=== PATIENT | female | born 1935 | race Caucasian/White ===

== ENCOUNTER 2019-06-16 20:30 | Inpatient (IN) | payer MEDICARE, MEDICAID ==
[~2019-06-16] VITALS: Ht 162.6 cm; Wt 65.3 kg
[2019-06-16 21:01] LABS: BASOPHILS # (AUTO) 0.1 K/uL (0.0-8.0); BASOPHILS % (AUTO) 0.8 % (0.0-2.0); EOSINOPHILS # (AUTO) 0.1 K/uL (0.0-0.7); EOSINOPHILS % (AUTO) 1.1 % (0.0-7.0); HEMATOCRIT 24.5 % (31.2-41.9); HEMOGLOBIN 7.7 g/dL (10.9-14.3); LYMPHOCYTES % (AUTO) 8.6 % (20.5-51.5); MEAN CORPUSCULAR HEMOGLOBIN 28.7 uug (24.7-32.8); MEAN CORPUSCULAR HGB CONC 32 g/dL (32.3-35.6); MEAN CORPUSCULAR VOLUME 90.7 fL (75.5-95.3); MONOCYTES # (AUTO) 0.7 K/uL (2.0-10.0); MONOCYTES % (AUTO) 5.6 % (0.0-11.0); NEUTROPHILS % (AUTO) 83.9 % (38.5-71.5); PLATELET COUNT (AUTO) 594 K/uL (179-408); WHITE BLOOD COUNT (AUTO) 11.9 K/uL (3.8-11.8)
[2019-06-16 21:08] LABS: CARBON DIOXIDE 29 mmol/L (21-32); CHLORIDE 98 mmol/L (98-107); CREATININE 2.4 mg/dL (0.6-1.3); GLUCOSE 94 mg/dL (74-106); POTASSIUM 4.9 mmol/L (3.5-5.1); UREA NITROGEN, BLOOD 32 mg/dL (7-18)
[2019-06-16 21:10] VITALS: BP 132/69
[2019-06-16] MEDS ORDERED: LEVO500T90 IV (21:16)
[2019-06-16] MEDS ORDERED: AMIO200T4 PO (21:16)
[2019-06-16] MEDS ORDERED: LEVE500T20 PO (21:16)
[2019-06-16] MEDS ORDERED: FURO-152 PO (21:16)
[2019-06-16] MEDS ORDERED: ESCI20TA37 PO (21:16)
[2019-06-16] MEDS ORDERED: ATOR80TA PO (21:16)
[2019-06-16] MEDS ORDERED: CYAN100T3 PO (21:16)
[2019-06-16] MEDS ORDERED: APIX2.5T PO (21:16)
[2019-06-16] MEDS ORDERED: GABA-532 PO (21:16)
[2019-06-16] MEDS ORDERED: CHOL200078 PO (21:16)
[2019-06-16] MEDS ORDERED: FAMO20TA8 PO (21:16)
[2019-06-16] MEDS ORDERED: NITR0.4T SL (21:16)
[2019-06-16] MEDS ORDERED: METO25TA6 PO (21:16)
[2019-06-16] MEDS ORDERED: ACID1TAB4 PO (21:16)
[2019-06-16] MEDS ORDERED: ACET-2154 PO (21:16)
[2019-06-16] MEDS ORDERED: ALBU1.25 NEB (21:16)
[2019-06-16] MEDS ORDERED: FOLI1TAB16 PO (21:16)
[2019-06-16] MEDS ORDERED: POTA10TA10 PO (21:16)
[2019-06-16] MEDS ORDERED: ASPI81TA31 PO (21:16)
[2019-06-16] MEDS ORDERED: NITROGLYCERIN 0.4 MG/TAB BOTTLE SL SCH (22:15)
[2019-06-16] MEDS ORDERED: TEMAZEPAM 15 MG CAPSULE PO PRN (22:15)
[2019-06-16] MEDS ORDERED: ONDANSETRON 4 MG/2 ML VIAL IV PRN (22:15)
[2019-06-16] MEDS ORDERED: ALBUTEROL SULFATE 2.5 MG/3 ML NEBU NEB PRN (22:15)
[2019-06-17] VITALS (31 sets, daily range): BP systolic 87–153; BP diastolic 30–89
[2019-06-17] MEDS: PIPERACILLIN/TAZO 2.25 G in IV DEXTROSE 5% 50 ML IV SCH ×2 (00:35→06:12)
[2019-06-17] MEDS ORDERED: HEPARIN SODIUM,PORCINE 10,000 UNITS/10 ML VIAL IVP ONE (02:00)
[2019-06-17] MEDS ORDERED: HEPARIN SODIUM,PORCINE 5,000 UNITS/ML VIAL ONE (02:23)
[2019-06-17 02:33] LABS: *BILIRUBIN,URIN NEGATIVE (NEGATIVE); *BLOOD, URINE NEGATIVE (NEGATIVE); *CLARITY,URINE CLEAR (CLEAR); *COLOR,URINE YELLOW (YELLOW); *KETONES,URINE NEGATIVE (NEGATIVE); *UROBILINOGEN,URINE 0.2 E.U./dl (NORMAL); LEUKOCYTE ESTERASE ,URINE NEGATIVE (NEGATIVE); NITRITE, URINE NEGATIVE (NEGATIVE); UGLUCOSE NEGATIVE (NEGATIVE)
[2019-06-17 02:39] LABS: BACTERIA,URINE NONE SEEN /HPF (NONE SEEN); MUCUS,URINE FEW /LPF (0-FEW); RBC,URINE 0-3 /HPF (0-3); SQUAMOUS EPITHELIAL CELL,UR MODERATE /HPF (NONE SEEN); WBC,URINE 0-3 /HPF (0-3)
[2019-06-17] MEDS ORDERED: HEPARIN SODIUM,PORCINE 5,000 UNITS/ML VIAL IV SCH (02:45)
[2019-06-17] MEDS: HEPARIN/D5W DRIP 500 ML IV PRN (02:45)
[2019-06-17 05:23] LABS: ALANINE AMINOTRANSFERASE 7 U/L (14-59); ALKALINE PHOSPHATASE 61 U/L (50-136); ASPARTATE AMINOTRANSFERASE 9 U/L (15-37); BILIRUBIN,TOTAL 0.3 mg/dL (0.2-1.0); CARBON DIOXIDE 29 mmol/L (21-32); CHLORIDE 98 mmol/L (98-107); CHOLESTEROL 124 mg/dL (<200); CREATININE 2.5 mg/dL (0.6-1.3); GLUCOSE 108 mg/dL (74-106); HDL CHOLESTEROL 29 mg/dL (40-60); MAGNESIUM 1.6 mg/dL (1.8-2.4); PHOSPHOROUS 4.4 mg/dL (2.5-4.9); POTASSIUM 4.5 mmol/L (3.5-5.1); TOTAL PROTEIN, SERUM 6.9 g/dL (6.4-8.2); TRIGLYCERIDES 49 MG/DL (30-150); UREA NITROGEN, BLOOD 31 mg/dL (7-18)
[2019-06-17 05:32] LABS: THYROID STIMULATING HORMONE 4.306 mIU/mL (0.358-3.740)
[2019-06-17 05:45] LABS: BASOPHILS # (AUTO) 0.1 K/uL (0.0-8.0); BASOPHILS % (AUTO) 0.7 % (0.0-2.0); EOSINOPHILS # (AUTO) 0.2 K/uL (0.0-0.7); EOSINOPHILS % (AUTO) 1.8 % (0.0-7.0); HEMATOCRIT 24.2 % (31.2-41.9); HEMOGLOBIN 7.8 g/dL (10.9-14.3); LYMPHOCYTES # (AUTO) 1.2 K/uL (20.0-40.0); LYMPHOCYTES % (AUTO) 9.5 % (20.5-51.5); MEAN CORPUSCULAR HEMOGLOBIN 29.9 uug (24.7-32.8); MEAN CORPUSCULAR HGB CONC 32 g/dL (32.3-35.6); MEAN CORPUSCULAR VOLUME 93.5 fL (75.5-95.3); MONOCYTES # (AUTO) 0.7 K/uL (2.0-10.0); MONOCYTES % (AUTO) 5.7 % (0.0-11.0); NEUTROPHILS # (AUTO) 10.2 K/uL (1.8-8.9); NEUTROPHILS % (AUTO) 82.3 % (38.5-71.5); PLATELET COUNT (AUTO) 569 K/uL (179-408); RED BLOOD CELL COUNT(AUTO) 2.59 MIL/uL (3.63-4.92); WHITE BLOOD COUNT (AUTO) 12.4 K/uL (3.8-11.8)
[2019-06-17 06:04] LABS: IRON, SERUM 21 ug/dL (50-175)
[2019-06-17] MEDS ORDERED: FUROSEMIDE 20 MG/2 ML VIAL IV PRN (08:00)
[2019-06-17] MEDS ORDERED: HEPARIN SODIUM,PORCINE 5,000 UNITS/ML VIAL IV PRN (08:30)
[2019-06-17] MEDS ORDERED: Medication Not On Formulary EA (Apixaban (Eliquis) 2.5 MG) PO SCH (09:00)
[2019-06-17] MEDS ORDERED: Medication Not On Formulary EA (Escitalopram Oxalate 1 TAB) PO SCH (09:00)
[2019-06-17] MEDS: MAGNESIUM SULFATE/D5W 100 ML IV SCH ×2 (09:02→10:42)
[2019-06-17] MEDS: FUROSEMIDE 20 MG/2 ML VIAL IV SCH (09:03)
[2019-06-17] MEDS: FAMOTIDINE 20 MG TABLET PO SCH (09:03)
[2019-06-17] MEDS: ASPIRIN 81 MG TAB.CHEW PO SCH (09:03)
[2019-06-17] MEDS: PROTEIN SUPPLEMENT (PROSTAT) 30 ML LIQUID PO SCH ×3 (09:03→17:14)
[2019-06-17] MEDS: METOPROLOL TARTRATE 25 MG TABLET PO SCH ×2 (09:04→17:00)
[2019-06-17] MEDS: ESCITALOPRAM OXALATE 10 MG TABLET PO SCH (09:04)
[2019-06-17] MEDS: ACIDOPHILUS/BULGARICUS CHEW TAB PO SCH ×2 (09:04→17:16)
[2019-06-17] MEDS: LEVETIRACETAM 500 MG TABLET PO SCH ×2 (09:04→17:16)
[2019-06-17] MEDS: AMIODARONE HCL 200 MG TABLET PO SCH (09:04)
[2019-06-17] MEDS ORDERED: TEMAZEPAM 7.5 MG CAPSULE PO PRN (10:00)
[2019-06-17] MEDS: GABAPENTIN 100 MG CAPSULE PO SCH ×3 (10:48→17:16)
[2019-06-17 10:55] LABS: *BILIRUBIN,URIN NEGATIVE (NEGATIVE); *CLARITY,URINE CLEAR (CLEAR); *COLOR,URINE YELLOW (YELLOW); *KETONES,URINE NEGATIVE (NEGATIVE); *UROBILINOGEN,URINE 0.2 E.U./dl (NORMAL); LEUKOCYTE ESTERASE ,URINE NEGATIVE (NEGATIVE); NITRITE, URINE NEGATIVE (NEGATIVE); UGLUCOSE NEGATIVE (NEGATIVE)
[2019-06-17 11:18] LABS: *BLOOD, URINE TRACE (NEGATIVE)
[2019-06-17 11:30] LABS: *CREATININE,URINE 27.6 mg/dL (30-125); *URINE TOTAL PROTEIN RANDOM 44.2 mg/dL (<150/24HR); RBC,URINE 0-3 /HPF (0-3)
[2019-06-17 11:31] LABS: SQUAMOUS EPITHELIAL CELL,UR FEW /HPF (NONE SEEN)
[2019-06-17] MEDS: MORPHINE SULFATE 2 MG/1 ML DISP.SYRIN IV PRN (12:36)
[2019-06-17] MEDS: PIPERACILLIN/TAZOBACTAM/D5W 3.375 G in PREMIXED 1 EACH IV SCH ×2 (12:41→23:38)
[2019-06-17 19:23] LABS: *OCCULT BLOOD STOOL NEGATIVE (NEGATIVE)
[2019-06-17] MEDS: ATORVASTATIN 20 MG TABLET PO SCH (20:36)
[2019-06-17] MEDS: DOCUSATE SODIUM 100 MG CAPSULE PO SCH (20:37)
[2019-06-17] MEDS ORDERED: DOCUSATE SODIUM 250 MG CAPSULE PO SCH (21:00)
[2019-06-18] VITALS (19 sets, daily range): BP systolic 102–157; BP diastolic 47–74
[2019-06-18] MEDS: HEPARIN/D5W DRIP 500 ML IV PRN (04:32)
[2019-06-18 06:37] LABS: BASOPHILS % (AUTO) 0.4 % (0.0-2.0); EOSINOPHILS # (AUTO) 0.3 K/uL (0.0-0.7); EOSINOPHILS % (AUTO) 2.4 % (0.0-7.0); HEMATOCRIT 27.4 % (31.2-41.9); HEMOGLOBIN 8.8 g/dL (10.9-14.3); LYMPHOCYTES # (AUTO) 1.5 K/uL (20.0-40.0); LYMPHOCYTES % (AUTO) 12.6 % (20.5-51.5); MEAN CORPUSCULAR HEMOGLOBIN 29.4 uug (24.7-32.8); MEAN CORPUSCULAR HGB CONC 32 g/dL (32.3-35.6); MEAN CORPUSCULAR VOLUME 91.1 fL (75.5-95.3); MONOCYTES # (AUTO) 0.6 K/uL (2.0-10.0); MONOCYTES % (AUTO) 5.2 % (0.0-11.0); NEUTROPHILS # (AUTO) 9.4 K/uL (1.8-8.9); NEUTROPHILS % (AUTO) 79.4 % (38.5-71.5); PLATELET COUNT (AUTO) 516 K/uL (179-408); RED BLOOD CELL COUNT(AUTO) 3.01 MIL/uL (3.63-4.92); WHITE BLOOD COUNT (AUTO) 11.8 K/uL (3.8-11.8)
[2019-06-18 07:03] LABS: ALANINE AMINOTRANSFERASE 6 U/L (14-59); ALKALINE PHOSPHATASE 70 U/L (50-136); ASPARTATE AMINOTRANSFERASE 13 U/L (15-37); BILIRUBIN,TOTAL 0.4 mg/dL (0.2-1.0); CARBON DIOXIDE 29 mmol/L (21-32); CHLORIDE 97 mmol/L (98-107); CREATINE KINASE, TOTAL 16 U/L (26-192); CREATININE 2.5 mg/dL (0.6-1.3); GLUCOSE 89 mg/dL (74-106); MAGNESIUM 2.1 mg/dL (1.8-2.4); PHOSPHOROUS 5.6 mg/dL (2.5-4.9); POTASSIUM 4.4 mmol/L (3.5-5.1); UREA NITROGEN, BLOOD 41 mg/dL (7-18)
[2019-06-18] MEDS ORDERED: Z GUARD REMEDY PASTE 57 GM TUBE TOP PRN (07:30)
[2019-06-18] MEDS: ASPIRIN 81 MG TAB.CHEW PO SCH (09:16)
[2019-06-18] MEDS: PROTEIN SUPPLEMENT (PROSTAT) 30 ML LIQUID PO SCH ×3 (09:16→18:02)
[2019-06-18] MEDS: LEVETIRACETAM 500 MG TABLET PO SCH ×2 (09:16→18:02)
[2019-06-18] MEDS: FAMOTIDINE 20 MG TABLET PO SCH (09:16)
[2019-06-18] MEDS: ACIDOPHILUS/BULGARICUS CHEW TAB PO SCH ×2 (09:18→18:03)
[2019-06-18] MEDS: GABAPENTIN 100 MG CAPSULE PO SCH ×3 (09:21→18:04)
[2019-06-18] MEDS: ESCITALOPRAM OXALATE 10 MG TABLET PO SCH (09:21)
[2019-06-18] MEDS: FUROSEMIDE 20 MG/2 ML VIAL IV SCH (09:22)
[2019-06-18] MEDS: AMIODARONE HCL 200 MG TABLET PO SCH (09:22)
[2019-06-18] MEDS: METOPROLOL TARTRATE 25 MG TABLET PO SCH ×2 (09:23→18:03)
[2019-06-18] MEDS: Z GUARD REMEDY PASTE 57 GM TUBE TOP SCH ×2 (09:25→22:12)
[2019-06-18] MEDS: PIPERACILLIN/TAZOBACTAM/D5W 3.375 G in PREMIXED 1 EACH IV SCH ×2 (13:33→23:50)
[2019-06-18] MEDS: ATORVASTATIN 20 MG TABLET PO SCH (22:11)
[2019-06-18] MEDS: DOCUSATE SODIUM 100 MG CAPSULE PO SCH (22:12)
[2019-06-19] VITALS (12 sets, daily range): BP systolic 109–126; BP diastolic 52–69
[2019-06-19] MEDS: HEPARIN/D5W DRIP 500 ML IV PRN (06:04)
[2019-06-19 06:51] LABS: BASOPHILS # (AUTO) 0.1 K/uL (0.0-8.0); EOSINOPHILS # (AUTO) 0.5 K/uL (0.0-0.7); EOSINOPHILS % (AUTO) 3.4 % (0.0-7.0); HEMOGLOBIN 8.8 g/dL (10.9-14.3); LYMPHOCYTES % (AUTO) 6.6 % (20.5-51.5); MEAN CORPUSCULAR HEMOGLOBIN 29.6 uug (24.7-32.8); MEAN CORPUSCULAR HGB CONC 32 g/dL (32.3-35.6); MEAN CORPUSCULAR VOLUME 91.5 fL (75.5-95.3); MONOCYTES # (AUTO) 0.8 K/uL (2.0-10.0); MONOCYTES % (AUTO) 5.4 % (0.0-11.0); NEUTROPHILS # (AUTO) 12.3 K/uL (1.8-8.9); NEUTROPHILS % (AUTO) 83.6 % (38.5-71.5); PLATELET COUNT (AUTO) 525 K/uL (179-408); RED BLOOD CELL COUNT(AUTO) 2.95 MIL/uL (3.63-4.92); WHITE BLOOD COUNT (AUTO) 14.7 K/uL (3.8-11.8)
[2019-06-19 07:08] LABS: ALANINE AMINOTRANSFERASE 9 U/L (14-59); ALKALINE PHOSPHATASE 78 U/L (50-136); ASPARTATE AMINOTRANSFERASE 18 U/L (15-37); BILIRUBIN,TOTAL 0.3 mg/dL (0.2-1.0); CARBON DIOXIDE 29 mmol/L (21-32); CHLORIDE 95 mmol/L (98-107); CREATININE 2.4 mg/dL (0.6-1.3); GLUCOSE 91 mg/dL (74-106); PHOSPHOROUS 5.6 mg/dL (2.5-4.9); POTASSIUM 4.5 mmol/L (3.5-5.1); UREA NITROGEN, BLOOD 51 mg/dL (7-18)
[2019-06-19] MEDS: Z GUARD REMEDY PASTE 57 GM TUBE TOP SCH ×2 (09:00→20:38)
[2019-06-19] MEDS: METOPROLOL TARTRATE 25 MG TABLET PO SCH ×2 (09:00→17:17)
[2019-06-19] MEDS: FUROSEMIDE 20 MG/2 ML VIAL IV SCH (09:50)
[2019-06-19] MEDS: FAMOTIDINE 20 MG TABLET PO SCH (09:50)
[2019-06-19] MEDS: PROTEIN SUPPLEMENT (PROSTAT) 30 ML LIQUID PO SCH ×3 (09:50→16:37)
[2019-06-19] MEDS: ESCITALOPRAM OXALATE 10 MG TABLET PO SCH (09:51)
[2019-06-19] MEDS: AMIODARONE HCL 200 MG TABLET PO SCH (09:51)
[2019-06-19] MEDS: ACIDOPHILUS/BULGARICUS CHEW TAB PO SCH ×2 (09:52→17:17)
[2019-06-19] MEDS: LEVETIRACETAM 500 MG TABLET PO SCH ×2 (09:52→17:19)
[2019-06-19] MEDS: GABAPENTIN 100 MG CAPSULE PO SCH ×3 (09:52→17:17)
[2019-06-19] MEDS: ASPIRIN 81 MG TAB.CHEW PO SCH (09:55)
[2019-06-19] MEDS: PIPERACILLIN/TAZOBACTAM/D5W 3.375 G in PREMIXED 1 EACH IV SCH (12:06)
[2019-06-19] MEDS: ATORVASTATIN 20 MG TABLET PO SCH (20:38)
[2019-06-19] MEDS: DOCUSATE SODIUM 100 MG CAPSULE PO SCH (20:38)
[2019-06-20] VITALS (9 sets, daily range): BP systolic 104–121; BP diastolic 48–56
[2019-06-20] MEDS: PIPERACILLIN/TAZOBACTAM/D5W 3.375 G in PREMIXED 1 EACH IV SCH ×3 (00:57→23:52)
[2019-06-20 05:42] LABS: BASOPHILS # (AUTO) 0.1 K/uL (0.0-8.0); BASOPHILS % (AUTO) 0.6 % (0.0-2.0); EOSINOPHILS # (AUTO) 0.3 K/uL (0.0-0.7); EOSINOPHILS % (AUTO) 2.5 % (0.0-7.0); HEMATOCRIT 27.9 % (31.2-41.9); LYMPHOCYTES % (AUTO) 7.2 % (20.5-51.5); MEAN CORPUSCULAR HEMOGLOBIN 29.4 uug (24.7-32.8); MEAN CORPUSCULAR HGB CONC 32 g/dL (32.3-35.6); MEAN CORPUSCULAR VOLUME 91.2 fL (75.5-95.3); MONOCYTES # (AUTO) 0.7 K/uL (2.0-10.0); NEUTROPHILS # (AUTO) 11.1 K/uL (1.8-8.9); NEUTROPHILS % (AUTO) 84.7 % (38.5-71.5); PLATELET COUNT (AUTO) 506 K/uL (179-408); RED BLOOD CELL COUNT(AUTO) 3.05 MIL/uL (3.63-4.92); WHITE BLOOD COUNT (AUTO) 13.1 K/uL (3.8-11.8)
[2019-06-20 05:53] LABS: CARBON DIOXIDE 32 mmol/L (21-32); CHLORIDE 96 mmol/L (98-107); CREATININE 2.7 mg/dL (0.6-1.3); GLUCOSE 89 mg/dL (74-106); MAGNESIUM 1.9 mg/dL (1.8-2.4); PHOSPHOROUS 5.9 mg/dL (2.5-4.9); POTASSIUM 4.5 mmol/L (3.5-5.1); UREA NITROGEN, BLOOD 48 mg/dL (7-18)
[2019-06-20] MEDS: HEPARIN/D5W DRIP 500 ML IV PRN (06:44)
[2019-06-20] MEDS: FUROSEMIDE 20 MG/2 ML VIAL IV SCH (09:25)
[2019-06-20] MEDS: METOPROLOL TARTRATE 25 MG TABLET PO SCH ×2 (09:26→17:19)
[2019-06-20] MEDS: ACIDOPHILUS/BULGARICUS CHEW TAB PO SCH ×2 (09:26→17:17)
[2019-06-20] MEDS: LEVETIRACETAM 500 MG TABLET PO SCH ×2 (09:27→17:17)
[2019-06-20] MEDS: AMIODARONE HCL 200 MG TABLET PO SCH (09:27)
[2019-06-20] MEDS: FAMOTIDINE 20 MG TABLET PO SCH (09:27)
[2019-06-20] MEDS: ESCITALOPRAM OXALATE 10 MG TABLET PO SCH (09:27)
[2019-06-20] MEDS: GABAPENTIN 100 MG CAPSULE PO SCH (09:28)
[2019-06-20] MEDS: ASPIRIN 81 MG TAB.CHEW PO SCH (09:28)
[2019-06-20] MEDS: PROTEIN SUPPLEMENT (PROSTAT) 30 ML LIQUID PO SCH ×3 (10:16→17:19)
[2019-06-20] MEDS: Z GUARD REMEDY PASTE 57 GM TUBE TOP SCH ×2 (13:15→20:15)
[2019-06-20] MEDS ORDERED: IV NORMAL SALINE 250 ML IV PRN (13:30)
[2019-06-20] MEDS: APIXABAN 5 MG TABLET PO SCH ×2 (15:12→20:14)
[2019-06-20 16:06] LABS: A/G RATIO 0.5 (0.7-1.7); ALBUMIN 2.1 g/dL (2.9-4.4); ALPHA-1-GLOBULIN 0.5 g/dL (0.0-0.4); ALPHA-2-GLOBULIN 0.7 g/dL (0.4-1.0); BETA GLOBULIN 0.9 g/dL (0.7-1.3); GAMMA GLOBULIN 2.2 g/dL (0.4-1.8); GLOBULIN, TOTAL 4.3 g/dL (2.2-3.9); M-SPIKE Not Observed g/dL (Not Observed)
[2019-06-20] MEDS: DOCUSATE SODIUM 100 MG CAPSULE PO SCH (20:14)
[2019-06-20] MEDS: ATORVASTATIN 20 MG TABLET PO SCH (20:14)
[2019-06-21 00:30] VITALS: BP 107/58
[2019-06-21 04:00] VITALS: BP 102/54
[2019-06-21] MEDS: ACETAMINOPHEN 325 MG TABLET PO PRN (05:13)
[2019-06-21 06:10] LABS: BASOPHILS # (AUTO) 0.1 K/uL (0.0-8.0); BASOPHILS % (AUTO) 0.7 % (0.0-2.0); EOSINOPHILS # (AUTO) 0.2 K/uL (0.0-0.7); EOSINOPHILS % (AUTO) 1.2 % (0.0-7.0); HEMATOCRIT 26.1 % (31.2-41.9); HEMOGLOBIN 8.4 g/dL (10.9-14.3); LYMPHOCYTES % (AUTO) 6.9 % (20.5-51.5); MEAN CORPUSCULAR HEMOGLOBIN 29.5 uug (24.7-32.8); MEAN CORPUSCULAR HGB CONC 32 g/dL (32.3-35.6); MONOCYTES # (AUTO) 0.6 K/uL (2.0-10.0); MONOCYTES % (AUTO) 4.3 % (0.0-11.0); NEUTROPHILS # (AUTO) 12.3 K/uL (1.8-8.9); NEUTROPHILS % (AUTO) 86.9 % (38.5-71.5); PLATELET COUNT (AUTO) 450 K/uL (179-408); RED BLOOD CELL COUNT(AUTO) 2.84 MIL/uL (3.63-4.92); WHITE BLOOD COUNT (AUTO) 14.1 K/uL (3.8-11.8)
[2019-06-21 06:56] LABS: ALANINE AMINOTRANSFERASE 6 U/L (14-59); ALKALINE PHOSPHATASE 71 U/L (50-136); ASPARTATE AMINOTRANSFERASE 9 U/L (15-37); BILIRUBIN,TOTAL 0.3 mg/dL (0.2-1.0); CARBON DIOXIDE 34 mmol/L (21-32); CHLORIDE 96 mmol/L (98-107); CREATININE 2.8 mg/dL (0.6-1.3); GLUCOSE 86 mg/dL (74-106); PHOSPHOROUS 5.3 mg/dL (2.5-4.9); POTASSIUM 4.5 mmol/L (3.5-5.1); TOTAL PROTEIN, SERUM 6.9 g/dL (6.4-8.2); UREA NITROGEN, BLOOD 50 mg/dL (7-18)
[2019-06-21] MEDS: ESCITALOPRAM OXALATE 10 MG TABLET PO SCH (08:33)
[2019-06-21] MEDS: ASPIRIN 81 MG TAB.CHEW PO SCH (08:33)
[2019-06-21] MEDS: GABAPENTIN 100 MG CAPSULE PO SCH (08:33)
[2019-06-21] MEDS: LEVETIRACETAM 500 MG TABLET PO SCH ×2 (08:33→16:59)
[2019-06-21] MEDS: FAMOTIDINE 20 MG TABLET PO SCH (08:33)
[2019-06-21] MEDS: ACIDOPHILUS/BULGARICUS CHEW TAB PO SCH ×2 (08:34→16:59)
[2019-06-21] MEDS: METOPROLOL TARTRATE 25 MG TABLET PO SCH ×2 (08:34→17:00)
[2019-06-21] MEDS: FUROSEMIDE 20 MG/2 ML VIAL IV SCH (08:34)
[2019-06-21] MEDS: AMIODARONE HCL 200 MG TABLET PO SCH (08:34)
[2019-06-21] MEDS: PROTEIN SUPPLEMENT (PROSTAT) 30 ML LIQUID PO SCH ×3 (08:35→17:00)
[2019-06-21] MEDS: APIXABAN 5 MG TABLET PO SCH (08:50)
[2019-06-21] MEDS: Z GUARD REMEDY PASTE 57 GM TUBE TOP SCH ×2 (08:52→20:52)
[2019-06-21 11:35] VITALS: BP 115/62
[2019-06-21] MEDS: MORPHINE SULFATE 2 MG/1 ML DISP.SYRIN IV PRN (11:51)
[2019-06-21] MEDS: PIPERACILLIN/TAZOBACTAM/D5W 3.375 G in PREMIXED 1 EACH IV SCH (11:57)
[2019-06-21 15:18] VITALS: BP 97/45
[2019-06-21 18:45] VITALS: BP 98/47
[2019-06-21 20:30] VITALS: BP 101/48
[2019-06-21] MEDS: DOCUSATE SODIUM 100 MG CAPSULE PO SCH (20:51)
[2019-06-21] MEDS: ATORVASTATIN 20 MG TABLET PO SCH (20:51)
[2019-06-22] VITALS: BP 105/62
[2019-06-22] MEDS: PIPERACILLIN/TAZOBACTAM/D5W 3.375 G in PREMIXED 1 EACH IV SCH (00:12)
[2019-06-22 04:00] VITALS: BP 100/72
[2019-06-22] MEDS: GABAPENTIN 100 MG CAPSULE PO SCH (08:44)
[2019-06-22] MEDS: LEVETIRACETAM 500 MG TABLET PO SCH ×2 (08:44→17:07)
[2019-06-22] MEDS: FAMOTIDINE 20 MG TABLET PO SCH (08:45)
[2019-06-22] MEDS: ESCITALOPRAM OXALATE 10 MG TABLET PO SCH (08:45)
[2019-06-22] MEDS: ACIDOPHILUS/BULGARICUS CHEW TAB PO SCH ×2 (08:45→17:07)
[2019-06-22 08:47] LABS: BASOPHILS # (AUTO) 0.1 K/uL (0.0-8.0); BASOPHILS % (AUTO) 0.8 % (0.0-2.0); EOSINOPHILS # (AUTO) 0.3 K/uL (0.0-0.7); EOSINOPHILS % (AUTO) 2.3 % (0.0-7.0); HEMATOCRIT 27.6 % (31.2-41.9); HEMOGLOBIN 8.8 g/dL (10.9-14.3); LYMPHOCYTES # (AUTO) 0.8 K/uL (20.0-40.0); LYMPHOCYTES % (AUTO) 5.6 % (20.5-51.5); MEAN CORPUSCULAR HEMOGLOBIN 29.8 uug (24.7-32.8); MEAN CORPUSCULAR HGB CONC 32 g/dL (32.3-35.6); MEAN CORPUSCULAR VOLUME 93.7 fL (75.5-95.3); MONOCYTES # (AUTO) 0.6 K/uL (2.0-10.0); MONOCYTES % (AUTO) 4.2 % (0.0-11.0); NEUTROPHILS # (AUTO) 12.2 K/uL (1.8-8.9); NEUTROPHILS % (AUTO) 87.1 % (38.5-71.5); PLATELET COUNT (AUTO) 449 K/uL (179-408); RED BLOOD CELL COUNT(AUTO) 2.95 MIL/uL (3.63-4.92)
[2019-06-22] MEDS: PROTEIN SUPPLEMENT (PROSTAT) 30 ML LIQUID PO SCH ×3 (08:48→17:08)
[2019-06-22] MEDS: ASPIRIN 81 MG TAB.CHEW PO SCH (08:48)
[2019-06-22] MEDS: Z GUARD REMEDY PASTE 57 GM TUBE TOP SCH ×2 (08:49→20:36)
[2019-06-22 08:52] LABS: CARBON DIOXIDE 32 mmol/L (21-32); CHLORIDE 96 mmol/L (98-107); CREATININE 2.8 mg/dL (0.6-1.3); GLUCOSE 76 mg/dL (74-106); PHOSPHOROUS 5.4 mg/dL (2.5-4.9); POTASSIUM 4.7 mmol/L (3.5-5.1); UREA NITROGEN, BLOOD 50 mg/dL (7-18)
[2019-06-22] MEDS ORDERED: FUROSEMIDE 20 MG TABLET PO SCH (09:00)
[2019-06-22] MEDS: METOPROLOL TARTRATE 25 MG TABLET PO SCH ×2 (09:50→17:00)
[2019-06-22] MEDS: AMIODARONE HCL 200 MG TABLET PO SCH (09:50)
[2019-06-22 11:17] VITALS: BP 117/52
[2019-06-22] MEDS: ACETAMINOPHEN 325 MG TABLET PO PRN (11:31)
[2019-06-22 15:53] VITALS: BP 119/47
[2019-06-22] MEDS ORDERED: FUROSEMIDE 40 MG/4 ML VIAL IV ONE (16:00)
[2019-06-22] MEDS: APIXABAN 5 MG TABLET PO SCH (17:11)
[2019-06-22 20:30] VITALS: BP 107/48
[2019-06-22] MEDS: DOCUSATE SODIUM 100 MG CAPSULE PO SCH (20:34)
[2019-06-22] MEDS: ATORVASTATIN 20 MG TABLET PO SCH (20:34)
[2019-06-23] MEDS: MORPHINE SULFATE 2 MG/1 ML DISP.SYRIN IV PRN ×2 (02:11→02:14)
[2019-06-23 05:36] VITALS: BP 107/50
[2019-06-23 06:31] LABS: BASOPHILS # (AUTO) 0.1 K/uL (0.0-8.0); BASOPHILS % (AUTO) 1.1 % (0.0-2.0); EOSINOPHILS # (AUTO) 0.1 K/uL (0.0-0.7); EOSINOPHILS % (AUTO) 1.2 % (0.0-7.0); HEMATOCRIT 25.8 % (31.2-41.9); HEMOGLOBIN 8.2 g/dL (10.9-14.3); LYMPHOCYTES % (AUTO) 8.3 % (20.5-51.5); MEAN CORPUSCULAR HEMOGLOBIN 28.9 uug (24.7-32.8); MEAN CORPUSCULAR HGB CONC 32 g/dL (32.3-35.6); MEAN CORPUSCULAR VOLUME 91.5 fL (75.5-95.3); MONOCYTES # (AUTO) 0.6 K/uL (2.0-10.0); MONOCYTES % (AUTO) 5.1 % (0.0-11.0); NEUTROPHILS # (AUTO) 10.4 K/uL (1.8-8.9); NEUTROPHILS % (AUTO) 84.3 % (38.5-71.5); PLATELET COUNT (AUTO) 424 K/uL (179-408); RED BLOOD CELL COUNT(AUTO) 2.82 MIL/uL (3.63-4.92); WHITE BLOOD COUNT (AUTO) 12.3 K/uL (3.8-11.8)
[2019-06-23 06:48] LABS: CARBON DIOXIDE 36 mmol/L (21-32); CHLORIDE 96 mmol/L (98-107); CREATININE 2.8 mg/dL (0.6-1.3); GLUCOSE 85 mg/dL (74-106); PHOSPHOROUS 5.4 mg/dL (2.5-4.9); POTASSIUM 4.4 mmol/L (3.5-5.1); UREA NITROGEN, BLOOD 57 mg/dL (7-18)
[2019-06-23] MEDS: METOPROLOL TARTRATE 25 MG TABLET PO SCH ×2 (09:00→17:00)
[2019-06-23] MEDS ORDERED: FUROSEMIDE 20 MG TABLET PO SCH (09:00)
[2019-06-23] MEDS: ACIDOPHILUS/BULGARICUS CHEW TAB PO SCH ×2 (09:39→18:22)
[2019-06-23] MEDS: LEVETIRACETAM 500 MG TABLET PO SCH ×2 (09:39→18:22)
[2019-06-23] MEDS: PROTEIN SUPPLEMENT (PROSTAT) 30 ML LIQUID PO SCH ×3 (09:39→17:00)
[2019-06-23] MEDS: GABAPENTIN 100 MG CAPSULE PO SCH (09:39)
[2019-06-23] MEDS: ESCITALOPRAM OXALATE 10 MG TABLET PO SCH (09:39)
[2019-06-23] MEDS: FAMOTIDINE 20 MG TABLET PO SCH (09:39)
[2019-06-23] MEDS: ASPIRIN 81 MG TAB.CHEW PO SCH (09:40)
[2019-06-23] MEDS: AMIODARONE HCL 200 MG TABLET PO SCH (09:48)
[2019-06-23] MEDS: APIXABAN 5 MG TABLET PO SCH ×2 (09:48→18:23)
[2019-06-23] MEDS: Z GUARD REMEDY PASTE 57 GM TUBE TOP SCH (09:49)
[2019-06-23 11:23] VITALS: BP 111/52
[2019-06-23 15:07] VITALS: BP 116/47
== END 2019-06-23 20:10 | DRG 871 ==
LOC: ER 20:30 → TELE3 21:40 → CCU 06-17 00:01 → TELE-TD 06-20 00:54 → TELE-TD3 06-20 01:03 → CCU 06-20 06:08 → TELE3 06-20 18:30 → MEDSURG3 06-22 15:03
PROVIDERS: ADMIT Internal Medicine; ATTEND Internal Medicine
PROC: 30233N1 Transfusion of Nonautologous Red Blood Cells into Peripheral Vein, Percutaneous Approach (ICD-10-PCS; principal; 2019-06-17)
DX: A41.9 Sepsis, unspecified organism (principal); J18.1 Lobar pneumonia, unspecified organism; I50.43 Acute on chronic combined systolic (congestive) and diastolic (congestive) heart failure; E43 Unspecified severe protein-calorie malnutrition; I21.A1 Myocardial infarction type 2; G92 Toxic encephalopathy; J96.01 Acute respiratory failure with hypoxia; N17.0 Acute kidney failure with tubular necrosis; I13.0 Hypertensive heart and chronic kidney disease with heart failure and stage 1 through stage 4 chronic kidney disease, or unspecified chronic kidney disease; N18.4 Chronic kidney disease, stage 4 (severe); E87.1 Hypo-osmolality and hyponatremia; N13.30 Unspecified hydronephrosis; D68.59 Other primary thrombophilia; Z87.01 Personal history of pneumonia (recurrent); Z86.718 Personal history of other venous thrombosis and embolism; Z79.01 Long term (current) use of anticoagulants; I48.0 Paroxysmal atrial fibrillation; I25.5 Ischemic cardiomyopathy; Z68.24 Body mass index [BMI] 24.0-24.9, adult; E78.5 Hyperlipidemia, unspecified; G40.909 Epilepsy, unspecified, not intractable, without status epilepticus; Z90.710 Acquired absence of both cervix and uterus; N81.4 Uterovaginal prolapse, unspecified; M81.0 Age-related osteoporosis without current pathological fracture; M47.9 Spondylosis, unspecified; I25.2 Old myocardial infarction; I44.1 Atrioventricular block, second degree; I25.10 Atherosclerotic heart disease of native coronary artery without angina pectoris; R26.81 Unsteadiness on feet; G62.9 Polyneuropathy, unspecified; F03.90 Unspecified dementia, unspecified severity, without behavioral disturbance, psychotic disturbance, mood disturbance, and anxiety; F32.9 Major depressive disorder, single episode, unspecified; F41.9 Anxiety disorder, unspecified; I34.0 Nonrheumatic mitral (valve) insufficiency; Z91.81 History of falling; M48.02 Spinal stenosis, cervical region; Z79.899 Other long term (current) drug therapy; Z74.09 Other reduced mobility; R91.8 Other nonspecific abnormal finding of lung field
CPT/HCPCS: 36415; 70030-TC; 70450; 71045; 71250; 76604; 76770; 83550; 83615; 83735; 83970; 84100; 84155; 84156; 84165; 84300; 84443; 85025; 85610; 85730; 86850; 86900; 86901; 86920; 87040; 87086; 87400; 93005; 93307; 93880; A4663; G0378; J1644; J1940; J2270; J2543; J3475; J7050; J7060; P9016-BL; P9021

== ENCOUNTER 2019-09-25 03:25 | Inpatient (IN) | payer MEDICARE, OTHER ==
[2019-09-25] VITALS (52 sets, daily range): BP systolic 80–170; BP diastolic 49–87
[~2019-09-25] VITALS: Ht 157.5 cm; Wt 45.8 kg
--- NOTE | 2019-09-25 03:40 | NUR ---
Dr. Patel at bedside for MSE.
[2019-09-25] MEDS ORDERED: LEVOFLOXACIN 750MG/D5W 150 ML IV ONE ×2 (03:45→04:02)
[2019-09-25] MEDS ORDERED: CEFTRIAXONE 1 G in IV DEXTROSE 5% 50 ML IV ONE (03:45)
[2019-09-25] MEDS ORDERED: IV NORMAL SALINE 1000 ML BAG IV ONE (03:45)
[2019-09-25] MEDS ORDERED: MORPHINE SULFATE 4 MG/1 ML DISP.SYRIN IV ONE ×2 (03:45→05:30)
[2019-09-25] MEDS ORDERED: MORPHINE SULFATE 4 MG/1 ML DISP.SYRIN ONE ×2 (04:01→05:30)
[2019-09-25] MEDS ORDERED: CEFTRIAXONE 1 G VIAL ONE (04:01)
--- NOTE | 2019-09-25 04:04 | NUR ---
RT at bedside [facility] at bedside
--- NOTE | 2019-09-25 04:06 | NUR ---
Xray at bedside.
[2019-09-25 04:08] LABS: ABG BASE EXCESS -2.2 mmol/L; ABG HCO3 21.3 mmol/L; ABG PCO2 31.7 mmHg (35.0-45.0); ABG PH 7.446 (7.350-7.450); ABG PO2 84.8 mmHg (75.0-100.0); ABG SITE RIGHT RADIAL; ABG TOTAL HEMOGLOBIN 8.8 G/dL (12.0-16.0); COHb 1.6 % (0.5-1.5); MetHb 0.2 % (0.0-1.5); O2Hb 94.6 % (94.0-97.0); VENT MODE Nasal Cannula
[2019-09-25 04:20] LABS: HEMATOCRIT 27.1 % (31.2-41.9); HEMOGLOBIN 8.8 g/dL (10.9-14.3); LYMPHOCYTES # (AUTO) 0.1 K/uL (20.0-40.0); LYMPHOCYTES % (AUTO) 1.3 % (20.5-51.5); MEAN CORPUSCULAR HEMOGLOBIN 29.7 uug (24.7-32.8); MEAN CORPUSCULAR HGB CONC 32 g/dL (32.3-35.6); MEAN CORPUSCULAR VOLUME 91.7 fL (75.5-95.3); MONOCYTES # (AUTO) 0.1 K/uL (2.0-10.0); MONOCYTES % (AUTO) 1.3 % (0.0-11.0); NEUTROPHILS # (AUTO) 11.2 K/uL (1.8-8.9); NEUTROPHILS % (AUTO) 97.4 % (38.5-71.5); PLATELET COUNT (AUTO) 400 K/uL (179-408); RED BLOOD CELL COUNT(AUTO) 2.96 MIL/uL (3.63-4.92); WHITE BLOOD COUNT (AUTO) 11.5 K/uL (3.8-11.8)
[2019-09-25 04:26] LABS: CARBON DIOXIDE 23 mmol/L (21-32); CHLORIDE 106 mmol/L (98-107); CREATININE 1.9 mg/dL (0.6-1.3); GLUCOSE 158 mg/dL (74-106); UREA NITROGEN, BLOOD 78 mg/dL (7-18)
[2019-09-25 04:29] LABS: POTASSIUM 2.6 mmol/L (3.5-5.1)
--- NOTE | 2019-09-25 04:30 | NUR ---
Inserted corbett catheter, pt tolerated procedure well, urine sample sent to lab.
[2019-09-25 04:38] LABS: ALANINE AMINOTRANSFERASE < 6 U/L (14-59); ALKALINE PHOSPHATASE 64 U/L (50-136); ASPARTATE AMINOTRANSFERASE 17 U/L (15-37); BILIRUBIN,DIRECT 0.5 mg/dL (0.0-0.2); BILIRUBIN,TOTAL 0.9 mg/dL (0.2-1.0)
--- NOTE | 2019-09-25 04:39 | NUR ---
Called [facility] to shania Trotter NP.
[2019-09-25 04:41] LABS: *BILIRUBIN,URIN NEGATIVE (NEGATIVE); *CLARITY,URINE CLOUDY (CLEAR); *COLOR,URINE YELLOW (YELLOW); *KETONES,URINE TRACE (NEGATIVE); *UROBILINOGEN,URINE 0.2 E.U./dl (NORMAL); LEUKOCYTE ESTERASE ,URINE TRACE (NEGATIVE); NITRITE, URINE NEGATIVE (NEGATIVE); PH,URINE 7.5 (5.0-8.0); UGLUCOSE NEGATIVE (NEGATIVE)
[2019-09-25] MEDS ORDERED: POTASSIUM CHLORIDE 50 ML ONE (04:43)
[2019-09-25] MEDS ORDERED: POTASSIUM CHLORIDE 50 ML IV ONE (04:45)
[2019-09-25 04:49] LABS: *BLOOD, URINE TRACE (NEGATIVE)
--- NOTE | 2019-09-25 04:50 | NUR ---
Dr. Patel on panel call with Kiran Trotter. Patient accepted for admission to CCU under [facility] status, diagnosis: pneumonia, hypokalemia.
--- NOTE | 2019-09-25 04:53 | NUR ---
Called [facility] for [facility] or [facility] beds, no beds available until dayshift.
[2019-09-25 04:56] LABS: RBC,URINE 0-3 /HPF (0-3); WBC,URINE 0-3 /HPF (0-3)
[2019-09-25 04:57] LABS: BACTERIA,URINE 3+ /HPF (NONE SEEN); SQUAMOUS EPITHELIAL CELL,UR FEW /HPF (NONE SEEN)
[2019-09-25] MEDS ORDERED: NITROGLYCERIN 0.4 MG/TAB BOTTLE SL PRN (05:00)
[2019-09-25] MEDS ORDERED: ONDANSETRON 4 MG/2 ML VIAL IV PRN (05:00)
[2019-09-25] MEDS ORDERED: ACETAMINOPHEN 650 MG SUPP.RECT RC PRN (05:00)
[2019-09-25] MEDS ORDERED: HYDROCODONE/APAP 5-325MG TABLET PO PRN (05:00)
[2019-09-25] MEDS ORDERED: MORPHINE SULFATE 2 MG/1 ML DISP.SYRIN IV PRN (05:00)
[2019-09-25] MEDS ORDERED: PIPERACILLIN SODIUM/TAZOBACTAM 3.375 G in IV DEXTROSE 5% 50 ML IV SCH (06:00)
--- NOTE | 2019-09-25 06:08 | NUR ---
Respiratory at bedside in preparation for intubation.
--- NOTE | 2019-09-25 06:10 | NUR ---
20mg etomidate given thru IV to left AC 20G
--- NOTE | 2019-09-25 06:11 | NUR ---
Succinylcholine 100mg given at 0611 to IV left AC 20G
--- NOTE | 2019-09-25 06:13 | NUR ---
Pt intubated by Dr. Patel size 7
[2019-09-25] MEDS ORDERED: ETOMIDATE 20 MG/10 ML VIAL IV ONE (06:15)
[2019-09-25] MEDS ORDERED: PROPOFOL 100 ML ONE (06:15)
[2019-09-25] MEDS ORDERED: SUCCINYLCHOLINE CHLORIDE 200 MG/10 ML VIAL IV ONE (06:15)
[2019-09-25] MEDS ORDERED: PROPOFOL 100 ML IV PRN (06:15)
[2019-09-25] MEDS ORDERED: PROPOFOL 200 MG/20 ML BOTTLE IV ONE (06:15)
--- NOTE | 2019-09-25 06:15 | NUR ---
Pt orally intubated successfully by Dr. Nam in Emergency department with 7.0 ETT. Pt placed on continuous mechanical ventilation and placed on ordered settings of A/C-16, VT-450, PEEP+5, FIO2-60% Good color changed on capnography. Equal and bilateral breath sounds. ETT sercured at 23cm lip line with AnchorFast device. Vent alarm parameters checked, on and audible. Sxn'd and sputum sent to lab. Vent plugged into red emergency outlet. Will continue to monitor.
--- NOTE | 2019-09-25 06:23 | NUR ---
Xray at bedside to confirm placement.
[2019-09-25 06:41] LABS: ABG BASE EXCESS -6.5 mmol/L; ABG HCO3 19.9 mmol/L; ABG PCO2 43.8 mmHg (35.0-45.0); ABG PH 7.276 (7.350-7.450); ABG PO2 160.9 mmHg (75.0-100.0); ABG SITE LEFT RADIAL; ABG TOTAL HEMOGLOBIN 8.7 G/dL (12.0-16.0); COHb 1.4 % (0.5-1.5); MetHb 0.1 % (0.0-1.5); O2Hb 97.6 % (94.0-97.0); VENT MODE VENT - A/C; VT, ABG 450 mL
--- NOTE | 2019-09-25 07:10 | NUR ---
Report given to Javier ALMEIDA dayshift.
--- NOTE | 2019-09-25 07:14 | NUR ---
RECIEVED PT IN BED, HR 127, SEEMS PT WAS RESISTING THE TUBES. INCREASED THE PROPOFOL RATE UNTIL PT CALM AND SUPPORTED BY BP. RATE AT 10MCG/MIN.
[2019-09-25] MEDS ORDERED: PIPERACILLIN/TAZOBACTAM/D5W 50 ML IV ONE (07:18)
--- NOTE | 2019-09-25 08:10 | NUR ---
TRANSFERED PT TO FLOOR ASSISSTED BY RT IN STABLE CONDITION.
--- NOTE | 2019-09-25 08:20 | NUR ---
RECEIVED PATIENT FROM ER. PATIENT TRANSFERRED TO CCU BED 1 WITH RT. PATIENT INTUBATED AND ON VENTILATOR VENT SETTINGS AC20, PEEP 5, FIO2 50% AND TIDAL VOLUME 450. NO ACUTE DISTRESS AT THIS TIME.
[2019-09-25] MEDS ORDERED: Medication Not On Formulary EA (Escitalopram Oxalate 1 TAB) PO SCH (09:00)
[2019-09-25] MEDS ORDERED: Medication Not On Formulary EA (Atorvastatin Calcium (Lipitor) 20 MG) PO SCH (09:00)
[2019-09-25] MEDS ORDERED: Medication Not On Formulary EA (Apixaban (Eliquis) 2.5 MG) PO SCH (09:00)
[2019-09-25] MEDS ORDERED: CYANOCOBALAMIN 100 MCG TABLET PO SCH (09:00)
[2019-09-25] MEDS ORDERED: BISACODYL 10 MG SUPP.RECT RC PRN (09:00)
[2019-09-25] MEDS ORDERED: ESCITALOPRAM OXALATE 10 MG TABLET PO SCH (09:00)
[2019-09-25] MEDS ORDERED: FLEET ENEMA 133 ML BOTTLE RC PRN (09:00)
[2019-09-25] MEDS ORDERED: METOPROLOL TARTRATE 25 MG TABLET PO SCH (09:00)
--- NOTE | 2019-09-25 09:28 | NUR ---
Clinical pharmacy note-Vancomycin dosing per pharmacy Subjective; To start Vancomycin dosing on this 84 year old female patient for sepsis(on Zosyn also) Objective: BUN 78 Scr 1.9 WBC 11.5 Temp 99.1 Ht 157.48cm Wt 43.998kg Assessment/Plan: Since renal function is unstable, will start Vancomycin dosing by fall-off random level. Vancomycin 750mg iv x1 will be given today at 1030 and random will be drawn tomorrow am (on order) for further dosing. Will follow daily.
--- NOTE | 2019-09-25 09:37 | NUR ---
A call to pulmonary services, for report of pt's arrival, message left and as informed will be coming soon.
[2019-09-25] MEDS: IV NS 1000 ML 1,000 ML IV PRN (10:05)
[2019-09-25] MEDS ORDERED: VANCOMYCIN IV 750 MG in IV DEXTROSE 5% 250 ML IV ONE (10:30)
[2019-09-25] MEDS: FUROSEMIDE 20 MG TABLET PO SCH (10:36)
[2019-09-25] MEDS: GABAPENTIN 100 MG CAPSULE PO SCH ×3 (10:36→22:01)
[2019-09-25] MEDS: FOLIC ACID 1 MG TABLET PO SCH (10:36)
[2019-09-25] MEDS: ASPIRIN 81 MG TAB.CHEW PO SCH (10:36)
[2019-09-25] MEDS: AMIODARONE HCL 200 MG TABLET PO SCH (10:37)
[2019-09-25] MEDS: FAMOTIDINE 20 MG TABLET PO SCH (10:38)
[2019-09-25] MEDS: LEVETIRACETAM 500 MG TABLET PO SCH ×2 (10:38→21:16)
[2019-09-25] MEDS: ACIDOPHILUS/BULGARICUS CHEW TAB PO SCH ×2 (10:38→17:22)
[2019-09-25] MEDS: DRONABINOL 2.5 MG CAPSULE PO SCH ×2 (10:38→17:22)
[2019-09-25] MEDS: CYANOCOBALAMIN 1,000 MCG TABLET PO SCH (10:39)
[2019-09-25] MEDS: CHOLECALCIFEROL 1,000 UNIT TABLET PO SCH (10:39)
[2019-09-25] MEDS: APIXABAN 5 MG TABLET PO SCH ×2 (10:40→17:23)
--- NOTE | 2019-09-25 11:00 | NUR ---
PULMONARY SERVICES DR. ARCHULETA IN THE UNIT, VIEW ORDER HISTORY FOR NEW ORDERS. DR ARCHULETA AT BEDSIDE ASSESSING PATIENT.
--- NOTE | 2019-09-25 11:20 | NUR ---
ID SERVICES IN THE UNIT NAN FULLER DESKIDDING MACHINE OPERATOR SEE ORDER HISTORY FOR NEW ORDERS. JONNY DESKIDDING MACHINE OPERATOR AT BEDSIDE ASSESSING PATIENT.
[2019-09-25] MEDS ORDERED: PHENYLEPHRINE IV 40 MG in IV DEXTROSE 5% 250 ML IV PRN (11:45)
[2019-09-25] MEDS ORDERED: NOREPINEPHRINE BITARTRATE 16 MG in IV DEXTROSE 5% 500 ML IV PRN (11:45)
[2019-09-25] MEDS: PHENYLEPHRINE IV 40 MG in IV DEXTROSE 5% 250 ML IV PRN ×2 (11:57→19:34)
[2019-09-25 12:47] LABS: BASOPHILS % (AUTO) 0.1 % (0.0-2.0); HEMATOCRIT 23.9 % (31.2-41.9); HEMOGLOBIN 7.6 g/dL (10.9-14.3); LYMPHOCYTES # (AUTO) 0.5 K/uL (20.0-40.0); LYMPHOCYTES % (AUTO) 3.5 % (20.5-51.5); MEAN CORPUSCULAR HEMOGLOBIN 29.8 uug (24.7-32.8); MEAN CORPUSCULAR HGB CONC 32 g/dL (32.3-35.6); MEAN CORPUSCULAR VOLUME 93.9 fL (75.5-95.3); MONOCYTES # (AUTO) 0.1 K/uL (2.0-10.0); MONOCYTES % (AUTO) 0.4 % (0.0-11.0); NEUTROPHILS # (AUTO) 13.2 K/uL (1.8-8.9); PLATELET COUNT (AUTO) 260 K/uL (179-408); RED BLOOD CELL COUNT(AUTO) 2.55 MIL/uL (3.63-4.92); WHITE BLOOD COUNT (AUTO) 13.7 K/uL (3.8-11.8)
[2019-09-25] MEDS ORDERED: PIPERACILLIN/TAZO 2.25 G in IV DEXTROSE 5% 50 ML IV ONE (13:00)
--- NOTE | 2019-09-25 13:00 | NUR ---
Attending physician Yovany Hernandez in the unit to see and examine patient, full report given.
[2019-09-25 13:03] LABS: ALANINE AMINOTRANSFERASE < 6 U/L (14-59); ALKALINE PHOSPHATASE 51 U/L (50-136); ASPARTATE AMINOTRANSFERASE 14 U/L (15-37); BILIRUBIN,TOTAL 0.5 mg/dL (0.2-1.0); CARBON DIOXIDE 22 mmol/L (21-32); CHLORIDE 107 mmol/L (98-107); CHOLESTEROL 82 mg/dL (<200); CREATININE 1.9 mg/dL (0.6-1.3); GLUCOSE 145 mg/dL (74-106); HDL CHOLESTEROL 10 mg/dL (40-60); MAGNESIUM 1.6 mg/dL (1.8-2.4); PHOSPHOROUS 1.4 mg/dL (2.5-4.9); TOTAL PROTEIN, SERUM 6.5 g/dL (6.4-8.2); TRIGLYCERIDES 138 MG/DL (30-150); UREA NITROGEN, BLOOD 70 mg/dL (7-18)
[2019-09-25 13:05] LABS: POTASSIUM 2.6 mmol/L (3.5-5.1)
[2019-09-25 13:23] LABS: THYROID STIMULATING HORMONE 1.376 mIU/mL (0.358-3.740)
[2019-09-25] MEDS ORDERED: ETOMIDATE 20 MG/10 ML VIAL MC ONE (13:36)
[2019-09-25] MEDS ORDERED: SUCCINYLCHOLINE CHLORIDE 200 MG/10 ML VIAL MC ONE (13:36)
[2019-09-25] MEDS: PROPOFOL 100 ML IV PRN (13:39)
[2019-09-25] MEDS: POTASSIUM PHOSPHATE MM 7.5 MMOL in IV DEXTROSE 5% 100 ML IV SCH ×2 (14:44→17:58)
[2019-09-25 17:21] LABS: CARBON DIOXIDE 22 mmol/L (21-32); CHLORIDE 106 mmol/L (98-107); CREATININE 1.7 mg/dL (0.6-1.3); GLUCOSE 160 mg/dL (74-106); UREA NITROGEN, BLOOD 67 mg/dL (7-18)
[2019-09-25 17:22] LABS: POTASSIUM 2.8 mmol/L (3.5-5.1)
--- NOTE | 2019-09-25 17:25 | NUR ---
LAB REPORTED CRITICAL POTASSIUM 2.8. REPLACEMENT ORDERS ALREADY INITIATED.
--- NOTE | 2019-09-25 19:20 | NUR ---
Received pt in bed in semifowlers position positioned on the left side. Patient is intubated with a size 7 ET tube marked at 22. vent settings AC 20, FIO2 50%, tidal vol. 450, PEEP 5. Sedated with Propofol @25 patient calm. Alternating sinus rhythm/sinus rebecca. On NeoSynepherine @50mcg. JUAN PICC line 3 lumen, Right AC 20g peripheral IV. Heels offloaded, no sequential compression devices present on legs. Hx of DVT on eliquis for DVT prophylaxis.
[2019-09-25] MEDS ORDERED: MAGNESIUM HYDROXIDE 30 ML LIQUID UDC PO PRN (21:00)
[2019-09-25] MEDS: PIPERACILLIN SODIUM/TAZOBACTAM 3.375 G in IV DEXTROSE 5% 50 ML IV SCH (21:16)
[2019-09-25] MEDS: ATORVASTATIN 20 MG TABLET PO SCH (21:16)
[2019-09-25] MEDS: SENNOSIDES 1 TABLET PO SCH (21:16)
[2019-09-25] MEDS: Z GUARD REMEDY PASTE 57 GM TUBE TOP PRN (21:58)
[2019-09-26] VITALS (96 sets, daily range): BP systolic 84–134; BP diastolic 46–66
--- NOTE | 2019-09-26 00:04 | NUR ---
PT ON CONT VILLEGAS VENT WITH 7.0 ET/TUBE IN PLACE, 23CM LIP LINE, CURRENT VENT SETTINGS, A/C 20, VT 450ML, 50%, PEEP5, PT IS SEDATED, CONTROLLED BY VENT MOST OF THE TIME, SUCTIONED VERY LIGHT PALE YELL TINGE SECRETIONS, NO VENT CHANGES MADE AT THIS TIME, B/S EQUAL BI/LAT, NO VENT CHANGES MADE, PT STABLE AT THIS TIME. Jun KOEHLERP Addendum: 09/26/19 at 0007 by GAURI ARMENTA RT Amended: Links added.
[2019-09-26] MEDS: PROPOFOL 100 ML IV PRN ×2 (00:08→18:17)
[2019-09-26 05:08] LABS: HEMOGLOBIN 7.9 g/dL (10.9-14.3); LYMPHOCYTES # (AUTO) 0.9 K/uL (20.0-40.0); LYMPHOCYTES % (AUTO) 5.5 % (20.5-51.5); MEAN CORPUSCULAR HEMOGLOBIN 29.6 uug (24.7-32.8); MEAN CORPUSCULAR HGB CONC 32 g/dL (32.3-35.6); MEAN CORPUSCULAR VOLUME 93.2 fL (75.5-95.3); MONOCYTES # (AUTO) 0.1 K/uL (2.0-10.0); MONOCYTES % (AUTO) 0.9 % (0.0-11.0); NEUTROPHILS # (AUTO) 15.2 K/uL (1.8-8.9); NEUTROPHILS % (AUTO) 93.6 % (38.5-71.5); PLATELET COUNT (AUTO) 188 K/uL (179-408); RED BLOOD CELL COUNT(AUTO) 2.68 MIL/uL (3.63-4.92); WHITE BLOOD COUNT (AUTO) 16.2 K/uL (3.8-11.8)
[2019-09-26 05:21] LABS: ALKALINE PHOSPHATASE 45 U/L (50-136); ASPARTATE AMINOTRANSFERASE 15 U/L (15-37); BILIRUBIN,TOTAL 0.5 mg/dL (0.2-1.0); CARBON DIOXIDE 22 mmol/L (21-32); CHLORIDE 108 mmol/L (98-107); CREATINE KINASE, TOTAL 24 U/L (26-192); CREATININE 1.7 mg/dL (0.6-1.3); GLUCOSE 94 mg/dL (74-106); MAGNESIUM 1.5 mg/dL (1.8-2.4); PHOSPHOROUS 2.8 mg/dL (2.5-4.9); TOTAL PROTEIN, SERUM 6.1 g/dL (6.4-8.2)
[2019-09-26 05:44] LABS: ALANINE AMINOTRANSFERASE < 6 U/L (14-59); UREA NITROGEN, BLOOD 62 mg/dL (7-18)
[2019-09-26 05:46] LABS: POTASSIUM 2.5 mmol/L (3.5-5.1)
--- NOTE | 2019-09-26 05:55 | NUR ---
demetry rate reviewer called re:k+-2.5, albumin-1.0 , will call back.
[2019-09-26] MEDS: IV NS 1000 ML 1,000 ML IV PRN (06:23)
[2019-09-26] MEDS: GABAPENTIN 100 MG CAPSULE PO SCH ×3 (06:24→21:27)
--- NOTE | 2019-09-26 07:15 | NUR ---
Pt received on continuous mechanical ventilation, orally intubated with 7.0 ETT secured at 23cm. Pt is on VILLEGAS vent with settings A/C-20, VT-450, PEEP+5, FIO2-50% Pt tolerating vent settings well. Sxn'd for small amounts of thin secretions. ETT secured with AnchorFast device, ETT moved periodically per hospital policy. HME changed. Oral care done. PPE used. Will continue to monitor.
[2019-09-26 07:30] LABS: ABG HCO3 20.6 mmol/L; ABG PH 7.441 (7.350-7.450); ABG PO2 107.9 mmHg (75.0-100.0); ABG SITE LEFT RADIAL; ABG TOTAL HEMOGLOBIN 7.8 G/dL (12.0-16.0); COHb 1.3 % (0.5-1.5); O2Hb 96.8 % (94.0-97.0); VENT MODE VENT - A/C; VT, ABG 450 mL
[2019-09-26] MEDS: POTASSIUM CHLORIDE 50 ML IV SCH ×6 (07:31→12:24)
[2019-09-26] MEDS ORDERED: VANCOMYCIN IV 500 MG in IV DEXTROSE 5% 100 ML IV ONE (08:00)
--- NOTE | 2019-09-26 08:10 | NUR ---
Pt.was seen b y with new orders.
[2019-09-26] MEDS: PIPERACILLIN SODIUM/TAZOBACTAM 3.375 G in IV DEXTROSE 5% 50 ML IV SCH ×2 (08:40→21:25)
[2019-09-26] MEDS: MAGNESIUM SULFATE/D5W 100 ML IV SCH ×2 (08:41→09:48)
[2019-09-26] MEDS: FOLIC ACID 1 MG TABLET PO SCH (08:51)
[2019-09-26] MEDS: DRONABINOL 2.5 MG CAPSULE PO SCH ×2 (08:51→17:25)
[2019-09-26] MEDS: ACIDOPHILUS/BULGARICUS CHEW TAB PO SCH ×2 (08:51→17:25)
[2019-09-26] MEDS: ASPIRIN 81 MG TAB.CHEW PO SCH (08:51)
[2019-09-26] MEDS: LEVETIRACETAM 500 MG TABLET PO SCH ×2 (08:51→21:27)
[2019-09-26] MEDS: FUROSEMIDE 20 MG TABLET PO SCH (08:52)
[2019-09-26] MEDS: AMIODARONE HCL 200 MG TABLET PO SCH (08:52)
[2019-09-26] MEDS: FAMOTIDINE 20 MG TABLET PO SCH (08:53)
[2019-09-26] MEDS: CHOLECALCIFEROL 1,000 UNIT TABLET PO SCH (08:53)
[2019-09-26] MEDS: CYANOCOBALAMIN 1,000 MCG TABLET PO SCH (08:53)
[2019-09-26] MEDS: APIXABAN 5 MG TABLET PO SCH ×2 (08:54→17:31)
--- NOTE | 2019-09-26 08:55 | NUR ---
Respiratory rate decreased to A/C-15 per MD order. FIO2 decreased to 40%, RN Kavon aware.
--- NOTE | 2019-09-26 09:14 | NUR ---
Clinical pharmacy note-Vancomycin dosing per pharmacy Subjective; To continue Vancomycin dosing on this 84 year old female patient for sepsis Objective: BUN 62 Scr 1.7 WBC 16.2 Temp 98.3 Vanco random level on 09/25 at 0600: 10 Ht 157.48cm Wt 43.998kg Assessment/Plan: Since renal function is unstable, will start Vancomycin dosing by fall-off random level. Since vanco random level this am is 10 mcg/ml, will give Vancomycin 5000mg iv x1 will be given today at 0800 and random will be drawn tomorrow am (on order) for further dosing. Will follow daily.
--- NOTE | 2019-09-26 10:00 | NUR ---
Pt.was seen by SEDA ARROYO .
[2019-09-26] MEDS: ALBUMIN HUMAN 25% 25 GM in PREMIXED 1 EACH IV SCH ×2 (11:59→17:33)
[2019-09-26] MEDS: PHENYLEPHRINE IV 40 MG in IV DEXTROSE 5% 250 ML IV PRN (12:24)
[2019-09-26] MEDS ORDERED: GLUCERNA 1.2 1000ML LIQUID GT PRN (12:45)
--- NOTE | 2019-09-26 17:30 | NUR ---
PT.WAS SEEN BY .
--- NOTE | 2019-09-26 19:03 | NUR ---
Received pt orally intubated with 7.0 ETT~23cm at lip line, on Leroy vent with the following settings of AC-15, Vt-450, PEEP+5, FIO2-40%. No s/s respiratory distress noted. Airway care done, pt responded to physical stimuli. ETT moved to the right side. Resus. bag at bedside. Vent and alarms checked and reset.
--- NOTE | 2019-09-26 19:20 | NUR ---
Received pt in bed in semifowlers position positioned on the left side. Patient is intubated with a size 7 ET tube marked at 22. vent settings AC 15, FIO2 40%, tidal vol. 450, PEEP 5. Sedated with Propofol @10 patient calm. Alternating sinus rhythm/sinus rebecca. On NeoSynepherine @50mcg. JUAN PICC line 3 lumen, Right AC 20g peripheral IV, left AC 20g peripheral IV. Heels offloaded, sequential compression devices present on legs. Hx of DVT on eliquis for DVT prophylaxis. NGT feeding Glucerna 1.2 running @40ml/hr.
--- NOTE | 2019-09-26 20:00 | NUR ---
Residual check for NGT feeding. 150ml aspirated. Feeding held pending reassessment of residual in 2 hours.
[2019-09-26] MEDS ORDERED: NOREPINEPHRINE BITARTRATE 4 MG/4 ML VIAL IV ONE (21:14)
[2019-09-26] MEDS: ATORVASTATIN 20 MG TABLET PO SCH (21:27)
[2019-09-26] MEDS: SENNOSIDES 1 TABLET PO SCH (21:27)
[2019-09-26] MEDS: NOREPINEPHRINE BITARTRATE 8 MG in IV DEXTROSE 5% 500 ML IV PRN (21:30)
--- NOTE | 2019-09-26 22:00 | NUR ---
RECHECKED NGT RESIDUAL OBTAINED 25CC/HR, RESUMED TUBE FDG @ 30CC/HR. KEPT HOB ELEVATED @ 30 DEGREES CONT.
[2019-09-27] VITALS (94 sets, daily range): BP systolic 77–138; BP diastolic 33–84
[2019-09-27 04:53] LABS: BASOPHILS % (AUTO) 0.1 % (0.0-2.0); MONOCYTES # (AUTO) 0.1 K/uL (2.0-10.0); MONOCYTES % (AUTO) 0.9 % (0.0-11.0)
[2019-09-27 04:54] LABS: EOSINOPHILS % (AUTO) 0.1 % (0.0-7.0); LYMPHOCYTES # (AUTO) 0.9 K/uL (20.0-40.0); LYMPHOCYTES % (AUTO) 5.8 % (20.5-51.5); MEAN CORPUSCULAR HEMOGLOBIN 29.5 uug (24.7-32.8); MEAN CORPUSCULAR HGB CONC 32 g/dL (32.3-35.6); MEAN CORPUSCULAR VOLUME 93.4 fL (75.5-95.3); NEUTROPHILS # (AUTO) 14.8 K/uL (1.8-8.9); NEUTROPHILS % (AUTO) 93.1 % (38.5-71.5); PLATELET COUNT (AUTO) 123 K/uL (179-408); WHITE BLOOD COUNT (AUTO) 15.9 K/uL (3.8-11.8)
[2019-09-27 05:13] LABS: CARBON DIOXIDE 20 mmol/L (21-32); CHLORIDE 105 mmol/L (98-107); CREATININE 1.8 mg/dL (0.6-1.3); GLUCOSE 130 mg/dL (74-106); MAGNESIUM 2.3 mg/dL (1.8-2.4); PHOSPHOROUS 2.7 mg/dL (2.5-4.9); POTASSIUM 3.4 mmol/L (3.5-5.1); UREA NITROGEN, BLOOD 59 mg/dL (7-18); VANCOMYCIN,RANDOM 14.6 ug/mL (18.0-26.0)
[2019-09-27 05:19] LABS: RED BLOOD CELL COUNT(AUTO) 2.09 MIL/uL (3.63-4.92)
[2019-09-27 05:21] LABS: HEMATOCRIT 19.5 % (31.2-41.9); HEMOGLOBIN 6.2 g/dL (10.9-14.3)
--- NOTE | 2019-09-27 05:45 | NUR ---
Received critical lab notification for Hemoglobin/hematocrit at 6.2/19.5. Called and spoke with Alicia Trotter with order to transfuse 1 unit of RBCs.
[2019-09-27 06:09] LABS: LYMPHOCYTES % (MANUAL) 6 % (20-40); MONOCYTES % (MANUAL) 1 % (2-10); NEUTROPHILS % (MANUAL) 93 % (42-75)
[2019-09-27] MEDS: GABAPENTIN 100 MG CAPSULE PO SCH ×3 (06:21→22:11)
[2019-09-27] MEDS: ALBUMIN HUMAN 25% 25 GM in PREMIXED 1 EACH IV SCH ×3 (06:21)
[2019-09-27 07:41] LABS: ABG BASE EXCESS -8.2 mmol/L; ABG HCO3 17.1 mmol/L; ABG PCO2 33.6 mmHg (35.0-45.0); ABG PH 7.324 (7.350-7.450); ABG PO2 160.6 mmHg (75.0-100.0); ABG SITE LEFT RADIAL; ABG TOTAL HEMOGLOBIN 7.5 G/dL (12.0-16.0); COHb 1.5 % (0.5-1.5); MetHb 0.1 % (0.0-1.5); O2Hb 97.7 % (94.0-97.0); VENT MODE VENT - A/C 15; VT, ABG 450 mL
[2019-09-27] MEDS: PROPOFOL 100 ML IV PRN (08:29)
[2019-09-27] MEDS: ASPIRIN 81 MG TAB.CHEW PO SCH (08:34)
[2019-09-27] MEDS: PIPERACILLIN SODIUM/TAZOBACTAM 3.375 G in IV DEXTROSE 5% 50 ML IV SCH ×2 (08:34→21:00)
[2019-09-27] MEDS: AMIODARONE HCL 200 MG TABLET PO SCH (08:35)
[2019-09-27] MEDS: CYANOCOBALAMIN 1,000 MCG TABLET PO SCH (08:36)
[2019-09-27] MEDS: FAMOTIDINE 20 MG TABLET PO SCH (08:36)
[2019-09-27] MEDS: DRONABINOL 2.5 MG CAPSULE PO SCH ×2 (08:36→17:09)
[2019-09-27] MEDS: FOLIC ACID 1 MG TABLET PO SCH (08:36)
[2019-09-27] MEDS: FUROSEMIDE 20 MG TABLET PO SCH (08:36)
[2019-09-27] MEDS: CHOLECALCIFEROL 1,000 UNIT TABLET PO SCH (08:37)
[2019-09-27] MEDS: LEVETIRACETAM 500 MG TABLET PO SCH ×2 (08:37→20:37)
[2019-09-27] MEDS: ACIDOPHILUS/BULGARICUS CHEW TAB PO SCH ×2 (08:38→17:09)
[2019-09-27] MEDS: APIXABAN 5 MG TABLET PO SCH (08:39)
[2019-09-27] MEDS: NOREPINEPHRINE BITARTRATE 8 MG in IV DEXTROSE 5% 500 ML IV PRN (08:41)
[2019-09-27] MEDS ORDERED: VANCOMYCIN IV 500 MG in IV DEXTROSE 5% 100 ML IV ONE (09:00)
[2019-09-27 10:06] LABS: A/G RATIO 0.4 (0.7-1.7); ALBUMIN 1.4 g/dL (2.9-4.4); ALPHA-1-GLOBULIN 0.4 g/dL (0.0-0.4); BETA GLOBULIN 0.6 g/dL (0.7-1.3); GAMMA GLOBULIN 1.8 g/dL (0.4-1.8); GLOBULIN, TOTAL 3.8 g/dL (2.2-3.9); M-SPIKE Not Observed g/dL (Not Observed)
--- NOTE | 2019-09-27 10:15 | NUR ---
PULMONARY SERVICES DR. ARCHULETA IN THE UNIT. FULL REPORT GIVEN, SEE ORDER HISTORY FOR NEW ORDERS. DR. ARCHULETA AT BEDSIDE ASSESSING PATIENT.
--- NOTE | 2019-09-27 10:16 | NUR ---
Clinical pharmacy note-Vancomycin dosing per pharmacy Subjective; To continue Vancomycin dosing on this 84 year old female patient for sepsis Objective: BUN 59 Scr 1.8 WBC 15.9 Temp 94 Vanco random level on 09/26 at 0600: 10 Vanco random level on 09/27 at 0600: 14.6 Ht 157.48cm Wt 43.998kg Assessment/Plan: Since renal function is unstable, will start Vancomycin dosing by fall-off random level. Since vanco random level this am is 14.6 mcg/ml, will give Vancomycin 5000mg iv x1 will be given today at 0800 and random will be drawn tomorrow am (on order) for further dosing. Will follow daily.
[2019-09-27] MEDS ORDERED: POTASSIUM CHLORIDE 50 ML IV SCH (12:15)
[2019-09-27 13:12] LABS: IRON, SERUM 30 ug/dL (50-175)
[2019-09-27] MEDS: IV NS 1000 ML 1,000 ML IV PRN (14:20)
[2019-09-27 15:25] LABS: *OCCULT BLOOD STOOL NEGATIVE (NEGATIVE)
[2019-09-27] MEDS: GLUCERNA 1.2 1000ML LIQUID GT PRN (16:17)
--- NOTE | 2019-09-27 16:23 | NUR ---
Labs noted; Phos and Mg wnl. K 3.4L, BUN 59H, Cr 1.8H, Ca 8.2L, GLU 130. TF turned off due to 60ml residuals. Per RN, awaiting Rx for Reglan. Active bowel sounds and good palor observed. Addendum: 09/27/19 at 1627 by JUAN SINGH, GE RD Amended: Links added.
--- NOTE | 2019-09-27 16:57 | NUR ---
CARDIOLOGY SERVICES IN THE UNIT DR BUENROSTRO, FULL REPORT GIVEN SEE ORDERHISTORY FOR NEW ORDERS. DR BUENROSTRO AT THE [facility] DISCUSSING PLAN OF CARE WITH PATIENT AND DAUGHTER.
--- NOTE | 2019-09-27 17:16 | NUR ---
A call to attending physician, Dr. Quezada to notify the need of versed or fentanyl for sedation since an order to dcd propofol received from extension service agent Dr. Strong. due to QT prolongation. Also orders to completely stop reglan received. Awaiting call back.
--- NOTE | 2019-09-27 18:00 | NUR ---
At this time patient started on versed drip. at the time of scanning medication eMAR requested to document medication in units. pharmacist Adolfo called and notified.
[2019-09-27] MEDS: MIDAZOLAM HCL 100 MG in IV DEXTROSE 5% 80 ML IV PRN (18:32)
--- NOTE | 2019-09-27 19:55 | NUR ---
PT RECEIVED ON CONTINUOUS VENT. TOLERATING CURRENT SETTINGS AT THIS TIME. ET TUBE 7.0 SECURED AT 23CM LIP LINE VIA ANCHOR FAST. MOVED ET FROM LEFT TO RIGHT TO MID LIP. SUCTION SMALL AMOUNT THIN WHITE SECRETIONS. NO DISTRESS NOTED AT THIS TIME. WILL CONTINUE TO MONITOR.
--- NOTE | 2019-09-27 20:00 | NUR ---
RECEIVED PT. ORALLY INTUBATED TO VENT W/ SETTINGS OF AC-15,T-450, FIO2-30%, PEEP-+5 W/ O2 SAT OF 100%. ON VERSED DRIP @ 1MG/HR VIA PICC LINE ON JUAN. ON LEVOPHED DRIP @ 2MCQ/MIN. IVF NS @ 50CC/HR. TEMP-97.9 ORALLY. NGT ON R NARES, CHECKED PLACEMENT, CHECKED RESIDUAL 120CC NOTED CONT. TO HOLD TUBE FDG. REPOSITIONED W/ HOD ELEVATED.
[2019-09-27] MEDS: ATORVASTATIN 20 MG TABLET PO SCH (20:36)
[2019-09-27] MEDS: SENNOSIDES 1 TABLET PO SCH (20:37)
[2019-09-27] MEDS ORDERED: METOCLOPRAMIDE HCL 10 MG/2 ML VIAL IV SCH ×2 (22:00)
--- NOTE | 2019-09-27 22:00 | NUR ---
PT HAD CONT. LOOSE STOOL BROWNISH IN COLOR., FLEXISEAL INSERTED. STOOL SPECIMEN SENT TO LAB FOR C-DIFF.
[2019-09-28] VITALS (33 sets, daily range): BP systolic 89–118; BP diastolic 43–61
--- NOTE | 2019-09-28 | NUR ---
NGT RESIDUAL RECHECKED 80CC NOTED W/O TUBE FDG.
--- NOTE | 2019-09-28 04:00 | NUR ---
NGT RESIDUAL REMAINS LARGE AMT., UNABLE TO RESTART TUBE FDG.
[2019-09-28 05:06] LABS: EOSINOPHILS % (AUTO) 0.2 % (0.0-7.0); HEMATOCRIT 23.3 % (31.2-41.9); HEMOGLOBIN 7.5 g/dL (10.9-14.3); LYMPHOCYTES # (AUTO) 0.8 K/uL (20.0-40.0); LYMPHOCYTES % (AUTO) 5.7 % (20.5-51.5); MEAN CORPUSCULAR HEMOGLOBIN 29.7 uug (24.7-32.8); MEAN CORPUSCULAR HGB CONC 32 g/dL (32.3-35.6); MEAN CORPUSCULAR VOLUME 92.2 fL (75.5-95.3); MONOCYTES # (AUTO) 0.2 K/uL (2.0-10.0); MONOCYTES % (AUTO) 1.1 % (0.0-11.0); PLATELET COUNT (AUTO) 102 K/uL (179-408); RED BLOOD CELL COUNT(AUTO) 2.53 MIL/uL (3.63-4.92); WHITE BLOOD COUNT (AUTO) 13.9 K/uL (3.8-11.8)
[2019-09-28 05:17] LABS: CARBON DIOXIDE 20 mmol/L (21-32); CHLORIDE 105 mmol/L (98-107); CREATININE 1.9 mg/dL (0.6-1.3); GLUCOSE 70 mg/dL (74-106); MAGNESIUM 2.1 mg/dL (1.8-2.4); PHOSPHOROUS 3.2 mg/dL (2.5-4.9); POTASSIUM 3.5 mmol/L (3.5-5.1); UREA NITROGEN, BLOOD 56 mg/dL (7-18); VANCOMYCIN,RANDOM 20.7 ug/mL (18.0-26.0)
[2019-09-28] MEDS: GABAPENTIN 100 MG CAPSULE PO SCH ×3 (05:20→21:11)
--- NOTE | 2019-09-28 06:00 | NUR ---
REPOSITIONED ON HER L SIDE AFTER CXR DONE.
[2019-09-28] MEDS: ASPIRIN 81 MG TAB.CHEW PO SCH (08:41)
[2019-09-28] MEDS: DRONABINOL 2.5 MG CAPSULE PO SCH ×2 (08:41→17:32)
[2019-09-28] MEDS: PIPERACILLIN SODIUM/TAZOBACTAM 3.375 G in IV DEXTROSE 5% 50 ML IV SCH (08:41)
[2019-09-28] MEDS: VANCOMYCIN FOR PO/GT/NG USE PO SCH ×3 (08:41→20:16)
[2019-09-28] MEDS: FAMOTIDINE 20 MG TABLET PO SCH (08:41)
[2019-09-28] MEDS: ACIDOPHILUS/BULGARICUS CHEW TAB PO SCH ×2 (08:41→17:32)
[2019-09-28] MEDS: FOLIC ACID 1 MG TABLET PO SCH (08:41)
[2019-09-28] MEDS: CYANOCOBALAMIN 1,000 MCG TABLET PO SCH (08:41)
[2019-09-28] MEDS: LEVETIRACETAM 500 MG TABLET PO SCH ×2 (08:41→20:19)
[2019-09-28] MEDS: CHOLECALCIFEROL 1,000 UNIT TABLET PO SCH (08:42)
[2019-09-28 08:45] LABS: ABG BASE EXCESS -8.5 mmol/L; ABG HCO3 16.5 mmol/L; ABG PH 7.331 (7.350-7.450); ABG PO2 81.1 mmHg (75.0-100.0); ABG SITE LEFT RADIAL; ABG TOTAL HEMOGLOBIN 8.3 G/dL (12.0-16.0); COHb 1.6 % (0.5-1.5); MetHb 0.2 % (0.0-1.5); O2Hb 94.1 % (94.0-97.0); VENT MODE VENT - A/C; VT, ABG 450 mL
--- NOTE | 2019-09-28 08:51 | NUR ---
Clinical pharmacy note-Vancomycin dosing per pharmacy Subjective; To continue Vancomycin dosing on this 84 year old female patient for sepsis Objective: BUN 36 Scr 1.9 WBC 13.9 Temp 98.2 Vanco random level on 09/26 at 0600: 10 Vanco random level on 09/27 at 0600: 14.6 Vanco random level on 09/28 at 0600: 20.7 Ht 157.48cm Wt 43.998kg Assessment/Plan: Since renal function is unstable, will continue Vancomycin dosing by fall-off random level. Since vanco random level this am is 20.7 mcg/ml, no dose shall be given today. will give Vancomycin 5000mg iv x1 tomorrow at 0600. Pharmacy shall review srcr on 09/30 am & decide when to order next random for further dosing. Will follow daily.
[2019-09-28] MEDS ORDERED: POTASSIUM CHLORIDE 20 MEQ POWDER PACKET PO ONE (09:30)
[2019-09-28 09:43] LABS: *BILIRUBIN,URIN NEGATIVE (NEGATIVE); *COLOR,URINE YELLOW (YELLOW); *KETONES,URINE NEGATIVE (NEGATIVE); *UROBILINOGEN,URINE 0.2 E.U./dl (NORMAL); LEUKOCYTE ESTERASE ,URINE TRACE (NEGATIVE); NITRITE, URINE NEGATIVE (NEGATIVE); UGLUCOSE NEGATIVE (NEGATIVE)
[2019-09-28 09:55] LABS: *BLOOD, URINE TRACE (NEGATIVE); *CLARITY,URINE SLIGHTLY CLOUDY (CLEAR)
--- NOTE | 2019-09-28 10:00 | NUR ---
CARDIOLOGY SERVICES DR BUENROSTRO IN THE UNIT. FULL REPORT GIVEN TO DR BUENROSTRO, SEE ORDER HISTORY FOR NEW ORDERS. DR BUENROSTRO AT BEDSIDE ASSESSING PATIENT.
[2019-09-28 10:07] LABS: BACTERIA,URINE FEW /HPF (NONE SEEN); RBC,URINE 0-3 /HPF (0-3); SQUAMOUS EPITHELIAL CELL,UR FEW /HPF (NONE SEEN); URINE AMORPHOUS URATE FEW /HPF
[2019-09-28] MEDS: IV D5/ 0.9% NACL 1,000 ML IV PRN (10:20)
--- NOTE | 2019-09-28 10:30 | NUR ---
HOSPITALIST DR. LEA IN THE UNIT, FULL REPORT GIVEN TO DR LEA, SEE ORDER HISTORY FOR NEW ORDERS. DR LEA AT BEDSIDE ASSESSING PATIENT.
--- NOTE | 2019-09-28 10:32 | NUR ---
WOUND CARE CONSULT WOUND CARE RECEIVED CONSULT FOR SACRAL PRESSURE SORE. WOUND CARE WILL DEFER CONSULT AND TREATMENT PLANS TO PLASTIC SURGICAL TEAM WHO ARE CURRENTLY FOLLOWING THIS PATIENT. PATIENT WITH ZOILA AT 10, ALL PRESSURE ULCER PREVENTION MEASURES ARE NOTED TO BE IN PLACE AT THIS TIME. WILL SEE PRN.
--- NOTE | 2019-09-28 11:14 | NUR ---
PULMONOLOGY SERVICES DR. ARCHULETA IN THE UNIT. FULL REPORT GIVEN TO DR. ARCHULETA, SEE ORDER HISTORY FOR NEW ORDERS. DR. ARCHULETA AT BEDSIDE ASSESSING PATIENT.
[2019-09-28] MEDS: MIDAZOLAM HCL 100 MG in IV DEXTROSE 5% 80 ML IV PRN (17:59)
--- NOTE | 2019-09-28 19:50 | NUR ---
rounds made patient in bed ,orally intubated ac mode on the vent settings ,tolerating vent setting rr 18 saturation 100% suction via ett and via mouth thin to thick secretions moderate in amt .on versed 2 mg/hr for sedation via the right upper arm picc line when off sedation open eyes but doesn't follow commands .f/c to bsd with yellowish urine .c diff isolation observed.continue to monitor v/s and levels of sedation .
[2019-09-28] MEDS: CEFTRIAXONE 1 G in IV DEXTROSE 5% 50 ML IV SCH (20:16)
[2019-09-28] MEDS: ATORVASTATIN 20 MG TABLET PO SCH (20:18)
[2019-09-28] MEDS: SENNOSIDES 1 TABLET PO SCH (20:18)
[2019-09-29] VITALS (23 sets, daily range): BP systolic 103–136; BP diastolic 59–80
[2019-09-29 02:06] LABS: *BILIRUBIN,URIN NEGATIVE (NEGATIVE); *BLOOD, URINE NEGATIVE (NEGATIVE); *CLARITY,URINE CLEAR (CLEAR); *COLOR,URINE YELLOW (YELLOW); *KETONES,URINE NEGATIVE (NEGATIVE); *UROBILINOGEN,URINE 0.2 E.U./dl (NORMAL); LEUKOCYTE ESTERASE ,URINE NEGATIVE (NEGATIVE); NITRITE, URINE NEGATIVE (NEGATIVE); UGLUCOSE NEGATIVE (NEGATIVE)
[2019-09-29 02:14] LABS: *CREATININE,URINE < 13.0 mg/dL (30-125); *URINE TOTAL PROTEIN RANDOM 38.2 mg/dL (<150/24HR)
[2019-09-29] MEDS: VANCOMYCIN FOR PO/GT/NG USE PO SCH ×4 (02:29→19:40)
--- NOTE | 2019-09-29 03:22 | NUR ---
PATIENT on cont hutchinson vent with 7.0 et/tube in place and 23cm lip line with anchor fast in place and secured, with no vent changes made, all vent alarms good, no vent changes made, pt does assist at times, suctioned whitish tinged secretions, and oral care done, ambu bag at bedside, weaning on cpap trial on day shift. Jun ARMENTA RCP Addendum: 09/29/19 at 0325 by GAURI ARMENTA RT Amended: Links added.
--- NOTE | 2019-09-29 04:00 | NUR ---
am care done bath patient ,changed soiled linens and gown . turned and reposition .f/c done ,suction via ett and via mouth .
[2019-09-29] MEDS: IV D5/ 0.9% NACL 1,000 ML IV PRN (04:37)
[2019-09-29 05:09] LABS: CARBON DIOXIDE 19 mmol/L (21-32); CHLORIDE 108 mmol/L (98-107); GLUCOSE 82 mg/dL (74-106); PHOSPHOROUS 3.7 mg/dL (2.5-4.9); UREA NITROGEN, BLOOD 51 mg/dL (7-18)
[2019-09-29 05:19] LABS: EOSINOPHILS % (AUTO) 0.3 % (0.0-7.0); HEMATOCRIT 25.8 % (31.2-41.9); HEMOGLOBIN 8.4 g/dL (10.9-14.3); LYMPHOCYTES # (AUTO) 0.9 K/uL (20.0-40.0); LYMPHOCYTES % (AUTO) 7.9 % (20.5-51.5); MEAN CORPUSCULAR HGB CONC 33 g/dL (32.3-35.6); MEAN CORPUSCULAR VOLUME 91.8 fL (75.5-95.3); MONOCYTES # (AUTO) 0.2 K/uL (2.0-10.0); MONOCYTES % (AUTO) 1.3 % (0.0-11.0); NEUTROPHILS # (AUTO) 10.7 K/uL (1.8-8.9); NEUTROPHILS % (AUTO) 90.5 % (38.5-71.5); PLATELET COUNT (AUTO) 114 K/uL (179-408); RED BLOOD CELL COUNT(AUTO) 2.81 MIL/uL (3.63-4.92); WHITE BLOOD COUNT (AUTO) 11.8 K/uL (3.8-11.8)
[2019-09-29] MEDS: GABAPENTIN 100 MG CAPSULE PO SCH ×3 (05:25→21:55)
[2019-09-29] MEDS ORDERED: VANCOMYCIN IV 500 MG in IV DEXTROSE 5% 100 ML IV ONE (06:00)
--- NOTE | 2019-09-29 08:00 | NUR ---
IV Versed turned off per CPAP trial weaning protocol.
[2019-09-29] MEDS: DRONABINOL 2.5 MG CAPSULE PO SCH ×2 (08:13→16:30)
[2019-09-29] MEDS: ACIDOPHILUS/BULGARICUS CHEW TAB PO SCH ×2 (08:13→16:30)
[2019-09-29] MEDS: FAMOTIDINE 20 MG TABLET PO SCH (08:13)
[2019-09-29] MEDS: LEVETIRACETAM 500 MG TABLET PO SCH ×2 (08:13→21:55)
[2019-09-29] MEDS: ASPIRIN 81 MG TAB.CHEW PO SCH (08:13)
[2019-09-29] MEDS: FOLIC ACID 1 MG TABLET PO SCH (08:13)
--- NOTE | 2019-09-29 08:15 | NUR ---
Pt placed on CPAP PS 10, 30% FiO2 by respiratory therapist as ordered by pulmonary MD. JOSE robertsl.
--- NOTE | 2019-09-29 08:17 | NUR ---
PER MD ORDER PT PLACED ON CPAP PSV 10. RN RYANNE AWARE. SEDATION TURNED OFF. VITALS WITHIN NORMAL LIMITS AND PT TOLERATING WEANING FINE. WILL CONTINUE TO MONITOR
[2019-09-29] MEDS: CYANOCOBALAMIN 1,000 MCG TABLET PO SCH (08:49)
[2019-09-29] MEDS: CHOLECALCIFEROL 1,000 UNIT TABLET PO SCH (08:49)
[2019-09-29 10:02] LABS: ABG BASE EXCESS -7.7 mmol/L; ABG HCO3 16.6 mmol/L; ABG PCO2 29.3 mmHg (35.0-45.0); ABG PO2 88.6 mmHg (75.0-100.0); ABG SITE LEFT BRACHIAL; ABG TOTAL HEMOGLOBIN 9.1 G/dL (12.0-16.0); COHb 1.3 % (0.5-1.5); CPAP,BG 10 cmH20; O2Hb 95.5 % (94.0-97.0); VENT MODE CPAP
--- NOTE | 2019-09-29 10:47 | NUR ---
Dr. Gabriel here to see pt. Full report given. No new orders received.
--- NOTE | 2019-09-29 14:24 | NUR ---
Dr. Yin here to see pt. Full report given. New orders received.
--- NOTE | 2019-09-29 20:00 | NUR ---
RECEIVED PT IS NONRESPONSIVE TO NOXIOUS STIMULI. ORALLY INTUBATED TO VENT ON CPAP, PSV-10, FIO2-30% W/ O2 SAT OF 100%.. NGT ON R NARE, CHECKED PLACEMENT & CHECKED RESIDUAL 5CC NOTED.IVF D5NS @ 50CC/HR PICC LINE ON JUAN. REPOSITIONED W/ HOB ELEVATED.
[2019-09-29] MEDS: ATORVASTATIN 20 MG TABLET PO SCH (21:55)
[2019-09-29] MEDS: CEFTRIAXONE 1 G in IV DEXTROSE 5% 50 ML IV SCH (21:55)
[2019-09-29] MEDS: SENNOSIDES 1 TABLET PO SCH (21:57)
--- NOTE | 2019-09-29 22:00 | NUR ---
hs care done. remains nonresponsive. repositioned w/ hob elevated.
[2019-09-30] VITALS (23 sets, daily range): BP systolic 99–143; BP diastolic 54–76
[2019-09-30] MEDS: IV D5/ 0.9% NACL 1,000 ML IV PRN ×2 (00:15→20:19)
--- NOTE | 2019-09-30 00:32 | NUR ---
PT ON CONT VILLEGAS VENT WITH 7.0 ET/TUBE IN PLACE WITH ANCHOR FAST IN PLACE, PT ON CPAP, PSV 10, DOING WELL SPONT VT [phone] APPROX, RR 18-23 DOING WELL, ALL VENT ALARMS OK, MAY WEAN OFF VENT ON DAY SHIFT.Jun ARMENTA RCP Addendum: 09/30/19 at 0034 by GAURI ARMENTA RT Amended: Links added.
[2019-09-30] MEDS: VANCOMYCIN FOR PO/GT/NG USE PO SCH ×4 (01:19→20:19)
--- NOTE | 2019-09-30 04:00 | NUR ---
bedbath given. oral care done.
[2019-09-30 04:54] LABS: BASOPHILS % (AUTO) 0.1 % (0.0-2.0); EOSINOPHILS % (AUTO) 0.3 % (0.0-7.0); HEMATOCRIT 25.6 % (31.2-41.9); HEMOGLOBIN 8.2 g/dL (10.9-14.3); LYMPHOCYTES # (AUTO) 0.9 K/uL (20.0-40.0); LYMPHOCYTES % (AUTO) 8.4 % (20.5-51.5); MEAN CORPUSCULAR HEMOGLOBIN 29.5 uug (24.7-32.8); MEAN CORPUSCULAR HGB CONC 32 g/dL (32.3-35.6); MEAN CORPUSCULAR VOLUME 92.1 fL (75.5-95.3); MONOCYTES # (AUTO) 0.2 K/uL (2.0-10.0); MONOCYTES % (AUTO) 1.7 % (0.0-11.0); NEUTROPHILS # (AUTO) 10.1 K/uL (1.8-8.9); NEUTROPHILS % (AUTO) 89.5 % (38.5-71.5); PLATELET COUNT (AUTO) 116 K/uL (179-408); RED BLOOD CELL COUNT(AUTO) 2.78 MIL/uL (3.63-4.92); WHITE BLOOD COUNT (AUTO) 11.3 K/uL (3.8-11.8)
--- NOTE | 2019-09-30 05:00 | NUR ---
checked residual, none noted. restarted tube fdg of glucerna 1.2 @ 30cc/hr @ 0541.
--- NOTE | 2019-09-30 05:00 | NUR ---
cxr done. repositioned on her side after cxr.
[2019-09-30 05:14] LABS: CARBON DIOXIDE 19 mmol/L (21-32); CHLORIDE 109 mmol/L (98-107); CREATININE 2.1 mg/dL (0.6-1.3); GLUCOSE 95 mg/dL (74-106); PHOSPHOROUS 4.9 mg/dL (2.5-4.9); POTASSIUM 3.9 mmol/L (3.5-5.1); UREA NITROGEN, BLOOD 48 mg/dL (7-18)
[2019-09-30] MEDS: GLUCERNA 1.2 1000ML LIQUID GT PRN (05:41)
[2019-09-30] MEDS: GABAPENTIN 100 MG CAPSULE PO SCH ×3 (05:41→22:35)
[2019-09-30] MEDS: ASPIRIN 81 MG TAB.CHEW PO SCH (07:42)
[2019-09-30] MEDS: ACIDOPHILUS/BULGARICUS CHEW TAB PO SCH ×2 (07:42→16:23)
[2019-09-30] MEDS: DRONABINOL 2.5 MG CAPSULE PO SCH ×2 (07:42→16:23)
[2019-09-30] MEDS: FOLIC ACID 1 MG TABLET PO SCH (07:42)
[2019-09-30] MEDS: FAMOTIDINE 20 MG TABLET PO SCH (07:42)
[2019-09-30] MEDS: LEVETIRACETAM 500 MG TABLET PO SCH ×2 (07:42→20:19)
[2019-09-30] MEDS: CHOLECALCIFEROL 1,000 UNIT TABLET PO SCH (07:43)
[2019-09-30] MEDS: CYANOCOBALAMIN 1,000 MCG TABLET PO SCH (07:43)
--- NOTE | 2019-09-30 08:08 | NUR ---
Dr. Yin here to see pt. Full report given. New orders received.
[2019-09-30 09:21] LABS: ABG BASE EXCESS -7.9 mmol/L; ABG HCO3 17.2 mmol/L; ABG PCO2 33.4 mmHg (35.0-45.0); ABG PH 7.329 (7.350-7.450); ABG PO2 96.5 mmHg (75.0-100.0); ABG SITE LEFT RADIAL; ABG TOTAL HEMOGLOBIN 8.8 G/dL (12.0-16.0); COHb 1.5 % (0.5-1.5); CPAP,BG 10 cmH20; O2Hb 95.8 % (94.0-97.0); VENT MODE VENT - CPAP
--- NOTE | 2019-09-30 11:42 | NUR ---
Dr. Quezada here to see pt. Full report given. No new orders received.
--- NOTE | 2019-09-30 19:45 | NUR ---
rounds made patient in bed orally intubated and on cpap with ps of 10 fio2 30% ,tolerating vent setting saturation 99 % rr 17, patient doesn't follow commands no eyes opening only grimaces to painful stimuli ,no spontaneous movement . suction via ett and via mouth ,off Levophed drip and off versed drip . f/c to bsd with yellowish urine. continue to monitor v/s and levels of comfort .
[2019-09-30] MEDS: ATORVASTATIN 20 MG TABLET PO SCH (20:19)
[2019-09-30] MEDS: CEFTRIAXONE 1 G in IV DEXTROSE 5% 50 ML IV SCH (20:19)
[2019-09-30] MEDS: SENNOSIDES 1 TABLET PO SCH (20:20)
[2019-10-01] VITALS (24 sets, daily range): BP systolic 126–147; BP diastolic 64–86
--- NOTE | 2019-10-01 | NUR ---
tolerating vent setting no respiratory distress noted .continue to monitor v/s . suction via ett and mouth .
[2019-10-01] MEDS: VANCOMYCIN FOR PO/GT/NG USE PO SCH ×4 (02:29→20:27)
--- NOTE | 2019-10-01 04:30 | NUR ---
am care done ,changed soiled linens and gown .f/c done oral care done . turned and reposition . hob up .
[2019-10-01 05:04] LABS: BASOPHILS % (AUTO) 0.2 % (0.0-2.0); EOSINOPHILS # (AUTO) 0.1 K/uL (0.0-0.7); EOSINOPHILS % (AUTO) 0.6 % (0.0-7.0); HEMATOCRIT 25.7 % (31.2-41.9); HEMOGLOBIN 8.5 g/dL (10.9-14.3); LYMPHOCYTES # (AUTO) 0.7 K/uL (20.0-40.0); LYMPHOCYTES % (AUTO) 8.1 % (20.5-51.5); MEAN CORPUSCULAR HEMOGLOBIN 30.2 uug (24.7-32.8); MEAN CORPUSCULAR HGB CONC 33 g/dL (32.3-35.6); MEAN CORPUSCULAR VOLUME 91.4 fL (75.5-95.3); MONOCYTES # (AUTO) 0.2 K/uL (2.0-10.0); MONOCYTES % (AUTO) 2.5 % (0.0-11.0); NEUTROPHILS # (AUTO) 7.9 K/uL (1.8-8.9); NEUTROPHILS % (AUTO) 88.6 % (38.5-71.5); PLATELET COUNT (AUTO) 114 K/uL (179-408); RED BLOOD CELL COUNT(AUTO) 2.81 MIL/uL (3.63-4.92); WHITE BLOOD COUNT (AUTO) 8.9 K/uL (3.8-11.8)
[2019-10-01 05:08] LABS: CARBON DIOXIDE 19 mmol/L (21-32); CHLORIDE 110 mmol/L (98-107); CREATININE 1.9 mg/dL (0.6-1.3); GLUCOSE 95 mg/dL (74-106); MAGNESIUM 1.9 mg/dL (1.8-2.4); PHOSPHOROUS 4.4 mg/dL (2.5-4.9); POTASSIUM 3.6 mmol/L (3.5-5.1); UREA NITROGEN, BLOOD 47 mg/dL (7-18)
[2019-10-01] MEDS: GABAPENTIN 100 MG CAPSULE PO SCH ×3 (06:39→20:51)
[2019-10-01 07:59] LABS: ABG PCO2 29.4 mmHg (35.0-45.0); ABG PH 7.379 (7.350-7.450); ABG PO2 95.9 mmHg (75.0-100.0); ABG SITE LEFT RADIAL; ABG TOTAL HEMOGLOBIN 11.4 G/dL (12.0-16.0); COHb 1.4 % (0.5-1.5); CPAP,BG 10 cmH20; VENT MODE VENT - CPAP
[2019-10-01] MEDS: ASPIRIN 81 MG TAB.CHEW PO SCH (08:43)
[2019-10-01] MEDS: FOLIC ACID 1 MG TABLET PO SCH (08:43)
[2019-10-01] MEDS: FAMOTIDINE 20 MG TABLET PO SCH (08:43)
[2019-10-01] MEDS: ACIDOPHILUS/BULGARICUS CHEW TAB PO SCH ×2 (08:43→16:58)
[2019-10-01] MEDS: DRONABINOL 2.5 MG CAPSULE PO SCH (08:44)
[2019-10-01] MEDS: LEVETIRACETAM 500 MG TABLET PO SCH ×2 (08:44→20:51)
[2019-10-01] MEDS: CYANOCOBALAMIN 1,000 MCG TABLET PO SCH (08:44)
[2019-10-01] MEDS: CHOLECALCIFEROL 1,000 UNIT TABLET PO SCH (08:44)
[2019-10-01] MEDS: FUROSEMIDE 20 MG/2 ML VIAL IV SCH ×2 (11:55→20:36)
--- NOTE | 2019-10-01 12:05 | NUR ---
Pt.was seen by .
--- NOTE | 2019-10-01 12:29 | NUR ---
Pt.was seen by .
--- NOTE | 2019-10-01 18:30 | NUR ---
No changes in pt.condition, no s/s of distress or pain noted.
[2019-10-01] MEDS: CEFTRIAXONE 1 G in IV DEXTROSE 5% 50 ML IV SCH (20:27)
[2019-10-01] MEDS: SENNOSIDES 1 TABLET PO SCH (20:38)
[2019-10-01] MEDS: ATORVASTATIN 20 MG TABLET PO SCH (20:38)
--- NOTE | 2019-10-01 21:57 | NUR ---
Resident endorsed on AC mechanical ventilation with no signs of respiratory distress noted. Moderated amounts of blood seeping out of lips. Oral care rendered with caution to prevent further trauma. Nursing aware. Ettube secure with anchorfast, lip locations changed throughout shift. Alarms are on and audible. Will continue to monitor.
[2019-10-02] VITALS (23 sets, daily range): BP systolic 119–150; BP diastolic 53–82
[2019-10-02] MEDS: GLUCERNA 1.2 1000ML LIQUID GT PRN
[2019-10-02] MEDS: VANCOMYCIN FOR PO/GT/NG USE PO SCH ×4 (02:24→21:42)
[2019-10-02] MEDS: IV NORMAL SALINE 250 ML IV PRN (04:27)
[2019-10-02 05:03] LABS: BASOPHILS % (AUTO) 0.2 % (0.0-2.0); EOSINOPHILS % (AUTO) 0.3 % (0.0-7.0); LYMPHOCYTES # (AUTO) 0.7 K/uL (20.0-40.0); LYMPHOCYTES % (AUTO) 7.8 % (20.5-51.5); MEAN CORPUSCULAR HEMOGLOBIN 30.1 uug (24.7-32.8); MEAN CORPUSCULAR HGB CONC 33 g/dL (32.3-35.6); MEAN CORPUSCULAR VOLUME 90.3 fL (75.5-95.3); MONOCYTES # (AUTO) 0.3 K/uL (2.0-10.0); MONOCYTES % (AUTO) 3.9 % (0.0-11.0); NEUTROPHILS # (AUTO) 7.9 K/uL (1.8-8.9); NEUTROPHILS % (AUTO) 87.8 % (38.5-71.5); PLATELET COUNT (AUTO) 140 K/uL (179-408); RED BLOOD CELL COUNT(AUTO) 2.66 MIL/uL (3.63-4.92)
[2019-10-02] MEDS: GABAPENTIN 100 MG CAPSULE PO SCH (05:21)
[2019-10-02 05:30] LABS: CARBON DIOXIDE 21 mmol/L (21-32); CHLORIDE 108 mmol/L (98-107); CREATININE 2.1 mg/dL (0.6-1.3); GLUCOSE 108 mg/dL (74-106); MAGNESIUM 1.9 mg/dL (1.8-2.4); PHOSPHOROUS 4.3 mg/dL (2.5-4.9); POTASSIUM 3.4 mmol/L (3.5-5.1); UREA NITROGEN, BLOOD 49 mg/dL (7-18)
--- NOTE | 2019-10-02 08:00 | NUR ---
Report received from JUAN PABLO Mcclendon.Pt remains unresponsive to any stimuli.No s/s of pain ,discomfort noted.No Sob noted Oral care provided.Pt mouth and lips noted with dry blood.SR on monitor.Ngt intact. Tube feeding tolerated well.Rectal tube with liquid stool intact.Will continue to monitor.
--- NOTE | 2019-10-02 09:20 | NUR ---
Seen,examined by NUNU Fung.Report given.
[2019-10-02] MEDS: ACIDOPHILUS/BULGARICUS CHEW TAB PO SCH ×2 (09:26→17:00)
[2019-10-02] MEDS: ASPIRIN 81 MG TAB.CHEW PO SCH (09:27)
[2019-10-02] MEDS: FOLIC ACID 1 MG TABLET PO SCH (09:27)
[2019-10-02] MEDS: FAMOTIDINE 20 MG TABLET PO SCH (09:27)
[2019-10-02] MEDS: CYANOCOBALAMIN 1,000 MCG TABLET PO SCH (09:27)
[2019-10-02] MEDS: LEVETIRACETAM 500 MG TABLET PO SCH (09:27)
[2019-10-02] MEDS: CHOLECALCIFEROL 1,000 UNIT TABLET PO SCH (09:27)
[2019-10-02] MEDS ORDERED: POTASSIUM CHLORIDE 20 MEQ TAB.PRT.SR PO ONE (10:00)
[2019-10-02] MEDS ORDERED: POTASSIUM CHLORIDE 20 MEQ POWDER PACKET NG ONE (13:30)
[2019-10-02] MEDS ORDERED: FUROSEMIDE 20 MG/2 ML VIAL IV ONE (14:15)
--- NOTE | 2019-10-02 14:20 | NUR ---
Seen,examined by .
--- NOTE | 2019-10-02 19:10 | NUR ---
received patient , obtunded , vent settings ac 12 , 450 p 5 fio2 % 30 %, ngt with feeding of glucerna at 50ml , no residual , flexi seal intact and irrigated with 50ml , iv intact picc line right uooer arm , mouth has plenty of visible old blood in and out of the mouth , cleanse with moist dressing
[2019-10-02] MEDS: SENNOSIDES 1 TABLET PO SCH (21:00)
[2019-10-02] MEDS: CEFTRIAXONE 1 G in IV DEXTROSE 5% 50 ML IV SCH (21:40)
[2019-10-02] MEDS: ATORVASTATIN 20 MG TABLET PO SCH (21:41)
[2019-10-03] VITALS (25 sets, daily range): BP systolic 127–154; BP diastolic 66–82
--- NOTE | 2019-10-03 00:49 | NUR ---
* Maintains blood gasses WNL * Evidences usual mental status * Exhibits usual skin color Addendum: 10/03/19 at 0052 by MILLIE LOPEZ RN Amended: Links added.
--- NOTE | 2019-10-03 00:49 | NUR ---
* Maintains vital signs WNL * Maintains urine output > 30 ml/hr * Evidences normal skin turgor * Maintains optimal lab values * Maintains urine specific gravity WNL Addendum: 10/03/19 at 0052 by MILLIE LOPEZ RN Amended: Links added.
--- NOTE | 2019-10-03 00:49 | NUR ---
aintains body temperature below 39 C degrees * Maintains respiratory rate and heart rate WNL * Maintains optimal lab values Addendum: 10/03/19 at 0052 by MILLIE LOPEZ RN Amended: Links added.
--- NOTE | 2019-10-03 00:50 | NUR ---
* Maintains vital signs WNL * Evidences no purulent drainage from wounds, incisions, and tubes * Maintains optimal lab values Addendum: 10/03/19 at 0052 by MILLIE LOPEZ RN Amended: Links added.
--- NOTE | 2019-10-03 00:50 | NUR ---
* Exhibits granulation/healing at site * Exhibits decreased drainage at site * Exhibits no s/s of infection * Exhibits a decrease in lesion size * Maintains nutritional status Addendum: 10/03/19 at 0052 by MILLIE LOPEZ RN Amended: Links added.
--- NOTE | 2019-10-03 00:51 | NUR ---
* Describes reportable s/s * Understands treatment plan* Identifies current stressors * Develops effective coping behaviors * Uses support services as appropriate Addendum: 10/03/19 at 0052 by MILLIE LOPEZ RN Amended: Links added.
--- NOTE | 2019-10-03 00:52 | NUR ---
* Exhibits no s/s of infection * Exhibits a decrease in lesion size * Maintains nutritional status * Maintains hydration status * Maintains optimal lab values Addendum: 10/03/19 at 0052 by MILLIE LOPEZ RN Amended: Links added.
[2019-10-03] MEDS: VANCOMYCIN FOR PO/GT/NG USE PO SCH ×4 (02:39→21:12)
[2019-10-03 05:31] LABS: CARBON DIOXIDE 24 mmol/L (21-32); CHLORIDE 110 mmol/L (98-107); GLUCOSE 113 mg/dL (74-106); MAGNESIUM 1.8 mg/dL (1.8-2.4); PHOSPHOROUS 4.3 mg/dL (2.5-4.9); POTASSIUM 4.2 mmol/L (3.5-5.1); UREA NITROGEN, BLOOD 52 mg/dL (7-18)
[2019-10-03 05:33] LABS: BASOPHILS % (AUTO) 0.1 % (0.0-2.0); EOSINOPHILS % (AUTO) 0.2 % (0.0-7.0); HEMATOCRIT 23.9 % (31.2-41.9); HEMOGLOBIN 7.9 g/dL (10.9-14.3); LYMPHOCYTES # (AUTO) 0.7 K/uL (20.0-40.0); LYMPHOCYTES % (AUTO) 5.5 % (20.5-51.5); MEAN CORPUSCULAR HGB CONC 33 g/dL (32.3-35.6); MEAN CORPUSCULAR VOLUME 90.8 fL (75.5-95.3); MONOCYTES # (AUTO) 0.4 K/uL (2.0-10.0); MONOCYTES % (AUTO) 3.4 % (0.0-11.0); NEUTROPHILS # (AUTO) 11.6 K/uL (1.8-8.9); NEUTROPHILS % (AUTO) 90.8 % (38.5-71.5); PLATELET COUNT (AUTO) 188 K/uL (179-408); RED BLOOD CELL COUNT(AUTO) 2.63 MIL/uL (3.63-4.92); WHITE BLOOD COUNT (AUTO) 12.8 K/uL (3.8-11.8)
--- NOTE | 2019-10-03 08:00 | NUR ---
PT IS PLACED ON CPAP, PSV-8. TOLERATED WELL. PT STILL NOT AWAKE. DR ARCHULETA ORDERED CT SCAN OF THE HEAD. MOUTH IS BLEEDING WITH LESIONS ON THE LIPS NOTED. DR BUENROSTRO IS AWARE.
--- NOTE | 2019-10-03 08:00 | NUR ---
TEMP 100.8F RECTALLY. MEDICATED WITH TYLENOL 650MG VIA NGT.
[2019-10-03] MEDS ORDERED: LEVETIRACETAM 500 MG TABLET PO SCH (09:00)
[2019-10-03 09:24] LABS: ABG BASE EXCESS -2.2 mmol/L; ABG HCO3 21.5 mmol/L; ABG PH 7.445 (7.350-7.450); ABG PO2 80.2 mmHg (75.0-100.0); ABG SITE RIGHT RADIAL; ABG TOTAL HEMOGLOBIN 7.6 G/dL (12.0-16.0); COHb 1.8 % (0.5-1.5); CPAP,BG 5 cmH20; MetHb 0.1 % (0.0-1.5); O2Hb 94.1 % (94.0-97.0); VENT MODE VENT - CPAP 5 PS12; VT, ABG 404 mL
[2019-10-03] MEDS: ACIDOPHILUS/BULGARICUS CHEW TAB PO SCH ×2 (09:35→17:29)
[2019-10-03] MEDS: ASPIRIN 81 MG TAB.CHEW PO SCH (09:35)
[2019-10-03] MEDS: FOLIC ACID 1 MG TABLET PO SCH (09:35)
[2019-10-03] MEDS: GABAPENTIN 100 MG CAPSULE PO SCH (09:35)
[2019-10-03] MEDS: FAMOTIDINE 20 MG TABLET PO SCH (09:36)
[2019-10-03] MEDS: CYANOCOBALAMIN 1,000 MCG TABLET PO SCH (09:37)
[2019-10-03] MEDS: CHOLECALCIFEROL 1,000 UNIT TABLET PO SCH (09:37)
[2019-10-03] MEDS: LEVETIRACETAM 500 MG TABLET PO SCH ×2 (09:39→21:12)
--- NOTE | 2019-10-03 10:30 | NUR ---
SEEN AND EXAMINED BY DR ARCHULETA WITH NEW ORDERS.
[2019-10-03] MEDS: ACETAMINOPHEN 650 MG/20.3 ML LIQUID UDC NG PRN (11:01)
--- NOTE | 2019-10-03 13:40 | NUR ---
TO CT SCAN VIA BED ORDERED. TOLERATED WELL.
[2019-10-03] MEDS: IV NORMAL SALINE 250 ML IV PRN (15:45)
--- NOTE | 2019-10-03 16:00 | NUR ---
PT IS BACK TO AC SETTING.
--- NOTE | 2019-10-03 16:23 | NUR ---
Pt remains orally intubated on vent support, weaning since this am on CPAP/PS, tolerating fairly well, no distress at this time noted. sxn'd orally and ETT blood tinged secretions noted. pt trans to CT and back to without incident. vent alarms audible, reset. bvm at bedside.
[2019-10-03] MEDS: VALACYCLOVIR HCL 500 MG TABLET NG SCH (17:29)
--- NOTE | 2019-10-03 19:15 | NUR ---
PATIENT IS NON REPSONSIVE , VENT SETTINGS ` AC 12 TV 450 P5 FIO2 30 % , NGT GLECERNA 50 ML DOUGLAS PICC LINE RIGHT UPPER ARM , FLEXI SEAL INTACT , NO FEVER
--- NOTE | 2019-10-03 19:15 | NUR ---
MOUTH IS VERY DRY LIPS ARE BLACK COLOR WITH OLD BLOOD AND FRESH NEW BLOOD SCANT DRAINAGE ,IN THE MOUTH
[2019-10-03] MEDS: SENNOSIDES 1 TABLET PO SCH (21:00)
[2019-10-03] MEDS: CEFTRIAXONE 1 G in IV DEXTROSE 5% 50 ML IV SCH (21:02)
[2019-10-03] MEDS: ATORVASTATIN 20 MG TABLET PO SCH (21:12)
--- NOTE | 2019-10-03 22:07 | NUR ---
* Maintains vital signs WNL * Maintains urine output > 30 ml/hr * Evidences normal skin turgor * Maintains optimal lab values * Maintains urine specific gravity WN Addendum: 10/03/19 at 2209 by MILLIE LOPEZ RN Amended: Links added.
--- NOTE | 2019-10-03 22:08 | NUR ---
* Exhibits granulation/healing at site * Exhibits decreased drainage at site * Exhibits no s/s of infection * Exhibits a decrease in lesion size * Maintains nutritional status Addendum: 10/03/19 at 2209 by MILLIE LOPEZ RN Amended: Links added.
--- NOTE | 2019-10-03 22:08 | NUR ---
* Maintains blood gasses WNL * Evidences usual mental status * Exhibits usual skin color Addendum: 10/03/19 at 2209 by MILLIE LOPEZ RN Amended: Links added.
--- NOTE | 2019-10-03 22:08 | NUR ---
* Maintains vital signs WNL * Evidences no purulent drainage from wounds, incisions, and tubes * Maintains optimal lab values PATIENT IS ON ANTIBIOTIC Addendum: 10/03/19 at 2209 by MILLIE LOPEZ RN Amended: Links added.
--- NOTE | 2019-10-03 22:09 | NUR ---
* Discusses measures to prevent aspiration * Maintains normal breath sounds * Maintains normal WBC * Maintains vital signs WNL Addendum: 10/03/19 at 2209 by MILLIE LOPEZ RN Amended: Links added.
--- NOTE | 2019-10-03 22:09 | NUR ---
* Understands anatomy and physiology * Describes reportable s/s * Understands treatment plan* Identifies current stressors * Develops effective coping behaviors Addendum: 10/03/19 at 2209 by MILLIE LOPEZ RN Amended: Links added.
--- NOTE | 2019-10-03 22:10 | NUR ---
* Understands anatomy and physiology * Describes reportable s/s * Understands treatment plan* Identifies current stressors * Develops effective coping behaviors Addendum: 10/03/19 at 2210 by MILLIE LOPEZ RN Amended: Links added.
[2019-10-04] VITALS (26 sets, daily range): BP systolic 131–179; BP diastolic 67–100
[2019-10-04] MEDS: ACETAMINOPHEN 650 MG/20.3 ML LIQUID UDC NG PRN ×2 (00:40→09:56)
[2019-10-04] MEDS: VANCOMYCIN FOR PO/GT/NG USE PO SCH ×4 (01:56→21:23)
--- NOTE | 2019-10-04 03:12 | NUR ---
Exhibits granulation/healing at site * Exhibits decreased drainage at site * Exhibits no s/s of infection * Exhibits a decrease in lesion size * Maintains nutritional status Addendum: 10/04/19 at 0312 by MILLIE LOPEZ RN Amended: Links added.
[2019-10-04 05:02] LABS: BASOPHILS % (AUTO) 0.2 % (0.0-2.0); LYMPHOCYTES # (AUTO) 0.9 K/uL (20.0-40.0); NEUTROPHILS # (AUTO) 13.1 K/uL (1.8-8.9)
[2019-10-04 05:04] LABS: EOSINOPHILS # (AUTO) 0.1 K/uL (0.0-0.7); EOSINOPHILS % (AUTO) 0.4 % (0.0-7.0); MEAN CORPUSCULAR HEMOGLOBIN 29.8 uug (24.7-32.8); MEAN CORPUSCULAR HGB CONC 33 g/dL (32.3-35.6); MEAN CORPUSCULAR VOLUME 89.9 fL (75.5-95.3); MONOCYTES # (AUTO) 0.5 K/uL (2.0-10.0); MONOCYTES % (AUTO) 3.5 % (0.0-11.0); NEUTROPHILS % (AUTO) 89.9 % (38.5-71.5); PLATELET COUNT (AUTO) 211 K/uL (179-408); WHITE BLOOD COUNT (AUTO) 14.6 K/uL (3.8-11.8)
[2019-10-04 05:11] LABS: HEMATOCRIT 20.9 % (31.2-41.9); HEMOGLOBIN 6.9 g/dL (10.9-14.3); RED BLOOD CELL COUNT(AUTO) 2.32 MIL/uL (3.63-4.92)
[2019-10-04 05:22] LABS: CARBON DIOXIDE 24 mmol/L (21-32); CHLORIDE 110 mmol/L (98-107); CREATININE 1.9 mg/dL (0.6-1.3); GLUCOSE 116 mg/dL (74-106); MAGNESIUM 1.9 mg/dL (1.8-2.4); PHOSPHOROUS 4.8 mg/dL (2.5-4.9); POTASSIUM 4.3 mmol/L (3.5-5.1); UREA NITROGEN, BLOOD 55 mg/dL (7-18)
--- NOTE | 2019-10-04 05:45 | NUR ---
was called to notify of hgb 6.9 waiting for call back
--- NOTE | 2019-10-04 06:00 | NUR ---
patient is still unresponsive , picc line , flexi seal and corbett intact , mouth and lips bleeding with thick secretions of red blood from mouth , suctioned , and cleansed gently
[2019-10-04 06:03] LABS: LYMPHOCYTES % (MANUAL) 11 % (20-40); MONOCYTES % (MANUAL) 5 % (2-10); NEUTROPHILS % (MANUAL) 84 % (42-75)
--- NOTE | 2019-10-04 06:30 | NUR ---
dr arciniega called back and received order to transfuse 1 unit of prbc
[2019-10-04] MEDS: ACIDOPHILUS/BULGARICUS CHEW TAB PO SCH ×2 (08:31→17:49)
[2019-10-04] MEDS: ASPIRIN 81 MG TAB.CHEW PO SCH (08:31)
[2019-10-04] MEDS: FOLIC ACID 1 MG TABLET PO SCH (08:31)
[2019-10-04] MEDS: LEVETIRACETAM 500 MG TABLET PO SCH ×2 (08:31→21:23)
[2019-10-04] MEDS: FAMOTIDINE 20 MG TABLET PO SCH (08:31)
[2019-10-04] MEDS: GABAPENTIN 100 MG CAPSULE PO SCH (08:32)
[2019-10-04] MEDS: VALACYCLOVIR HCL 500 MG TABLET NG SCH (08:32)
[2019-10-04] MEDS: CHOLECALCIFEROL 1,000 UNIT TABLET PO SCH (08:32)
[2019-10-04] MEDS: CYANOCOBALAMIN 1,000 MCG TABLET PO SCH (08:33)
--- NOTE | 2019-10-04 08:45 | NUR ---
PER MD ORDER PT PLACED ON CPAP MODE. PRESSURE SUPPORT OF 12, PEEP +5, 30% FIO2 RN AWARE. SEDATION OFF. PATIENT VANIA WEANING WELL. WILL CONTINUE TO MONITOR.
[2019-10-04 09:50] LABS: BILIRUBIN,DIRECT 0.1 mg/dL (0.0-0.2); BILIRUBIN,TOTAL 0.2 mg/dL (0.2-1.0); TOTAL PROTEIN, SERUM 6.7 g/dL (6.4-8.2)
[2019-10-04 09:55] LABS: ABG PCO2 33.9 mmHg (35.0-45.0); ABG SITE LEFT BRACHIAL; ABG TOTAL HEMOGLOBIN 7.9 G/dL (12.0-16.0); COHb 1.5 % (0.5-1.5); CPAP,BG 12 cmH20; MetHb 0.4 % (0.0-1.5); O2Hb 94.5 % (94.0-97.0); VENT MODE CPAP
--- NOTE | 2019-10-04 10:00 | NUR ---
SEEN AND EXAMINED BY DR ARCHULETA WITH NEW ORDERS.
[2019-10-04] MEDS: MORPHINE SULFATE 2 MG/1 ML DISP.SYRIN IV PRN (10:35)
--- NOTE | 2019-10-04 11:40 | NUR ---
1 UNIT OF PRBC STARTED INFUSING ORDERED. H&H IS 6.9/20.8 PT IS BLEEDING AROUND HER MOUTH AND ORAL CARE DONE. MD IS AWARE.
--- NOTE | 2019-10-04 12:25 | NUR ---
NOTIFIED DR ARCHULETA THAT MRI CANNOT DO THE PROCEEDURE WITH INTUBATED PT. NO FURTHER ORDERS MADE.
--- NOTE | 2019-10-04 14:00 | NUR ---
SEEN AND EXAMINED BY DR BUENROSTRO WITH NEW ORDERS,
--- NOTE | 2019-10-04 14:30 | NUR ---
BLOOD TRANSFUSION IS FINISHED. NO TRANSFUSION REACTION NOTED.
[2019-10-04] MEDS: FUROSEMIDE 20 MG/2 ML VIAL IV SCH (15:01)
--- NOTE | 2019-10-04 18:00 | NUR ---
EEG DONE AT THE BEDSIDE ORDERED.
[2019-10-04] MEDS: IV NORMAL SALINE 250 ML IV PRN (18:02)
--- NOTE | 2019-10-04 19:00 | NUR ---
Received pt orally intubated with 7.0 ETT~22cm at lip line, on Leroy vent with the following settings of AC-12, Vt-450, PEEP+5, FIO2-30%. No s/s of respiratory distress noted. Airway care done, pt responded to physical stimuli. RN aware of pt's bloody mouth. Resus. bag at bedside. Vent and alarms checked and reset.
--- NOTE | 2019-10-04 19:15 | NUR ---
patient is non responsive , picc line , flexi seal , corbett intact , vent settings a 12 , tv 450 , p5 , fio2 30 % , mouth and lips with old blood , cleansed with moist dressing . gt feeding , glu la nena 50 ml .
[2019-10-04] MEDS: CEFTRIAXONE 1 G in IV DEXTROSE 5% 50 ML IV SCH (21:19)
[2019-10-04] MEDS: SENNOSIDES 1 TABLET PO SCH (21:23)
[2019-10-04] MEDS: ATORVASTATIN 20 MG TABLET PO SCH (21:23)
--- NOTE | 2019-10-04 21:30 | NUR ---
dr toledo came to see patient , given an update on patiet's condition and procedure done
[2019-10-05] VITALS (24 sets, daily range): BP systolic 131–171; BP diastolic 67–103
[2019-10-05] MEDS: FUROSEMIDE 20 MG/2 ML VIAL IV SCH (00:05)
[2019-10-05] MEDS: ACETAMINOPHEN 650 MG/20.3 ML LIQUID UDC NG PRN ×2 (00:28→13:22)
--- NOTE | 2019-10-05 00:43 | NUR ---
* Maintains vital signs WNL * Maintains urine output > 30 ml/hr * Evidences normal skin turgor * Maintains optimal lab values * Maintains urine specific gravity WNL * Evidences no significant weight fluctuations Addendum: 10/05/19 at 0045 by MILLIE LOPEZ RN Amended: Links added.
--- NOTE | 2019-10-05 00:43 | NUR ---
* Maintains body temperature below 39 C degrees * Maintains respiratory rate and heart rate WNL * Maintains optimal lab values Addendum: 10/05/19 at 0045 by MILLIE LOPEZ RN Amended: Links added.
--- NOTE | 2019-10-05 00:44 | NUR ---
* Discusses measures to prevent aspiration * Maintains normal breath sounds * Maintains normal WBC * Maintains vital signs WNL Addendum: 10/05/19 at 0045 by MILLIE LOPEZ RN Amended: Links added.
--- NOTE | 2019-10-05 00:44 | NUR ---
* Exhibits granulation/healing at site * Exhibits decreased drainage at site * Exhibits no s/s of infection * Exhibits a decrease in lesion size * Maintains nutritional status * Maintains hydration status * Maintains optimal lab values Addendum: 10/05/19 at 0045 by MILLIE LOPEZ RN Amended: Links added.
--- NOTE | 2019-10-05 00:44 | NUR ---
* Exhibits granulation/healing at site * Exhibits decreased drainage at site * Exhibits no s/s of infection * Exhibits a decrease in lesion size * Maintains nutritional status Addendum: 10/05/19 at 0045 by MILLIE LOPEZ RN Amended: Links added.
--- NOTE | 2019-10-05 00:45 | NUR ---
* Understands anatomy and physiology * Describes reportable s/s * Understands treatment plan* Identifies current stressors * Develops effective coping behaviors * Uses support services as appropriate * Understands medication regime Addendum: 10/05/19 at 0045 by MILLIE LOPEZ RN Amended: Links added.
[2019-10-05] MEDS: VANCOMYCIN FOR PO/GT/NG USE PO SCH ×4 (01:57→19:47)
[2019-10-05 05:24] LABS: CARBON DIOXIDE 26 mmol/L (21-32); CHLORIDE 107 mmol/L (98-107); CREATININE 1.8 mg/dL (0.6-1.3); GLUCOSE 109 mg/dL (74-106); POTASSIUM 4.3 mmol/L (3.5-5.1); UREA NITROGEN, BLOOD 57 mg/dL (7-18)
[2019-10-05 05:25] LABS: PHOSPHOROUS 5.3 mg/dL (2.5-4.9)
[2019-10-05 05:53] LABS: BASOPHILS % (AUTO) 0.2 % (0.0-2.0); EOSINOPHILS % (AUTO) 0.2 % (0.0-7.0); HEMATOCRIT 25.6 % (31.2-41.9); HEMOGLOBIN 8.5 g/dL (10.9-14.3); LYMPHOCYTES # (AUTO) 1.1 K/uL (20.0-40.0); LYMPHOCYTES % (AUTO) 6.9 % (20.5-51.5); MEAN CORPUSCULAR HEMOGLOBIN 30.2 uug (24.7-32.8); MEAN CORPUSCULAR HGB CONC 33 g/dL (32.3-35.6); MEAN CORPUSCULAR VOLUME 90.7 fL (75.5-95.3); MONOCYTES # (AUTO) 0.6 K/uL (2.0-10.0); MONOCYTES % (AUTO) 3.6 % (0.0-11.0); NEUTROPHILS # (AUTO) 14.6 K/uL (1.8-8.9); NEUTROPHILS % (AUTO) 89.1 % (38.5-71.5); PLATELET COUNT (AUTO) 243 K/uL (179-408); RED BLOOD CELL COUNT(AUTO) 2.83 MIL/uL (3.63-4.92); WHITE BLOOD COUNT (AUTO) 16.4 K/uL (3.8-11.8)
--- NOTE | 2019-10-05 05:58 | NUR ---
no seizure , no fever noted , mouth and lips . still noted with old blood , dark in color , dr toledo was here 21: 30 pm , aware of image
[2019-10-05] MEDS: MORPHINE SULFATE 2 MG/1 ML DISP.SYRIN IV PRN ×2 (07:19→21:26)
--- NOTE | 2019-10-05 07:30 | NUR ---
RECEIVED PT 0700. PT OBTUNDED & SLIGHTLY OPENS EYES TO DEEP PAIN. SEVERE WEAKNESS IN ALL EXTREMITIES. SINUS RHYTHM. HR 98 BPM @ THIS TIME. PITTING EDEMA IN ALL EXTREMITIES. PICC @ JUAN WITH 0.9% NS INFUSED AT 10ML/HR. PT ORALLY INTUBATED WITH 7.0 ET 22 CM. AC-12 Vt-450 PEEP OF 5 FiO2 OF 30%. NO DISTRESS NOTED. RR IS 24 BREATH/MIN. RHONCHI NOTED. FLEXI SEAL WITH LIQUID STOOL PRESENT. PT RECEIVING GLUCERNA @ 50ML/HR. DOUGLAS CATH CARED FOR, URINE CLEAR AND YELLOW. DTI POSTERIOR SACRUM, NO TUNNELING, UNABLE TO ASSESS SIZE. SKIN TEAR L ARM WITH SCANT EXUDATE. BOTH WOUNDS COVERED WITH MEPELEX AND WILL CONTINUE TO HEAL. AFEBRILE. T-98.6F SBP UP TO 170 AND PT APPEARS TO BE GENERALLY IN DISCOMFORT. MEDICATED WITH MORPHINE 2MG SLOW IVP ORDERED.
--- NOTE | 2019-10-05 08:00 | NUR ---
SEEN & EXAMINED BY DR. ARCHULETA WITH NEW ORDERS.
--- NOTE | 2019-10-05 08:30 | NUR ---
PT RESPONDED WELL TO MORPHINE 2MG. SHOWS TO HAVE LESS DISCOMFORT. SBP 150 @ THIS TIME.
[2019-10-05 08:41] LABS: ABG BASE EXCESS 1.1 mmol/L; ABG HCO3 25.1 mmol/L; ABG PCO2 37.3 mmHg (35.0-45.0); ABG PH 7.446 (7.350-7.450); ABG SITE LEFT BRACHIAL; ABG TOTAL HEMOGLOBIN 9.4 G/dL (12.0-16.0); COHb 0.9 % (0.5-1.5); MetHb 0.1 % (0.0-1.5); O2Hb 97.5 % (94.0-97.0); VENT MODE VENT - A/C; VT, ABG 450 mL
[2019-10-05] MEDS: PROTEIN SUPPLEMENT (PROSTAT) 30 ML LIQUID NG SCH (08:51)
[2019-10-05] MEDS: PANTOPRAZOLE ORAL SUSPENSION 40 MG SUSPDR.PKT NG SCH (08:53)
[2019-10-05] MEDS: FOLIC ACID 1 MG TABLET PO SCH (08:53)
[2019-10-05] MEDS: VALACYCLOVIR HCL 500 MG TABLET NG SCH (08:53)
[2019-10-05] MEDS: ACIDOPHILUS/BULGARICUS CHEW TAB PO SCH ×2 (08:53→17:48)
[2019-10-05] MEDS: GABAPENTIN 100 MG CAPSULE PO SCH ×2 (08:54→21:03)
[2019-10-05] MEDS: CHOLECALCIFEROL 1,000 UNIT TABLET PO SCH (08:54)
[2019-10-05] MEDS: CYANOCOBALAMIN 1,000 MCG TABLET PO SCH (08:54)
[2019-10-05] MEDS: LEVETIRACETAM 500 MG TABLET PO SCH ×2 (08:54→21:03)
--- NOTE | 2019-10-05 09:30 | NUR ---
SEEN & EXAMINED BY ABILIO BONDS N.P. WITH NEW ORDERS.
[2019-10-05] MEDS: IV NORMAL SALINE 250 ML IV PRN (10:22)
--- NOTE | 2019-10-05 11:45 | NUR ---
SEEN & EXAMINED BY DR. BUENROSTRO.
--- NOTE | 2019-10-05 12:30 | NUR ---
SEEN & EXAMINED BY NIECY MORELAND WITH NO NEW ORDERS.
[2019-10-05] MEDS: METRONIDAZOLE 500 MG/NS 100ML 500 MG in PREMIXED 1 EACH IV SCH ×2 (13:19→21:53)
--- NOTE | 2019-10-05 13:30 | NUR ---
PT FEBRILE WITH FEVER OF 101.1 F RECTALLY. TYLENOL 650 MG PO GIVEN VIA NG TUBE ORDERED FOR FEVER.
--- NOTE | 2019-10-05 16:00 | NUR ---
SINUS TACHYCARDIA WITH HR >100 AND 101 BPM @ THIS TIME. TEMP CHECKED RECTALLY. 101.3 F AT THIS TIME. ICE BATH GIVEN TO COOL DOWN BODY TEMP.
--- NOTE | 2019-10-05 18:00 | NUR ---
NORMAL SINUS RHYTHM, 91 BPM @ THIS TIME. PT IS NOW AFEBRILE WITH TEMP 97.8 F RECTALLY.
--- NOTE | 2019-10-05 18:00 | NUR ---
FEEDING RESIDUAL FOUND TO BE 175 ML, NG FEEDING HELD @ THIS TIME.
--- NOTE | 2019-10-05 20:00 | NUR ---
RECEIVED PT RESPONDING TO DEEP PAINFUL STIMULI. ORALLY INTUBATED TO VENT W/ SETTINGS OF AC-12, TV-450, FIO2-30%, PEEP-+5 W/ O2 SAT OF 99%. NGT ON R NARE, CHECKED PLACEMENT & CHECKED RESIDUAL 120CC NOTED, CONT. TO HOLD TUBE FDG. NS @ 10CC/HR VIA PICC ON JUAN. REPOSITIONED ON HER SIDE W/ HOB ELEVATED.
[2019-10-05] MEDS: CEFTRIAXONE 1 G in IV DEXTROSE 5% 50 ML IV SCH (20:47)
[2019-10-05] MEDS: SENNOSIDES 1 TABLET PO SCH (21:03)
[2019-10-05] MEDS: ATORVASTATIN 20 MG TABLET PO SCH (21:04)
--- NOTE | 2019-10-05 22:00 | NUR ---
recheched ngt residual obtained 40cc. resumed tube fdg @ 50cc/hr. kept hob elevated.
--- NOTE | 2019-10-05 23:13 | NUR ---
Patient was received orally intubated with 7.0 ETT~22cm at lip line. She is on Leroy vent with the following settings of AC-12, Vt-450, PEEP+5, FIO2-30%. No signs of respiratory distress noted a this time. Suctioned small amounts of thin blood. RN aware of pt's bloody mouth. Oral care rendered with caution. Resus. bag at bedside. Alarms assessed and are on/audible. Will continue to monitor.
[2019-10-06] VITALS (25 sets, daily range): BP systolic 116–153; BP diastolic 67–94
--- NOTE | 2019-10-06 | NUR ---
residual rechecked 40cc noted cont. tube fdg.
[2019-10-06] MEDS: VANCOMYCIN FOR PO/GT/NG USE PO SCH ×4 (02:06→19:28)
--- NOTE | 2019-10-06 04:00 | NUR ---
ngt residual 150cc. hold tube fdg.
[2019-10-06 05:19] LABS: BASOPHILS % (AUTO) 0.2 % (0.0-2.0); EOSINOPHILS % (AUTO) 0.2 % (0.0-7.0); HEMATOCRIT 25.8 % (31.2-41.9); HEMOGLOBIN 8.5 g/dL (10.9-14.3); LYMPHOCYTES % (AUTO) 6.7 % (20.5-51.5); MEAN CORPUSCULAR HEMOGLOBIN 30.1 uug (24.7-32.8); MEAN CORPUSCULAR HGB CONC 33 g/dL (32.3-35.6); MEAN CORPUSCULAR VOLUME 91.5 fL (75.5-95.3); MONOCYTES # (AUTO) 0.5 K/uL (2.0-10.0); MONOCYTES % (AUTO) 3.5 % (0.0-11.0); NEUTROPHILS % (AUTO) 89.4 % (38.5-71.5); PLATELET COUNT (AUTO) 277 K/uL (179-408); RED BLOOD CELL COUNT(AUTO) 2.82 MIL/uL (3.63-4.92); WHITE BLOOD COUNT (AUTO) 14.6 K/uL (3.8-11.8)
[2019-10-06] MEDS: METRONIDAZOLE 500 MG/NS 100ML 500 MG in PREMIXED 1 EACH IV SCH ×3 (05:33→21:40)
[2019-10-06 05:39] LABS: CARBON DIOXIDE 28 mmol/L (21-32); CHLORIDE 108 mmol/L (98-107); CREATININE 1.6 mg/dL (0.6-1.3); GLUCOSE 104 mg/dL (74-106); MAGNESIUM 2.1 mg/dL (1.8-2.4); PHOSPHOROUS 5.2 mg/dL (2.5-4.9); POTASSIUM 4.3 mmol/L (3.5-5.1); UREA NITROGEN, BLOOD 60 mg/dL (7-18)
--- NOTE | 2019-10-06 06:00 | NUR ---
am care done. ngt residual 150cc, hold fdg. repositioned pt.w/ hob elevated. Addendum: 10/06/19 at 0633 by RADHA OLIVER RN ngt residual 100cc.
--- NOTE | 2019-10-06 08:00 | NUR ---
DOCTOR RICHARD IN THE UNIT ROUNDING ON PATIENT.
[2019-10-06] MEDS: CHOLECALCIFEROL 1,000 UNIT TABLET PO SCH (08:54)
[2019-10-06] MEDS: PANTOPRAZOLE ORAL SUSPENSION 40 MG SUSPDR.PKT NG SCH (08:54)
[2019-10-06] MEDS: ACIDOPHILUS/BULGARICUS CHEW TAB PO SCH ×2 (08:54→17:54)
[2019-10-06] MEDS: LEVETIRACETAM 500 MG TABLET PO SCH ×2 (08:54→20:36)
[2019-10-06] MEDS: VALACYCLOVIR HCL 500 MG TABLET NG SCH (08:54)
[2019-10-06] MEDS: GABAPENTIN 100 MG CAPSULE PO SCH (08:54)
[2019-10-06] MEDS: CYANOCOBALAMIN 1,000 MCG TABLET PO SCH (08:55)
[2019-10-06] MEDS: FOLIC ACID 1 MG TABLET PO SCH (08:55)
[2019-10-06] MEDS: PROTEIN SUPPLEMENT (PROSTAT) 30 ML LIQUID NG SCH (08:56)
--- NOTE | 2019-10-06 09:50 | NUR ---
doctor sullivan in the unit to see patient.
--- NOTE | 2019-10-06 10:42 | NUR ---
PATIENT IS SCHEDULED FOR TRACH TOMORROW AT 11. CONSENT PRINTED OUT AND READY FOR DOCTOR DEBBIE AND DOCTOR JENARO.
[2019-10-06 12:57] LABS: *BILIRUBIN,URIN NEGATIVE (NEGATIVE); *CLARITY,URINE SLIGHTLY CLOUDY (CLEAR); *COLOR,URINE YELLOW (YELLOW); *KETONES,URINE NEGATIVE (NEGATIVE); *UROBILINOGEN,URINE 0.2 E.U./dl (NORMAL); LEUKOCYTE ESTERASE ,URINE NEGATIVE (NEGATIVE); NITRITE, URINE NEGATIVE (NEGATIVE); UGLUCOSE NEGATIVE (NEGATIVE)
[2019-10-06 13:01] LABS: ABG HCO3 24.8 mmol/L; ABG PCO2 36.9 mmHg (35.0-45.0); ABG PH 7.445 (7.350-7.450); ABG PO2 105.8 mmHg (75.0-100.0); ABG SITE LEFT RADIAL; VENT MODE VENT - A/C; VT, ABG 450 mL
[2019-10-06 13:01] LABS: *BLOOD, URINE TRACE (NEGATIVE)
[2019-10-06 13:02] LABS: BACTERIA,URINE FEW /HPF (NONE SEEN); RBC,URINE 0-3 /HPF (0-3); SQUAMOUS EPITHELIAL CELL,UR FEW /HPF (NONE SEEN); WBC,URINE 0-3 /HPF (0-3); YEAST,URINE BUDDING YEAST /HPF (NONE SEEN)
[2019-10-06] MEDS: ACETAMINOPHEN 650 MG/20.3 ML LIQUID UDC NG PRN (18:37)
[2019-10-06] MEDS: NEOMY/BACITRAC/POLYMI OINT 28.35 GM TUBE TOP SCH (18:37)
--- NOTE | 2019-10-06 20:00 | NUR ---
RECEIVED PT.RESPONDING TO PAINFUL STIMULI. ORALLY INTUBATED TO VENT W/ SETTINGS OF AC-12, TV-450, FIO2-30%, PEEP-+5 W/ O2 SAT OF 100%. NGT ON R NARE, CHECKED PLACEMENT, CHECKED RESIDUAL 20CC NOTED.PICC LINE ON JUAN INTACT & PATENT. NS @ TKO RATE FOR IVPB. FLEXISEAL TO GRAVITY DRAINAGE BAG W/ LIQUIDISH GRAYISH STOOL.REPOSITIONED ON HER SIDE W/ HOB ELEVATED.
[2019-10-06] MEDS: CEFTRIAXONE 1 G in IV DEXTROSE 5% 50 ML IV SCH (20:32)
[2019-10-06] MEDS: IV D5 1/2 NS 1000 ML 1,000 ML IV PRN (20:32)
--- NOTE | 2019-10-06 20:32 | NUR ---
NAYELI D51/2 NS @ 60CC/HR ORDERED.
[2019-10-06] MEDS: SENNOSIDES 1 TABLET PO SCH (20:36)
[2019-10-06] MEDS: ATORVASTATIN 20 MG TABLET PO SCH (20:36)
[2019-10-06] MEDS: Z GUARD REMEDY PASTE 57 GM TUBE TOP PRN (23:31)
[2019-10-07] VITALS (24 sets, daily range): BP systolic 132–156; BP diastolic 74–93
--- NOTE | 2019-10-07 | NUR ---
OFF TUBE FDG. NPO FOR TRACHEOSTOMY PLACEMENT.
[2019-10-07] MEDS: VANCOMYCIN FOR PO/GT/NG USE PO SCH ×4 (02:27→20:36)
[2019-10-07] MEDS: MORPHINE SULFATE 2 MG/1 ML DISP.SYRIN IV PRN (03:04)
--- NOTE | 2019-10-07 04:00 | NUR ---
AM CARE DONE. ORAL CARE DONE GENTLY.
[2019-10-07 05:08] LABS: BASOPHILS # (AUTO) 0.1 K/uL (0.0-8.0); BASOPHILS % (AUTO) 0.5 % (0.0-2.0); EOSINOPHILS % (AUTO) 0.3 % (0.0-7.0); HEMOGLOBIN 7.9 g/dL (10.9-14.3); LYMPHOCYTES % (AUTO) 6.9 % (20.5-51.5); MEAN CORPUSCULAR HEMOGLOBIN 30.3 uug (24.7-32.8); MEAN CORPUSCULAR HGB CONC 33 g/dL (32.3-35.6); MEAN CORPUSCULAR VOLUME 91.7 fL (75.5-95.3); MONOCYTES # (AUTO) 0.5 K/uL (2.0-10.0); MONOCYTES % (AUTO) 3.6 % (0.0-11.0); NEUTROPHILS # (AUTO) 12.9 K/uL (1.8-8.9); NEUTROPHILS % (AUTO) 88.7 % (38.5-71.5); PLATELET COUNT (AUTO) 290 K/uL (179-408); RED BLOOD CELL COUNT(AUTO) 2.62 MIL/uL (3.63-4.92); WHITE BLOOD COUNT (AUTO) 14.5 K/uL (3.8-11.8)
[2019-10-07 05:23] LABS: CARBON DIOXIDE 27 mmol/L (21-32); CHLORIDE 111 mmol/L (98-107); CREATININE 1.7 mg/dL (0.6-1.3); GLUCOSE 112 mg/dL (74-106); MAGNESIUM 2.2 mg/dL (1.8-2.4); PHOSPHOROUS 5.5 mg/dL (2.5-4.9); POTASSIUM 4.4 mmol/L (3.5-5.1); UREA NITROGEN, BLOOD 64 mg/dL (7-18)
[2019-10-07] MEDS: METRONIDAZOLE 500 MG/NS 100ML 500 MG in PREMIXED 1 EACH IV SCH ×3 (05:52→21:47)
[2019-10-07] MEDS: IV NORMAL SALINE 250 ML IV PRN (05:54)
--- NOTE | 2019-10-07 06:00 | NUR ---
REMAINS NPO FOR TRACHEOSTOMY THIS AM. REPOSITIONED ON HER BACK FOR CXR.
[2019-10-07] MEDS: PROTEIN SUPPLEMENT (PROSTAT) 30 ML LIQUID NG SCH (08:44)
[2019-10-07] MEDS: FOLIC ACID 1 MG TABLET PO SCH (08:47)
[2019-10-07] MEDS: PANTOPRAZOLE ORAL SUSPENSION 40 MG SUSPDR.PKT NG SCH (08:47)
[2019-10-07] MEDS: ACIDOPHILUS/BULGARICUS CHEW TAB PO SCH ×2 (08:47→17:27)
[2019-10-07] MEDS: LEVETIRACETAM 500 MG TABLET PO SCH ×2 (08:47→20:36)
[2019-10-07] MEDS: NEOMY/BACITRAC/POLYMI OINT 28.35 GM TUBE TOP SCH (08:48)
[2019-10-07] MEDS: CHOLECALCIFEROL 1,000 UNIT TABLET PO SCH (08:48)
[2019-10-07] MEDS: VALACYCLOVIR HCL 500 MG TABLET NG SCH (08:48)
[2019-10-07] MEDS: CYANOCOBALAMIN 1,000 MCG TABLET PO SCH (08:49)
--- NOTE | 2019-10-07 09:20 | NUR ---
Pt.was seen by .
[2019-10-07 10:02] LABS: ABG BASE EXCESS -0.1 mmol/L; ABG HCO3 24.1 mmol/L; ABG PCO2 37.6 mmHg (35.0-45.0); ABG PH 7.425 (7.350-7.450); ABG PO2 108.4 mmHg (75.0-100.0); ABG SITE LEFT RADIAL; COHb 0.9 % (0.5-1.5); MetHb 0.2 % (0.0-1.5); O2Hb 97.1 % (94.0-97.0); VENT MODE VENT - A/C; VT, ABG 450 mL
--- NOTE | 2019-10-07 10:05 | NUR ---
Pt.was seen by with new orders.
[2019-10-07] MEDS: IV D5 1/2 NS 1000 ML 1,000 ML IV PRN (13:30)
--- NOTE | 2019-10-07 17:52 | NUR ---
Patient NPO currently, awaiting trach placement. Receiving Prostat with meds. Unclear overall plan for this patient as there are no family memebers. Recommend resume TF as soon as able following trach placement. Will continue to monitor per anahi and jean-claude. Addendum: 10/07/19 at [address] Amended: Links added.
[2019-10-07] MEDS: GLUCERNA 1.2 1000ML LIQUID GT PRN (18:58)
--- NOTE | 2019-10-07 19:30 | NUR ---
patietn is no responsive no no spontaneous eye opening , picc line epifanio leesaey intact , vent setting , ac 12 v 450 , p 5 fio2 at 30 %, lips and mouth had old blood , cleansed with moist cloth and suction
[2019-10-07] MEDS: ATORVASTATIN 20 MG TABLET PO SCH (20:36)
[2019-10-07] MEDS: CEFTRIAXONE 1 G in IV DEXTROSE 5% 50 ML IV SCH (20:36)
[2019-10-07] MEDS: SENNOSIDES 1 TABLET PO SCH (20:37)
[2019-10-07] MEDS ORDERED: FUROSEMIDE 20 MG/2 ML VIAL IV ONE (20:45)
--- NOTE | 2019-10-07 23:58 | NUR ---
* Understands anatomy and physiology * Describes reportable s/s * Understands treatment plan* Identifies current stressors * Develops effective coping behaviors * Uses support services as appropriate * Understands medication regime Addendum: 10/07/19 at 2358 by MILLIE LOPEZ RN Amended: Links added. Addendum: 10/08/19 at 0000 by MILLIE LOPEZ RN Amended: Jordon wiggins.
--- NOTE | 2019-10-07 23:58 | NUR ---
* Exhibits granulation/healing at site * Exhibits decreased drainage at site * Exhibits no s/s of infection * Exhibits a decrease in lesion size * Maintains nutritional status Addendum: 10/07/19 at 2358 by MILLIE LOPEZ RN Amended: Links added. Addendum: 10/08/19 at 0000 by MILLIE LOPEZ RN Amended: Links added.
--- NOTE | 2019-10-07 23:58 | NUR ---
* Identifies current stressors * Develops effective coping behaviors * Uses support services as appropriate Addendum: 10/07/19 at 2358 didi LOPEZ RN Amended: Jordon wiggins. Addendum: 10/08/19 at 0000 didi LOPEZ RN Amended: Jordon wiggins.
--- NOTE | 2019-10-07 23:59 | NUR ---
* Exhibits granulation/healing at site * Exhibits decreased drainage at site * Exhibits no s/s of infection * Exhibits a decrease in lesion size * Maintains nutritional status Addendum: 10/08/19 at 0000 by MILLIE LOPEZ RN Amended: Links added.
--- NOTE | 2019-10-07 23:59 | NUR ---
Exhibits no s/s of infection * Exhibits a decrease in lesion size * Maintains nutritional status * Maintains hydration status * Maintains optimal lab values Addendum: 10/08/19 at 0000 by MILLIE LOPEZ RN Amended: Links added.
--- NOTE | 2019-10-07 23:59 | NUR ---
* Maintains blood gasses WNL * Evidences usual mental status * Exhibits usual skin color Addendum: 10/08/19 at 0000 by MILLIE LOPEZ RN Amended: Links added.
[2019-10-08] VITALS (30 sets, daily range): BP systolic 96–152; BP diastolic 57–89
--- NOTE | 2019-10-08 | NUR ---
* Maintains vital signs WNL * Maintains urine output > 30 ml/hr * Evidences normal skin turgor * Maintains optimal lab values * Maintains urine specific gravity WNL Addendum: 10/08/19 at 0001 by MILLIE LOPEZ RN Amended: Links added.
[2019-10-08] MEDS: VANCOMYCIN FOR PO/GT/NG USE PO SCH ×4 (01:37→19:56)
--- NOTE | 2019-10-08 02:50 | NUR ---
PT ON CONT VILLEGAS VENT WITH 7.0 ET/TUBE IN PLACE AND SECURED, WITH ANCHOR FAST , MOVE SIDE TO SIDE Q2 HOURS, BLOODY LIP AND MOUTH SUCTION GENTLY MOUTH WITH BIANKA AGGARWAL, VERY LITTLE RESPONSE, PT DOES ASSIST AT TIMES, NO VENT CHANGES MADE, SETTINGS,A/C 12, VT 450ML, PEEP5, 30%.Jun KOEHLERP Addendum: 10/08/19 at 0252 by GAURI ARMENTA RT Amended: Links added.
[2019-10-08] MEDS: METRONIDAZOLE 500 MG/NS 100ML 500 MG in PREMIXED 1 EACH IV SCH ×3 (05:46→22:06)
[2019-10-08 06:02] LABS: BASOPHILS # (AUTO) 0.1 K/uL (0.0-8.0); BASOPHILS % (AUTO) 0.4 % (0.0-2.0); EOSINOPHILS % (AUTO) 0.2 % (0.0-7.0); HEMOGLOBIN 7.5 g/dL (10.9-14.3); LYMPHOCYTES # (AUTO) 0.9 K/uL (20.0-40.0); LYMPHOCYTES % (AUTO) 6.7 % (20.5-51.5); MEAN CORPUSCULAR HEMOGLOBIN 29.9 uug (24.7-32.8); MEAN CORPUSCULAR HGB CONC 33 g/dL (32.3-35.6); MEAN CORPUSCULAR VOLUME 92.3 fL (75.5-95.3); MONOCYTES # (AUTO) 0.4 K/uL (2.0-10.0); MONOCYTES % (AUTO) 3.2 % (0.0-11.0); NEUTROPHILS # (AUTO) 11.8 K/uL (1.8-8.9); NEUTROPHILS % (AUTO) 89.5 % (38.5-71.5); PLATELET COUNT (AUTO) 327 K/uL (179-408); WHITE BLOOD COUNT (AUTO) 13.2 K/uL (3.8-11.8)
[2019-10-08 06:08] LABS: RED BLOOD CELL COUNT(AUTO) 2.49 MIL/uL (3.63-4.92)
[2019-10-08 06:15] LABS: CARBON DIOXIDE 26 mmol/L (21-32); CHLORIDE 108 mmol/L (98-107); CREATININE 1.6 mg/dL (0.6-1.3); GLUCOSE 121 mg/dL (74-106); MAGNESIUM 2.1 mg/dL (1.8-2.4); PHOSPHOROUS 5.1 mg/dL (2.5-4.9); POTASSIUM 3.8 mmol/L (3.5-5.1); UREA NITROGEN, BLOOD 67 mg/dL (7-18)
[2019-10-08 08:10] LABS: ABG BASE EXCESS -0.3 mmol/L; ABG HCO3 23.6 mmol/L; ABG PH 7.446 (7.350-7.450); ABG PO2 114.6 mmHg (75.0-100.0); ABG SITE RIGHT RADIAL; ABG TOTAL HEMOGLOBIN 8.1 G/dL (12.0-16.0); COHb 1.9 % (0.5-1.5); MetHb 0.4 % (0.0-1.5); O2Hb 96.6 % (94.0-97.0); VENT MODE VENT - A/C; VT, ABG 450 mL
[2019-10-08] MEDS: PROTEIN SUPPLEMENT (PROSTAT) 30 ML LIQUID NG SCH (08:45)
[2019-10-08] MEDS: ACIDOPHILUS/BULGARICUS CHEW TAB PO SCH ×2 (08:46→16:16)
[2019-10-08] MEDS: FOLIC ACID 1 MG TABLET PO SCH (08:46)
[2019-10-08] MEDS: CHOLECALCIFEROL 1,000 UNIT TABLET PO SCH (08:46)
[2019-10-08] MEDS: LEVETIRACETAM 500 MG TABLET PO SCH ×2 (08:46→20:03)
[2019-10-08] MEDS: CYANOCOBALAMIN 1,000 MCG TABLET PO SCH (08:46)
[2019-10-08] MEDS: PANTOPRAZOLE ORAL SUSPENSION 40 MG SUSPDR.PKT NG SCH (08:47)
[2019-10-08] MEDS: VALACYCLOVIR HCL 500 MG TABLET NG SCH (08:48)
[2019-10-08] MEDS: NEOMY/BACITRAC/POLYMI OINT 28.35 GM TUBE TOP SCH (08:50)
--- NOTE | 2019-10-08 09:45 | NUR ---
NEPHROLOGY SERVICES DR HAMMER IN THE UNIT, FULL REPORT GIVEN TO DR HAMMER SEE ORDER HISTORY FOR NEW ORDERS. DR HAMMER AT BEDSIDE ASSESSING PATIENT.
--- NOTE | 2019-10-08 10:22 | NUR ---
PULMONARY SERVICES DR. ARCHULETA IN THE UNIT. FULL REPORT GIVEN SEE ORDER HISTORY FOR NEW ORDERS. DR. ARCHULETA AT THE BEDSIDE ASSESSING PATIENT.
--- NOTE | 2019-10-08 11:16 | NUR ---
ID SERVICES NUNU FULLER IN THE UNIT, FULL REPORT GIVEN SEE ORDER HISTORY FOR NEW ORDERS. NUNU FULLER AT BEDSIDE ASSESSING PATIENT.
--- NOTE | 2019-10-08 11:45 | NUR ---
CARDIOLOGY SERVICES DR. BUENROSTRO IN THE UNIT, FULL REPORT GIVEN TO DR. BUENROSTRO SEE ORDER HISTORY FOR NEW ORDERS. DR BUENROSTRO AT BEDSIDE ASSESSING PATIENT.
[2019-10-08] MEDS ORDERED: FUROSEMIDE 20 MG/2 ML VIAL IV PRN (12:00)
--- NOTE | 2019-10-08 16:15 | NUR ---
INITIATED BLOOD TRANSFUSION. NO ACUTE DISTRESS WITHIN 15 MINUTED OF TRANSFUSION. NO S/S OF REACTION, PATIENT TOLERATING THE TRANSFUSION. WILL CONTINUE TO MONITOR.
[2019-10-08] MEDS: ACETAMINOPHEN 650 MG/20.3 ML LIQUID UDC NG PRN (16:16)
--- NOTE | 2019-10-08 16:30 | NUR ---
NEUROLOGY SERVICES DR GIFFORD INT HE UNIT, FULL REPORT GIVEN, SEE ORDER HISTORY FOR NEW ORDERS. DR WILLS AT BEDSIDE ASSESSING PATIENT.
[2019-10-08] MEDS: CEFTRIAXONE 1 G in IV DEXTROSE 5% 50 ML IV SCH (19:58)
[2019-10-08] MEDS: ATORVASTATIN 20 MG TABLET PO SCH (20:03)
[2019-10-08] MEDS: SENNOSIDES 1 TABLET PO SCH (20:03)
[2019-10-08] MEDS: IV NORMAL SALINE 250 ML IV PRN (22:20)
[2019-10-09] VITALS (22 sets, daily range): BP systolic 102–154; BP diastolic 68–90
[2019-10-09] MEDS: VANCOMYCIN FOR PO/GT/NG USE PO SCH ×2 (02:00→08:28)
--- NOTE | 2019-10-09 04:45 | NUR ---
PT ON CONT VILLEGAS VENT WITH 7.0 ET/TUBE IN PLACE AND SECURED, WITH ANCHOR FAST, SLIGHT BLOODY MOUTH LIP, CLEAN, CHANGE HME AND CONROY, NO VENT CHANGES MADE AT THIS TIME, ALL ALARMS GOOD, NO VENT CHANGES MADE, AMBU BAG AT BEDSIDE.Jun KOEHLERP Addendum: 10/09/19 at 0447 by GAURI ARMENTA RT Amended: Links added.
[2019-10-09 05:22] LABS: BASOPHILS % (AUTO) 0.3 % (0.0-2.0); EOSINOPHILS % (AUTO) 0.3 % (0.0-7.0); HEMATOCRIT 27.4 % (31.2-41.9); HEMOGLOBIN 9.5 g/dL (10.9-14.3); LYMPHOCYTES # (AUTO) 0.5 K/uL (20.0-40.0); MEAN CORPUSCULAR HEMOGLOBIN 30.8 uug (24.7-32.8); MEAN CORPUSCULAR HGB CONC 35 g/dL (32.3-35.6); MEAN CORPUSCULAR VOLUME 88.6 fL (75.5-95.3); MONOCYTES # (AUTO) 0.4 K/uL (2.0-10.0); MONOCYTES % (AUTO) 3.9 % (0.0-11.0); NEUTROPHILS # (AUTO) 9.9 K/uL (1.8-8.9); NEUTROPHILS % (AUTO) 90.5 % (38.5-71.5); PLATELET COUNT (AUTO) 366 K/uL (179-408); RED BLOOD CELL COUNT(AUTO) 3.09 MIL/uL (3.63-4.92); WHITE BLOOD COUNT (AUTO) 10.9 K/uL (3.8-11.8)
[2019-10-09 05:34] LABS: ALANINE AMINOTRANSFERASE 19 U/L (14-59); ALKALINE PHOSPHATASE 76 U/L (50-136); ASPARTATE AMINOTRANSFERASE 32 U/L (15-37); BILIRUBIN,TOTAL 0.4 mg/dL (0.2-1.0); CARBON DIOXIDE 28 mmol/L (21-32); CHLORIDE 109 mmol/L (98-107); CREATININE 1.6 mg/dL (0.6-1.3); GLUCOSE 123 mg/dL (74-106); MAGNESIUM 1.9 mg/dL (1.8-2.4); PHOSPHOROUS 4.7 mg/dL (2.5-4.9); POTASSIUM 3.8 mmol/L (3.5-5.1); TOTAL PROTEIN, SERUM 7.4 g/dL (6.4-8.2); UREA NITROGEN, BLOOD 75 mg/dL (7-18)
[2019-10-09] MEDS: METRONIDAZOLE 500 MG/NS 100ML 500 MG in PREMIXED 1 EACH IV SCH ×3 (05:55→22:09)
[2019-10-09 07:22] LABS: ABG BASE EXCESS 1.4 mmol/L; ABG HCO3 24.5 mmol/L; ABG PCO2 33.4 mmHg (35.0-45.0); ABG PH 7.484 (7.350-7.450); ABG PO2 110.4 mmHg (75.0-100.0); ABG SITE LEFT BRACHIAL; ABG TOTAL HEMOGLOBIN 9.9 G/dL (12.0-16.0); COHb 1.5 % (0.5-1.5); MetHb 0.3 % (0.0-1.5); O2Hb 96.7 % (94.0-97.0); VENT MODE VENT - A/C; VT, ABG 450 mL
--- NOTE | 2019-10-09 08:15 | NUR ---
NEPHROLOGY SERVICES DR. RICE IN THE UNIT, FULL REPORT GIVEN SEE ORDER HISTORY FOR NEW ORDERS. DR RICE AT BEDSIDE ASSESSING PATIENT.
[2019-10-09] MEDS: VALACYCLOVIR HCL 500 MG TABLET NG SCH (08:29)
[2019-10-09] MEDS: PROTEIN SUPPLEMENT (PROSTAT) 30 ML LIQUID NG SCH (08:29)
[2019-10-09] MEDS: PANTOPRAZOLE ORAL SUSPENSION 40 MG SUSPDR.PKT NG SCH (08:29)
[2019-10-09] MEDS: FOLIC ACID 1 MG TABLET PO SCH (08:29)
[2019-10-09] MEDS: CYANOCOBALAMIN 1,000 MCG TABLET PO SCH (08:29)
[2019-10-09] MEDS: ACIDOPHILUS/BULGARICUS CHEW TAB PO SCH ×2 (08:29→17:06)
[2019-10-09] MEDS: LEVETIRACETAM 500 MG TABLET PO SCH ×2 (08:29→20:55)
[2019-10-09] MEDS: NEOMY/BACITRAC/POLYMI OINT 28.35 GM TUBE TOP SCH (08:30)
[2019-10-09] MEDS: CHOLECALCIFEROL 1,000 UNIT TABLET PO SCH (08:30)
--- NOTE | 2019-10-09 09:23 | NUR ---
PT RECEIVED ON VILLEGAS VENT WITH ETT SECURED AND AIRWAY PATENT. VENT SETTINGS AC12/VT450/30%/+5 PEEP.PT TOLERATING CURRENT VENT SETTINGS FINE WITH NO DISTRESS. ROUTINE ABG DONE. RESULTS NON CRITICAL. ORAL CARE DONE. WILL CONTINUE TO MONITOR
--- NOTE | 2019-10-09 09:30 | NUR ---
PULMONARY SERVICES DR ARCHULETA IN THE UNIT,FULL REPORT GIVEN SEE ORDER HISTORY FOR NEW ORDERS. DR. ARCHULETA AT BEDSIDE ASSESSING PATIENT.
[2019-10-09] MEDS ORDERED: POTASSIUM CHLORIDE 50 ML IV SCH (10:15)
[2019-10-09] MEDS ORDERED: FUROSEMIDE 20 MG/2 ML VIAL IV ONE (11:00)
--- NOTE | 2019-10-09 11:49 | NUR ---
CARDIOLOGY SERVICES DR BUENROSTRO IN THE UNIT. FULL REPORT GIVEN SEE ORDER HISTORY FOR NEW ORDERS. DR BUENROSTRO AT BEDSIDE ASSESSING PATIENT.
--- NOTE | 2019-10-09 12:27 | NUR ---
ID SERVICES JONNY PIPE JEEPER IN THE UNIT, FULL REPORT GIVEN SEE ORDER HISTORY FOR FOR NEW ORDERS. JONNY PIPE JEEPER AT BEDSIDE ASSESSING PATIENT.
[2019-10-09] MEDS: GLUCERNA 1.2 1000ML LIQUID GT PRN (14:02)
--- NOTE | 2019-10-09 20:00 | NUR ---
RECEIVED PT RESPONDING TO PAINFUL STIMULI. ORALLY INTUBATED TO VENT W/ SETTINGS OF AC-12.TV-450. FIO2-30%, PEEP-+5 W/ O2 SAT OF 100%. NGT ON R NARE CHECKED PLACEMENT, CHECKED RESIDUAL 150CC NOTED HOLD FDG . PICC LINE ON JUAN INTACT & PATENT. NS @ TKO RATE FOR IVPB. AFEBRILE. REPOSITIONED W/ HOB ELEVATED.
[2019-10-09] MEDS: ATORVASTATIN 20 MG TABLET PO SCH (20:55)
[2019-10-09] MEDS: SENNOSIDES 1 TABLET PO SCH (20:55)
--- NOTE | 2019-10-09 22:00 | NUR ---
FLEXISEAL REINSERTED, PT. HAD CONT. LIQUIDISH STOOL LARGE AMT. BED BATH GIVEN. REPOSITIONED ON HER SIDE W/ HOB ELEVATED. RECHECKED RESIDUAL OBTAINED 100 CC.CONT TO HOLD FDG.
[2019-10-10] VITALS (22 sets, daily range): BP systolic 132–153; BP diastolic 82–91
--- NOTE | 2019-10-10 03:48 | NUR ---
PT ON CONT VILLEGAS VENT 7.0 ET/TUBE IN PLACE; WITH ANCHOR FAST IN PLACE, STILL SOME BLOOD ON LIP. SUCTION, NO VENT CHANGES MADE, SETTINGS, A/C12, VT 450ML, PEEP5, 30%, PT DOES ASSIST , ALL ALARMS GOOD, AMBU BAG AT BEDSIDE.Jun ARMENTA KNUCKLER Addendum: 10/10/19 at 0352 by GAURI ARMENTA RT Amended: Links added.
--- NOTE | 2019-10-10 04:00 | NUR ---
AM CARE DONE. ORAL CARE DONE. TRIPLE ANTIBIOTIC MOISTENED THE MOUTH. REPOSITIONED W/ HOB ELEVATED. OFF NGT FDG INCREASED RESIDUAL.
[2019-10-10 05:02] LABS: BASOPHILS % (AUTO) 0.3 % (0.0-2.0); EOSINOPHILS % (AUTO) 0.4 % (0.0-7.0); HEMATOCRIT 27.9 % (31.2-41.9); HEMOGLOBIN 9.3 g/dL (10.9-14.3); LYMPHOCYTES # (AUTO) 0.7 K/uL (20.0-40.0); LYMPHOCYTES % (AUTO) 7.5 % (20.5-51.5); MEAN CORPUSCULAR HEMOGLOBIN 29.9 uug (24.7-32.8); MEAN CORPUSCULAR HGB CONC 33 g/dL (32.3-35.6); MEAN CORPUSCULAR VOLUME 89.6 fL (75.5-95.3); MONOCYTES # (AUTO) 0.4 K/uL (2.0-10.0); MONOCYTES % (AUTO) 4.8 % (0.0-11.0); NEUTROPHILS # (AUTO) 8.1 K/uL (1.8-8.9); PLATELET COUNT (AUTO) 419 K/uL (179-408); RED BLOOD CELL COUNT(AUTO) 3.12 MIL/uL (3.63-4.92); WHITE BLOOD COUNT (AUTO) 9.3 K/uL (3.8-11.8)
[2019-10-10 05:21] LABS: CARBON DIOXIDE 29 mmol/L (21-32); CHLORIDE 106 mmol/L (98-107); CREATININE 1.5 mg/dL (0.6-1.3); GLUCOSE 116 mg/dL (74-106); MAGNESIUM 1.9 mg/dL (1.8-2.4); PHOSPHOROUS 4.5 mg/dL (2.5-4.9); POTASSIUM 3.7 mmol/L (3.5-5.1); UREA NITROGEN, BLOOD 75 mg/dL (7-18)
[2019-10-10] MEDS: ACETAMINOPHEN 650 MG/20.3 ML LIQUID UDC NG PRN (06:05)
[2019-10-10] MEDS: METRONIDAZOLE 500 MG/NS 100ML 500 MG in PREMIXED 1 EACH IV SCH ×3 (06:07→21:25)
[2019-10-10] MEDS: Z GUARD REMEDY PASTE 57 GM TUBE TOP PRN (06:07)
[2019-10-10] MEDS: IV NORMAL SALINE 250 ML IV PRN (06:08)
--- NOTE | 2019-10-10 07:45 | NUR ---
DOCTOR GEREMIAS IN THE UNIT GIVEN FULL REPORT. FOLLOW UP WITH ID PER GEREMIAS REGARDING FEVER OF 101 THIS MORNING.
--- NOTE | 2019-10-10 08:11 | NUR ---
PT ON CONT VILLEGAS VENT 7.0 ET/TUBE IN PLACE APROX 22CM AT THE LIP; WITH ANCHOR FAST IN PLACE.SUCTION FOR SMALL AMOUNT OF THIN PALE YELLOW. NO VENT CHANGES MADE, SETTINGS, A/C12, VT 450, PEEP5, 30%, ALARMS NO AND AUDIBLE, AMBU BAG AT BEDSIDE. NO SOB NOTED
[2019-10-10] MEDS: PROTEIN SUPPLEMENT (PROSTAT) 30 ML LIQUID NG SCH (08:40)
[2019-10-10] MEDS: FOLIC ACID 1 MG TABLET PO SCH (08:41)
[2019-10-10] MEDS: LEVETIRACETAM 500 MG TABLET PO SCH ×2 (08:41→20:31)
[2019-10-10] MEDS: PANTOPRAZOLE ORAL SUSPENSION 40 MG SUSPDR.PKT NG SCH (08:41)
[2019-10-10] MEDS: VALACYCLOVIR HCL 500 MG TABLET NG SCH (08:41)
[2019-10-10] MEDS: ACIDOPHILUS/BULGARICUS CHEW TAB PO SCH ×2 (08:41→17:55)
[2019-10-10] MEDS: CHOLECALCIFEROL 1,000 UNIT TABLET PO SCH (08:42)
[2019-10-10] MEDS: CYANOCOBALAMIN 1,000 MCG TABLET PO SCH (08:42)
[2019-10-10] MEDS: NEOMY/BACITRAC/POLYMI OINT 28.35 GM TUBE TOP SCH (09:03)
--- NOTE | 2019-10-10 09:40 | NUR ---
DOCTOR CHITRA IN THE UNIT TO SEE PATIENT. INFORMED STILL PENDING TARZANA TRANSFER FOR TRACH & PEG PLACEMENT.
--- NOTE | 2019-10-10 12:00 | NUR ---
DOCTOR JAQUELIN IN THE UNIT TO SEE PATIENT.
--- NOTE | 2019-10-10 14:00 | NUR ---
ESDA IN THE UNIT TO SEE PATIENT. INFORMED OF TEMPERATURE IN AM. LEONARD CULTURES ORDERED AND SENT. PLEASE REFER TO OTHER NEW ORDERS ON SYSTEM.
[2019-10-10] MEDS: VANCOMYCIN FOR PO/GT/NG USE PO SCH ×2 (15:09→17:56)
[2019-10-10 15:20] LABS: *BILIRUBIN,URIN NEGATIVE (NEGATIVE); *CLARITY,URINE CLEAR (CLEAR); *COLOR,URINE YELLOW (YELLOW); *KETONES,URINE NEGATIVE (NEGATIVE); *UROBILINOGEN,URINE 0.2 E.U./dl (NORMAL); LEUKOCYTE ESTERASE ,URINE 2+ (NEGATIVE); NITRITE, URINE NEGATIVE (NEGATIVE); PH,URINE 5.5 (5.0-8.0); UGLUCOSE NEGATIVE (NEGATIVE)
[2019-10-10 15:30] LABS: *BLOOD, URINE TRACE (NEGATIVE)
[2019-10-10 15:32] LABS: BACTERIA,URINE 1 /HPF (NONE SEEN); SQUAMOUS EPITHELIAL CELL,UR MANY /HPF (NONE SEEN); WBC,URINE 50-80 /HPF (0-3); YEAST,URINE MODERATE /HPF (NONE SEEN)
--- NOTE | 2019-10-10 20:00 | NUR ---
RECEIVED PT. OPENS HER EYES TO NOXIOUS STIMULI. ORALLY INTUBATED TO VENT W/ SETTINGS OF AC-12,TV-450, FIO2-30%, PEEP-+5 W/ O2 SAT OF 99%. NGT ON R NARE , CHECKED PLACEMENT, CHECKED RESIDUAL 20CC NOTED. PICC LINE ON JUAN NS @ TKO RATE FOR IVPB.FLEXISEAL TO GRAVITY BAG W/ LIQUIDISH GRAYISH STOOL.REPOSITIONED ON HER SIDE W/ HOB ELEVATED.
[2019-10-10] MEDS: GLUCERNA 1.2 1000ML LIQUID GT PRN (20:21)
[2019-10-10] MEDS: ATORVASTATIN 20 MG TABLET PO SCH (20:31)
[2019-10-10] MEDS: SENNOSIDES 1 TABLET PO SCH (20:32)
--- NOTE | 2019-10-10 22:00 | NUR ---
HS CARE DONE. REPOSITIONED W/ HOB ELEVATED.
[2019-10-11] VITALS (24 sets, daily range): BP systolic 133–161; BP diastolic 78–106
[2019-10-11] MEDS: VANCOMYCIN FOR PO/GT/NG USE PO SCH ×5 (00:50→23:29)
--- NOTE | 2019-10-11 04:00 | NUR ---
AM CARE DONE. ORAL CARE DONE. REPOSITIONED W/ HOB ELEVATED.
[2019-10-11 05:19] LABS: BASOPHILS % (AUTO) 0.2 % (0.0-2.0); EOSINOPHILS % (AUTO) 0.5 % (0.0-7.0); HEMATOCRIT 27.5 % (31.2-41.9); HEMOGLOBIN 9.1 g/dL (10.9-14.3); LYMPHOCYTES # (AUTO) 1.1 K/uL (20.0-40.0); LYMPHOCYTES % (AUTO) 11.1 % (20.5-51.5); MEAN CORPUSCULAR HEMOGLOBIN 30.2 uug (24.7-32.8); MEAN CORPUSCULAR HGB CONC 33 g/dL (32.3-35.6); MEAN CORPUSCULAR VOLUME 90.7 fL (75.5-95.3); MONOCYTES # (AUTO) 0.5 K/uL (2.0-10.0); MONOCYTES % (AUTO) 5.8 % (0.0-11.0); NEUTROPHILS # (AUTO) 7.8 K/uL (1.8-8.9); NEUTROPHILS % (AUTO) 82.4 % (38.5-71.5); PLATELET COUNT (AUTO) 447 K/uL (179-408); RED BLOOD CELL COUNT(AUTO) 3.03 MIL/uL (3.63-4.92); WHITE BLOOD COUNT (AUTO) 9.5 K/uL (3.8-11.8)
[2019-10-11] MEDS: METRONIDAZOLE 500 MG/NS 100ML 500 MG in PREMIXED 1 EACH IV SCH ×3 (05:34→22:05)
[2019-10-11 05:38] LABS: CARBON DIOXIDE 29 mmol/L (21-32); CHLORIDE 113 mmol/L (98-107); CREATININE 1.4 mg/dL (0.6-1.3); GLUCOSE 131 mg/dL (74-106); MAGNESIUM 2.1 mg/dL (1.8-2.4); PHOSPHOROUS 4.1 mg/dL (2.5-4.9); POTASSIUM 3.9 mmol/L (3.5-5.1); UREA NITROGEN, BLOOD 70 mg/dL (7-18)
[2019-10-11] MEDS: IV NORMAL SALINE 250 ML IV PRN (05:38)
--- NOTE | 2019-10-11 06:00 | NUR ---
REPOSITIONED ON HER LEFT SIDE AFTER CXR.KEPT HOB ELEVATED.
[2019-10-11 07:34] LABS: ABG BASE EXCESS 1.3 mmol/L; ABG HCO3 25.2 mmol/L; ABG PCO2 37.5 mmHg (35.0-45.0); ABG PH 7.445 (7.350-7.450); ABG PO2 135.2 mmHg (75.0-100.0); ABG SITE LEFT RADIAL; ABG TOTAL HEMOGLOBIN 12.9 G/dL (12.0-16.0); COHb 1.3 % (0.5-1.5); MetHb 0.2 % (0.0-1.5); O2Hb 97.5 % (94.0-97.0); VENT MODE VENT - A/C; VT, ABG 450 mL
--- NOTE | 2019-10-11 08:00 | NUR ---
DOCTOR VISHAL IN THE UNIT TO SEE PATIENT.
[2019-10-11] MEDS: PROTEIN SUPPLEMENT (PROSTAT) 30 ML LIQUID NG SCH (08:38)
[2019-10-11] MEDS: PANTOPRAZOLE ORAL SUSPENSION 40 MG SUSPDR.PKT NG SCH (08:38)
[2019-10-11] MEDS: FOLIC ACID 1 MG TABLET PO SCH (08:39)
[2019-10-11] MEDS: CHOLECALCIFEROL 1,000 UNIT TABLET PO SCH (08:39)
[2019-10-11] MEDS: LEVETIRACETAM 500 MG TABLET PO SCH ×2 (08:39→20:56)
[2019-10-11] MEDS: ACIDOPHILUS/BULGARICUS CHEW TAB PO SCH ×2 (08:39→18:35)
[2019-10-11] MEDS: CYANOCOBALAMIN 1,000 MCG TABLET PO SCH (08:49)
[2019-10-11] MEDS: NEOMY/BACITRAC/POLYMI OINT 28.35 GM TUBE TOP SCH (08:50)
--- NOTE | 2019-10-11 11:45 | NUR ---
DOCTOR ELOISE IN TO SEE THE PATIENT.
--- NOTE | 2019-10-11 12:15 | NUR ---
DOCTOR JAQUELIN IN THE UNIT TO SEE THE PATIENT.
--- NOTE | 2019-10-11 13:20 | NUR ---
WOUND NURSE IN THE UNIT TO SEE PATIENT
--- NOTE | 2019-10-11 16:20 | NUR ---
Amanda in the unit. obtaining temperature. patient is 100.8. Amanda placed new orders and ordered for new Neri Placement.
--- NOTE | 2019-10-11 16:51 | NUR ---
DOCTOR MIGUEL IN THE UNIT INFORMED THAT PATIENT IS OPENING EYES MORE WITH LESS STIMULATION. UNABLE TO FOLLOW COMMANDS YET.
--- NOTE | 2019-10-11 19:15 | NUR ---
received patient on vent settings of ac 12 , tv 450 , p 5 , fio2 30 % , opens eyes , unable to follow commnad , flexi , seal , corbett and picc line epifanio intact , glucerna 1.2 ngt at 50 ml hr , initial residual 60 ml
[2019-10-11] MEDS: ATORVASTATIN 20 MG TABLET PO SCH (20:56)
[2019-10-11] MEDS: SENNOSIDES 1 TABLET PO SCH (20:56)
--- NOTE | 2019-10-11 22:00 | NUR ---
ngt feeding no residual
--- NOTE | 2019-10-11 22:53 | NUR ---
INTAKE AN DOUTPUT BEING MONITORED , URINE OUTPUT AND GT FEEDING RESIDUAL Addendum: 10/11/19 at 2252 by MILLIE LOPEZ RN Amended: Jordon added. Addendum: 10/11/19 at 2254 by MILLIE LOPEZ RN Amended: Jordon added. Addendum: 10/11/19 at 2255 by MILLIE LOPEZ RN Amended: Links added.
--- NOTE | 2019-10-11 22:55 | NUR ---
BODY TEMPP IS BEING MONITORED , AND MEDICATION TYLENOL LIQUID IS STAND BY TO LOWER BODY TEMP Addendum: 10/11/19 at 2255 by MILLIE LOPEZ RN Amended: Jordon added. Addendum: 10/11/19 at 2256 by MILLIE LOPEZ RN Amended: Links added.
--- NOTE | 2019-10-11 22:56 | NUR ---
PATIENT MENTAL STATUS IS BEING MONITORED , THERS IS SPONTENEOUS EYE OPENING WHEN IN DEEP TOUCH NOW Addendum: 10/11/19 at 2256 by MILLIE LOPEZ RN Amended: Links added.
--- NOTE | 2019-10-11 22:58 | NUR ---
PATIENT IS ON A VENTILATOR SETTING AC 12 , TV 450 , P 5 AND FIO2 OF 30 % , ABG IS BEING MONITORED AND PATIENT'S BREATHING Addendum: 10/11/19 at 2258 by MILLIE LOPEZ RN Amended: Links added. Addendum: 10/11/19 at 2300 by MILLIE LOPEZ RN Amended: Links feliciano.
--- NOTE | 2019-10-11 23:00 | NUR ---
* Understands anatomy and physiology * Describes reportable s/s * Understands treatment plan* Identifies current stressors * Develops effective coping behaviors Addendum: 10/11/19 at 2300 by MILLIE LOPEZ RN Amended: Links added.
--- NOTE | 2019-10-11 23:00 | NUR ---
PATIENT WOUND IS BEING CLEANSED AN DPAT DRY AND EMULSION DRESSING AND COVERED WITH NON ADHESIVE DRESSING Addendum: 10/11/19 at 2300 by MILLIE LOPEZ RN Amended: Links added.
--- NOTE | 2019-10-11 23:02 | NUR ---
HEAD OF BED IS AT 30 DEGREES , CHECKING OF RESIDUAL EVERY 2 HOURS Addendum: 10/11/19 at 2301 by MILLIE LOPEZ RN Amended: Links added. Addendum: 10/11/19 at 2301 by MILLIE LOPEZ RN Amended: Links added.
--- NOTE | 2019-10-11 23:02 | NUR ---
* Exhibits usual skin color Exhibits granulation/healing at site * Exhibits decreased drainage at site * Exhibits no s/s of infection * Exhibits a decrease in lesion size * Maintains nutritional statuss Addendum: 10/11/19 at 2302 by MILLIE LOPEZ RN Amended: Links added.
[2019-10-11] MEDS ORDERED: IV DEXTROSE 5%-0.2% NS 1,000 ML IV PRN (23:30)
[2019-10-12] VITALS (24 sets, daily range): BP systolic 128–151; BP diastolic 69–94
--- NOTE | 2019-10-12 | NUR ---
feeding turned off . npo . iv d5 1/2 ns at 60 started
[2019-10-12] MEDS ORDERED: IV D5 1/2 NS 1000 ML 1,000 ML IV ONE (00:15)
--- NOTE | 2019-10-12 02:30 | NUR ---
RECEIVED PATIENT ON VILLEGAS VENTILATOR WITH THE FOLLOWING SETTINGS THAT ARE CHARTED ON THE MECHANICAL VENT NOTES. NO SOB NOTED AT THIS TIME. ET TUBE IS SECURED WITH ANCHOR FAST. ORAL CARE DONE. HME CHANGED. ALARMS ARE ON AND AUDIBLE. NO SOB NOTED AT THIS TIME. WILL CONTINUE TO MONITOR PATIENT.
[2019-10-12] MEDS: VANCOMYCIN FOR PO/GT/NG USE PO SCH (06:00)
--- NOTE | 2019-10-12 06:00 | NUR ---
patient is awake by light pain , withdraws to pain , , vent settings ac 12 tv 450 , p5 fio2 30 % , corbett and picc line intact , flexi sea intact , no fever , ngt intact , and clamped
[2019-10-12] MEDS: METRONIDAZOLE 500 MG/NS 100ML 500 MG in PREMIXED 1 EACH IV SCH ×3 (06:09→21:56)
[2019-10-12 07:33] LABS: CREATININE 1.2 mg/dL (0.6-1.3); POTASSIUM 3.7 mmol/L (3.5-5.1)
[2019-10-12 07:49] LABS: BASOPHILS % (AUTO) 0.5 % (0.0-2.0); EOSINOPHILS % (AUTO) 0.2 % (0.0-7.0); HEMATOCRIT 26.6 % (31.2-41.9); HEMOGLOBIN 8.6 g/dL (10.9-14.3); LYMPHOCYTES % (AUTO) 12.5 % (20.5-51.5); MEAN CORPUSCULAR HEMOGLOBIN 29.6 uug (24.7-32.8); MEAN CORPUSCULAR HGB CONC 32 g/dL (32.3-35.6); MEAN CORPUSCULAR VOLUME 91.4 fL (75.5-95.3); MONOCYTES # (AUTO) 0.5 K/uL (2.0-10.0); MONOCYTES % (AUTO) 6.5 % (0.0-11.0); NEUTROPHILS # (AUTO) 6.4 K/uL (1.8-8.9); NEUTROPHILS % (AUTO) 80.3 % (38.5-71.5); PLATELET COUNT (AUTO) 488 K/uL (179-408); RED BLOOD CELL COUNT(AUTO) 2.91 MIL/uL (3.63-4.92)
[2019-10-12] MEDS: PROTEIN SUPPLEMENT (PROSTAT) 30 ML LIQUID NG SCH (08:00)
--- NOTE | 2019-10-12 08:30 | NUR ---
PT IS KEPT NPO FOR A POSSIBLE TRACHEOSTOMY INSERTION TODAY.
[2019-10-12] MEDS: FOLIC ACID 1 MG TABLET PO SCH (08:58)
[2019-10-12] MEDS: LEVETIRACETAM 500 MG TABLET PO SCH (08:58)
[2019-10-12] MEDS: ACIDOPHILUS/BULGARICUS CHEW TAB PO SCH (08:58)
[2019-10-12] MEDS: PANTOPRAZOLE ORAL SUSPENSION 40 MG SUSPDR.PKT NG SCH (08:58)
[2019-10-12] MEDS: CHOLECALCIFEROL 1,000 UNIT TABLET PO SCH (08:59)
[2019-10-12] MEDS: CYANOCOBALAMIN 1,000 MCG TABLET PO SCH (09:00)
--- NOTE | 2019-10-12 09:00 | NUR ---
ARRANGEMENT FOR TRANSPORT IS PROCESSED AWAITING FOR A ROOM IN [place].
[2019-10-12] MEDS: NEOMY/BACITRAC/POLYMI OINT 28.35 GM TUBE TOP SCH (09:02)
[2019-10-12] MEDS ORDERED: GLUCERNA 1.2 1000ML LIQUID NG PRN ×2 (10:17→13:00)
[2019-10-12] MEDS ORDERED: FOLIC ACID 1 MG TABLET NG SCH (10:17)
[2019-10-12] MEDS ORDERED: HYDROCODONE/APAP 5-325MG TABLET NG PRN (10:18)
[2019-10-12] MEDS ORDERED: ATORVASTATIN 20 MG TABLET NG SCH (10:18)
[2019-10-12] MEDS ORDERED: SENNOSIDES 1 TABLET NG SCH (10:18)
[2019-10-12] MEDS ORDERED: CHOLECALCIFEROL 1,000 UNIT TABLET NG SCH (10:18)
[2019-10-12] MEDS ORDERED: CYANOCOBALAMIN 1,000 MCG TABLET NG SCH (10:18)
--- NOTE | 2019-10-12 10:30 | NUR ---
PT IS SCHEDULED TO BE PICKED UP BY [facility] AT 1130AM. PT'S CONDITION IS STABLE. AFEBRILE.
--- NOTE | 2019-10-12 11:00 | NUR ---
PT'S PROCEEDURE IS CANCELLED FOR TODAY. WILL BE RESCHEDULED IN THE MORNING PER TURBINE OPERATOR.
[2019-10-12] MEDS: VANCOMYCIN FOR PO/GT/NG USE NG SCH ×3 (11:58→23:14)
[2019-10-12] MEDS: ACIDOPHILUS/BULGARICUS CHEW TAB NG SCH (18:19)
--- NOTE | 2019-10-12 18:55 | NUR ---
RESTARTED TUBE FEEDING ORDERED, GLUCERNA 1.2 AT 50ML/HR. PT IS MORE AWAKE, BLEEDING IN THE LIPS IS LESS.
--- NOTE | 2019-10-12 19:00 | NUR ---
report from day RN sharon patient for [facility] in am , for peg placement and trach placement.patient orally intubated 7.0/23 cm ac 12/450/30% peep 5.tolerating vent settings saturation 100% rr 16, no respiratory distress noted .tf in progress on Glucerna at 50 ml/hr in progress via ngt hob up aspiration precaution observed ,rectal tube in placed and patent. patient open eyes on and off but doesn't follow commands . f/c to bsd . continue to monitor v/s and vent .contact isolation for c diff .
--- NOTE | 2019-10-12 19:53 | NUR ---
Received pt orally intubated with 7.0 ETT, secured approximately at 22cm at lip line. Pt is on Leroy vent with current settings of AC 12, VT 450, Peep +5, FiO2 30%. No signs of respiratory distress noted a this time. Suctioned pt with small amounts of blood tinged secretions. Ambu-bag at bedside. Vent alarms functioning and audible. Will continue to monitor pt throughout shift.
[2019-10-12] MEDS: LEVETIRACETAM 500 MG TABLET NG SCH (20:20)
[2019-10-12] MEDS: Z GUARD REMEDY PASTE 57 GM TUBE TOP PRN (20:55)
--- NOTE | 2019-10-12 21:00 | NUR ---
due medication given and scan medications , turned and reposition patient .v/s wnl and tolerating vent settings .
[2019-10-13] VITALS (10 sets, daily range): BP systolic 121–145; BP diastolic 56–90
--- NOTE | 2019-10-13 | NUR ---
v/s wnl no respiratory distress tolerating vent settings ,SR on the heart monitor .
--- NOTE | 2019-10-13 00:30 | NUR ---
kept npo ,d/c tube feedings and flushed ngt .
--- NOTE | 2019-10-13 05:06 | NUR ---
am care done ,bath patient ,changed soiled linens and gown . irrigated rectal tube obtained liquid stools 100 ml.f/c done .suction patient via mouth and via ett tube .changed sacral dressing and follow wound care treatment ,cleanse with normal saline pat dry place petroleum dressing and cover with Mepilex,turned and reposition .
[2019-10-13 05:25] LABS: CREATININE 1.2 mg/dL (0.6-1.3); MAGNESIUM 2.1 mg/dL (1.8-2.4); POTASSIUM 3.6 mmol/L (3.5-5.1)
[2019-10-13 05:39] LABS: BASOPHILS % (AUTO) 0.1 % (0.0-2.0); EOSINOPHILS % (AUTO) 0.5 % (0.0-7.0); HEMATOCRIT 26.1 % (31.2-41.9); HEMOGLOBIN 8.7 g/dL (10.9-14.3); LYMPHOCYTES # (AUTO) 0.9 K/uL (20.0-40.0); LYMPHOCYTES % (AUTO) 10.9 % (20.5-51.5); MEAN CORPUSCULAR HEMOGLOBIN 30.5 uug (24.7-32.8); MEAN CORPUSCULAR HGB CONC 33 g/dL (32.3-35.6); MEAN CORPUSCULAR VOLUME 92.1 fL (75.5-95.3); MONOCYTES # (AUTO) 0.6 K/uL (2.0-10.0); MONOCYTES % (AUTO) 7.3 % (0.0-11.0); NEUTROPHILS # (AUTO) 6.5 K/uL (1.8-8.9); NEUTROPHILS % (AUTO) 81.2 % (38.5-71.5); PLATELET COUNT (AUTO) 544 K/uL (179-408); RED BLOOD CELL COUNT(AUTO) 2.83 MIL/uL (3.63-4.92)
[2019-10-13] MEDS: METRONIDAZOLE 500 MG/NS 100ML 500 MG in PREMIXED 1 EACH IV SCH (06:54)
[2019-10-13] MEDS: VANCOMYCIN FOR PO/GT/NG USE NG SCH (06:54)
[2019-10-13] MEDS: PANTOPRAZOLE ORAL SUSPENSION 40 MG SUSPDR.PKT NG SCH (08:09)
[2019-10-13] MEDS: ACIDOPHILUS/BULGARICUS CHEW TAB NG SCH (08:09)
[2019-10-13] MEDS: PROTEIN SUPPLEMENT (PROSTAT) 30 ML LIQUID NG SCH (08:09)
[2019-10-13] MEDS: LEVETIRACETAM 500 MG TABLET NG SCH (08:10)
[2019-10-13] MEDS: NEOMY/BACITRAC/POLYMI OINT 28.35 GM TUBE TOP SCH (08:11)
--- NOTE | 2019-10-13 08:30 | NUR ---
Dr. Strong here to see pt. Full report given. No new orders received.
--- NOTE | 2019-10-13 09:00 | NUR ---
Dr. Bruner here to see pt. Full report given. Pt to be discharged today to [facility] per .
--- NOTE | 2019-10-13 09:45 | NUR ---
Full telephone SBAR report given to JUAN PABLO Berger at [facility] .
--- NOTE | 2019-10-13 10:01 | NUR ---
Full SBAR report given to [facility] ambulance.
--- NOTE | 2019-10-13 10:17 | NUR ---
Pt discharged to [facility] with ambulance. VSS wnl. Pt discharged with JUAN PICC (3 lumen), R nares NGT, corbett catheter, and rectal tube flexi-seal. All belongings reviewed and brought with the pt. Pt stable and nad noted upon discharge.
--- NOTE | 2019-10-13 11:58 | NUR ---
Spoke with JUAN PABLO Berger at [facility] and made aware that pt did not receive any anticoagulants during pt's stay here at the hospital. No anticoagulants given today prior to discharge.
== END 2019-10-13 10:17 | disposition short-term general hospital (02) | DRG 870 ==
LOC: ER 03:28 → CCU 08:01 → UNDODISIN 10-13 10:17
PROVIDERS: ADMIT Nurse Practitioner Acute Care; ATTEND Internal Medicine
PROC: 5A1955Z Respiratory Ventilation, Greater than 96 Consecutive Hours (ICD-10-PCS; principal; 2019-09-25)
PROC: 0BH17EZ Insertion of Endotracheal Airway into Trachea, Via Natural or Artificial Opening (ICD-10-PCS; 2019-09-25)
PROC: 0DH673Z Insertion of Infusion Device into Stomach, Via Natural or Artificial Opening (ICD-10-PCS; 2019-09-25)
PROC: 02HV33Z Insertion of Infusion Device into Superior Vena Cava, Percutaneous Approach (ICD-10-PCS; 2019-09-25)
PROC: 30233N1 Transfusion of Nonautologous Red Blood Cells into Peripheral Vein, Percutaneous Approach (ICD-10-PCS; 2019-09-27)
PROC: 4A00X4Z Measurement of Central Nervous Electrical Activity, External Approach (ICD-10-PCS; 2019-10-06)
DX: A40.3 Sepsis due to Streptococcus pneumoniae (principal); J13 Pneumonia due to Streptococcus pneumoniae; J96.02 Acute respiratory failure with hypercapnia; J96.01 Acute respiratory failure with hypoxia; E43 Unspecified severe protein-calorie malnutrition; I21.A1 Myocardial infarction type 2; I50.43 Acute on chronic combined systolic (congestive) and diastolic (congestive) heart failure; G92 Toxic encephalopathy; R65.21 Severe sepsis with septic shock; N17.0 Acute kidney failure with tubular necrosis; E87.2 Acidosis; I13.0 Hypertensive heart and chronic kidney disease with heart failure and stage 1 through stage 4 chronic kidney disease, or unspecified chronic kidney disease; A04.72 Enterocolitis due to Clostridium difficile, not specified as recurrent; D68.59 Other primary thrombophilia; N18.4 Chronic kidney disease, stage 4 (severe); R64 Cachexia; Z68.1 Body mass index [BMI] 19.9 or less, adult; I48.0 Paroxysmal atrial fibrillation; E87.6 Hypokalemia; Z86.718 Personal history of other venous thrombosis and embolism; M81.0 Age-related osteoporosis without current pathological fracture; I25.5 Ischemic cardiomyopathy; E83.42 Hypomagnesemia; G40.909 Epilepsy, unspecified, not intractable, without status epilepticus; I27.20 Pulmonary hypertension, unspecified; M50.30 Other cervical disc degeneration, unspecified cervical region; M48.02 Spinal stenosis, cervical region; I70.0 Atherosclerosis of aorta; Z74.09 Other reduced mobility; R62.7 Adult failure to thrive; E78.5 Hyperlipidemia, unspecified; F03.90 Unspecified dementia, unspecified severity, without behavioral disturbance, psychotic disturbance, mood disturbance, and anxiety; E86.0 Dehydration; I25.2 Old myocardial infarction; Z90.710 Acquired absence of both cervix and uterus; I25.10 Atherosclerotic heart disease of native coronary artery without angina pectoris; I08.1 Rheumatic disorders of both mitral and tricuspid valves; Z79.01 Long term (current) use of anticoagulants; F41.9 Anxiety disorder, unspecified; G62.9 Polyneuropathy, unspecified; Z79.82 Long term (current) use of aspirin; Z79.899 Other long term (current) drug therapy; Z91.81 History of falling; Z87.440 Personal history of urinary (tract) infections; Z87.01 Personal history of pneumonia (recurrent); I44.0 Atrioventricular block, first degree; M41.9 Scoliosis, unspecified; B00.1 Herpesviral vesicular dermatitis; D63.8 Anemia in other chronic diseases classified elsewhere
CPT/HCPCS: 36415; 36569; 36600; 70030-TC; 70450; 71045; 74018; 83550; 83605; 83735; 83970; 84100; 84155; 84156; 84165; 84300; 84443; 85025; 85730; 86850; 86900; 86901; 86920; 87040; 87070; 87077; 87086; 87400; 87806; 93005; 93307; 94002; 94003; 95819; A4217; A4663; C1758; G0378; J0330; J0696; J1940; J1956; J2250; J2270; J2370; J2543; J3370; J3475; J3480; J3490; J7030; J7040; J7042; J7050; J7060; J7120; P9016-BL; P9021; P9047; Q0167

== ENCOUNTER 2019-10-14 14:17 | Inpatient (IN) | payer MEDICARE, OTHER ==
[~2019-10-14] VITALS: Ht 157.5 cm; Wt 56.7 kg
[2019-10-14 19:00] VITALS: BP 131/83
[2019-10-14 20:00] VITALS: BP 130/83
[2019-10-14] MEDS ORDERED: ACETAMINOPHEN 325 MG TABLET PO PRN (20:15)
[2019-10-14] MEDS ORDERED: BISACODYL 10 MG SUPP.RECT RC PRN (20:15)
[2019-10-14] MEDS ORDERED: ONDANSETRON 4 MG/2 ML VIAL IV PRN (20:15)
[2019-10-14] MEDS ORDERED: MAGNESIUM HYDROXIDE 30 ML LIQUID UDC PO PRN (20:15)
[2019-10-14] MEDS ORDERED: HYDROCODONE/APAP 5-325MG TABLET PO PRN (20:15)
[2019-10-14] MEDS ORDERED: Z GUARD REMEDY PASTE 57 GM TUBE TOP PRN (20:15)
[2019-10-14] MEDS: SENNOSIDES 1 TABLET PO SCH (20:50)
[2019-10-14 20:53] LABS: BASOPHILS % (AUTO) 0.3 % (0.0-2.0); EOSINOPHILS % (AUTO) 0.4 % (0.0-7.0); HEMATOCRIT 24.4 % (31.2-41.9); HEMOGLOBIN 7.8 g/dL (10.9-14.3); LYMPHOCYTES # (AUTO) 0.8 K/uL (20.0-40.0); LYMPHOCYTES % (AUTO) 10.7 % (20.5-51.5); MEAN CORPUSCULAR HGB CONC 32 g/dL (32.3-35.6); MEAN CORPUSCULAR VOLUME 93.5 fL (75.5-95.3); MONOCYTES # (AUTO) 0.6 K/uL (2.0-10.0); MONOCYTES % (AUTO) 7.4 % (0.0-11.0); NEUTROPHILS # (AUTO) 6.4 K/uL (1.8-8.9); NEUTROPHILS % (AUTO) 81.2 % (38.5-71.5); PLATELET COUNT (AUTO) 577 K/uL (179-408); RED BLOOD CELL COUNT(AUTO) 2.61 MIL/uL (3.63-4.92); WHITE BLOOD COUNT (AUTO) 7.9 K/uL (3.8-11.8)
[2019-10-14 21:00] VITALS: BP 132/86
[2019-10-14] MEDS: FERROUS SULFATE 325 MG TABEC PO SCH ×2 (21:00→21:04)
--- NOTE | 2019-10-14 21:00 | NUR ---
Note to pharmacy. Start FeSO4 in AM after CXR / NGT placement check.
[2019-10-14 21:10] LABS: ALANINE AMINOTRANSFERASE 19 U/L (14-59); ALKALINE PHOSPHATASE 74 U/L (50-136); ASPARTATE AMINOTRANSFERASE 21 U/L (15-37); BILIRUBIN,TOTAL 0.3 mg/dL (0.2-1.0); CARBON DIOXIDE 27 mmol/L (21-32); CHLORIDE 110 mmol/L (98-107); CREATININE 1.4 mg/dL (0.6-1.3); GLUCOSE 126 mg/dL (74-106); POTASSIUM 3.5 mmol/L (3.5-5.1); UREA NITROGEN, BLOOD 56 mg/dL (7-18)
[2019-10-14 22:00] VITALS: BP 132/79
[2019-10-14] MEDS ORDERED: IV NS 1000 ML 1,000 ML IV PRN (22:30)
[2019-10-14 23:00] VITALS: BP 131/84
[2019-10-14] MEDS ORDERED: METRONIDAZOLE 500 MG/NS 100ML 200 ML IV ONE (23:48)
[2019-10-14] MEDS: METRONIDAZOLE 500 MG/NS 100ML 500 MG in PREMIXED 1 EACH IV SCH (23:55)
[2019-10-14] MEDS: VANCOMYCIN FOR PO/GT/NG USE PO SCH (23:55)
[2019-10-15] VITALS (18 sets, daily range): BP systolic 117–142; BP diastolic 71–90
--- NOTE | 2019-10-15 00:01 | NUR ---
NPO / PEG placement in AM / Nayeli N.P
[2019-10-15 04:54] LABS: BASOPHILS % (AUTO) 0.1 % (0.0-2.0); EOSINOPHILS % (AUTO) 0.6 % (0.0-7.0); HEMATOCRIT 23.5 % (31.2-41.9); HEMOGLOBIN 7.7 g/dL (10.9-14.3); LYMPHOCYTES # (AUTO) 0.8 K/uL (20.0-40.0); LYMPHOCYTES % (AUTO) 12.5 % (20.5-51.5); MEAN CORPUSCULAR HEMOGLOBIN 30.2 uug (24.7-32.8); MEAN CORPUSCULAR HGB CONC 33 g/dL (32.3-35.6); MEAN CORPUSCULAR VOLUME 92.2 fL (75.5-95.3); MONOCYTES # (AUTO) 0.5 K/uL (2.0-10.0); MONOCYTES % (AUTO) 7.3 % (0.0-11.0); NEUTROPHILS # (AUTO) 5.4 K/uL (1.8-8.9); NEUTROPHILS % (AUTO) 79.5 % (38.5-71.5); PLATELET COUNT (AUTO) 565 K/uL (179-408); RED BLOOD CELL COUNT(AUTO) 2.54 MIL/uL (3.63-4.92); WHITE BLOOD COUNT (AUTO) 6.7 K/uL (3.8-11.8)
[2019-10-15] MEDS: METRONIDAZOLE 500 MG/NS 100ML 500 MG in PREMIXED 1 EACH IV SCH ×3 (05:41→21:53)
[2019-10-15 07:59] LABS: CARBON DIOXIDE 25 mmol/L (21-32); CHLORIDE 108 mmol/L (98-107); CREATININE 1.4 mg/dL (0.6-1.3); GLUCOSE 93 mg/dL (74-106); POTASSIUM 3.4 mmol/L (3.5-5.1); UREA NITROGEN, BLOOD 58 mg/dL (7-18)
[2019-10-15] MEDS ORDERED: CYANOCOBALAMIN 100 MCG TABLET PO SCH (09:00)
[2019-10-15] MEDS ORDERED: Medication Not On Formulary EA (Atorvastatin Calcium (Lipitor) 20 MG) PO SCH (09:00)
[2019-10-15] MEDS ORDERED: LEVETIRACETAM 500 MG TABLET PO SCH (09:00)
[2019-10-15] MEDS ORDERED: Medication Not On Formulary EA (Escitalopram Oxalate 1 TAB) PO SCH (09:00)
--- NOTE | 2019-10-15 09:25 | NUR ---
Patient seen by Dr. Cami Funk.
--- NOTE | 2019-10-15 09:25 | NUR ---
Discussed patients low urine output with Dr. Almanza, patient's fluids changed as directed.
[2019-10-15] MEDS: VANCOMYCIN FOR PO/GT/NG USE PO SCH ×3 (09:30→18:03)
[2019-10-15] MEDS: CYANOCOBALAMIN 1,000 MCG TABLET PO SCH (09:31)
[2019-10-15] MEDS: CHOLECALCIFEROL 1,000 UNIT TABLET PO SCH (09:31)
[2019-10-15] MEDS: ACIDOPHILUS/BULGARICUS CHEW TAB PO SCH ×2 (09:34→16:22)
[2019-10-15] MEDS: ESCITALOPRAM OXALATE 10 MG TABLET PO SCH (09:34)
[2019-10-15] MEDS: FAMOTIDINE 20 MG TABLET PO SCH (09:35)
[2019-10-15] MEDS: GABAPENTIN 100 MG CAPSULE PO SCH ×3 (09:35→16:24)
[2019-10-15] MEDS: FOLIC ACID 1 MG TABLET PO SCH (09:36)
[2019-10-15] MEDS: ATORVASTATIN 20 MG TABLET PO SCH (09:36)
[2019-10-15 10:09] LABS: ABG HCO3 20.6 mmol/L; ABG PCO2 31.1 mmHg (35.0-45.0); ABG PO2 114.1 mmHg (75.0-100.0); ABG SITE LEFT BRACHIAL; ABG TOTAL HEMOGLOBIN 8.1 G/dL (12.0-16.0); MetHb 0.3 % (0.0-1.5); O2Hb 97.6 % (94.0-97.0); VENT MODE VENT - A/C; VT, ABG 450 mL
[2019-10-15] MEDS: POTASSIUM CHLORIDE 50 ML IV SCH ×2 (10:50→12:44)
[2019-10-15] MEDS: IV D5/ 0.9% NACL 1,000 ML IV PRN (10:51)
--- NOTE | 2019-10-15 11:00 | NUR ---
Patient seen by Dr. Mayberry.
[2019-10-15] MEDS ORDERED: GLUCERNA 1.2 1000ML LIQUID NG PRN (15:00)
--- NOTE | 2019-10-15 18:58 | NUR ---
Patient is on nabila vent a/c 12, fio2 40%, PEEP 5, TV 450, new shiley 8 tracheostomy with continuous pulse ox saturation of 100%. Patient has a clamped NG tube, and remains NPO. PICC line in right upper arm, Rectal tube in place, and corbett catheter draining coni colored urine. IV Fluids D5ns @75cc/hr. Patient continues to be on contact isolation for C-diff. No distress noted at this time, mattress inflated, Patient on Telemetry monitoring.
--- NOTE | 2019-10-15 19:30 | NUR ---
received , calm , no distress , picc line epifanio , intact , flexi seal and corbett intact , trach with sutures intact , vent settings ac 12 , tv , 450 p 5 , fio2 30 % , ngt , placement checked and ausculatated , . feeding clamped
[2019-10-15] MEDS: SENNOSIDES 1 TABLET PO SCH (21:00)
[2019-10-15] MEDS: LEVETIRACETAM 500 MG/5 ML LIQUID UDC NG SCH (21:47)
[2019-10-15] MEDS: ASCORBIC ACID 250 MG TABLET NG SCH (21:47)
[2019-10-15] MEDS: FERROUS SULFATE 325 MG TABEC PO SCH (21:47)
--- NOTE | 2019-10-15 22:00 | NUR ---
spoke to enrrique rosas regarding echo ordered tomorrow
[2019-10-16 00:15] VITALS: BP 127/83
[2019-10-16] MEDS: VANCOMYCIN FOR PO/GT/NG USE PO SCH ×5 (00:26→23:42)
--- NOTE | 2019-10-16 01:24 | NUR ---
* Maintains vital signs WNL * Evidences no purulent drainage from wounds, incisions, and tubes * Maintains lab values WNL Addendum: 10/16/19 at 0126 by MILLIE LOPEZ RN Amended: Links added.
--- NOTE | 2019-10-16 01:25 | NUR ---
* Understands anatomy and physiology * Describes reportable s/s * Understands treatment plan * Understands medication regime Addendum: 10/16/19 at 0126 by MILLIE LOPEZ RN Amended: Links added.
--- NOTE | 2019-10-16 01:25 | NUR ---
* Maintains a patent airway * Maintains vital signs WNL * Maintains baseline ABG'S * Maintains optimal breath sounds Addendum: 10/16/19 at 0126 by MILLIE LOPEZ RN Amended: Links added.
--- NOTE | 2019-10-16 01:25 | NUR ---
* Exhibits granulation/healing at site * Exhibits decreased drainage at site * Exhibits no s/s of infection * Exhibits a decrease in lesion size * Maintains nutritional status * Maintains hydration status Addendum: 10/16/19 at 0126 by MILLIE LOPEZ RN Amended: Links added.
--- NOTE | 2019-10-16 01:25 | NUR ---
* Maintains baseline ABG's * Evidences usual mental status * Evidences usual skin color Addendum: 10/16/19 at 0126 by MILLIE LOPEZ RN Amended: Links added.
[2019-10-16] MEDS: IV D5/ 0.9% NACL 1,000 ML IV PRN ×2 (03:09→19:58)
[2019-10-16 04:15] VITALS: BP 127/86
[2019-10-16 05:50] LABS: CARBON DIOXIDE 23 mmol/L (21-32); CHLORIDE 112 mmol/L (98-107); CREATININE 1.5 mg/dL (0.6-1.3); GLUCOSE 112 mg/dL (74-106); POTASSIUM 3.7 mmol/L (3.5-5.1); UREA NITROGEN, BLOOD 53 mg/dL (7-18)
[2019-10-16] MEDS: METRONIDAZOLE 500 MG/NS 100ML 500 MG in PREMIXED 1 EACH IV SCH ×3 (06:32→22:01)
[2019-10-16] MEDS: LEVETIRACETAM 500 MG/5 ML LIQUID UDC NG SCH ×2 (09:37→20:42)
[2019-10-16] MEDS: ESCITALOPRAM OXALATE 10 MG TABLET PO SCH (09:38)
[2019-10-16] MEDS: ZINC SULFATE 220 MG CAPSULE NG SCH (09:38)
[2019-10-16] MEDS: GABAPENTIN 100 MG CAPSULE PO SCH ×3 (09:38→17:33)
[2019-10-16] MEDS: FAMOTIDINE 20 MG TABLET PO SCH (09:38)
[2019-10-16] MEDS: CHOLECALCIFEROL 1,000 UNIT TABLET PO SCH (09:38)
[2019-10-16] MEDS: ACIDOPHILUS/BULGARICUS CHEW TAB PO SCH ×2 (09:39→17:33)
[2019-10-16] MEDS: FOLIC ACID 1 MG TABLET PO SCH (09:39)
[2019-10-16] MEDS: ASCORBIC ACID 250 MG TABLET NG SCH ×2 (09:39→20:43)
[2019-10-16] MEDS: CYANOCOBALAMIN 1,000 MCG TABLET PO SCH (09:39)
[2019-10-16] MEDS: ATORVASTATIN 20 MG TABLET PO SCH (09:39)
--- NOTE | 2019-10-16 11:30 | NUR ---
NOTIFIED DR LUZ ( ANESTHESIA) REGARDING THE RESULT OF THE REPEAT ECHO, RVSP OF 53. ALSO NOTIFIED DR SALTER (FILTER BED PLACER) AND HE WILL SEE THE PT LATER.
[2019-10-16 11:48] VITALS: BP 130/89
[2019-10-16 15:37] VITALS: BP 127/88
--- NOTE | 2019-10-16 15:40 | NUR ---
PT BROUGHT DOOOOOWN TO OR VIA BED WITH RT AND THE VENT. CONDITION IS STABLE.
--- NOTE | 2019-10-16 15:45 | NUR ---
Pt transferred to OR without incident..
[2019-10-16] MEDS ORDERED: IV NORMAL SALINE 1000 ML BAG IV ONE (16:30)
[2019-10-16] MEDS ORDERED: IRR STERIL WATER FOR IRR 1000 ML BOTTLE IR ONE (16:30)
[2019-10-16] MEDS ORDERED: SEVOFLURANE 250 ML BOTTLE IH ONE (16:30)
[2019-10-16] MEDS ORDERED: PROPOFOL 200 MG/20 ML BOTTLE IV ONE (16:30)
[2019-10-16] MEDS ORDERED: CEFAZOLIN 1 G VIAL IM ONE (16:30)
[2019-10-16] MEDS ORDERED: LIDOCAINE-MPF 2% 5 ML VIAL IJ ONE (16:30)
--- NOTE | 2019-10-16 17:00 | NUR ---
PT IS BACK FORM RECOVERY ROOM VIA BED. CONDITION IS STABLE. NPO TILL AM EXCEPT MEDICATIONS. ABDOMENAL BINDER IS IN PALCE AND INTACT.
--- NOTE | 2019-10-16 17:10 | NUR ---
Pt returned from OR.. Transferred without incident..
--- NOTE | 2019-10-16 19:20 | NUR ---
Received patient in bed asleep, eyes open to touch. Trache Shiley #8 vent settings AC 12, 30% FiO2 450 Vt. JUAN PICC line. Flexi-seal rectal tube in place draining dark brown liquid stool. New PEG tube in left abdomen patent, insertion site clear of signs of infection. no bleeding noted. PEG use is meds only, to start feeding Glucerna 1.2 in the AM
[2019-10-16 20:04] VITALS: BP 142/92
[2019-10-16] MEDS: SENNOSIDES 1 TABLET PO SCH (20:42)
[2019-10-16] MEDS: FERROUS SULFATE 325 MG TABEC PO SCH (20:43)
[2019-10-17 00:20] VITALS: BP 143/94
[2019-10-17 04:33] VITALS: BP 141/79
[2019-10-17] MEDS: VANCOMYCIN FOR PO/GT/NG USE PO SCH ×3 (05:16→17:30)
[2019-10-17] MEDS: METRONIDAZOLE 500 MG/NS 100ML 500 MG in PREMIXED 1 EACH IV SCH ×3 (05:16→21:20)
[2019-10-17 07:30] VITALS: BP 115/71
--- NOTE | 2019-10-17 07:45 | NUR ---
Received patient in bed, asleep arousable to name. PEG tube in place. Sinus rhythm on monitor. Trach to vent. Continuous pulse ox saturating 99%. NAD noted.
[2019-10-17] MEDS ORDERED: GLUCERNA 1.2 1000ML LIQUID NG PRN (09:30)
[2019-10-17] MEDS: ZINC SULFATE 220 MG CAPSULE NG SCH (09:48)
[2019-10-17] MEDS: FAMOTIDINE 20 MG TABLET PO SCH (09:48)
[2019-10-17] MEDS: LEVETIRACETAM 500 MG/5 ML LIQUID UDC NG SCH ×2 (09:48→21:16)
[2019-10-17] MEDS: CHOLECALCIFEROL 1,000 UNIT TABLET PO SCH (09:48)
[2019-10-17] MEDS: ACIDOPHILUS/BULGARICUS CHEW TAB PO SCH ×2 (09:48→17:30)
[2019-10-17] MEDS: ESCITALOPRAM OXALATE 10 MG TABLET PO SCH (09:49)
[2019-10-17] MEDS: FOLIC ACID 1 MG TABLET PO SCH (09:49)
[2019-10-17] MEDS: ATORVASTATIN 20 MG TABLET PO SCH (09:49)
[2019-10-17] MEDS: GABAPENTIN 100 MG CAPSULE PO SCH ×3 (09:49→17:30)
[2019-10-17] MEDS: ASCORBIC ACID 250 MG TABLET NG SCH ×2 (09:49→21:17)
[2019-10-17] MEDS: CYANOCOBALAMIN 1,000 MCG TABLET PO SCH (09:50)
[2019-10-17 11:33] VITALS: BP 137/80
--- NOTE | 2019-10-17 12:48 | NUR ---
All charting assessments and notes reviewed by Reggie Richter RN.
[2019-10-17 15:51] VITALS: BP 129/81
--- NOTE | 2019-10-17 19:45 | NUR ---
RECEIVED PATIENT ASLEEP BUT AROUSABLE. PATIENT TRACH IN PLACE NO BLEEDING NOTED. PATIENT SATURATION WITHIN NORMAL RANGE, PATIENT CONTINUE ON CONTACT ISOLATION C DIFF. OBSERVED GOOD HAND WASHING. PATIENT TOLERATE GT FEEDING AT THIS TIME. CONT TO MONITOR.
[2019-10-17 20:20] VITALS: BP 124/76
[2019-10-17] MEDS: SENNOSIDES 1 TABLET PO SCH (21:17)
[2019-10-17] MEDS: FERROUS SULFATE 325 MG TABEC PO SCH (21:17)
[2019-10-18 00:05] VITALS: BP 123/81
[2019-10-18] MEDS: VANCOMYCIN FOR PO/GT/NG USE PO SCH ×4 (00:37→17:45)
[2019-10-18 04:10] VITALS: BP 127/78
[2019-10-18] MEDS: METRONIDAZOLE 500 MG/NS 100ML 500 MG in PREMIXED 1 EACH IV SCH ×3 (05:14→22:47)
--- NOTE | 2019-10-18 06:41 | NUR ---
PATIENT ASLEEP BUT AROUSABLE. PATIENT WITH TRACH, TRACH INTACT NO BLEEDING NOTED, DRESSING WAS CHANGED FOR SOILAGE. ON VENT CHECK BY RT FOR SETTING ORDERED. PATIENT SATING 99-100%, PATIENT TUBE FEEDING TOLERATE WELL NO NAUSEA NO VOMITING NO DIARRHEA , NO RESIDUAL NOTED. PATIENT HAS NO S/S OF PAIN AT THIS TIME. CONT TO MONITOR.
[2019-10-18 07:30] VITALS: BP 131/84
--- NOTE | 2019-10-18 08:00 | NUR ---
Received patient in bed asleep, arousable to touch. Patient on trach to vent saturating on 98%. Vent settings checked per order. SR on monitor. PICC line flushed and patent. Pain assessed using FLACC scale, no pain noted. NAD. All charting assessments and notes reviewed by Reggie Richter RN.
[2019-10-18] MEDS: LEVETIRACETAM 500 MG/5 ML LIQUID UDC NG SCH (08:06)
[2019-10-18] MEDS: ZINC SULFATE 220 MG CAPSULE NG SCH (08:06)
[2019-10-18] MEDS: GABAPENTIN 100 MG CAPSULE PO SCH ×2 (08:07→12:32)
[2019-10-18] MEDS: FOLIC ACID 1 MG TABLET PO SCH (08:07)
[2019-10-18] MEDS: ASCORBIC ACID 250 MG TABLET NG SCH (08:07)
[2019-10-18] MEDS: CYANOCOBALAMIN 1,000 MCG TABLET PO SCH (08:07)
[2019-10-18] MEDS: CHOLECALCIFEROL 1,000 UNIT TABLET PO SCH (08:08)
[2019-10-18] MEDS: FAMOTIDINE 20 MG TABLET PO SCH (08:08)
[2019-10-18] MEDS: ATORVASTATIN 20 MG TABLET PO SCH (08:08)
[2019-10-18] MEDS: ACIDOPHILUS/BULGARICUS CHEW TAB PO SCH ×2 (08:08→17:45)
[2019-10-18] MEDS: ESCITALOPRAM OXALATE 10 MG TABLET PO SCH (08:08)
[2019-10-18] MEDS ORDERED: LIDOCAINE 1%-EPI 1:100,000 20 ML VIAL MC PRN (09:00)
[2019-10-18] MEDS ORDERED: SILVER NITRATE APPLICATOR STICK EACH TP PRN (09:00)
--- NOTE | 2019-10-18 10:00 | NUR ---
Contact isolation for Cdiff discontinued per MD order. Trach suctioned, patient tolerating well. Tube feeding restarted at 50 cc/hr, no residual.
[2019-10-18 11:30] VITALS: BP 129/84
[2019-10-18 12:27] LABS: BASOPHILS % (AUTO) 0.3 % (0.0-2.0); EOSINOPHILS % (AUTO) 0.4 % (0.0-7.0); HEMATOCRIT 26.6 % (31.2-41.9); HEMOGLOBIN 8.5 g/dL (10.9-14.3); LYMPHOCYTES # (AUTO) 0.9 K/uL (20.0-40.0); LYMPHOCYTES % (AUTO) 12.4 % (20.5-51.5); MEAN CORPUSCULAR HEMOGLOBIN 30.2 uug (24.7-32.8); MEAN CORPUSCULAR HGB CONC 32 g/dL (32.3-35.6); MEAN CORPUSCULAR VOLUME 94.7 fL (75.5-95.3); MONOCYTES # (AUTO) 0.5 K/uL (2.0-10.0); MONOCYTES % (AUTO) 6.4 % (0.0-11.0); NEUTROPHILS # (AUTO) 5.7 K/uL (1.8-8.9); NEUTROPHILS % (AUTO) 80.5 % (38.5-71.5); PLATELET COUNT (AUTO) 552 K/uL (179-408); RED BLOOD CELL COUNT(AUTO) 2.81 MIL/uL (3.63-4.92)
[2019-10-18 12:33] LABS: CARBON DIOXIDE 21 mmol/L (21-32); CHLORIDE 113 mmol/L (98-107); CREATININE 1.6 mg/dL (0.6-1.3); GLUCOSE 104 mg/dL (74-106); POTASSIUM 3.5 mmol/L (3.5-5.1); UREA NITROGEN, BLOOD 47 mg/dL (7-18)
[2019-10-18 12:38] LABS: ALANINE AMINOTRANSFERASE 12 U/L (14-59); ALKALINE PHOSPHATASE 70 U/L (50-136); ASPARTATE AMINOTRANSFERASE 14 U/L (15-37); BILIRUBIN,TOTAL 0.2 mg/dL (0.2-1.0); MAGNESIUM 1.8 mg/dL (1.8-2.4); PHOSPHOROUS 4.1 mg/dL (2.5-4.9); TOTAL PROTEIN, SERUM 6.6 g/dL (6.4-8.2)
[2019-10-18 15:38] VITALS: BP 130/81
[2019-10-18] MEDS ORDERED: ACETAMINOPHEN 325 MG TABLET GT PRN (19:24)
[2019-10-18] MEDS ORDERED: MAGNESIUM HYDROXIDE 30 ML LIQUID UDC GT PRN (19:25)
[2019-10-18] MEDS ORDERED: HYDROCODONE/APAP 5-325MG TABLET GT PRN (19:28)
--- NOTE | 2019-10-18 19:48 | NUR ---
Received patient laying in bed. HOB elevated. A/O x O but open eyes when name is called. No acute distress noted. Trach to vent. TELE SR at 84. Bed bound patient. Air mattress in place. Neri draining clear and coni urine. Patient is edematous in upper and lower extremities between 2+ to 3+. IV on the right upper arm patent and intact. Peg on the left upper abdomen C/D/I on abdominal binder. Safety initiated. Call light within reach.
[2019-10-18 20:18] VITALS: BP 125/78
[2019-10-18] MEDS: SENNOSIDES 1 TABLET GT SCH (20:27)
[2019-10-18] MEDS: ASCORBIC ACID 250 MG TABLET GT SCH (20:27)
[2019-10-18] MEDS: LEVETIRACETAM 500 MG/5 ML LIQUID UDC GT SCH (20:27)
[2019-10-18] MEDS: FERROUS SULFATE 325 MG TABEC PO SCH (20:27)
[2019-10-18] MEDS: VANCOMYCIN FOR PO/GT/NG USE GT SCH (23:18)
[2019-10-19 00:43] VITALS: BP 120/54
--- NOTE | 2019-10-19 03:06 | NUR ---
PT ON CONT VILLEGAS VENT WITH TRACH IN PLACE AND SECURED, WITH NO VENT CHANGES MADE, PT ON CUURRENT VENT SETTINGS, PT WITH MOSTLY CONTROLLED VENTILATION, NO VENT CHANGES MADE, CHANGED HME, ALL VENT ALARMS GOOD, SUCTION PRNAnn KOEHLERP Addendum: 10/19/19 at 0308 by GAURI ARMENTA RT Amended: Links added.
[2019-10-19 05:05] VITALS: BP 123/78
[2019-10-19] MEDS: METRONIDAZOLE 500 MG/NS 100ML 500 MG in PREMIXED 1 EACH IV SCH ×3 (05:22→22:05)
[2019-10-19] MEDS: VANCOMYCIN FOR PO/GT/NG USE GT SCH ×3 (05:22→18:05)
--- NOTE | 2019-10-19 05:44 | NUR ---
Patient slept t/o the shift. No changes. No acute distress. No events t/o shift. TELE remains SR at 84. Trach to vent. Neri draining clear and coni colored urine. Good urine output. PEG patent and intact. Vital signs stable. Safety and comfort measures maintained t/o shift. Patient had 2 loose brown BM. All meds given as ordered. All needs met.
[2019-10-19 06:25] LABS: EOSINOPHILS % (AUTO) 0.4 % (0.0-7.0); HEMATOCRIT 24.5 % (31.2-41.9); HEMOGLOBIN 8.1 g/dL (10.9-14.3); LYMPHOCYTES # (AUTO) 0.9 K/uL (20.0-40.0); MEAN CORPUSCULAR HGB CONC 33 g/dL (32.3-35.6); MEAN CORPUSCULAR VOLUME 94.3 fL (75.5-95.3); MONOCYTES # (AUTO) 0.5 K/uL (2.0-10.0); MONOCYTES % (AUTO) 6.6 % (0.0-11.0); NEUTROPHILS # (AUTO) 6.6 K/uL (1.8-8.9); PLATELET COUNT (AUTO) 491 K/uL (179-408); WHITE BLOOD COUNT (AUTO) 8.1 K/uL (3.8-11.8)
[2019-10-19 06:36] LABS: ALANINE AMINOTRANSFERASE 9 U/L (14-59); ALKALINE PHOSPHATASE 65 U/L (50-136); ASPARTATE AMINOTRANSFERASE 14 U/L (15-37); BILIRUBIN,TOTAL 0.3 mg/dL (0.2-1.0); CARBON DIOXIDE 21 mmol/L (21-32); CHLORIDE 113 mmol/L (98-107); CREATININE 1.6 mg/dL (0.6-1.3); GLUCOSE 100 mg/dL (74-106); MAGNESIUM 1.9 mg/dL (1.8-2.4); PHOSPHOROUS 4.1 mg/dL (2.5-4.9); POTASSIUM 3.5 mmol/L (3.5-5.1); TOTAL PROTEIN, SERUM 6.4 g/dL (6.4-8.2); UREA NITROGEN, BLOOD 47 mg/dL (7-18)
--- NOTE | 2019-10-19 06:58 | NUR ---
Called epic exchange for critical lab values. Albumin 1.5. Waiting for a call back. Will closely monitor.
[2019-10-19] MEDS: GLUCERNA 1.2 1000ML LIQUID GT PRN (06:59)
[2019-10-19 07:37] VITALS: BP 127/77
--- NOTE | 2019-10-19 07:40 | NUR ---
pt rec'd trach'd on hutchinson vent with full vent support, tolerating settings well no distress/sob noted at this time.
--- NOTE | 2019-10-19 08:00 | NUR ---
Received patient in bed, asleep but arousable to touch. HOB elevated. Trach to vent settings checked. SR at 77 on monitor. PEG tube dressing clean, patent with no residual. Neri draining clear yellow urine. Not in acute distress.
[2019-10-19] MEDS: ATORVASTATIN 20 MG TABLET GT SCH (08:34)
[2019-10-19] MEDS: ESCITALOPRAM OXALATE 10 MG TABLET GT SCH (08:35)
[2019-10-19] MEDS: ZINC SULFATE 220 MG CAPSULE GT SCH (08:36)
[2019-10-19] MEDS: CHOLECALCIFEROL 1,000 UNIT TABLET GT SCH (08:36)
[2019-10-19] MEDS: FAMOTIDINE 20 MG TABLET GT SCH (08:37)
[2019-10-19] MEDS: ASCORBIC ACID 250 MG TABLET GT SCH ×2 (08:37→20:29)
[2019-10-19] MEDS: ACIDOPHILUS/BULGARICUS CHEW TAB GT SCH ×2 (08:37→18:05)
[2019-10-19] MEDS: FOLIC ACID 1 MG TABLET GT SCH (08:37)
[2019-10-19] MEDS: LEVETIRACETAM 500 MG/5 ML LIQUID UDC GT SCH ×2 (08:37→20:27)
[2019-10-19] MEDS: CYANOCOBALAMIN 1,000 MCG TABLET GT SCH (08:38)
[2019-10-19] MEDS ORDERED: POTASSIUM CHLORIDE 20 MEQ POWDER PACKET GT ONE (10:27)
[2019-10-19 11:39] VITALS: BP 123/79
[2019-10-19 16:04] VITALS: BP 125/82
--- NOTE | 2019-10-19 18:00 | NUR ---
Cleaned and changed PICC line dressing. No redness, swelling and signs of infection noted.
[2019-10-19 20:25] VITALS: BP 123/72
[2019-10-19] MEDS: SENNOSIDES 1 TABLET GT SCH (20:28)
[2019-10-19] MEDS: FERROUS SULFATE 325 MG TABEC PO SCH (20:29)
[2019-10-20 00:01] VITALS: BP 118/80
[2019-10-20] MEDS: VANCOMYCIN FOR PO/GT/NG USE GT SCH ×4 (00:02→18:16)
[2019-10-20 04:02] VITALS: BP 126/81
[2019-10-20] MEDS: GLUCERNA 1.2 1000ML LIQUID GT PRN (04:26)
--- NOTE | 2019-10-20 06:37 | NUR ---
Pt rested well in between care; no acute distress; oral and trache care done; 2 loose BM, incontinence care done; dressing to sacrum changed; repositioned q2h; tolerated GTF, no residual; kept HOB; safety maintained.
--- NOTE | 2019-10-20 07:30 | NUR ---
RESTING COMFORTABLY IN BED WITH VENT SETS AT 12-450-30-5 SATURATING 100%, SR AT 90-96/MIN. TOLERATING FEEDING AT 50 ML/HR. CONTINUE WITH ISOLATION PRECAUTION FOR C-DIFF. DC PLANNING IN PLACED
[2019-10-20 07:33] VITALS: BP 149/94
[2019-10-20] MEDS: LEVETIRACETAM 500 MG/5 ML LIQUID UDC GT SCH (08:16)
[2019-10-20] MEDS: ATORVASTATIN 20 MG TABLET GT SCH (08:17)
[2019-10-20] MEDS: ASCORBIC ACID 250 MG TABLET GT SCH (08:17)
[2019-10-20] MEDS: CYANOCOBALAMIN 1,000 MCG TABLET GT SCH (08:17)
[2019-10-20] MEDS: ESCITALOPRAM OXALATE 10 MG TABLET GT SCH (08:17)
[2019-10-20] MEDS: FOLIC ACID 1 MG TABLET GT SCH (08:17)
[2019-10-20] MEDS: CHOLECALCIFEROL 1,000 UNIT TABLET GT SCH (08:17)
[2019-10-20] MEDS: ACIDOPHILUS/BULGARICUS CHEW TAB GT SCH ×2 (08:18→18:15)
[2019-10-20] MEDS: FAMOTIDINE 20 MG TABLET GT SCH (08:18)
[2019-10-20] MEDS: ZINC SULFATE 220 MG CAPSULE GT SCH (08:18)
[2019-10-20] MEDS ORDERED: GLUCERNA 1.2 1000ML LIQUID GT PRN (11:00)
[2019-10-20 11:02] VITALS: BP 124/79
--- NOTE | 2019-10-20 12:07 | NUR ---
TRIED TO REACH WINTER MCNEAL FOR WOUND DEBRIDEMENT PER SLOT ROUTER SHE WILL BE BACK OFFICE TOMORROW. MESSAGE LEFT WITH SLOT ROUTER ([phone])
[2019-10-20 15:08] VITALS: BP 123/79
--- NOTE | 2019-10-20 16:00 | NUR ---
Mason NELSON IN SACRAL DECUB DEBRIDEMENT DONE AT BEDSIDE UNDER LOCAL ANESTHESIA. PATIENT TOLERATED PROCEDURES WELL. MONITORED FOR BLEEDING. REMAINS SR ON MONITOR
--- NOTE | 2019-10-20 16:19 | NUR ---
SEEN BY DR BELCHER FOR CARDIO FOLLOW-UP MADE AWARE OF SVT DURING THE NIGHT, SEE NOTES
--- NOTE | 2019-10-20 17:03 | NUR ---
DR WU AND GAVE DC ORDER FOR SUBACUTE LICENSED BONDSMAN MADE AWARE
[2019-10-20] MEDS ORDERED: SODIUM HYPOCHLORITE 0.125% 473 ML BOTTLE TP SCH (17:15)
== END 2019-10-20 18:05 | DRG 853 ==
LOC: ICU 18:47 → CCU 19:04 → TELE-TD3 10-15 17:30
PROVIDERS: ADMIT Internal Medicine; ATTEND Nurse Practitioner Acute Care
PROC: 5A1955Z Respiratory Ventilation, Greater than 96 Consecutive Hours (ICD-10-PCS; 2019-10-14)
PROC: 0DB68ZX Excision of Stomach, Via Natural or Artificial Opening Endoscopic, Diagnostic (ICD-10-PCS; principal; 2019-10-16)
PROC: 0DH63UZ Insertion of Feeding Device into Stomach, Percutaneous Approach (ICD-10-PCS; 2019-10-16)
PROC: 0KBP0ZZ Excision of Left Hip Muscle, Open Approach (ICD-10-PCS; 2019-10-20)
PROC: 0KBN0ZZ Excision of Right Hip Muscle, Open Approach (ICD-10-PCS; 2019-10-20)
DX: A40.9 Streptococcal sepsis, unspecified (principal); R65.21 Severe sepsis with septic shock; E43 Unspecified severe protein-calorie malnutrition; L89.154 Pressure ulcer of sacral region, stage 4; G92 Toxic encephalopathy; J96.21 Acute and chronic respiratory failure with hypoxia; I50.43 Acute on chronic combined systolic (congestive) and diastolic (congestive) heart failure; N17.0 Acute kidney failure with tubular necrosis; J69.0 Pneumonitis due to inhalation of food and vomit; A04.72 Enterocolitis due to Clostridium difficile, not specified as recurrent; E87.0 Hyperosmolality and hypernatremia; D68.59 Other primary thrombophilia; I48.20 Chronic atrial fibrillation, unspecified; I13.0 Hypertensive heart and chronic kidney disease with heart failure and stage 1 through stage 4 chronic kidney disease, or unspecified chronic kidney disease; N18.4 Chronic kidney disease, stage 4 (severe); Z99.11 Dependence on respirator [ventilator] status; I48.0 Paroxysmal atrial fibrillation; N18.9 Chronic kidney disease, unspecified; I27.20 Pulmonary hypertension, unspecified; G40.909 Epilepsy, unspecified, not intractable, without status epilepticus; Z93.0 Tracheostomy status; F41.9 Anxiety disorder, unspecified; F32.9 Major depressive disorder, single episode, unspecified; Z86.718 Personal history of other venous thrombosis and embolism; Z79.01 Long term (current) use of anticoagulants; I08.1 Rheumatic disorders of both mitral and tricuspid valves; B00.1 Herpesviral vesicular dermatitis; F03.90 Unspecified dementia, unspecified severity, without behavioral disturbance, psychotic disturbance, mood disturbance, and anxiety; G62.9 Polyneuropathy, unspecified; E78.5 Hyperlipidemia, unspecified; D63.8 Anemia in other chronic diseases classified elsewhere; I25.10 Atherosclerotic heart disease of native coronary artery without angina pectoris; I25.5 Ischemic cardiomyopathy; I25.2 Old myocardial infarction; I44.0 Atrioventricular block, first degree; I70.0 Atherosclerosis of aorta; K29.70 Gastritis, unspecified, without bleeding; M81.0 Age-related osteoporosis without current pathological fracture; N81.4 Uterovaginal prolapse, unspecified; R13.10 Dysphagia, unspecified; R62.7 Adult failure to thrive; M50.30 Other cervical disc degeneration, unspecified cervical region; M48.02 Spinal stenosis, cervical region; M41.9 Scoliosis, unspecified; I49.1 Atrial premature depolarization; Z79.82 Long term (current) use of aspirin; Z90.710 Acquired absence of both cervix and uterus; R91.8 Other nonspecific abnormal finding of lung field
CPT/HCPCS: 36415; 36600; 43761; 71045; 83735; 84100; 85025; 93005; 93307; 94002; 94003; A4217; G0378; J0690; J3370; J3480; J3490; J7030; J7042

== ENCOUNTER 2019-10-20 18:53 | Inpatient (IN) | payer MEDICAID, MEDICARE ==
[~2019-10-20] VITALS: Ht 157.5 cm; Wt 54.0 kg
[2019-10-20 18:28] VITALS: BP 133/80
--- NOTE | 2019-10-20 19:49 | NUR ---
Received pt on HT-50 ventilator with the following settings of AC-12, Vt-450, PEEP+5, FIO2-2LPM bleed in, trached with Danyellley#8 DCT trach, which is in the place and secure. No s/s of respiratory distress noted. Airway care done, pt responded to physical stimuli. HME changed. No wall alarm cable. Resus. bag and back up trach at bedside. Vent and alarms checked and reset.
[2019-10-20 20:00] VITALS: BP 130/82
[2019-10-20] MEDS: ASCORBIC ACID 250 MG TABLET GT SCH (20:45)
[2019-10-20] MEDS ORDERED: BISACODYL 10 MG SUPP.RECT RC PRN (20:45)
[2019-10-20] MEDS ORDERED: ACETAMINOPHEN 650 MG/20 ML UDC- SA PATIENTS-FEVER ONLY GT PRN (20:45)
[2019-10-20] MEDS: FERROUS SULFATE 330 MG/7.5 ML UDC- FOR SA ONLY GT SCH (21:00)
[2019-10-20] MEDS ORDERED: ATORVASTATIN 20 MG TABLET GT SCH (21:00)
[2019-10-20] MEDS: MULTIVITAMINS,THERAPEUTIC TABLET GT SCH (21:00)
[2019-10-20] MEDS: ZINC SULFATE 220 MG CAPSULE GT SCH (21:00)
[2019-10-20] MEDS ORDERED: SODIUM HYPOCHLORITE 0.125% 473 ML BOTTLE TP PRN (21:00)
[2019-10-20] MEDS: ACIDOPHILUS/BULGARICUS CHEW TAB GT SCH (21:00)
[2019-10-20] MEDS ORDERED: LEVETIRACETAM 500 MG/5 ML LIQUID UDC GT SCH (21:00)
[2019-10-20] MEDS ORDERED: SENNOSIDES 1 TABLET GT SCH (21:00)
[2019-10-20] MEDS ORDERED: GLUCERNA 1.2 1000ML LIQUID GT PRN (21:15)
[2019-10-21 00:10] VITALS: BP 122/80
[2019-10-21] MEDS: VANCOMYCIN FOR PO/GT/NG USE GT SCH ×4 (00:14→17:32)
--- NOTE | 2019-10-21 03:07 | NUR ---
After vent settings clarification with freight engineerJUAN PABLO Vizcaino increased FIO2 to 2.5LPM bleed in.
--- NOTE | 2019-10-21 03:42 | NUR ---
Pt admitted from [facility] with diagnosis of respiratory failure, pt in vegetative state, no spontaneous eye opening, no verbal response. BUE and BLE swelling, elevated with pillow. Gtube clean without discharge. HOB elevated, feedings tolerated without residuals/vomiting. PICC line with triple lumen on JUAN patent. Ventilator set up by RT. Trach stoma with dressing and trach collar with noticeable stay sutures. Large unsteageble sacral wound dressing changed. Neri catheter patent draining coni colored urine by gravity. Contact Cdiff isolation observed. Admission orders verified from Dr. Pedroza. Needs attended.
[2019-10-21 04:10] VITALS: BP 131/131
[2019-10-21] MEDS: FAMOTIDINE 20 MG TABLET GT SCH (05:03)
[2019-10-21] MEDS ORDERED: FOLIC ACID 1 MG TABLET GT SCH (06:00)
[2019-10-21 08:08] VITALS: BP 129/81
[2019-10-21] MEDS: NORMAL SALINE FLUSH 10 ML DISP.SYRIN IV SCH ×2 (09:15→21:54)
[2019-10-21] MEDS: LEVETIRACETAM 500 MG TABLET GT SCH ×2 (09:15→20:48)
[2019-10-21] MEDS: SODIUM HYPOCHLORITE 0.125% 473 ML BOTTLE TP SCH (09:15)
[2019-10-21] MEDS: ACIDOPHILUS/BULGARICUS CHEW TAB GT SCH ×2 (09:15→20:48)
[2019-10-21] MEDS: ASCORBIC ACID 250 MG TABLET GT SCH ×2 (09:15→20:48)
[2019-10-21] MEDS ORDERED: TUBERCULIN,PURIF.PROT.DERIV. 5 TU/0.1 ML TEST ID ONE (10:00)
[2019-10-21] MEDS: METRONIDAZOLE 500 MG/NS 100ML 500 MG in PREMIXED 1 EACH IV SCH ×2 (16:09→21:54)
--- NOTE | 2019-10-21 16:43 | NUR ---
Initial Senior Hris Analyst Assessment: Patient is an 84 year old female, admitted to [facility] from [facility]. Patient was previously living at [facility]. Patient was admitted to [facility] on 09/25/2019 for pneumonia, requiring a ventilator. Patient was then discharged to [facility] on 10/13/2019 for a tracheostomy due to risk of pulmonary hypertension. Patient was then re-admitted to [facility] on 10/14/2019 s/p tracheostomy. Patient is not alert. Patient is not communicative. SW is unable to gather any personal/medical information from the patient. Some psychosocial information gathered from patient's records and patient's attending physician Dr. Pedroza, who has been patient's physician at the SNF patient was residing at. Patient is born and raised in [place], [place]. According to Dr. Pedroza, patient had previously reported to him that patient does not have any family members. Patient has been dependent with all ADL's. Patient does not have an Advance Directive, nor conservatorship. Patient's code status if a Full Code. SW is unable to obtain patient's signatures on all the admission paperwork due to patient not being alert, being non-communicative and unable to follow commands.
[2019-10-21] MEDS: GLUCERNA 1.2 1000ML LIQUID GT PRN (18:58)
--- NOTE | 2019-10-21 19:35 | NUR ---
RECEIVED PT ON CONTINUOUS VENT. TRACH IN PLACED AND SECURED WITH TRACH TIE. BACK UP TRACH AND AMBU BAG AT BEDSIDE. SUCTION PRN. TRACH CARE DONE. VENT CHECKED, ALARMS WORKING WELL AND AUDIBLE. NO DISTRESS NOTED AT THIS TIME. WILL CONTINUE TO MONITOR. PPE USED.
[2019-10-21 20:27] VITALS: BP 121/82
[2019-10-21] MEDS: FERROUS SULFATE 330 MG/7.5 ML UDC- FOR SA ONLY GT SCH (20:48)
[2019-10-21] MEDS: MULTIVITAMINS,THERAPEUTIC TABLET GT SCH (20:49)
[2019-10-21] MEDS: ZINC SULFATE 220 MG CAPSULE GT SCH (20:49)
[2019-10-21] MEDS: SENNOSIDES 1 TABLET GT SCH (21:00)
[2019-10-21] MEDS ORDERED: ATORVASTATIN 20 MG TABLET GT SCH (21:00)
[2019-10-22] MEDS: VANCOMYCIN FOR PO/GT/NG USE GT SCH ×4 (00:17→17:24)
[2019-10-22 00:40] VITALS: BP 127/86
--- NOTE | 2019-10-22 04:30 | NUR ---
continue on flagyl 500mg iv and vancomycin 250mg via gtube for c.diff. no adverse reaction noted, continue on contact isolation, right upper arm picc line patent, flushed per protocol, no respiratory distress noted, afebrile.
[2019-10-22] MEDS: FAMOTIDINE 20 MG TABLET GT SCH (05:44)
[2019-10-22] MEDS: METRONIDAZOLE 500 MG/NS 100ML 500 MG in PREMIXED 1 EACH IV SCH ×3 (05:58→22:07)
[2019-10-22 08:00] VITALS: BP 120/80
--- NOTE | 2019-10-22 08:00 | NUR ---
Pt is afebrile temp 98,continue on ivatb ,Flagyl 500 mg ivpb and vancomycin 250 mg via Gt,no adverse reaction noted.
[2019-10-22 09:00] VITALS: BP 120/80
[2019-10-22] MEDS: NORMAL SALINE FLUSH 10 ML DISP.SYRIN IV SCH ×2 (09:00→21:17)
[2019-10-22] MEDS: ASCORBIC ACID 250 MG TABLET GT SCH ×2 (09:18→20:45)
[2019-10-22] MEDS: ACIDOPHILUS/BULGARICUS CHEW TAB GT SCH ×2 (09:19→21:54)
[2019-10-22] MEDS: LEVETIRACETAM 500 MG TABLET GT SCH ×2 (09:29→21:54)
[2019-10-22] MEDS: SODIUM HYPOCHLORITE 0.125% 473 ML BOTTLE TP SCH (09:30)
[2019-10-22 13:00] VITALS: BP 127/82
[2019-10-22] MEDS: GLUCERNA 1.2 1000ML LIQUID GT PRN (15:30)
[2019-10-22 17:25] VITALS: BP 132/84
[2019-10-22] MEDS: SENNOSIDES 1 TABLET GT SCH (21:00)
[2019-10-22] MEDS: ATORVASTATIN 20 MG TABLET GT SCH (21:54)
[2019-10-22] MEDS: FERROUS SULFATE 330 MG/7.5 ML UDC- FOR SA ONLY GT SCH (21:54)
[2019-10-22] MEDS: ZINC SULFATE 220 MG CAPSULE GT SCH (21:55)
[2019-10-22] MEDS: MULTIVITAMINS,THERAPEUTIC TABLET GT SCH (21:55)
[2019-10-22 22:06] VITALS: BP 121/85
--- NOTE | 2019-10-22 22:13 | NUR ---
Afebrile, trach is intact and connected to vent, no respiratory distress noted. On IV Flagyl and Vancomycin via GT for c-diff in the stool, on contact isolation precaution, still with on and off loose stools, good jocelyne care rendered, corbett catheter draining well to yellow urine, with ongoing treatment to sacral wound, turned and repositioned, kept clean and comfortable.
[2019-10-23] MEDS: VANCOMYCIN FOR PO/GT/NG USE GT SCH ×4 (00:25→17:46)
[2019-10-23 01:00] VITALS: BP 122/82
[2019-10-23] MEDS: HYDROCODONE/APAP 5-325MG TABLET GT PRN (04:44)
[2019-10-23 05:44] VITALS: BP 110/76
[2019-10-23 05:50] LABS: BASOPHILS % (AUTO) 0.1 % (0.0-2.0); EOSINOPHILS % (AUTO) 0.3 % (0.0-7.0); HEMATOCRIT 24.3 % (31.2-41.9); HEMOGLOBIN 7.9 g/dL (10.9-14.3); LYMPHOCYTES # (AUTO) 0.7 K/uL (20.0-40.0); LYMPHOCYTES % (AUTO) 7.4 % (20.5-51.5); MEAN CORPUSCULAR HEMOGLOBIN 31.3 uug (24.7-32.8); MEAN CORPUSCULAR HGB CONC 33 g/dL (32.3-35.6); MEAN CORPUSCULAR VOLUME 96.4 fL (75.5-95.3); MONOCYTES # (AUTO) 0.5 K/uL (2.0-10.0); MONOCYTES % (AUTO) 4.9 % (0.0-11.0); NEUTROPHILS # (AUTO) 8.6 K/uL (1.8-8.9); NEUTROPHILS % (AUTO) 87.3 % (38.5-71.5); PLATELET COUNT (AUTO) 281 K/uL (179-408); RED BLOOD CELL COUNT(AUTO) 2.53 MIL/uL (3.63-4.92); WHITE BLOOD COUNT (AUTO) 9.8 K/uL (3.8-11.8)
[2019-10-23] MEDS: FAMOTIDINE 20 MG TABLET GT SCH (06:00)
[2019-10-23 06:06] LABS: ALANINE AMINOTRANSFERASE 8 U/L (14-59); ALKALINE PHOSPHATASE 70 U/L (50-136); ASPARTATE AMINOTRANSFERASE 14 U/L (15-37); BILIRUBIN,TOTAL 0.3 mg/dL (0.2-1.0); CARBON DIOXIDE 20 mmol/L (21-32); CHLORIDE 111 mmol/L (98-107); CREATININE 1.7 mg/dL (0.6-1.3); GLUCOSE 141 mg/dL (74-106); MAGNESIUM 1.9 mg/dL (1.8-2.4); PHOSPHOROUS 4.1 mg/dL (2.5-4.9); TOTAL PROTEIN, SERUM 5.9 g/dL (6.4-8.2); UREA NITROGEN, BLOOD 60 mg/dL (7-18)
[2019-10-23] MEDS: METRONIDAZOLE 500 MG/NS 100ML 500 MG in PREMIXED 1 EACH IV SCH ×3 (06:37→22:18)
[2019-10-23 08:30] VITALS: BP 121/83
[2019-10-23] MEDS: ASCORBIC ACID 250 MG TABLET GT SCH ×2 (08:43→20:45)
[2019-10-23] MEDS: LEVETIRACETAM 500 MG TABLET GT SCH ×2 (08:43→21:59)
[2019-10-23] MEDS: ACIDOPHILUS/BULGARICUS CHEW TAB GT SCH ×2 (08:43→21:58)
[2019-10-23] MEDS: SODIUM HYPOCHLORITE 0.125% 473 ML BOTTLE TP SCH (08:55)
[2019-10-23] MEDS: NORMAL SALINE FLUSH 10 ML DISP.SYRIN IV SCH ×2 (09:00→21:00)
[2019-10-23] MEDS: GLUCERNA 1.2 1000ML LIQUID GT PRN (12:32)
[2019-10-23 15:45] VITALS: BP 119/80
--- NOTE | 2019-10-23 17:50 | NUR ---
afebrile temp 97.4,has trach in place connected to ventilator as prescribed setting ,suctioned as needed,continue on flagyl IVATB and vancomycin via GT for c diff,no adverse reaction noted,continue on isolation precaution,no loose bm noted yesterday and today,picc line on the r upper arm intact,no redness o s/s of infection noted.Sacral wound tx done as ordered.
[2019-10-23 18:09] VITALS: BP 130/90
[2019-10-23] MEDS: ZINC SULFATE 220 MG CAPSULE GT SCH (21:00)
[2019-10-23] MEDS: MULTIVITAMINS,THERAPEUTIC TABLET GT SCH (21:00)
[2019-10-23] MEDS: FERROUS SULFATE 330 MG/7.5 ML UDC- FOR SA ONLY GT SCH (21:58)
[2019-10-23] MEDS: ATORVASTATIN 20 MG TABLET GT SCH (21:59)
[2019-10-23] MEDS: SENNOSIDES 1 TABLET GT SCH (21:59)
--- NOTE | 2019-10-23 22:02 | NUR ---
Afebrile, temperature is 98.0 Fahrenheit, trach is intact and patent, connected to vent, 02 sat is 100%, no respiratory distress noted, On Flagyl IV and Vancomycin via GT for c-diff, no adverse reactions noted, on isolation precaution, JUAN PICC is intact, elevated BUE on pillows for edema. Still with loose stools, good jocelyne care rendered, corbett catheter is draining well to yellow urine, kept clean and comfortable.
[2019-10-23 22:41] VITALS: BP 120/84
[2019-10-24 01:30] VITALS: BP 120/84
[2019-10-24] MEDS: GLUCERNA 1.2 1000ML LIQUID GT PRN (05:08)
[2019-10-24] MEDS: FAMOTIDINE 20 MG TABLET GT SCH (05:08)
[2019-10-24] MEDS: COD LIVER OIL/ZINC OXIDE OINT 113 GM TUBE TOP SCH ×3 (05:08→21:35)
[2019-10-24] MEDS: VANCOMYCIN FOR PO/GT/NG USE GT SCH ×4 (05:08→17:42)
[2019-10-24 05:29] VITALS: BP 122/78
[2019-10-24] MEDS: METRONIDAZOLE 500 MG/NS 100ML 500 MG in PREMIXED 1 EACH IV SCH ×3 (05:50→22:03)
[2019-10-24 08:30] VITALS: BP 134/91
[2019-10-24] MEDS: SODIUM HYPOCHLORITE 0.125% 473 ML BOTTLE TP SCH (08:34)
[2019-10-24] MEDS: LEVETIRACETAM 500 MG TABLET GT SCH ×2 (08:34→21:34)
[2019-10-24] MEDS: PROTEIN SUPPLEMENT (PROSTAT) 30 ML LIQUID GT SCH ×4 (08:34→21:35)
[2019-10-24] MEDS: ACIDOPHILUS/BULGARICUS CHEW TAB GT SCH ×2 (08:34→21:33)
[2019-10-24] MEDS: ASCORBIC ACID 250 MG TABLET GT SCH ×2 (08:34→21:33)
[2019-10-24] MEDS: NORMAL SALINE FLUSH 10 ML DISP.SYRIN IV SCH ×2 (08:38→21:35)
--- NOTE | 2019-10-24 13:11 | NUR ---
WOUND CARE CONSULT WOUND CARE RECEIVED CONSULT FOR NEW ADMISSION/SACRAL WOUND. WOUND CARE WILL DEFER CONSULT AND TREATMENT PLANS TO PLASTIC SURGICAL TEAM WOUND ARE CURRENTLY FOLLOWING THIS PATIENT. ALL PRESSURE ULCER PREVENTION MEASURES ARE NOTED TO BE IN PLACE. WILL SEE PRN.
--- NOTE | 2019-10-24 14:49 | NUR ---
Patient stable, no acute respiratory distress noted, repositioned q2hrs for comfort.
[2019-10-24] MEDS: ARGININE/GLUTAMINE/CALCIUM BMB 1 EACH POWD.PACK GT SCH (17:42)
--- NOTE | 2019-10-24 19:20 | NUR ---
Seen and examined by Amanda Mcdonald NP with no new orders.
[2019-10-24 20:33] VITALS: BP 115/79
[2019-10-24] MEDS: SENNOSIDES 1 TABLET GT SCH (21:00)
[2019-10-24] MEDS: FERROUS SULFATE 330 MG/7.5 ML UDC- FOR SA ONLY GT SCH (21:33)
[2019-10-24] MEDS: MULTIVITAMINS,THERAPEUTIC TABLET GT SCH (21:34)
[2019-10-24] MEDS: ATORVASTATIN 20 MG TABLET GT SCH (21:34)
[2019-10-24] MEDS: ZINC SULFATE 220 MG CAPSULE GT SCH (21:35)
[2019-10-24] MEDS: NUTRISOURCE FIBER 4 GM PACKET PO SCH (21:35)
--- NOTE | 2019-10-24 21:49 | NUR ---
Temperature is 98.1, Trach is intact and patent, connected to vent, 02 sat is 100%, no signs of any respiratory distress noted, JUAN PICC is intact, on Flagyl IV anf vancomycin via gt for c-diff, still with on sand off watery loose stools, corbett catheter is draining well to yellow urine output, with ongoing treatment to sacral wound, good jocelyne care rendered, elevated extremities on pillows d/t edema, turned and repositioned, kept clean and comfortable.
[2019-10-25] MEDS: VANCOMYCIN FOR PO/GT/NG USE GT SCH ×4 (00:50→18:07)
[2019-10-25] MEDS: GLUCERNA 1.2 1000ML LIQUID GT PRN ×2 (05:26→22:23)
[2019-10-25] MEDS: ARGININE/GLUTAMINE/CALCIUM BMB 1 EACH POWD.PACK GT SCH ×2 (05:26→18:07)
[2019-10-25] MEDS: FAMOTIDINE 20 MG TABLET GT SCH (05:26)
[2019-10-25] MEDS: PROTEIN SUPPLEMENT (PROSTAT) 30 ML LIQUID GT SCH ×3 (05:26→21:59)
[2019-10-25] MEDS: METRONIDAZOLE 500 MG/NS 100ML 500 MG in PREMIXED 1 EACH IV SCH ×3 (05:55→22:04)
--- NOTE | 2019-10-25 07:40 | NUR ---
PT REC'D ON VILLEGAS VENT TOLERATING CURRENT VENT SETTINGS WELL, NO DISTRESS NOTED GIVEN IN AM REPORT. PT VENT'D VIA TRACHEOSTOMY, TUBE IN PLACE PATENT AND SECURE WITH TRACH TIE. SXN'ING NEEDED. VENT ALARMS AUDIBLE, CHECKED AND RESET. BVM AND BACK-UP TRACH AT BEDSIDE. Addendum: 10/25/19 at 1639 by VANESSA DEVRIES RT PT IS ON HT-50 VENT
[2019-10-25 08:22] LABS: BASOPHILS % (AUTO) 0.2 % (0.0-2.0); HEMATOCRIT 26.6 % (31.2-41.9); HEMOGLOBIN 8.5 g/dL (10.9-14.3); LYMPHOCYTES # (AUTO) 0.7 K/uL (20.0-40.0); MEAN CORPUSCULAR HEMOGLOBIN 30.9 uug (24.7-32.8); MEAN CORPUSCULAR HGB CONC 32 g/dL (32.3-35.6); MEAN CORPUSCULAR VOLUME 96.4 fL (75.5-95.3); MONOCYTES # (AUTO) 0.5 K/uL (2.0-10.0); MONOCYTES % (AUTO) 3.6 % (0.0-11.0); NEUTROPHILS # (AUTO) 12.9 K/uL (1.8-8.9); NEUTROPHILS % (AUTO) 91.2 % (38.5-71.5); PLATELET COUNT (AUTO) 251 K/uL (179-408); RED BLOOD CELL COUNT(AUTO) 2.76 MIL/uL (3.63-4.92); WHITE BLOOD COUNT (AUTO) 14.1 K/uL (3.8-11.8)
[2019-10-25] MEDS: ACIDOPHILUS/BULGARICUS CHEW TAB GT SCH ×2 (08:33→21:59)
[2019-10-25] MEDS: SODIUM HYPOCHLORITE 0.125% 473 ML BOTTLE TP SCH (08:33)
[2019-10-25] MEDS: LEVETIRACETAM 500 MG TABLET GT SCH ×2 (08:33→21:59)
[2019-10-25] MEDS: COD LIVER OIL/ZINC OXIDE OINT 113 GM TUBE TOP SCH ×2 (08:33→21:59)
[2019-10-25] MEDS: ASCORBIC ACID 250 MG TABLET GT SCH ×2 (08:33→20:45)
[2019-10-25] MEDS: NUTRISOURCE FIBER 4 GM PACKET PO SCH ×2 (08:33→21:59)
[2019-10-25 08:39] LABS: IRON, SERUM 27 ug/dL (50-175)
[2019-10-25] MEDS: NORMAL SALINE FLUSH 10 ML DISP.SYRIN IV SCH ×2 (09:00→21:00)
[2019-10-25 09:06] LABS: CARBON DIOXIDE 19 mmol/L (21-32); CHLORIDE 109 mmol/L (98-107); CREATININE 1.7 mg/dL (0.6-1.3); FERRITIN 664 ng/mL (8-252); GLUCOSE 117 mg/dL (74-106); MAGNESIUM 2.2 mg/dL (1.8-2.4); PHOSPHOROUS 4.2 mg/dL (2.5-4.9); POTASSIUM 5.5 mmol/L (3.5-5.1)
[2019-10-25 09:25] LABS: UREA NITROGEN, BLOOD 88 mg/dL (7-18)
--- NOTE | 2019-10-25 13:03 | NUR ---
Seen and examined by Dr Almanza aware of the abnormal labs results ,no new orders.
--- NOTE | 2019-10-25 15:20 | NUR ---
Pharmacy Initial/Admission Medication Review 10/25/19 Patient originally from a SNF who was originally seen in ER due to reports of being lethargic with SOB and fever of 102. Pt has multiple chronic conditions including h/o CHF, NSTEMIs, afib, HTN, CKD, chronic anemia, dementia, amongst others. While in CCU, pt was treated with ongoing IV abx for sepsis, PNA but ended with prolonged stay d/t continued infection treatment and complications including c diff colitis. Pt did not significantly improve however and eventually required tracheostomy and GT placement with plans for transfer to subacute unit. Pt now in subacute completing c diff treatment and is being monitored off other abxs for now. VS: Temp 98.1 HR 102 BP 115/79 LABS: (from 10/23/19) Wbc 9.8 H/H 7.9/24.3 Plt 281 Na 138 K 5.0 Cl 111 CO2 20 BUN/SCr 60/1.7 BS 141 Ca 7.1 (corrected Ca 9.2) phos 4.1 Mg 1.9 MEDICATION USE REVIEW: > Pt is not any anti-psych medications > Pt on Keppra 500mg q12hr since admit 10/20/19. Latest CrCl 21.4 ml/min, ok dose per renal function. No seizures noted > Admitted on famotidine 20mg daily, Rx rec for renal dose to 10mg daily. Md agreed and changed. Last CrCl 21.4 ml/min, ok dose per renal function > PRN MED USAGE: (since admit) Tylenol for mild pain used x0 [place] for severe pain used x1 OTHER ORDERS REVIEWED: > Continues from medsurg on vanco PO 250mg GT q6hr + flagyl 500mg q8hr for c diff (stop date 10/25, 10/27 respectively) > Pt continue lipitor 20mg qhs, no issues noted > On supplements: ferrous sulfate 330mg qhs, MVI daily, prostat liquid q8hr, nutrisource fiber 4gm q12hr, floranex q12hr > Per dietary rec for wound care, also now on supplements: vit c 250mg q12hr, zinc 220mg qhs, Fito q12hr > Continues on tube feed Glucerna 1.2 @60ml/hr x 20hrs > Rx rec for d/c of pt's senna 2 tabs qhs scheduled daily and bisacodyl suppository PRN d/t reported continued diarrhea and c diff resolution. MD agreed and ordered to d/c > Rx rec for renal adjustment of famotidine 20mg daily to famotidine 10mg daily as last CrCl 21.4 ml/min. MD agreed and ordered to d/c All medications reviewed, please see above for rx recommendations and responses. No further recs at this time, pt remains otherwise stable since transfer. Will continue to follow and report to next IDT
--- NOTE | 2019-10-25 19:03 | NUR ---
No acute respiratory distress ,no increase secretions,afebrile temperature 97.4,Continue on Flagyl ivatb and vancomycin via gt,no adverse reaction noted,seen by Dr Gabriel aware of the increase WBC from 9.8 to 14.1,no new orders noted.
[2019-10-25 20:00] VITALS: BP 141/88
[2019-10-25] MEDS: ATORVASTATIN 20 MG TABLET GT SCH (21:59)
[2019-10-25] MEDS: MULTIVITAMINS,THERAPEUTIC TABLET GT SCH (21:59)
[2019-10-25] MEDS: ZINC SULFATE 220 MG CAPSULE GT SCH (21:59)
[2019-10-25] MEDS: FERROUS SULFATE 330 MG/7.5 ML UDC- FOR SA ONLY GT SCH (21:59)
[2019-10-26] MEDS: VANCOMYCIN FOR PO/GT/NG USE GT SCH ×4 (00:15→18:03)
[2019-10-26] MEDS: PROTEIN SUPPLEMENT (PROSTAT) 30 ML LIQUID GT SCH ×3 (05:17→21:51)
[2019-10-26] MEDS: ARGININE/GLUTAMINE/CALCIUM BMB 1 EACH POWD.PACK GT SCH ×2 (05:17→18:03)
[2019-10-26] MEDS: FAMOTIDINE 20 MG TABLET GT SCH (05:17)
--- NOTE | 2019-10-26 05:28 | NUR ---
continue on flagyi iv and vancomycin gt for c.diff, continue on contact isolation, no adverse reaction noted, afebrile, no respiratory distress noted, right upper arm picc line patent and flushed per protocol.
[2019-10-26] MEDS: METRONIDAZOLE 500 MG/NS 100ML 500 MG in PREMIXED 1 EACH IV SCH ×3 (05:58→21:57)
[2019-10-26 07:59] LABS: BASOPHILS # (AUTO) 0.1 K/uL (0.0-8.0); BASOPHILS % (AUTO) 0.8 % (0.0-2.0); EOSINOPHILS # (AUTO) 0.1 K/uL (0.0-0.7); EOSINOPHILS % (AUTO) 0.4 % (0.0-7.0); HEMATOCRIT 26.9 % (31.2-41.9); HEMOGLOBIN 8.4 g/dL (10.9-14.3); LYMPHOCYTES # (AUTO) 0.5 K/uL (20.0-40.0); LYMPHOCYTES % (AUTO) 3.5 % (20.5-51.5); MEAN CORPUSCULAR HEMOGLOBIN 30.9 uug (24.7-32.8); MEAN CORPUSCULAR HGB CONC 31 g/dL (32.3-35.6); MEAN CORPUSCULAR VOLUME 98.5 fL (75.5-95.3); MONOCYTES # (AUTO) 0.5 K/uL (2.0-10.0); MONOCYTES % (AUTO) 3.6 % (0.0-11.0); NEUTROPHILS # (AUTO) 12.8 K/uL (1.8-8.9); NEUTROPHILS % (AUTO) 91.7 % (38.5-71.5); PLATELET COUNT (AUTO) 228 K/uL (179-408); RED BLOOD CELL COUNT(AUTO) 2.73 MIL/uL (3.63-4.92); WHITE BLOOD COUNT (AUTO) 13.9 K/uL (3.8-11.8)
[2019-10-26 08:11] LABS: CARBON DIOXIDE 18 mmol/L (21-32); CHLORIDE 110 mmol/L (98-107); CREATININE 1.8 mg/dL (0.6-1.3); GLUCOSE 162 mg/dL (74-106); POTASSIUM 4.5 mmol/L (3.5-5.1)
[2019-10-26 08:16] LABS: UREA NITROGEN, BLOOD 100 mg/dL (7-18)
[2019-10-26] MEDS: ASCORBIC ACID 250 MG TABLET GT SCH ×2 (08:29→20:57)
[2019-10-26] MEDS: ACIDOPHILUS/BULGARICUS CHEW TAB GT SCH ×2 (08:34→21:50)
[2019-10-26] MEDS: COD LIVER OIL/ZINC OXIDE OINT 113 GM TUBE TOP SCH ×2 (08:35→21:51)
[2019-10-26] MEDS: LEVETIRACETAM 500 MG TABLET GT SCH ×2 (08:35→21:50)
[2019-10-26] MEDS: NUTRISOURCE FIBER 4 GM PACKET PO SCH ×2 (08:35→21:51)
[2019-10-26] MEDS: SODIUM HYPOCHLORITE 0.125% 473 ML BOTTLE TP SCH (09:00)
[2019-10-26] MEDS: NORMAL SALINE FLUSH 10 ML DISP.SYRIN IV SCH ×2 (09:00→21:56)
[2019-10-26 11:51] VITALS: BP 121/75
[2019-10-26] MEDS: GLUCERNA 1.2 1000ML LIQUID GT PRN (18:04)
--- NOTE | 2019-10-26 19:01 | NUR ---
No respiratory distress,trach connected to ventilator,afebrile temp 98.6.continue on flagyl iv and vancomycin by Gt for c difficile,on contact isolation,observe closely.
[2019-10-26 20:00] VITALS: BP 130/77
[2019-10-26] MEDS: ATORVASTATIN 20 MG TABLET GT SCH (21:50)
[2019-10-26] MEDS: FERROUS SULFATE 330 MG/7.5 ML UDC- FOR SA ONLY GT SCH (21:50)
[2019-10-26] MEDS: MULTIVITAMINS,THERAPEUTIC TABLET GT SCH (21:51)
[2019-10-26] MEDS: ZINC SULFATE 220 MG CAPSULE GT SCH (21:51)
[2019-10-27] MEDS: PROTEIN SUPPLEMENT (PROSTAT) 30 ML LIQUID GT SCH ×3 (05:40→21:54)
[2019-10-27] MEDS: ARGININE/GLUTAMINE/CALCIUM BMB 1 EACH POWD.PACK GT SCH ×2 (05:40→17:11)
[2019-10-27] MEDS: FAMOTIDINE 20 MG TABLET GT SCH (05:40)
[2019-10-27] MEDS: METRONIDAZOLE 500 MG/NS 100ML 500 MG in PREMIXED 1 EACH IV SCH ×3 (05:41→22:05)
--- NOTE | 2019-10-27 05:42 | NUR ---
continue on flagyl iv and vancomycin gt for c.diff, afebrile, right upper arm picc line patent and flushed per protocol, no respiratory distress noted.
[2019-10-27 08:30] VITALS: BP 122/72
[2019-10-27] MEDS: ACIDOPHILUS/BULGARICUS CHEW TAB GT SCH ×2 (08:44→21:54)
[2019-10-27] MEDS: ASCORBIC ACID 250 MG TABLET GT SCH ×2 (08:44→20:45)
[2019-10-27] MEDS: LEVETIRACETAM 500 MG TABLET GT SCH ×2 (08:44→21:54)
[2019-10-27] MEDS: NUTRISOURCE FIBER 4 GM PACKET PO SCH ×2 (08:45→21:54)
[2019-10-27] MEDS: COD LIVER OIL/ZINC OXIDE OINT 113 GM TUBE TOP SCH ×2 (08:45→21:54)
[2019-10-27] MEDS: NORMAL SALINE FLUSH 10 ML DISP.SYRIN IV SCH ×2 (09:00→21:00)
[2019-10-27] MEDS: COD LIVER OIL/ZINC OXIDE OINT 113 GM TUBE TP SCH ×4 (09:00→21:54)
[2019-10-27] MEDS: SODIUM HYPOCHLORITE 0.125% 473 ML BOTTLE TP SCH (09:45)
--- NOTE | 2019-10-27 11:00 | NUR ---
SEEN AND EXAMINED BY LESLIE Cuevas AND WITH NEW ORDER CARRIED OUT .
--- NOTE | 2019-10-27 15:18 | NUR ---
DR. LEA(PET CARE TECHNICIAN FOR DR. WU)WAS PAGED RE:LAB RESULTS(INCREASED BUN AND CREATININE)AND PT. WAS SEEN AND EXAMINED BY SEDA Cuevas (I.D) AND WITH NEW ORDERS CARRIED OUT.
[2019-10-27] MEDS: VANCOMYCIN FOR PO/GT/NG USE GT SCH (17:15)
--- NOTE | 2019-10-27 17:55 | NUR ---
PT. WAS SEEN AND EXAMINED BY DR. ARCHULETA AND WITH NEW ORDERS CARRIED OUT.
--- NOTE | 2019-10-27 18:07 | NUR ---
PER DR. ALLA MEYER RE:INCRESEING BUN AND CREATININE AT THIS TIME ,HE WILL F/U IN AM.
[2019-10-27 20:00] VITALS: BP 135/87
[2019-10-27] MEDS: FERROUS SULFATE 330 MG/7.5 ML UDC- FOR SA ONLY GT SCH (21:53)
[2019-10-27] MEDS: MULTIVITAMINS,THERAPEUTIC TABLET GT SCH (21:54)
[2019-10-27] MEDS: ZINC SULFATE 220 MG CAPSULE GT SCH (21:54)
[2019-10-27] MEDS: ATORVASTATIN 20 MG TABLET GT SCH (21:54)
[2019-10-28] MEDS: VANCOMYCIN FOR PO/GT/NG USE GT SCH ×5 (00:41→23:21)
[2019-10-28] MEDS: FAMOTIDINE 20 MG TABLET GT SCH (05:40)
[2019-10-28] MEDS: PROTEIN SUPPLEMENT (PROSTAT) 30 ML LIQUID GT SCH ×3 (05:40→21:10)
[2019-10-28] MEDS: ARGININE/GLUTAMINE/CALCIUM BMB 1 EACH POWD.PACK GT SCH ×2 (05:40→17:42)
[2019-10-28] MEDS: METRONIDAZOLE 500 MG/NS 100ML 500 MG in PREMIXED 1 EACH IV SCH ×2 (05:50→14:00)
--- NOTE | 2019-10-28 06:06 | NUR ---
continue on flagyl iv and vancomycin gt for c.diff, afebrile, right upper arm picc line patent, flushed per protocol, no respiratory distress noted, no adverse reaction noted.
[2019-10-28 07:59] LABS: BASOPHILS % (AUTO) 0.3 % (0.0-2.0); EOSINOPHILS # (AUTO) 0.1 K/uL (0.0-0.7); EOSINOPHILS % (AUTO) 0.7 % (0.0-7.0); HEMATOCRIT 25.6 % (31.2-41.9); HEMOGLOBIN 8.1 g/dL (10.9-14.3); LYMPHOCYTES # (AUTO) 0.8 K/uL (20.0-40.0); LYMPHOCYTES % (AUTO) 5.8 % (20.5-51.5); MEAN CORPUSCULAR HEMOGLOBIN 30.8 uug (24.7-32.8); MEAN CORPUSCULAR HGB CONC 32 g/dL (32.3-35.6); MEAN CORPUSCULAR VOLUME 97.6 fL (75.5-95.3); MONOCYTES # (AUTO) 0.6 K/uL (2.0-10.0); NEUTROPHILS # (AUTO) 12.6 K/uL (1.8-8.9); NEUTROPHILS % (AUTO) 89.2 % (38.5-71.5); PLATELET COUNT (AUTO) 222 K/uL (179-408); RED BLOOD CELL COUNT(AUTO) 2.62 MIL/uL (3.63-4.92); WHITE BLOOD COUNT (AUTO) 14.1 K/uL (3.8-11.8)
[2019-10-28 08:10] LABS: CARBON DIOXIDE 18 mmol/L (21-32); CHLORIDE 111 mmol/L (98-107); CREATININE 1.8 mg/dL (0.6-1.3); GLUCOSE 115 mg/dL (74-106); MAGNESIUM 2.1 mg/dL (1.8-2.4); PHOSPHOROUS 4.2 mg/dL (2.5-4.9); POTASSIUM 4.5 mmol/L (3.5-5.1)
[2019-10-28 08:29] LABS: UREA NITROGEN, BLOOD 128 mg/dL (7-18)
[2019-10-28] MEDS: NORMAL SALINE FLUSH 10 ML DISP.SYRIN IV SCH ×2 (09:00→21:51)
[2019-10-28] MEDS: ASCORBIC ACID 250 MG TABLET GT SCH ×2 (09:38→20:28)
[2019-10-28] MEDS: LEVETIRACETAM 500 MG TABLET GT SCH ×2 (09:39→20:28)
[2019-10-28] MEDS: ACIDOPHILUS/BULGARICUS CHEW TAB GT SCH ×2 (09:39→20:28)
[2019-10-28] MEDS: NUTRISOURCE FIBER 4 GM PACKET PO SCH ×2 (09:39→20:29)
[2019-10-28] MEDS: COD LIVER OIL/ZINC OXIDE OINT 113 GM TUBE TOP SCH ×2 (09:40→20:29)
[2019-10-28] MEDS: SODIUM HYPOCHLORITE 0.125% 473 ML BOTTLE TP SCH (09:40)
[2019-10-28] MEDS: COD LIVER OIL/ZINC OXIDE OINT 113 GM TUBE TP SCH ×4 (09:41→20:29)
--- NOTE | 2019-10-28 09:58 | NUR ---
NEW ORDER CARRIED OUT FROM DR. VENU SALINAS (CALENDER LET OFF HELPER FOR DR. WU) TO REMOVE LOCAL TRACH SUTURES AND HE STATED THAT HE WILL COME AND SIGN FOR CONSENT FOR SACRAL WOUND DEBRIDEMENT D/T DR. WU WILL BE AVAILABLE TILL NEXT WEE.
--- NOTE | 2019-10-28 10:00 | NUR ---
[facility] CARRIED OUT FOR LOCAL TX ON LEFT LOWER TRACH SITE SKIN BREAK AND ON OLD TRACH SUTURE SITES. PICTURE TAKEN.
[2019-10-28] MEDS: NEOMY/BACITRA/POLYMYXIN B OINT UD PACKET TP SCH ×4 (12:00→20:29)
[2019-10-28] MEDS: GLUCERNA 1.2 1000ML LIQUID GT PRN (14:40)
--- NOTE | 2019-10-28 15:39 | NUR ---
PER [employer](RADHA) AND ENCINO PHARMACIST(MIHAI) ALL DOSES ARE COMPLETED ALREADY
--- NOTE | 2019-10-28 15:49 | NUR ---
NEW ORDER CARRIED OUT FROM DR. HERMELINDA KNIGHT .
[2019-10-28] MEDS ORDERED: IV NS 1000 ML 1,000 ML IV PRN (16:45)
[2019-10-28] MEDS: IV NS 1000 ML 1,000 ML IV PRN (18:27)
[2019-10-28 20:00] VITALS: BP 138/88
[2019-10-28] MEDS: FERROUS SULFATE 330 MG/7.5 ML UDC- FOR SA ONLY GT SCH (20:28)
[2019-10-28] MEDS: ATORVASTATIN 20 MG TABLET GT SCH (20:29)
[2019-10-28] MEDS: ZINC SULFATE 220 MG CAPSULE GT SCH (20:29)
[2019-10-28] MEDS: MULTIVITAMINS,THERAPEUTIC TABLET GT SCH (20:29)
--- NOTE | 2019-10-28 22:19 | NUR ---
Pt rec'd on Ht-50 vent with ordered settings tolerated well, no complications noted. Trach is secure and patent @ midline. Alarms are assessed and are on/audible. Suctioned small amounts of yellowish raman secretions. Ambubag and spare trach at bedside. Will continue to monitor.
[2019-10-29] MEDS: ARGININE/GLUTAMINE/CALCIUM BMB 1 EACH POWD.PACK GT SCH ×2 (05:28→17:40)
[2019-10-29] MEDS: VANCOMYCIN FOR PO/GT/NG USE GT SCH ×3 (05:28→17:40)
[2019-10-29] MEDS: FAMOTIDINE 20 MG TABLET GT SCH (05:28)
[2019-10-29] MEDS: PROTEIN SUPPLEMENT (PROSTAT) 30 ML LIQUID GT SCH ×3 (05:28→21:35)
[2019-10-29 07:59] VITALS: BP 124/76
[2019-10-29] MEDS: ASCORBIC ACID 250 MG TABLET GT SCH ×2 (09:08→21:31)
[2019-10-29] MEDS: ACIDOPHILUS/BULGARICUS CHEW TAB GT SCH ×2 (09:08→21:31)
[2019-10-29] MEDS: LEVETIRACETAM 500 MG TABLET GT SCH ×2 (09:08→21:31)
[2019-10-29] MEDS: COD LIVER OIL/ZINC OXIDE OINT 113 GM TUBE TOP SCH ×2 (09:09→21:32)
[2019-10-29] MEDS: SODIUM HYPOCHLORITE 0.125% 473 ML BOTTLE TP SCH (09:09)
[2019-10-29] MEDS: NUTRISOURCE FIBER 4 GM PACKET PO SCH ×2 (09:09→21:32)
[2019-10-29] MEDS: NORMAL SALINE FLUSH 10 ML DISP.SYRIN IV SCH ×2 (09:09→21:32)
[2019-10-29] MEDS: COD LIVER OIL/ZINC OXIDE OINT 113 GM TUBE TP SCH ×4 (09:09→21:33)
[2019-10-29] MEDS: NEOMY/BACITRA/POLYMYXIN B OINT UD PACKET TP SCH ×4 (09:10→21:35)
--- NOTE | 2019-10-29 10:00 | NUR ---
DR SHEN WAS CALLED AND MESSAGE LEFT :RE A PROLAPSE FROM VAGINA AND THAT PT. IS GETTING VERY EDEMATOUS WITH IV FLUIDS.
[2019-10-29] MEDS: IV NS 1000 ML 1,000 ML IV PRN (10:04)
--- NOTE | 2019-10-29 15:43 | NUR ---
DR. RAMÍREZ WAS NOTIFIED ABOUT INCREASING EDEMA WITH IV FLUIDS AND ABOUT PROLAPSE FROM VAGINA AND NNO.STILL AWAITING FOR DR. SHEN TO CALL BACK.
--- NOTE | 2019-10-29 16:55 | NUR ---
DR. SHEN PAGED AGAIN.
--- NOTE | 2019-10-29 17:22 | NUR ---
DR. VENU SIMS WAS CALLED AND AWARE OF INCREASING GENERAL EDEMA WITH IV FLUIDS AND ALSO PT. HAD PROLAPSE FROM VAGINA(WHEN COUGHING OR HAVING B.M) AND WITH NNO JUST KEEP AREA CLEAN MUCH POSSIBLE.
--- NOTE | 2019-10-29 18:00 | NUR ---
DR. SIMS WAS CALLED AGAIN TO CONSIDER ORDERING RECTAL TUBE TO PREVENT UTERINE PROLAPSE TO GET CONTAMINATED WITH DIARRHEA BUT HE STATED THAT WAS NOT GOING TO SOLVE THE PROBLEM AND REFUSED IT AND INSTEAD ASKED CH. NURSE TO FIND OUT IF THE HOSPITAL HAS AVAILABLE UTERINE PESSARY INSTEAD FIRST .MESSAGE LEFT FOR CENTRAL.
[2019-10-29 20:38] VITALS: BP 109/69
[2019-10-29] MEDS: FERROUS SULFATE 330 MG/7.5 ML UDC- FOR SA ONLY GT SCH (21:31)
[2019-10-29] MEDS: MULTIVITAMINS,THERAPEUTIC TABLET GT SCH (21:32)
[2019-10-29] MEDS: ATORVASTATIN 20 MG TABLET GT SCH (21:32)
[2019-10-29] MEDS: ZINC SULFATE 220 MG CAPSULE GT SCH (21:32)
[2019-10-30] MEDS: VANCOMYCIN FOR PO/GT/NG USE GT SCH ×4 (00:26→17:37)
[2019-10-30] MEDS: IV NS 1000 ML 1,000 ML IV PRN ×2 (00:32→13:59)
[2019-10-30] MEDS: ARGININE/GLUTAMINE/CALCIUM BMB 1 EACH POWD.PACK GT SCH ×2 (05:15→17:37)
[2019-10-30] MEDS: FAMOTIDINE 20 MG TABLET GT SCH (05:15)
[2019-10-30] MEDS: GLUCERNA 1.2 1000ML LIQUID GT PRN (05:16)
[2019-10-30] MEDS: PROTEIN SUPPLEMENT (PROSTAT) 30 ML LIQUID GT SCH ×3 (05:16→22:51)
[2019-10-30 06:36] LABS: BASOPHILS % (AUTO) 0.2 % (0.0-2.0); EOSINOPHILS # (AUTO) 0.1 K/uL (0.0-0.7); EOSINOPHILS % (AUTO) 0.7 % (0.0-7.0); HEMOGLOBIN 8.2 g/dL (10.9-14.3); LYMPHOCYTES # (AUTO) 0.7 K/uL (20.0-40.0); LYMPHOCYTES % (AUTO) 5.6 % (20.5-51.5); MEAN CORPUSCULAR HEMOGLOBIN 31.3 uug (24.7-32.8); MEAN CORPUSCULAR HGB CONC 32 g/dL (32.3-35.6); MEAN CORPUSCULAR VOLUME 99.4 fL (75.5-95.3); MONOCYTES # (AUTO) 0.5 K/uL (2.0-10.0); MONOCYTES % (AUTO) 4.3 % (0.0-11.0); NEUTROPHILS # (AUTO) 11.4 K/uL (1.8-8.9); NEUTROPHILS % (AUTO) 89.2 % (38.5-71.5); PLATELET COUNT (AUTO) 223 K/uL (179-408); RED BLOOD CELL COUNT(AUTO) 2.62 MIL/uL (3.63-4.92); WHITE BLOOD COUNT (AUTO) 12.7 K/uL (3.8-11.8)
[2019-10-30 06:48] LABS: CARBON DIOXIDE 18 mmol/L (21-32); CHLORIDE 112 mmol/L (98-107); CREATININE 1.9 mg/dL (0.6-1.3); GLUCOSE 122 mg/dL (74-106); MAGNESIUM 2.1 mg/dL (1.8-2.4); PHOSPHOROUS 4.4 mg/dL (2.5-4.9); POTASSIUM 4.8 mmol/L (3.5-5.1)
[2019-10-30 06:59] LABS: UREA NITROGEN, BLOOD 154 mg/dL (7-18)
--- NOTE | 2019-10-30 07:45 | NUR ---
PT REC'D ON HT-50 VENT TOLERATING CURRENT VENT SETTINGS WELL, NO DISTRESS NOTED GIVEN IN AM REPORT. PT VENT'D VIA TRACHEOSTOMY, TUBE IN PLACE PATENT AND SECURE WITH TRACH TIE. SXN'ING NEEDED. VENT ALARMS AUDIBLE, CHECKED AND RESET. BVM AND BACK-UP TRACH AT BEDSIDE.
[2019-10-30 08:00] VITALS: BP 121/43
[2019-10-30] MEDS: ASCORBIC ACID 250 MG TABLET GT SCH ×2 (08:12→20:45)
[2019-10-30] MEDS: LEVETIRACETAM 500 MG TABLET GT SCH (08:13)
[2019-10-30] MEDS: ACIDOPHILUS/BULGARICUS CHEW TAB GT SCH ×2 (08:13→20:45)
[2019-10-30] MEDS: SODIUM HYPOCHLORITE 0.125% 473 ML BOTTLE TP SCH (08:14)
[2019-10-30] MEDS: COD LIVER OIL/ZINC OXIDE OINT 113 GM TUBE TP SCH ×4 (08:14→20:47)
[2019-10-30] MEDS: NUTRISOURCE FIBER 4 GM PACKET PO SCH ×2 (08:14→20:46)
[2019-10-30] MEDS: NEOMY/BACITRA/POLYMYXIN B OINT UD PACKET TP SCH ×4 (08:14→20:47)
[2019-10-30] MEDS: COD LIVER OIL/ZINC OXIDE OINT 113 GM TUBE TOP SCH ×2 (08:14→20:47)
[2019-10-30] MEDS: NORMAL SALINE FLUSH 10 ML DISP.SYRIN IV SCH ×2 (08:14→21:00)
--- NOTE | 2019-10-30 10:19 | NUR ---
DR. SUE WU WAS CALLED TO CELL PHONE AND MESSAGE LEFT TO CALL BACK RE UTERINE PROLAPSE.
--- NOTE | 2019-10-30 19:50 | NUR ---
Received pt on HT-50 ventilator with the following settings of AC-12, Vt-450, PEEP+5, FIO2-2.5LPM bleed in, trached with Shiley#8 DCT trach, which is in the place and secure. No s/s of respiratory distress noted. Airway care done, pt responded to physical stimuli. HME changed. PPE used. Resus. bag and back up trach at bedside. Vent and alarms checked and reset.
[2019-10-30] MEDS: FERROUS SULFATE 330 MG/7.5 ML UDC- FOR SA ONLY GT SCH (20:45)
[2019-10-30] MEDS: ZINC SULFATE 220 MG CAPSULE GT SCH (20:46)
[2019-10-30] MEDS: ATORVASTATIN 20 MG TABLET GT SCH (20:46)
[2019-10-30] MEDS: MULTIVITAMINS,THERAPEUTIC TABLET GT SCH (20:46)
[2019-10-30] MEDS: LEVETIRACETAM 500 MG/5 ML LIQUID UDC GT SCH (20:46)
[2019-10-30 21:01] VITALS: BP 123/49
[2019-10-31] MEDS: GLUCERNA 1.2 1000ML LIQUID GT PRN (01:11)
[2019-10-31] MEDS: IV NS 1000 ML 1,000 ML IV PRN (04:00)
[2019-10-31] MEDS: FAMOTIDINE 20 MG TABLET GT SCH (05:28)
[2019-10-31] MEDS: VANCOMYCIN FOR PO/GT/NG USE GT SCH ×4 (05:28→17:03)
[2019-10-31] MEDS: PROTEIN SUPPLEMENT (PROSTAT) 30 ML LIQUID GT SCH ×3 (05:28→21:33)
[2019-10-31] MEDS: ARGININE/GLUTAMINE/CALCIUM BMB 1 EACH POWD.PACK GT SCH ×2 (05:28→17:03)
[2019-10-31] MEDS ORDERED: SILVER NITRATE APPLICATOR STICK EACH TP PRN (07:00)
[2019-10-31] MEDS ORDERED: LIDOCAINE 1%-EPI 1:100,000 20 ML VIAL MC PRN (07:00)
[2019-10-31 08:00] VITALS: BP 111/78
[2019-10-31] MEDS: ACIDOPHILUS/BULGARICUS CHEW TAB GT SCH ×2 (08:04→21:32)
[2019-10-31] MEDS: SODIUM HYPOCHLORITE 0.125% 473 ML BOTTLE TP SCH (08:04)
[2019-10-31] MEDS: LEVETIRACETAM 500 MG/5 ML LIQUID UDC GT SCH ×2 (08:04→21:32)
[2019-10-31] MEDS: NEOMY/BACITRA/POLYMYXIN B OINT UD PACKET TP SCH ×4 (08:04→21:33)
[2019-10-31] MEDS: ASCORBIC ACID 250 MG TABLET GT SCH ×2 (08:04→21:32)
[2019-10-31] MEDS: COD LIVER OIL/ZINC OXIDE OINT 113 GM TUBE TOP SCH ×2 (08:04→21:32)
[2019-10-31] MEDS: NUTRISOURCE FIBER 4 GM PACKET PO SCH ×2 (08:04→21:32)
[2019-10-31] MEDS: COD LIVER OIL/ZINC OXIDE OINT 113 GM TUBE TP SCH ×4 (08:04→21:32)
--- NOTE | 2019-10-31 09:43 | NUR ---
WAS CALLED AND AWARE OF INCREASING EDEMA AND INCREASING BUN AND CREATININE AND TACHYCARDIA AND STATED THAT WILL SEE PT.TODAY IN A LITTLE WHILE.
--- NOTE | 2019-10-31 11:40 | NUR ---
PT. WAS SEEN AND EVALUATED BY DR. GOLD AND ALSO AWARE OF UTERINE PROLAPSE AND AWARE OF AWAITING FOR DR. WU TO CALL BACK AND WITH NEW ORDERS CARRIED OUT.
--- NOTE | 2019-10-31 14:00 | NUR ---
SACRAL WOUND (PART OF SERIAL DEBRIDEMENTS)DEBRIDEMENT WAS DONE AT THIS TIME BY LESLIE Cuevas AND PT. WAS PREMEDICATED WITH TYLENOL AND LOCAL ANESTHESIA AND PROCEDURE WELL TOLERATED WITH MINIMAL LOCAL BLEEDING.PICTURE WAS TAKEN AND MEASURED WOUND FOLLOW:9.8X6.1X1CM AND STILL UNABLE TO STAGE.
[2019-10-31 16:44] LABS: *BILIRUBIN,URIN NEGATIVE (NEGATIVE); *BLOOD, URINE 1+ (NEGATIVE); *CLARITY,URINE SLIGHTLY CLOUDY (CLEAR); *COLOR,URINE YELLOW (YELLOW); *KETONES,URINE NEGATIVE (NEGATIVE); *UROBILINOGEN,URINE 0.2 E.U./dl (NORMAL); LEUKOCYTE ESTERASE ,URINE 3+ (NEGATIVE); NITRITE, URINE NEGATIVE (NEGATIVE); UGLUCOSE NEGATIVE (NEGATIVE)
[2019-10-31 17:05] LABS: WBC,URINE 20-50 /HPF (0-3)
[2019-10-31 17:06] LABS: BACTERIA,URINE MODERATE /HPF (NONE SEEN); SQUAMOUS EPITHELIAL CELL,UR MODERATE /HPF (NONE SEEN); YEAST,URINE MANY /HPF (NONE SEEN)
[2019-10-31 17:30] LABS: *CREATININE,URINE 15.4 mg/dL (30-125); *URINE TOTAL PROTEIN RANDOM 63.1 mg/dL (<150/24HR)
[2019-10-31 20:57] VITALS: BP 113/79
[2019-10-31] MEDS: NORMAL SALINE FLUSH 10 ML DISP.SYRIN IV SCH (21:00)
[2019-10-31] MEDS: FERROUS SULFATE 330 MG/7.5 ML UDC- FOR SA ONLY GT SCH (21:32)
[2019-10-31] MEDS: MULTIVITAMINS,THERAPEUTIC TABLET GT SCH (21:32)
[2019-10-31] MEDS: ZINC SULFATE 220 MG CAPSULE GT SCH (21:32)
[2019-10-31] MEDS: ATORVASTATIN 20 MG TABLET GT SCH (21:32)
--- NOTE | 2019-11-01 02:14 | NUR ---
RUE Triple lumen picc line flushed per protocol, No respiratory distress noted.
[2019-11-01] MEDS: VANCOMYCIN FOR PO/GT/NG USE GT SCH ×4 (05:24→17:31)
[2019-11-01] MEDS: PROTEIN SUPPLEMENT (PROSTAT) 30 ML LIQUID GT SCH ×3 (05:24→21:07)
[2019-11-01] MEDS: FAMOTIDINE 20 MG TABLET GT SCH (05:24)
[2019-11-01 06:52] LABS: EOSINOPHILS # (AUTO) 0.1 K/uL (0.0-0.7); HEMATOCRIT 23.9 % (31.2-41.9); HEMOGLOBIN 7.6 g/dL (10.9-14.3); LYMPHOCYTES # (AUTO) 0.6 K/uL (20.0-40.0); LYMPHOCYTES % (AUTO) 5.7 % (20.5-51.5); MEAN CORPUSCULAR HEMOGLOBIN 31.4 uug (24.7-32.8); MEAN CORPUSCULAR HGB CONC 32 g/dL (32.3-35.6); MEAN CORPUSCULAR VOLUME 99.5 fL (75.5-95.3); MONOCYTES # (AUTO) 0.5 K/uL (2.0-10.0); MONOCYTES % (AUTO) 4.3 % (0.0-11.0); PLATELET COUNT (AUTO) 203 K/uL (179-408); WHITE BLOOD COUNT (AUTO) 11.3 K/uL (3.8-11.8)
[2019-11-01 06:58] LABS: RED BLOOD CELL COUNT(AUTO) 2.41 MIL/uL (3.63-4.92)
[2019-11-01 06:59] LABS: ALANINE AMINOTRANSFERASE 18 U/L (14-59); ALKALINE PHOSPHATASE 87 U/L (50-136); ASPARTATE AMINOTRANSFERASE 24 U/L (15-37); BILIRUBIN,TOTAL 0.3 mg/dL (0.2-1.0); CARBON DIOXIDE 18 mmol/L (21-32); CHLORIDE 110 mmol/L (98-107); CREATINE KINASE, TOTAL 46 U/L (26-192); CREATININE 2.2 mg/dL (0.6-1.3); GLUCOSE 112 mg/dL (74-106); MAGNESIUM 2.4 mg/dL (1.8-2.4); PHOSPHOROUS 5.2 mg/dL (2.5-4.9); POTASSIUM 5.3 mmol/L (3.5-5.1)
[2019-11-01 07:05] LABS: UREA NITROGEN, BLOOD 188 mg/dL (7-18)
[2019-11-01 08:00] VITALS: BP 129/70
[2019-11-01] MEDS: ASCORBIC ACID 250 MG TABLET GT SCH ×2 (08:32→21:05)
[2019-11-01] MEDS: LEVETIRACETAM 500 MG/5 ML LIQUID UDC GT SCH ×2 (08:33→21:05)
[2019-11-01] MEDS: ACIDOPHILUS/BULGARICUS CHEW TAB GT SCH ×2 (08:33→21:05)
[2019-11-01] MEDS: COD LIVER OIL/ZINC OXIDE OINT 113 GM TUBE TP SCH ×4 (08:35→21:07)
[2019-11-01] MEDS: COD LIVER OIL/ZINC OXIDE OINT 113 GM TUBE TOP SCH ×2 (08:35→21:07)
[2019-11-01] MEDS: NUTRISOURCE FIBER 4 GM PACKET PO SCH ×2 (08:35→21:06)
[2019-11-01] MEDS: NORMAL SALINE FLUSH 10 ML DISP.SYRIN IV SCH ×2 (09:00→21:00)
[2019-11-01] MEDS: SODIUM HYPOCHLORITE 0.125% 473 ML BOTTLE TP SCH (09:30)
[2019-11-01] MEDS: NEOMY/BACITRA/POLYMYXIN B OINT UD PACKET TP SCH ×4 (09:30→21:07)
[2019-11-01] MEDS: ACETAMINOPHEN 650 MG/20 ML UDC- SA PATIENTS-PAIN ONLY GT PRN ×2 (12:30)
--- NOTE | 2019-11-01 14:31 | NUR ---
Seen and examined by Dr Yin,with new orders noted.
--- NOTE | 2019-11-01 17:30 | NUR ---
Left message to Dr omalley,regarding labs results didn't call back Spoke to Dr Marquez regarding the BUN 188 and K 4.3 ,with new orders noted to start NSS at 75 cc/hr x 1 liter ,orders carried out.
[2019-11-01] MEDS: ARGININE/GLUTAMINE/CALCIUM BMB 1 EACH POWD.PACK GT SCH ×2 (17:31)
[2019-11-01] MEDS ORDERED: IV NS 1000 ML 1,000 ML IV SCH (18:00)
[2019-11-01 20:19] VITALS: BP 126/76
[2019-11-01] MEDS: FERROUS SULFATE 330 MG/7.5 ML UDC- FOR SA ONLY GT SCH (21:05)
[2019-11-01] MEDS: MULTIVITAMINS,THERAPEUTIC TABLET GT SCH (21:06)
[2019-11-01] MEDS: ZINC SULFATE 220 MG CAPSULE GT SCH (21:06)
[2019-11-01] MEDS: ATORVASTATIN 20 MG TABLET GT SCH (21:06)
[2019-11-02] MEDS: GLUCERNA 1.2 1000ML LIQUID GT PRN (01:10)
[2019-11-02] MEDS: FAMOTIDINE 20 MG TABLET GT SCH (05:23)
[2019-11-02] MEDS: ARGININE/GLUTAMINE/CALCIUM BMB 1 EACH POWD.PACK GT SCH ×2 (05:23→18:50)
[2019-11-02] MEDS: PROTEIN SUPPLEMENT (PROSTAT) 30 ML LIQUID GT SCH ×3 (05:24→21:28)
[2019-11-02] MEDS: VANCOMYCIN FOR PO/GT/NG USE GT SCH ×4 (05:24→18:50)
[2019-11-02 06:08] LABS: HEPATITIS B SURFACE AB Reactive (.); HEPATITIS B SURFACE AG Negative (Negative)
[2019-11-02 07:14] LABS: COMPLEMENT, C3 SERUM 52 mg/dL (82-167); COMPLEMENT, C4 SERUM 11 mg/dL (14-44)
[2019-11-02] MEDS: ACIDOPHILUS/BULGARICUS CHEW TAB GT SCH ×2 (09:04→21:25)
[2019-11-02] MEDS: ASCORBIC ACID 250 MG TABLET GT SCH ×2 (09:04→21:25)
[2019-11-02] MEDS: LEVETIRACETAM 500 MG/5 ML LIQUID UDC GT SCH ×2 (09:04→21:26)
[2019-11-02] MEDS: NUTRISOURCE FIBER 4 GM PACKET PO SCH ×2 (09:06→21:27)
[2019-11-02] MEDS: NORMAL SALINE FLUSH 10 ML DISP.SYRIN IV SCH ×2 (09:06→21:27)
[2019-11-02] MEDS: NEOMY/BACITRA/POLYMYXIN B OINT UD PACKET TP SCH ×4 (09:07→21:28)
[2019-11-02] MEDS: COD LIVER OIL/ZINC OXIDE OINT 113 GM TUBE TP SCH ×4 (09:07→21:28)
[2019-11-02] MEDS: COD LIVER OIL/ZINC OXIDE OINT 113 GM TUBE TOP SCH ×2 (09:07→21:27)
[2019-11-02] MEDS: SODIUM HYPOCHLORITE 0.125% 473 ML BOTTLE TP SCH (09:07)
[2019-11-02] MEDS: ACETAMINOPHEN 650 MG/20 ML UDC- SA PATIENTS-PAIN ONLY GT PRN ×2 (09:08→22:00)
[2019-11-02 10:54] VITALS: BP 124/78
--- NOTE | 2019-11-02 11:30 | NUR ---
Seen and examined by Dr Cao ,no new orders noted.
[2019-11-02 16:07] LABS: *ANTI-SCLERODERMA-70 AB <0.2 AI (0.0-0.9); *SJOGREN'S ANTI-SS-A <0.2 AI (0.0-0.9); *SJOGREN'S ANTI-SS-B <0.2 AI (0.0-0.9); *SMITH ANTIBODIES <0.2 AI (0.0-0.9); ANTI-DNA(DS) AB, QN 2 IU/mL (0-9)
--- NOTE | 2019-11-02 19:30 | NUR ---
New orders for Senior Database Programmer consult for uterine prolapse,Dr Pedroza will talk to Dr Johnson .
[2019-11-02 20:53] VITALS: BP 145/80
[2019-11-02] MEDS: FERROUS SULFATE 330 MG/7.5 ML UDC- FOR SA ONLY GT SCH (21:25)
[2019-11-02] MEDS: ATORVASTATIN 20 MG TABLET GT SCH (21:26)
[2019-11-02] MEDS: ZINC SULFATE 220 MG CAPSULE GT SCH (21:27)
[2019-11-02] MEDS: MULTIVITAMINS,THERAPEUTIC TABLET GT SCH (21:27)
--- NOTE | 2019-11-02 22:48 | NUR ---
Afebrile, remains on vancomycin via GT for c-diff in the stool, no adverse reactions noted, still with on and off loose stools, with ongoing treatment to sacral wound as ordered, on contact isolation precaution, corbett catheter is draining well to yellow urine output. with protruding uterus in the vagina, kept vaginal area clean, turned and repositioned, will continue monitor.
[2019-11-03] MEDS: VANCOMYCIN FOR PO/GT/NG USE GT SCH ×4 (00:47→21:57)
[2019-11-03] MEDS: GLUCERNA 1.2 1000ML LIQUID GT PRN ×2 (01:05→17:34)
[2019-11-03] MEDS: PROTEIN SUPPLEMENT (PROSTAT) 30 ML LIQUID GT SCH ×3 (05:07→21:57)
[2019-11-03] MEDS: ARGININE/GLUTAMINE/CALCIUM BMB 1 EACH POWD.PACK GT SCH ×2 (05:07→17:34)
[2019-11-03] MEDS: FAMOTIDINE 20 MG TABLET GT SCH (05:07)
--- NOTE | 2019-11-03 07:01 | NUR ---
Patient is afebrile, no vaginal bleeding noted, still noted uterus to be protruding in the vagina, turned and repositioned, kept clean and comfortable.
[2019-11-03 07:11] LABS: BASOPHILS % (AUTO) 0.4 % (0.0-2.0); EOSINOPHILS # (AUTO) 0.2 K/uL (0.0-0.7); EOSINOPHILS % (AUTO) 1.8 % (0.0-7.0); HEMATOCRIT 24.7 % (31.2-41.9); HEMOGLOBIN 7.9 g/dL (10.9-14.3); LYMPHOCYTES # (AUTO) 0.7 K/uL (20.0-40.0); MEAN CORPUSCULAR HEMOGLOBIN 32.1 uug (24.7-32.8); MEAN CORPUSCULAR HGB CONC 32 g/dL (32.3-35.6); MEAN CORPUSCULAR VOLUME 100.1 fL (75.5-95.3); MONOCYTES # (AUTO) 0.4 K/uL (2.0-10.0); MONOCYTES % (AUTO) 4.3 % (0.0-11.0); NEUTROPHILS # (AUTO) 7.8 K/uL (1.8-8.9); NEUTROPHILS % (AUTO) 85.5 % (38.5-71.5); PLATELET COUNT (AUTO) 279 K/uL (179-408); WHITE BLOOD COUNT (AUTO) 9.1 K/uL (3.8-11.8)
[2019-11-03 07:13] LABS: RED BLOOD CELL COUNT(AUTO) 2.47 MIL/uL (3.63-4.92)
[2019-11-03 07:26] LABS: ALANINE AMINOTRANSFERASE 18 U/L (14-59); ALKALINE PHOSPHATASE 112 U/L (50-136); ASPARTATE AMINOTRANSFERASE 26 U/L (15-37); BILIRUBIN,TOTAL 0.3 mg/dL (0.2-1.0); CARBON DIOXIDE 16 mmol/L (21-32); CHLORIDE 108 mmol/L (98-107); CREATININE 2.4 mg/dL (0.6-1.3); GLUCOSE 129 mg/dL (74-106); MAGNESIUM 2.3 mg/dL (1.8-2.4); PHOSPHOROUS 6.5 mg/dL (2.5-4.9); POTASSIUM 5.7 mmol/L (3.5-5.1); TOTAL PROTEIN, SERUM 6.3 g/dL (6.4-8.2)
[2019-11-03 07:28] LABS: UREA NITROGEN, BLOOD 195 mg/dL (7-18)
[2019-11-03] MEDS: ASCORBIC ACID 250 MG TABLET GT SCH ×2 (08:54→20:45)
[2019-11-03] MEDS: NUTRISOURCE FIBER 4 GM PACKET PO SCH ×2 (08:54→21:57)
[2019-11-03] MEDS: LEVETIRACETAM 500 MG/5 ML LIQUID UDC GT SCH ×2 (08:54→21:55)
[2019-11-03] MEDS: ACIDOPHILUS/BULGARICUS CHEW TAB GT SCH ×2 (08:54→21:55)
[2019-11-03] MEDS: COD LIVER OIL/ZINC OXIDE OINT 113 GM TUBE TOP SCH ×2 (08:54→21:57)
[2019-11-03] MEDS: COD LIVER OIL/ZINC OXIDE OINT 113 GM TUBE TP SCH ×4 (08:55→21:57)
[2019-11-03] MEDS: SODIUM HYPOCHLORITE 0.125% 473 ML BOTTLE TP SCH (08:55)
[2019-11-03] MEDS: NEOMY/BACITRA/POLYMYXIN B OINT UD PACKET TP SCH ×4 (08:55→21:57)
[2019-11-03] MEDS: NORMAL SALINE FLUSH 10 ML DISP.SYRIN IV SCH ×2 (09:00→21:00)
--- NOTE | 2019-11-03 09:10 | NUR ---
PAGED BOTH DR. RAMOS AND DR. WU REGARDING CRITICAL LABS: BUN 195, CRAE. 2.4, DANNIE 6.4, ABUMIN 1.[address] WU CALLED BACK AND NOTED THAT VALUES ARE RELATIVELY CLOSE TO HER BASELINE WITH NEW ORDER FOR KAYEXALATE 30MG NOW AND BMP ON THURSDAY. NOTED AND CARRIED OUT. DR. RAMOS CALLED BACK AFTER RELAYING THE LAB FINDINGS, HE WANT TO DISCUSS A TRANSFER TO ACUTE CARE WITH DR. WU. AWATING A CALL BACK FROM DR. RAMOS. WILL CONTINUE TO MONITOR.
[2019-11-03] MEDS ORDERED: SODIUM POLYSTYRENE SULF POWDER 15 GM UDC GT ONE (09:15)
[2019-11-03] MEDS ORDERED: SODIUM POLYSTYRENE SULFONATE 15 G/60 ML LIQUID UDC GT ONE (09:37)
[2019-11-03 10:47] VITALS: BP 98/53
[2019-11-03 20:25] VITALS: BP 135/81
[2019-11-03] MEDS: ATORVASTATIN 20 MG TABLET GT SCH (21:55)
[2019-11-03] MEDS: FERROUS SULFATE 330 MG/7.5 ML UDC- FOR SA ONLY GT SCH (21:55)
[2019-11-03] MEDS: ZINC SULFATE 220 MG CAPSULE GT SCH (21:57)
[2019-11-03] MEDS: MULTIVITAMINS,THERAPEUTIC TABLET GT SCH (21:57)
[2019-11-04] MEDS: HYDROCODONE/APAP 5-325MG TABLET GT PRN (03:56)
[2019-11-04] MEDS: FAMOTIDINE 20 MG TABLET GT SCH (05:29)
[2019-11-04] MEDS: ARGININE/GLUTAMINE/CALCIUM BMB 1 EACH POWD.PACK GT SCH ×2 (05:29→17:29)
[2019-11-04] MEDS: PROTEIN SUPPLEMENT (PROSTAT) 30 ML LIQUID GT SCH ×3 (05:30→21:09)
[2019-11-04] MEDS: VANCOMYCIN FOR PO/GT/NG USE GT SCH ×3 (05:30→22:00)
[2019-11-04] MEDS: NUTRISOURCE FIBER 4 GM PACKET PO SCH ×2 (08:35→20:41)
[2019-11-04] MEDS: NEOMY/BACITRA/POLYMYXIN B OINT UD PACKET TP SCH ×4 (08:35→20:41)
[2019-11-04] MEDS: SODIUM HYPOCHLORITE 0.125% 473 ML BOTTLE TP SCH (08:35)
[2019-11-04] MEDS: COD LIVER OIL/ZINC OXIDE OINT 113 GM TUBE TP SCH ×4 (08:35→20:41)
[2019-11-04] MEDS: ACIDOPHILUS/BULGARICUS CHEW TAB GT SCH ×2 (08:35→20:39)
[2019-11-04] MEDS: ASCORBIC ACID 250 MG TABLET GT SCH ×2 (08:35→20:43)
[2019-11-04] MEDS: LEVETIRACETAM 500 MG/5 ML LIQUID UDC GT SCH ×2 (08:35→20:37)
[2019-11-04] MEDS: COD LIVER OIL/ZINC OXIDE OINT 113 GM TUBE TOP SCH ×2 (08:35→20:41)
[2019-11-04] MEDS: NORMAL SALINE FLUSH 10 ML DISP.SYRIN IV SCH ×2 (09:00→21:50)
[2019-11-04 11:12] VITALS: BP 109/73
[2019-11-04] MEDS: GLUCERNA 1.2 1000ML LIQUID GT PRN (14:50)
[2019-11-04 20:25] VITALS: BP 130/74
[2019-11-04] MEDS: ATORVASTATIN 20 MG TABLET GT SCH (20:38)
[2019-11-04] MEDS: ZINC SULFATE 220 MG CAPSULE GT SCH (20:39)
[2019-11-04] MEDS: MULTIVITAMINS,THERAPEUTIC TABLET GT SCH (20:39)
[2019-11-04] MEDS: FERROUS SULFATE 330 MG/7.5 ML UDC- FOR SA ONLY GT SCH (20:40)
[2019-11-04 21:41] VITALS: BP 92/53
--- NOTE | 2019-11-04 21:58 | NUR ---
PATIENT HAVING SEIZURES NOTIFY LETTY FACE HARDENER WITH ORDER OF ATIVAN 2MG IV STAT, AND EVERY 6 HRS, PRN.
[2019-11-04] MEDS ORDERED: LORAZEPAM 2 MG/1 ML VIAL IV PRN (22:00)
[2019-11-04] MEDS ORDERED: LORAZEPAM 2 MG/1 ML VIAL IV ONE (22:00)
--- NOTE | 2019-11-04 22:20 | NUR ---
PATIENT WAS GIVEN ATIVAN 2MG IV FOR SEIZURES WITH EFFECTIVE RESULTS.
[2019-11-04 22:40] VITALS: BP 106/51
[2019-11-04 22:48] VITALS: BP 106/51
--- NOTE | 2019-11-04 23:13 | NUR ---
PATIENT RELAX NO FURTHER EPISODE OF SEIZURE ACTIVITY, NO ADVERSE REACTION FROM ATIVAN, CONT TO MONITOR.
[2019-11-05] VITALS: BP 122/70
[2019-11-05] MEDS: VANCOMYCIN FOR PO/GT/NG USE GT SCH ×2 (06:00→14:11)
[2019-11-05] MEDS: FAMOTIDINE 20 MG TABLET GT SCH (06:36)
[2019-11-05] MEDS: ARGININE/GLUTAMINE/CALCIUM BMB 1 EACH POWD.PACK GT SCH (06:39)
[2019-11-05] MEDS: PROTEIN SUPPLEMENT (PROSTAT) 30 ML LIQUID GT SCH ×2 (06:39→14:11)
[2019-11-05] MEDS ORDERED: LORAZEPAM 2 MG/1 ML VIAL IV PRN (07:30)
[2019-11-05] MEDS: LEVETIRACETAM 500 MG/5 ML LIQUID UDC GT SCH (08:46)
[2019-11-05] MEDS: COD LIVER OIL/ZINC OXIDE OINT 113 GM TUBE TOP SCH (08:46)
[2019-11-05] MEDS: ASCORBIC ACID 250 MG TABLET GT SCH (08:46)
[2019-11-05] MEDS: ACIDOPHILUS/BULGARICUS CHEW TAB GT SCH (08:46)
[2019-11-05] MEDS: COD LIVER OIL/ZINC OXIDE OINT 113 GM TUBE TP SCH ×2 (08:46→08:47)
[2019-11-05] MEDS: NUTRISOURCE FIBER 4 GM PACKET PO SCH (08:46)
[2019-11-05] MEDS: SODIUM HYPOCHLORITE 0.125% 473 ML BOTTLE TP SCH (08:46)
[2019-11-05] MEDS: NEOMY/BACITRA/POLYMYXIN B OINT UD PACKET TP SCH ×2 (08:47)
[2019-11-05 08:55] VITALS: BP 122/62
[2019-11-05] MEDS: NORMAL SALINE FLUSH 10 ML DISP.SYRIN IV SCH (09:00)
--- NOTE | 2019-11-05 09:30 | NUR ---
Seen and examined by Dr Cao,no new orders noted.He wiil discuss with Dr Pedroza ,this pt needs to be transfer to Er <HE will need dialysis. Addendum: 11/05/19 at 1157 by JAYLENE MUJICA RN she will need dialysis.
[2019-11-05 11:25] LABS: BASOPHILS % (AUTO) 0.6 % (0.0-2.0); EOSINOPHILS # (AUTO) 0.1 K/uL (0.0-0.7); EOSINOPHILS % (AUTO) 1.4 % (0.0-7.0); HEMATOCRIT 23.4 % (31.2-41.9); HEMOGLOBIN 7.6 g/dL (10.9-14.3); LYMPHOCYTES # (AUTO) 0.7 K/uL (20.0-40.0); LYMPHOCYTES % (AUTO) 7.9 % (20.5-51.5); MEAN CORPUSCULAR HEMOGLOBIN 32.2 uug (24.7-32.8); MEAN CORPUSCULAR HGB CONC 33 g/dL (32.3-35.6); MONOCYTES # (AUTO) 0.5 K/uL (2.0-10.0); MONOCYTES % (AUTO) 5.6 % (0.0-11.0); NEUTROPHILS # (AUTO) 7.1 K/uL (1.8-8.9); NEUTROPHILS % (AUTO) 84.5 % (38.5-71.5); PLATELET COUNT (AUTO) 310 K/uL (179-408); RED BLOOD CELL COUNT(AUTO) 2.37 MIL/uL (3.63-4.92); WHITE BLOOD COUNT (AUTO) 8.4 K/uL (3.8-11.8)
[2019-11-05 11:27] LABS: CARBON DIOXIDE 17 mmol/L (21-32); CHLORIDE 109 mmol/L (98-107); CREATININE 2.9 mg/dL (0.6-1.3); GLUCOSE 116 mg/dL (74-106); POTASSIUM 5.8 mmol/L (3.5-5.1)
[2019-11-05 11:29] LABS: UREA NITROGEN, BLOOD 230 mg/dL (7-18)
--- NOTE | 2019-11-05 11:59 | NUR ---
New orders noted from Dr Pedroza,to transfer the Pt to ER for evaluation. Addendum: 11/05/19 at 1209 by JAYLENE MUJICA RN Pt has increase Bun 230,K5.8
--- NOTE | 2019-11-05 13:30 | NUR ---
Dr Pedroza with new orders to transfer Pt to telemetry o Marielle for increase Bun 230,K 5.3.Spoke to Nurse Shooting Gallery Operator Margret,she will call me back when she has a Room.
--- NOTE | 2019-11-05 14:40 | NUR ---
complet body check done Pt has generalized edema,sacral wound ,tx was done before transfer,picc line on the r upper arm triple lumen intact,flush each port with ns as ordered.
--- NOTE | 2019-11-05 14:45 | NUR ---
Pt transfer to [facility] Room 310,report given to Joanie James,Bp 120/62,P 104,R 18,O2 sat 100 %
[2019-11-07 06:22] LABS: CARBON DIOXIDE 17 mmol/L (21-32); CHLORIDE 115 mmol/L (98-107); GLUCOSE 140 mg/dL (74-106); POTASSIUM 5.9 mmol/L (3.5-5.1)
[2019-11-07 06:27] LABS: UREA NITROGEN, BLOOD 233 mg/dL (7-18)
[2019-11-10] MEDS ORDERED: VANCOMYCIN FOR PO/GT/NG USE GT SCH (18:00)
[2019-11-18] MEDS ORDERED: VANCOMYCIN FOR PO/GT/NG USE GT SCH (06:00)
[2019-11-25] MEDS ORDERED: VANCOMYCIN FOR PO/GT/NG USE GT SCH (06:00)
[2019-12-03] MEDS ORDERED: VANCOMYCIN FOR PO/GT/NG USE GT SCH (06:00)
[2019-12-21] MEDS ORDERED: VANCOMYCIN FOR PO/GT/NG USE GT SCH (06:00)
== END 2019-11-05 14:45 | disposition short-term general hospital (02) | DRG 951 ==
LOC: SA 18:53
PROVIDERS: ADMIT Internal Medicine; ATTEND Internal Medicine
PROC: 5A1955Z Respiratory Ventilation, Greater than 96 Consecutive Hours (ICD-10-PCS; principal; 2019-10-20)
PROC: 0KBP0ZZ Excision of Left Hip Muscle, Open Approach (ICD-10-PCS; 2019-10-31)
PROC: 0KBN0ZZ Excision of Right Hip Muscle, Open Approach (ICD-10-PCS; 2019-10-31)
DX: J96.21 Acute and chronic respiratory failure with hypoxia (principal); N17.0 Acute kidney failure with tubular necrosis; E43 Unspecified severe protein-calorie malnutrition; G92 Toxic encephalopathy; L89.154 Pressure ulcer of sacral region, stage 4; Z99.11 Dependence on respirator [ventilator] status; E87.0 Hyperosmolality and hypernatremia; Z93.0 Tracheostomy status; D68.59 Other primary thrombophilia; I13.0 Hypertensive heart and chronic kidney disease with heart failure and stage 1 through stage 4 chronic kidney disease, or unspecified chronic kidney disease; E87.5 Hyperkalemia; I50.42 Chronic combined systolic (congestive) and diastolic (congestive) heart failure; R13.10 Dysphagia, unspecified; G62.9 Polyneuropathy, unspecified; I08.1 Rheumatic disorders of both mitral and tricuspid valves; I27.20 Pulmonary hypertension, unspecified; N18.4 Chronic kidney disease, stage 4 (severe); I48.0 Paroxysmal atrial fibrillation; J96.22 Acute and chronic respiratory failure with hypercapnia; Z93.1 Gastrostomy status; R62.7 Adult failure to thrive; F41.9 Anxiety disorder, unspecified; G31.84 Mild cognitive impairment of uncertain or unknown etiology; G40.909 Epilepsy, unspecified, not intractable, without status epilepticus; I25.2 Old myocardial infarction; I25.10 Atherosclerotic heart disease of native coronary artery without angina pectoris; I25.5 Ischemic cardiomyopathy; I44.0 Atrioventricular block, first degree; I49.1 Atrial premature depolarization; I70.0 Atherosclerosis of aorta; D64.9 Anemia, unspecified; E78.5 Hyperlipidemia, unspecified; F32.9 Major depressive disorder, single episode, unspecified; M47.812 Spondylosis without myelopathy or radiculopathy, cervical region; M50.30 Other cervical disc degeneration, unspecified cervical region; M48.02 Spinal stenosis, cervical region; M81.0 Age-related osteoporosis without current pathological fracture; N81.4 Uterovaginal prolapse, unspecified; Z86.718 Personal history of other venous thrombosis and embolism; Z87.01 Personal history of pneumonia (recurrent); Z90.710 Acquired absence of both cervix and uterus; Z87.440 Personal history of urinary (tract) infections
CPT/HCPCS: 36415; 71045; 76770; 83520; 83550; 83735; 84100; 84156; 84300; 85025; 85651; 86038; 86160; 86256; 86580; 86706; 86803; 87086; 87340; 94002; 94003; J2060; J3370; J3490; J7030

== ENCOUNTER 2019-11-05 14:42 | Inpatient (IN) | payer MEDICARE, OTHER ==
[~2019-11-05] VITALS: Ht 165.1 cm; Wt 93.0 kg
[~2019-11-05 14:42] MED LIST: LORAZEPAM 2 MG/1 ML VIAL ONE
--- NOTE | 2019-11-05 15:34 | NUR ---
RECEIVED REPORT FROM JAYLENE ALMEIDA IN [facility], PATIENT IS ON VENTILATOR WITH SETTINGS AC12 TV 450 FIO2 30%. SHILEY 8, GT TUBE CLAMPED AT THIS TIME UPON TRANSPORT NORMAL RECEIVES GLUCERNA 1.2 @ 60ML/HR. PATIENT HAS +3 EDEMA GENERALIZED. DOUGLAS IS IN PLACE DRAINING YELLOW CLOUDY URINE. SACRAL WOUND NOTED AND PICTURE TAKEN RIGHT UPPER ARM PICC LINE IN PLACE DRESSING CHANGED.
[2019-11-05 15:50] LABS: BASOPHILS % (AUTO) 0.3 % (0.0-2.0); EOSINOPHILS # (AUTO) 0.2 K/uL (0.0-0.7); EOSINOPHILS % (AUTO) 2.2 % (0.0-7.0); HEMATOCRIT 22.2 % (31.2-41.9); HEMOGLOBIN 7.2 g/dL (10.9-14.3); LYMPHOCYTES # (AUTO) 0.7 K/uL (20.0-40.0); LYMPHOCYTES % (AUTO) 8.8 % (20.5-51.5); MEAN CORPUSCULAR HEMOGLOBIN 32.2 uug (24.7-32.8); MEAN CORPUSCULAR HGB CONC 33 g/dL (32.3-35.6); MEAN CORPUSCULAR VOLUME 99.1 fL (75.5-95.3); MONOCYTES # (AUTO) 0.4 K/uL (2.0-10.0); MONOCYTES % (AUTO) 4.3 % (0.0-11.0); NEUTROPHILS # (AUTO) 6.9 K/uL (1.8-8.9); NEUTROPHILS % (AUTO) 84.4 % (38.5-71.5); PLATELET COUNT (AUTO) 306 K/uL (179-408); RED BLOOD CELL COUNT(AUTO) 2.25 MIL/uL (3.63-4.92); WHITE BLOOD COUNT (AUTO) 8.2 K/uL (3.8-11.8)
[2019-11-05 16:00] VITALS: BP 119/71
[2019-11-05 16:24] LABS: CARBON DIOXIDE 16 mmol/L (21-32); CHLORIDE 108 mmol/L (98-107); CREATININE 2.8 mg/dL (0.6-1.3); GLUCOSE 114 mg/dL (74-106); POTASSIUM 5.8 mmol/L (3.5-5.1)
[2019-11-05 16:25] LABS: UREA NITROGEN, BLOOD 235 mg/dL (7-18)
[2019-11-05 16:26] LABS: ALANINE AMINOTRANSFERASE 30 U/L (14-59); ALKALINE PHOSPHATASE 138 U/L (50-136); ASPARTATE AMINOTRANSFERASE 32 U/L (15-37); BILIRUBIN,TOTAL 0.3 mg/dL (0.2-1.0); MAGNESIUM 2.5 mg/dL (1.8-2.4); PHOSPHOROUS 7.5 mg/dL (2.5-4.9); TOTAL PROTEIN, SERUM 6.3 g/dL (6.4-8.2)
--- NOTE | 2019-11-05 16:30 | NUR ---
NOTIFIED DR WU OF [facility] AND IS HERE TO SEE PATIENT.
--- NOTE | 2019-11-05 16:56 | NUR ---
MRSA SWAB COLLECTED
--- NOTE | 2019-11-05 18:30 | NUR ---
PATIENT TAKEN TO CT SCAN. TOLERATED WELL TRANSPORT AND BACK.
--- NOTE | 2019-11-05 18:50 | NUR ---
DR SAPP FROM RADIOLOGY CALLED REPORTED SIGNIFICANT FINDINGS. THESE FINDINGS REPORTED TO DR WU AND REPORT WILL BE POSTED AND FINALIZED PER DOCTOR SAPP IN 5 MINUTES.
--- NOTE | 2019-11-05 19:17 | NUR ---
REPORT GIVEN TO SAADIA ALMEIDA. REPORTED ALL CRITICAL FINDINGS AND ABNORMAL LABS ALREADY TO DR WU.
[2019-11-05] MEDS ORDERED: SODIUM POLYSTYRENE SULFONATE 15 G/60 ML LIQUID UDC GT ONE (19:30)
[2019-11-05] MEDS ORDERED: LORAZEPAM 2 MG/1 ML VIAL IV PRN ×2 (19:30)
[2019-11-05] MEDS ORDERED: HYDROCODONE/APAP 5-325MG TABLET GT PRN (19:30)
[2019-11-05 19:56] VITALS: BP 118/65
[2019-11-05] MEDS ORDERED: ACETAMINOPHEN 650 MG/20 ML UDC- SA PATIENTS-FEVER ONLY GT PRN (20:00)
[2019-11-05] MEDS ORDERED: GLUCERNA 1.2 1000ML LIQUID GT SCH (20:00)
[2019-11-05] MEDS: ASCORBIC ACID 500 MG TABLET GT SCH (20:54)
[2019-11-05] MEDS: ATORVASTATIN 20 MG TABLET GT SCH (20:54)
[2019-11-05] MEDS: FERROUS SULFATE 300 MG/5 ML LIQUID UDC GT SCH (20:54)
[2019-11-05] MEDS: ZINC SULFATE 220 MG CAPSULE GT SCH (20:54)
[2019-11-05] MEDS: LEVETIRACETAM 500 MG TABLET GT SCH (20:54)
[2019-11-05] MEDS: CULTURELLE CAPSULE GT SCH (20:54)
[2019-11-05] MEDS ORDERED: NEOMY/BACITRA/POLYMYXIN B OINT UD PACKET TP SCH (21:00)
[2019-11-05] MEDS: NUTRISOURCE FIBER 4 GM PACKET GT SCH (21:25)
[2019-11-05 23:54] VITALS: BP 124/78
[2019-11-06] VITALS (9 sets, daily range): BP systolic 124–146; BP diastolic 65–91
[2019-11-06] MEDS: MULTIVITAMINS,THERAPEUTIC TABLET GT SCH ×2 (05:51→17:02)
[2019-11-06] MEDS: FAMOTIDINE 20 MG TABLET GT SCH (05:51)
[2019-11-06 05:53] LABS: BASOPHILS % (AUTO) 0.2 % (0.0-2.0); EOSINOPHILS # (AUTO) 0.1 K/uL (0.0-0.7); EOSINOPHILS % (AUTO) 1.1 % (0.0-7.0); HEMATOCRIT 26.5 % (31.2-41.9); HEMOGLOBIN 8.7 g/dL (10.9-14.3); LYMPHOCYTES # (AUTO) 0.5 K/uL (20.0-40.0); LYMPHOCYTES % (AUTO) 6.3 % (20.5-51.5); MEAN CORPUSCULAR HEMOGLOBIN 31.6 uug (24.7-32.8); MEAN CORPUSCULAR HGB CONC 33 g/dL (32.3-35.6); MEAN CORPUSCULAR VOLUME 95.8 fL (75.5-95.3); MONOCYTES # (AUTO) 0.3 K/uL (2.0-10.0); MONOCYTES % (AUTO) 3.2 % (0.0-11.0); NEUTROPHILS # (AUTO) 7.7 K/uL (1.8-8.9); NEUTROPHILS % (AUTO) 89.2 % (38.5-71.5); PLATELET COUNT (AUTO) 317 K/uL (179-408); RED BLOOD CELL COUNT(AUTO) 2.76 MIL/uL (3.63-4.92); WHITE BLOOD COUNT (AUTO) 8.7 K/uL (3.8-11.8)
[2019-11-06 06:33] LABS: ALANINE AMINOTRANSFERASE 28 U/L (14-59); ALKALINE PHOSPHATASE 143 U/L (50-136); ASPARTATE AMINOTRANSFERASE 31 U/L (15-37); BILIRUBIN,TOTAL 0.3 mg/dL (0.2-1.0); CARBON DIOXIDE 16 mmol/L (21-32); CHLORIDE 108 mmol/L (98-107); CHOLESTEROL 51 mg/dL (<200); CREATININE 2.9 mg/dL (0.6-1.3); GLUCOSE 109 mg/dL (74-106); HDL CHOLESTEROL 32 mg/dL (40-60); MAGNESIUM 2.6 mg/dL (1.8-2.4); POTASSIUM 5.9 mmol/L (3.5-5.1); TOTAL PROTEIN, SERUM 6.4 g/dL (6.4-8.2); TRIGLYCERIDES 62 MG/DL (30-150)
[2019-11-06 06:53] LABS: PHOSPHOROUS 8.1 mg/dL (2.5-4.9); UREA NITROGEN, BLOOD 230 mg/dL (7-18)
[2019-11-06] MEDS ORDERED: ACETAMINOPHEN 650 MG/20.3 ML LIQUID UDC GT PRN (07:00)
[2019-11-06 07:13] LABS: *OCCULT BLOOD STOOL NEGATIVE (NEGATIVE)
--- NOTE | 2019-11-06 07:17 | NUR ---
ENd of shift report Patient rested well in between care; Rectal tube inserted per Dr Pedroza; dressing changed to sacral wound; trache care and oral care done; tolerated PRBC transfusion; seizure precautions observed; suctioned oral and trache secretions; continue to monitor; continue plan of care.
[2019-11-06] MEDS: LEVETIRACETAM 500 MG TABLET GT SCH ×2 (08:02→20:17)
[2019-11-06] MEDS: ASCORBIC ACID 500 MG TABLET GT SCH ×2 (08:02→20:18)
[2019-11-06] MEDS: NEOMY/BACITRAC/POLYMI OINT 28.35 GM TUBE TP SCH ×2 (08:02→20:19)
[2019-11-06] MEDS: FOLIC ACID/VITAMIN B COMP W-C TABLET GT SCH (08:02)
[2019-11-06] MEDS: CULTURELLE CAPSULE GT SCH ×2 (08:02→20:17)
[2019-11-06] MEDS: NUTRISOURCE FIBER 4 GM PACKET GT SCH ×2 (08:04→20:17)
[2019-11-06] MEDS: PROTEIN SUPPLEMENT (PROSTAT) 30 ML LIQUID GT SCH ×3 (08:05→21:19)
[2019-11-06] MEDS ORDERED: SODIUM POLYSTYRENE SULFONATE 15 G/60 ML LIQUID UDC PO ONE (08:30)
--- NOTE | 2019-11-06 08:30 | NUR ---
Dr. Cao here to see pt. Full report given. New orders received.
[2019-11-06] MEDS: CITRIC ACID/SODIUM CITRATE 30 ML SOLUTION GT SCH ×4 (09:09→20:17)
[2019-11-06] MEDS: CEFTRIAXONE 1 G in IV DEXTROSE 5% 50 ML IV SCH (14:35)
[2019-11-06] MEDS: VANCOMYCIN FOR PO/GT/NG USE GT SCH (14:35)
--- NOTE | 2019-11-06 19:20 | NUR ---
Received patient lying in bed. Obtunded, non-verbal, flat affect. Sinus tachy on tele at 102/min. Tracheostomy intact with vent. PICC line with triple lumen on right upper arm intact and patent. GT feeding ongoing and tolerated at this time. Neri catheter intact and draining via gravity. Rectal tube intact. Seizure precaution observed. Safety measure initiated. Continue to monitor.
[2019-11-06] MEDS: ZINC SULFATE 220 MG CAPSULE GT SCH (20:17)
[2019-11-06] MEDS: FERROUS SULFATE 300 MG/5 ML LIQUID UDC GT SCH (20:17)
[2019-11-06] MEDS: ATORVASTATIN 20 MG TABLET GT SCH (20:17)
[2019-11-06 22:25] LABS: *BILIRUBIN,URIN NEGATIVE (NEGATIVE); *BLOOD, URINE 1+ (NEGATIVE); *CLARITY,URINE CLOUDY (CLEAR); *COLOR,URINE YELLOW (YELLOW); *KETONES,URINE NEGATIVE (NEGATIVE); *UROBILINOGEN,URINE 0.2 E.U./dl (NORMAL); LEUKOCYTE ESTERASE ,URINE 3+ (NEGATIVE); NITRITE, URINE POSITIVE (NEGATIVE); UGLUCOSE NEGATIVE (NEGATIVE)
[2019-11-06 22:28] LABS: BACTERIA,URINE MODERATE /HPF (NONE SEEN); SQUAMOUS EPITHELIAL CELL,UR FEW /HPF (NONE SEEN); WBC,URINE 20-50 /HPF (0-3); YEAST,URINE MANY /HPF (NONE SEEN)
[2019-11-07] VITALS: BP 134/85
[2019-11-07] MEDS: VANCOMYCIN FOR PO/GT/NG USE GT SCH ×2 (00:52→13:50)
[2019-11-07] MEDS: MULTIVITAMINS,THERAPEUTIC TABLET GT SCH ×2 (05:16→17:05)
[2019-11-07] MEDS: PROTEIN SUPPLEMENT (PROSTAT) 30 ML LIQUID GT SCH ×3 (05:16→21:01)
[2019-11-07] MEDS: FAMOTIDINE 20 MG TABLET GT SCH (05:16)
[2019-11-07] MEDS: GLUCERNA 1.2 1000ML LIQUID GT SCH (05:17)
[2019-11-07 06:00] VITALS: BP 132/81
--- NOTE | 2019-11-07 06:05 | NUR ---
Patient non-verbally responsive to tactile stimuli. Opens her eyes to stimuli. Affect flat. No signs or symptoms of pain or SOB. Sinus tachy on tele at 101/min. Tracheostomy intact with vent. Suction secretions PRN and able to obtain small amount of thick secretions. PICC line with triple lumen on right upper arm intact and patent. TKO. GT feeding/flushing well tolerated. Neri catheter intact and draining via gravity. Rectal tube intact. Seizure precaution observed. No seizure episode noted. Turned and reposition q2hrs. Safety measure maintained.
--- NOTE | 2019-11-07 06:54 | NUR ---
Lab/[facility] reported BUN of [id number]. Alicia Dailey informed.
[2019-11-07 08:00] VITALS: BP 136/83
[2019-11-07] MEDS: FOLIC ACID/VITAMIN B COMP W-C TABLET GT SCH (08:30)
[2019-11-07] MEDS: CULTURELLE CAPSULE GT SCH ×2 (08:30→20:37)
[2019-11-07] MEDS: CITRIC ACID/SODIUM CITRATE 30 ML SOLUTION GT SCH ×4 (08:30→20:37)
[2019-11-07] MEDS: ASCORBIC ACID 500 MG TABLET GT SCH ×2 (08:31→20:36)
[2019-11-07] MEDS: LEVETIRACETAM 500 MG TABLET GT SCH ×2 (08:31→20:37)
[2019-11-07] MEDS: NUTRISOURCE FIBER 4 GM PACKET GT SCH ×2 (08:39→20:39)
[2019-11-07] MEDS: NEOMY/BACITRAC/POLYMI OINT 28.35 GM TUBE TP SCH ×2 (08:39→21:00)
--- NOTE | 2019-11-07 08:44 | NUR ---
A call from Sita Taylor surgery consult for dialysis catheter placement the call regarding follow up Covid 19 results. NURSE PRACTITIONER PHYSICIANS ASSISTANT updated and orders to cancel previous ct. orders.
[2019-11-07 12:00] VITALS: BP 124/63
[2019-11-07] MEDS: FLUCONAZOLE 200 MG/NS 100ML IV 100 MG in PREMIXED 1 EACH IV SCH (13:48)
[2019-11-07] MEDS: CEFTRIAXONE 1 G in IV DEXTROSE 5% 50 ML IV SCH (13:51)
[2019-11-07 16:00] VITALS: BP 128/70
[2019-11-07 20:35] VITALS: BP 132/64
[2019-11-07] MEDS: ZINC SULFATE 220 MG CAPSULE GT SCH (20:36)
[2019-11-07] MEDS: FERROUS SULFATE 300 MG/5 ML LIQUID UDC GT SCH (20:37)
[2019-11-08 00:05] VITALS: BP 125/72
[2019-11-08] MEDS: VANCOMYCIN FOR PO/GT/NG USE GT SCH ×2 (00:50→13:35)
[2019-11-08 04:05] VITALS: BP 126/81
--- NOTE | 2019-11-08 05:50 | NUR ---
Trached patient was endorsed on Leroy vent with ordered vent settings. She is trached with a Shiley 8 DCTm SLATE CUTTER OPERATOR used for cuff inflation/assessment. Alarms are on/audible. Spare trach and Ambu bag are at bedside. Will continue to monitor.
[2019-11-08] MEDS: FAMOTIDINE 20 MG TABLET GT SCH (05:53)
[2019-11-08] MEDS: MULTIVITAMINS,THERAPEUTIC TABLET GT SCH ×2 (05:53→17:24)
[2019-11-08] MEDS: PROTEIN SUPPLEMENT (PROSTAT) 30 ML LIQUID GT SCH ×3 (05:55→21:11)
--- NOTE | 2019-11-08 07:30 | NUR ---
rECIEVED PT LYING IN BED, OPENS EYES TO LIGHT PAIN BUT NON VERBAL. HR IS SR-ST, NO ECTOPICS. SKIN IS WARM AND DRY TO TOUCH. ALL EXTREMETIES ARE FLACCID. NO SEIZURES ACTIVITY NOTED AT THIS TIME. PT IS VENTED VIA TRACHE, SHILEY 8, SETTING OF AC-12, VT-450, FIO2-30%, PEEP-5. SATURATION IS 98%
[2019-11-08 08:00] VITALS: BP 130/88
--- NOTE | 2019-11-08 08:30 | NUR ---
Suction minimal thin white secretions via trache and orally. Afebrile. PiICC line intact on JUAN. Pt has generalized pitting edema with third spacing. Tube feeding off at this time. Neri draining clear yellow urine, and flexiseal intact and draining liquid brown stools. Repositioned for skin management. Planned wound debridement awaiting for consent to be signed.
[2019-11-08] MEDS: CITRIC ACID/SODIUM CITRATE 30 ML SOLUTION GT SCH ×4 (09:03→21:09)
[2019-11-08] MEDS: FOLIC ACID/VITAMIN B COMP W-C TABLET GT SCH (09:03)
[2019-11-08] MEDS: ASCORBIC ACID 500 MG TABLET GT SCH ×2 (09:03→21:09)
[2019-11-08] MEDS: LEVETIRACETAM 500 MG TABLET GT SCH ×2 (09:03→21:09)
[2019-11-08] MEDS: CULTURELLE CAPSULE GT SCH ×2 (09:03→21:09)
[2019-11-08] MEDS: NEOMY/BACITRAC/POLYMI OINT 28.35 GM TUBE TP SCH ×2 (09:04→21:11)
[2019-11-08] MEDS: NUTRISOURCE FIBER 4 GM PACKET GT SCH ×2 (09:05→21:11)
--- NOTE | 2019-11-08 09:50 | NUR ---
WOUND CARE CONSULT: PT FOLLOWED BY SURGICAL TEAM FOR WOUND CARE. DEFER TO SURGICAL TEAM FOR WOUND TREATMENT PLAN. PT ON FIRST STEP CIRRUS LOW AIRLOSS MATTRESS. ALL SKIN PROTECTION MEASURES IN PLACE AND DISCUSSED WITH NURSING STAFF. WILL SEE PRN.
--- NOTE | 2019-11-08 10:00 | NUR ---
Glucerna tube feeding started via GTube at 60ml/hr infusing well. No residuals noted.
--- NOTE | 2019-11-08 10:30 | NUR ---
Pt is downgraded to telemetry status. Report given to Jodi ALMEIDA.
--- NOTE | 2019-11-08 10:31 | NUR ---
PATIENT REASSIGNMENT RECEIVED PATIENT AT THIS TIME IN BED NON VERBAL BUT OPENS EYES HAS A TRACH AND VENTED WITH CONTINUOS SATS MONITORING AND ITS WNL.GT PATENT WITH GT IN TACT WITH FEEDINGS IN PROGRESS ORDERED WITH NO S/S OF REGURGITATION OR EMESIS DOUGLAS CATH AND RECTAL TUBE IS INTACT ON FIRST STEP [place] FOR DECUB MANAGEMENT REPOSITIONED FOR COMFORT MADE COMFORTABLE WILL CONTINUE TO OBSERVE.
[2019-11-08] MEDS: FLUCONAZOLE 200 MG/NS 100ML IV 100 MG in PREMIXED 1 EACH IV SCH (11:20)
--- NOTE | 2019-11-08 11:30 | NUR ---
PARVEEN STACK COSTUME DESIGN TEACHER HERE AND SIGNED CONSCENT FOR SACRAL DEBRIDEMENT AND DIALYSIS CATHETER INSERTION.
[2019-11-08] MEDS ORDERED: LIDOCAINE HCL 1% 20 ML VIAL IJ ONE (11:45)
--- NOTE | 2019-11-08 11:45 | NUR ---
DR JOELLE HAMMER HERE AND STATED THAT HE WILL INSERT THE DIALYSIS CATH AND COSIGNED IT.
[2019-11-08 12:00] VITALS: BP 131/77
[2019-11-08] MEDS ORDERED: HEPARIN SODIUM,PORCINE 1,000 UNITS/ML VIAL IV ONE (12:00)
--- NOTE | 2019-11-08 12:00 | NUR ---
WOUND AND PLASTIC SURGEON WINTER HERE STATED WILL DBRIDE WOUND TOMORROW.
--- NOTE | 2019-11-08 12:50 | NUR ---
DR MORA HERE TO SEE PATIENT AND ORDERED HEMODIALYSIS SINCE PATIENT IS UNABLE TO SIGN AND HAS NO FAMILY DR HDZ SIGNED THE CONSCENT
--- NOTE | 2019-11-08 13:17 | NUR ---
DR HAMMER AND NUNU GORDON INSERTED DARRYN CATH TO HER RIGHT GROIN AT THE BEDSIDE AND SHE TOLERATED PROCEDURE WELL MADE COMFORTABLE will continue to observe
[2019-11-08] MEDS: CEFTRIAXONE 1 G in IV DEXTROSE 5% 50 ML IV SCH (13:36)
[2019-11-08] MEDS ORDERED: SILVER NITRATE APPLICATOR STICK EACH TP PRN (13:45)
[2019-11-08] MEDS ORDERED: LIDOCAINE 1%-EPI 1:100,000 20 ML VIAL MC PRN (13:45)
[2019-11-08 15:56] VITALS: BP 129/73
--- NOTE | 2019-11-08 18:00 | NUR ---
NOTED SCANTY AMOUNT OF PINKISH DRAINAGE FROM THE DARRYN CATH SITE WILL CONTINUE TO OBSERVE AND ENSURE THAT IT DID NOT INCREASE.
[2019-11-08] MEDS ORDERED: SODIUM HYPOCHLORITE 0.125% 473 ML BOTTLE TP PRN (20:30)
[2019-11-08 21:00] VITALS: BP 125/65
[2019-11-08] MEDS: FERROUS SULFATE 300 MG/5 ML LIQUID UDC GT SCH (21:09)
[2019-11-08] MEDS: ZINC SULFATE 220 MG CAPSULE GT SCH (21:09)
[2019-11-09 00:14] VITALS: BP 127/83
[2019-11-09] MEDS: SODIUM HYPOCHLORITE 0.125% 473 ML BOTTLE TP SCH ×2 (01:00→08:08)
[2019-11-09] MEDS: VANCOMYCIN FOR PO/GT/NG USE GT SCH ×2 (02:27→13:53)
[2019-11-09] MEDS: MULTIVITAMINS,THERAPEUTIC TABLET GT SCH ×2 (05:25→17:00)
[2019-11-09] MEDS: PROTEIN SUPPLEMENT (PROSTAT) 30 ML LIQUID GT SCH ×3 (05:26→21:39)
[2019-11-09] MEDS: FAMOTIDINE 20 MG TABLET GT SCH (05:26)
[2019-11-09 06:25] LABS: BASOPHILS % (AUTO) 0.2 % (0.0-2.0); EOSINOPHILS % (AUTO) 0.2 % (0.0-7.0); HEMATOCRIT 26.6 % (31.2-41.9); HEMOGLOBIN 8.6 g/dL (10.9-14.3); LYMPHOCYTES # (AUTO) 0.4 K/uL (20.0-40.0); LYMPHOCYTES % (AUTO) 4.6 % (20.5-51.5); MEAN CORPUSCULAR HEMOGLOBIN 31.7 uug (24.7-32.8); MEAN CORPUSCULAR HGB CONC 33 g/dL (32.3-35.6); MEAN CORPUSCULAR VOLUME 97.7 fL (75.5-95.3); MONOCYTES # (AUTO) 0.3 K/uL (2.0-10.0); MONOCYTES % (AUTO) 2.9 % (0.0-11.0); NEUTROPHILS # (AUTO) 8.7 K/uL (1.8-8.9); NEUTROPHILS % (AUTO) 92.1 % (38.5-71.5); PLATELET COUNT (AUTO) 360 K/uL (179-408); RED BLOOD CELL COUNT(AUTO) 2.72 MIL/uL (3.63-4.92); WHITE BLOOD COUNT (AUTO) 9.4 K/uL (3.8-11.8)
[2019-11-09 06:47] LABS: CARBON DIOXIDE 20 mmol/L (21-32); CHLORIDE 110 mmol/L (98-107); CREATININE 3.4 mg/dL (0.6-1.3); GLUCOSE 129 mg/dL (74-106); MAGNESIUM 2.7 mg/dL (1.8-2.4); POTASSIUM 5.4 mmol/L (3.5-5.1)
[2019-11-09 06:52] LABS: PHOSPHOROUS 10.1 mg/dL (2.5-4.9); UREA NITROGEN, BLOOD 245 mg/dL (7-18)
--- NOTE | 2019-11-09 06:53 | NUR ---
Pt remained stable; repositioned q2h; suctioned secretions; dressing to sacrum done; PICC line and dialysis cath dressing changed aseptically; tolerated GTF;
[2019-11-09] MEDS: LEVETIRACETAM 500 MG TABLET GT SCH ×2 (08:07→21:37)
[2019-11-09] MEDS: FOLIC ACID/VITAMIN B COMP W-C TABLET GT SCH (08:07)
[2019-11-09] MEDS: ASCORBIC ACID 500 MG TABLET GT SCH ×2 (08:07→21:38)
[2019-11-09] MEDS: CITRIC ACID/SODIUM CITRATE 30 ML SOLUTION GT SCH ×3 (08:07→16:59)
[2019-11-09] MEDS: NEOMY/BACITRAC/POLYMI OINT 28.35 GM TUBE TP SCH ×2 (08:08→21:38)
[2019-11-09] MEDS: CULTURELLE CAPSULE GT SCH ×2 (08:11→21:37)
[2019-11-09] MEDS: NUTRISOURCE FIBER 4 GM PACKET GT SCH ×2 (08:13→21:38)
[2019-11-09 09:09] LABS: ABG BASE EXCESS -9.7 mmol/L; ABG HCO3 15.2 mmol/L; ABG PCO2 30.2 mmHg (35.0-45.0); ABG SITE RIGHT RADIAL; ABG TOTAL HEMOGLOBIN 10.8 G/dL (12.0-16.0); COHb 0.6 % (0.5-1.5); MetHb 0.2 % (0.0-1.5); O2Hb 94.6 % (94.0-97.0); VENT MODE VENT - A/C; VT, ABG 450 mL
[2019-11-09] MEDS: GLUCERNA 1.2 1000ML LIQUID GT SCH (10:58)
[2019-11-09] MEDS: FLUCONAZOLE 200 MG/NS 100ML IV 100 MG in PREMIXED 1 EACH IV SCH (10:59)
[2019-11-09] MEDS ORDERED: FUROSEMIDE 20 MG/2 ML VIAL IV ONE (11:15)
[2019-11-09] MEDS ORDERED: FUROSEMIDE 40 MG/4 ML VIAL IVP ONE (11:30)
[2019-11-09] MEDS ORDERED: ALBUMIN HUMAN 25% 50 ML IV ONE (12:30)
[2019-11-09 12:35] VITALS: BP 124/74
[2019-11-09] MEDS ORDERED: METOPROLOL TARTRATE 5 MG/5 ML VIAL IVP ONE (13:15)
[2019-11-09] MEDS: CARVEDILOL 6.25 MG TABLET PO SCH ×2 (13:41→17:00)
[2019-11-09 13:53] VITALS: BP 144/81
[2019-11-09] MEDS: CEFTRIAXONE 1 G in IV DEXTROSE 5% 50 ML IV SCH (14:23)
[2019-11-09 15:33] VITALS: BP 142/82
[2019-11-09] MEDS: PIPERACILLIN SODIUM/TAZOBACTAM 3.375 G in IV DEXTROSE 5% 50 ML IV SCH (18:31)
[2019-11-09] MEDS: SEVELAMER CARBONATE 800 MG TABLET PO SCH (18:31)
--- NOTE | 2019-11-09 18:57 | NUR ---
PATIENT WITH STEADY VITAL SIGNS UPON INITIAL ASSESSMENT; PATIENT SCHEDULED DIALYSIS UPON BEGINNING OF DIALYSIS PATIENT BECAME VERY TACHYCARDIC WITH HEART RATE AROUND 150-160 AND HIGH BLOOD PRESSURE;DIALYSIS NURSE THEN CONTACTED TELETYPE CLERK AND HE REQUESTED TO BE MONITORED AND POTENTIALLY STOP DIALYSIS ; DIALYSIS NURSE STOPED DIALYSIS PATIENT VERY TACHYCARDIC. SLURRY CONTROL TENDER NOTIFIED PATIENT SEEMED TO BE IN A-FIB AND TACHY AND HIGH BLOOD PRESSURE AND MD PLACED ORDERS FOR METOPROLOL AND COREG AND LASIX ; PATIENT BLOOD PRESSURE AND PULSE STABLED OUT. PATIENT UPON DEPARTURE WITH STABLE VITAL SIGNS AND NO SIGNS OF DISTRESS.
[2019-11-09 20:16] VITALS: BP 123/75
--- NOTE | 2019-11-09 20:36 | NUR ---
Received patient in bed, arouses to touch, nonverbal. No acute distress noted. Patient is on a ventilator, PICC line on right upper arm is intact and patent. Patient on g-tube feeding at 60ml/hr, tolerating well. Neri and rectal tube are intact. Patient on air loss mattress. Vitals are WNL. Will turn and reposition Q2H. Safety measures initiated Will continue to monitor.
[2019-11-09] MEDS: ZINC SULFATE 220 MG CAPSULE GT SCH (21:38)
[2019-11-10] VITALS (7 sets, daily range): BP systolic 105–137; BP diastolic 54–86
[2019-11-10] MEDS: VANCOMYCIN FOR PO/GT/NG USE GT SCH ×2 (01:45→12:37)
--- NOTE | 2019-11-10 03:01 | NUR ---
Turned and repositioned patient and noted large amount of stool in chucks, cleaned and inserted new rectal tube, performed dressing change to sacral wound.
[2019-11-10] MEDS: PIPERACILLIN SODIUM/TAZOBACTAM 3.375 G in IV DEXTROSE 5% 50 ML IV SCH ×2 (05:36→19:42)
[2019-11-10] MEDS: MULTIVITAMINS,THERAPEUTIC TABLET GT SCH ×2 (05:37→18:20)
[2019-11-10] MEDS: PROTEIN SUPPLEMENT (PROSTAT) 30 ML LIQUID GT SCH ×3 (05:37→21:14)
[2019-11-10] MEDS: FAMOTIDINE 20 MG TABLET GT SCH (05:37)
[2019-11-10] MEDS: GLUCERNA 1.2 1000ML LIQUID GT SCH (05:38)
[2019-11-10 06:13] LABS: BASOPHILS % (AUTO) 0.1 % (0.0-2.0); EOSINOPHILS # (AUTO) 0.1 K/uL (0.0-0.7); EOSINOPHILS % (AUTO) 0.7 % (0.0-7.0); HEMATOCRIT 25.1 % (31.2-41.9); HEMOGLOBIN 8.2 g/dL (10.9-14.3); LYMPHOCYTES # (AUTO) 0.6 K/uL (20.0-40.0); MEAN CORPUSCULAR HEMOGLOBIN 31.9 uug (24.7-32.8); MEAN CORPUSCULAR HGB CONC 33 g/dL (32.3-35.6); MEAN CORPUSCULAR VOLUME 97.5 fL (75.5-95.3); MONOCYTES # (AUTO) 0.3 K/uL (2.0-10.0); MONOCYTES % (AUTO) 3.5 % (0.0-11.0); NEUTROPHILS # (AUTO) 7.2 K/uL (1.8-8.9); NEUTROPHILS % (AUTO) 88.7 % (38.5-71.5); PLATELET COUNT (AUTO) 290 K/uL (179-408); RED BLOOD CELL COUNT(AUTO) 2.58 MIL/uL (3.63-4.92); WHITE BLOOD COUNT (AUTO) 8.1 K/uL (3.8-11.8)
[2019-11-10 06:30] LABS: CARBON DIOXIDE 23 mmol/L (21-32); CHLORIDE 109 mmol/L (98-107); CREATININE 3.2 mg/dL (0.6-1.3); GLUCOSE 144 mg/dL (74-106); MAGNESIUM 2.6 mg/dL (1.8-2.4); POTASSIUM 4.9 mmol/L (3.5-5.1)
[2019-11-10 06:37] LABS: PHOSPHOROUS 9.4 mg/dL (2.5-4.9); UREA NITROGEN, BLOOD 213 mg/dL (7-18)
--- NOTE | 2019-11-10 07:00 | NUR ---
PT RECEIVED ON VILLEGAS VENT WITH SETTINGS OF AC 12, VT 450, +5, FIO2 30%. PT HAS A SHILEY 8 DCT TRACH. AMBU BAG AND BACK UP TRACH ARE AT BEDSIDE AT THIS TIME. NO S/S OF RESPIRATORY DISTRESS. HME CHANGED. SUCTION NEEDED. PROPER PPE USED. WILL CONTINUE TO MONITOR.
--- NOTE | 2019-11-10 07:17 | NUR ---
Endorsed labs BUN 213 and Phos 9.4 to morning nurse JUAN PABLO Garcia.
--- NOTE | 2019-11-10 08:00 | NUR ---
received pt. resting in bed on air mattress. Pt. has R picc line triple lumen. Pt. is on ventilator rate of 12, tidal volume 450, peep of 5, and FiO2 30%. Pt. is on tele monitor normal sinus rhythm HR 89. Pt. has R bacilio femoral. Neri catheter in place. Rectal tube in place. Pt. is on contact isolation for cdiff. safety measures in place. call light within reach. will continue to monitor pt.
[2019-11-10] MEDS: CULTURELLE CAPSULE GT SCH ×2 (10:00→21:13)
[2019-11-10] MEDS: FOLIC ACID/VITAMIN B COMP W-C TABLET GT SCH (10:00)
[2019-11-10] MEDS: LEVETIRACETAM 500 MG TABLET GT SCH ×2 (10:00→21:13)
[2019-11-10] MEDS: SEVELAMER CARBONATE 800 MG TABLET PO SCH ×3 (10:00→18:20)
[2019-11-10] MEDS: ASCORBIC ACID 500 MG TABLET GT SCH ×2 (10:01→21:14)
[2019-11-10] MEDS: NUTRISOURCE FIBER 4 GM PACKET GT SCH ×2 (10:01→21:14)
[2019-11-10] MEDS: FLUCONAZOLE 200 MG/NS 100ML IV 100 MG in PREMIXED 1 EACH IV SCH (10:02)
[2019-11-10] MEDS: CARVEDILOL 6.25 MG TABLET PO SCH ×2 (10:05→18:00)
[2019-11-10] MEDS: SODIUM HYPOCHLORITE 0.125% 473 ML BOTTLE TP SCH (12:47)
--- NOTE | 2019-11-10 13:34 | NUR ---
Removed rectal tube with charge coordinator as pt.'s stool is becoming more formed. Pt. has had 2 episodes of BM. RT at bedside routinely. PA debrided pt.'s sacral wound at bedside.
[2019-11-10] MEDS: NEOMY/BACITRAC/POLYMI OINT 28.35 GM TUBE TP SCH ×2 (14:04→21:15)
--- NOTE | 2019-11-10 15:26 | NUR ---
on air personality at bedside
--- NOTE | 2019-11-10 17:01 | NUR ---
tower climber stated he did not remove any fluid just cleaned blood. Pt. has BP 85/56 HR 90. Checked 3 times all ranging from 84-86/55-58. WIRE SAWYER Gail aware. New order of albumin 5% x1. Will input order.
[2019-11-10] MEDS ORDERED: ALBUMIN HUMAN 5% 250 ML IV ONE (17:15)
[2019-11-10] MEDS ORDERED: FUROSEMIDE 40 MG/4 ML VIAL IV ONE (17:45)
[2019-11-10] MEDS ORDERED: ALBUMIN HUMAN 25% 50 ML IV ONE (18:00)
[2019-11-10] MEDS ORDERED: ALBUMIN HUMAN 25% 25 GM in PREMIXED 1 EACH IV SCH (18:00)
--- NOTE | 2019-11-10 18:19 | NUR ---
have not given albumin yet to pt. No albumin in pyxis. Pharmacy aware. Tech will send some up
[2019-11-10] MEDS: ALBUMIN HUMAN 25% 25 GM in PREMIXED 1 EACH IV SCH (18:29)
--- NOTE | 2019-11-10 19:30 | NUR ---
Pt received on [employer] Leroy on settings of AC 12, VT 450, PEEP +5 and FIO2-30%. Shiley 8 is patent and secure; B/U Shiley 8 and BVM are at bedside. No resp. distress noted at this time. Pt to be monitored and PRN SX throughout the shift. Leroy alarm parameters have been checked and remain audible
--- NOTE | 2019-11-10 20:03 | NUR ---
Received patient in bed, nonverbal, arouses to touch. No signs of acute distress noted. Right upper arm PICC, triple lumen is intact and patent. Neri is intact. Rectal tube was removed. On contact isolation for c. diff on air loss mattress. Patient on mechanical ventilator. Vitals are WNL. Safety measures initiated. Will continue to monitor.
[2019-11-10] MEDS: ZINC SULFATE 220 MG CAPSULE GT SCH (21:14)
[2019-11-11] MEDS: ALBUMIN HUMAN 25% 25 GM in PREMIXED 1 EACH IV SCH ×3 (00:52→13:29)
[2019-11-11] MEDS: VANCOMYCIN FOR PO/GT/NG USE GT SCH ×2 (01:05→13:28)
[2019-11-11 03:09] LABS: HEPATITIS B SURFACE AB Reactive (.); HEPATITIS B SURFACE AG Negative (Negative)
[2019-11-11] MEDS: GLUCERNA 1.2 1000ML LIQUID GT SCH (04:14)
[2019-11-11 04:43] VITALS: BP 120/85
[2019-11-11] MEDS: PROTEIN SUPPLEMENT (PROSTAT) 30 ML LIQUID GT SCH ×3 (05:02→21:28)
[2019-11-11] MEDS: MULTIVITAMINS,THERAPEUTIC TABLET GT SCH ×2 (05:02→17:28)
[2019-11-11] MEDS: FAMOTIDINE 20 MG TABLET GT SCH (05:02)
[2019-11-11] MEDS: PIPERACILLIN SODIUM/TAZOBACTAM 3.375 G in IV DEXTROSE 5% 50 ML IV SCH (06:21)
[2019-11-11 06:34] LABS: CARBON DIOXIDE 25 mmol/L (21-32); CHLORIDE 109 mmol/L (98-107); CREATININE 2.5 mg/dL (0.6-1.3); GLUCOSE 141 mg/dL (74-106); MAGNESIUM 2.4 mg/dL (1.8-2.4); PHOSPHOROUS 7.8 mg/dL (2.5-4.9); POTASSIUM 4.5 mmol/L (3.5-5.1)
[2019-11-11 06:37] LABS: UREA NITROGEN, BLOOD 165 mg/dL (7-18)
[2019-11-11 06:44] LABS: BASOPHILS % (AUTO) 0.1 % (0.0-2.0); EOSINOPHILS % (AUTO) 0.5 % (0.0-7.0); HEMATOCRIT 27.3 % (31.2-41.9); HEMOGLOBIN 8.8 g/dL (10.9-14.3); LYMPHOCYTES # (AUTO) 0.5 K/uL (20.0-40.0); LYMPHOCYTES % (AUTO) 6.5 % (20.5-51.5); MEAN CORPUSCULAR HGB CONC 32 g/dL (32.3-35.6); MEAN CORPUSCULAR VOLUME 98.6 fL (75.5-95.3); MONOCYTES # (AUTO) 0.4 K/uL (2.0-10.0); MONOCYTES % (AUTO) 4.6 % (0.0-11.0); NEUTROPHILS # (AUTO) 6.8 K/uL (1.8-8.9); NEUTROPHILS % (AUTO) 88.3 % (38.5-71.5); PLATELET COUNT (AUTO) 249 K/uL (179-408); RED BLOOD CELL COUNT(AUTO) 2.77 MIL/uL (3.63-4.92); WHITE BLOOD COUNT (AUTO) 7.7 K/uL (3.8-11.8)
--- NOTE | 2019-11-11 06:57 | NUR ---
Patient had x2 BM. No distress noted. Medication given as ordered. Vitals WNL. NSR on the monitor in the 80s. Slight bleeding noted from debridement, reinforced dressing. Safety measures given. Will endorse to next shift.
--- NOTE | 2019-11-11 08:00 | NUR ---
dialysis nurse at bedside. Received pt. resting in bed on air mattress. Pt. has R UA picc line triple lumen only 2 lumens flushable. Pt. is on ventilator. Pt. is on tele monitor normal sinus rhythm. Pt. has R bacilio femoral catheter. Neri catheter in place. G tube in place. Pt. is on contact isolation for cdiff. safety measures in place. call light within reach. will continue to monitor pt.
[2019-11-11 09:10] LABS: BAND % (MANUAL) 1 % (0-10); EOSINOPHILS % (MANUAL) 1 % (0-8); LYMPHOCYTES % (MANUAL) 9 % (20-40); MONOCYTES % (MANUAL) 3 % (2-10); NEUTROPHILS % (MANUAL) 86 % (42-75)
--- NOTE | 2019-11-11 11:07 | NUR ---
dialysis removed 2500 mL last BP during dialysis reported at 153/81 HR 94 pt remained in normal sinus rhythm with some episodes of tachycardia.
[2019-11-11] MEDS: SEVELAMER CARBONATE 800 MG TABLET PO SCH ×3 (11:25→17:28)
[2019-11-11] MEDS: ASCORBIC ACID 500 MG TABLET GT SCH ×2 (11:25→21:15)
[2019-11-11] MEDS: LEVETIRACETAM 500 MG TABLET GT SCH ×2 (11:25→21:15)
[2019-11-11] MEDS: CULTURELLE CAPSULE GT SCH ×2 (11:25→21:15)
[2019-11-11] MEDS: SODIUM HYPOCHLORITE 0.125% 473 ML BOTTLE TP SCH (11:26)
[2019-11-11] MEDS: FOLIC ACID/VITAMIN B COMP W-C TABLET GT SCH (11:26)
[2019-11-11] MEDS: CARVEDILOL 6.25 MG TABLET PO SCH ×2 (11:34→17:30)
[2019-11-11] MEDS: NUTRISOURCE FIBER 4 GM PACKET GT SCH ×2 (11:35→21:28)
[2019-11-11] MEDS: FLUCONAZOLE 200 MG/NS 100ML IV 100 MG in PREMIXED 1 EACH IV SCH (11:41)
[2019-11-11 11:51] VITALS: BP 151/94
[2019-11-11 16:04] VITALS: BP 125/71
[2019-11-11] MEDS: CEFEPIME HCL 1 G in IV DEXTROSE 5% 50 ML IV SCH (17:28)
[2019-11-11 19:50] VITALS: BP 116/81
[2019-11-11] MEDS: ZINC SULFATE 220 MG CAPSULE GT SCH (21:15)
[2019-11-12] VITALS: BP 140/83
[2019-11-12] MEDS: VANCOMYCIN FOR PO/GT/NG USE GT SCH ×2 (02:21→16:19)
[2019-11-12] MEDS: GLUCERNA 1.2 1000ML LIQUID GT SCH (02:55)
[2019-11-12 04:00] VITALS: BP 128/77
[2019-11-12] MEDS: MULTIVITAMINS,THERAPEUTIC TABLET GT SCH ×2 (05:39→17:32)
[2019-11-12] MEDS: PROTEIN SUPPLEMENT (PROSTAT) 30 ML LIQUID GT SCH ×3 (05:39→21:56)
[2019-11-12] MEDS: FAMOTIDINE 20 MG TABLET GT SCH (05:39)
[2019-11-12 06:16] LABS: EOSINOPHILS # (AUTO) 0.1 K/uL (0.0-0.7); EOSINOPHILS % (AUTO) 1.1 % (0.0-7.0); HEMATOCRIT 25.1 % (31.2-41.9); HEMOGLOBIN 8.1 g/dL (10.9-14.3); LYMPHOCYTES # (AUTO) 0.7 K/uL (20.0-40.0); LYMPHOCYTES % (AUTO) 7.5 % (20.5-51.5); MEAN CORPUSCULAR HEMOGLOBIN 31.9 uug (24.7-32.8); MEAN CORPUSCULAR HGB CONC 32 g/dL (32.3-35.6); MEAN CORPUSCULAR VOLUME 99.2 fL (75.5-95.3); MONOCYTES # (AUTO) 0.4 K/uL (2.0-10.0); MONOCYTES % (AUTO) 4.3 % (0.0-11.0); NEUTROPHILS # (AUTO) 8.5 K/uL (1.8-8.9); NEUTROPHILS % (AUTO) 87.1 % (38.5-71.5); PLATELET COUNT (AUTO) 232 K/uL (179-408); RED BLOOD CELL COUNT(AUTO) 2.53 MIL/uL (3.63-4.92); WHITE BLOOD COUNT (AUTO) 9.8 K/uL (3.8-11.8)
[2019-11-12 06:45] LABS: CARBON DIOXIDE 23 mmol/L (21-32); CHLORIDE 109 mmol/L (98-107); CREATININE 2.2 mg/dL (0.6-1.3); GLUCOSE 154 mg/dL (74-106); MAGNESIUM 2.4 mg/dL (1.8-2.4); POTASSIUM 4.3 mmol/L (3.5-5.1)
[2019-11-12 06:46] LABS: UREA NITROGEN, BLOOD 132 mg/dL (7-18)
--- NOTE | 2019-11-12 07:30 | NUR ---
hemodialysis started. GT off
[2019-11-12] MEDS: SEVELAMER CARBONATE 800 MG TABLET PO SCH ×3 (08:00→17:32)
--- NOTE | 2019-11-12 09:00 | NUR ---
Noted increased respiration, O2 sat 94%, Tele SR, ST. RT increased FIO2 to 40% during hemodialysis
[2019-11-12 11:03] VITALS: BP 148/91
[2019-11-12] MEDS: CARVEDILOL 6.25 MG TABLET PO SCH ×2 (11:15→17:34)
[2019-11-12] MEDS: ASCORBIC ACID 500 MG TABLET GT SCH ×2 (11:16→21:51)
[2019-11-12] MEDS: CULTURELLE CAPSULE GT SCH ×2 (11:16→21:51)
[2019-11-12] MEDS: LEVETIRACETAM 500 MG TABLET GT SCH ×2 (11:16→21:50)
[2019-11-12] MEDS: FOLIC ACID/VITAMIN B COMP W-C TABLET GT SCH (11:16)
[2019-11-12] MEDS: CEFEPIME HCL 1 G in IV DEXTROSE 5% 50 ML IV SCH (11:17)
[2019-11-12] MEDS: NUTRISOURCE FIBER 4 GM PACKET GT SCH ×2 (11:30→21:56)
--- NOTE | 2019-11-12 11:30 | NUR ---
Hemodialysis done. Medications given and GT feedings resumed. Oral care and trach care done. Sponge bath given, wound care done. Repositioned in bed comfortably
[2019-11-12] MEDS: SODIUM HYPOCHLORITE 0.125% 473 ML BOTTLE TP SCH (11:31)
--- NOTE | 2019-11-12 15:00 | NUR ---
Trach suctioned. Repositioned comfortably
[2019-11-12 16:06] VITALS: BP 156/104
--- NOTE | 2019-11-12 18:22 | NUR ---
Trach and oral suctioned. Repositioned.
--- NOTE | 2019-11-12 20:00 | NUR ---
Patient received into care laying in bed with eye open. 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 Patient has no signs/symptoms of acute distress or discomfort noted or observed by nurse. G-tube is patent and running Glucerna 1.2 @ 60mL/hr with no residual found. All safety, seizure, fall, and aspiration precaution are in place. Call light and personal items are within reach at all times. Will continue to monitor and assess.
[2019-11-12 20:30] VITALS: BP 169/98
[2019-11-12] MEDS: ZINC SULFATE 220 MG CAPSULE GT SCH (21:51)
[2019-11-13] MEDS: VANCOMYCIN FOR PO/GT/NG USE GT SCH (01:17)
[2019-11-13] MEDS: GLUCERNA 1.2 1000ML LIQUID GT SCH (01:38)
[2019-11-13 01:42] VITALS: BP 161/108
[2019-11-13 04:07] VITALS: BP 167/98
[2019-11-13] MEDS: FAMOTIDINE 20 MG TABLET GT SCH (05:01)
[2019-11-13] MEDS: MULTIVITAMINS,THERAPEUTIC TABLET GT SCH ×2 (05:01→17:07)
[2019-11-13] MEDS: PROTEIN SUPPLEMENT (PROSTAT) 30 ML LIQUID GT SCH ×3 (05:01→21:00)
--- NOTE | 2019-11-13 06:00 | NUR ---
Patient slept intermittently throughout night with no s/s of acute distress or discomfort noted/observed by nurse. All nursing needs met promptly and patient is warm, dry, and comfortable. All safety and fall precaution measures remain in place. Call light and personal items are within reach at all times.
[2019-11-13 06:45] LABS: CARBON DIOXIDE 27 mmol/L (21-32); CHLORIDE 106 mmol/L (98-107); GLUCOSE 140 mg/dL (74-106); MAGNESIUM 2.2 mg/dL (1.8-2.4); PHOSPHOROUS 6.3 mg/dL (2.5-4.9); POTASSIUM 4.3 mmol/L (3.5-5.1)
[2019-11-13 06:52] LABS: UREA NITROGEN, BLOOD 103 mg/dL (7-18)
[2019-11-13 07:01] LABS: BASOPHILS % (AUTO) 0.1 % (0.0-2.0); EOSINOPHILS # (AUTO) 0.2 K/uL (0.0-0.7); EOSINOPHILS % (AUTO) 1.3 % (0.0-7.0); HEMATOCRIT 25.3 % (31.2-41.9); HEMOGLOBIN 8.1 g/dL (10.9-14.3); LYMPHOCYTES # (AUTO) 0.6 K/uL (20.0-40.0); LYMPHOCYTES % (AUTO) 4.7 % (20.5-51.5); MEAN CORPUSCULAR HEMOGLOBIN 31.8 uug (24.7-32.8); MEAN CORPUSCULAR HGB CONC 32 g/dL (32.3-35.6); MEAN CORPUSCULAR VOLUME 99.3 fL (75.5-95.3); MONOCYTES # (AUTO) 0.5 K/uL (2.0-10.0); MONOCYTES % (AUTO) 3.9 % (0.0-11.0); PLATELET COUNT (AUTO) 214 K/uL (179-408); RED BLOOD CELL COUNT(AUTO) 2.55 MIL/uL (3.63-4.92)
[2019-11-13 07:06] LABS: WHITE BLOOD COUNT (AUTO) 11.6 K/uL (3.8-11.8)
[2019-11-13] MEDS: CARVEDILOL 6.25 MG TABLET PO SCH ×2 (08:24→17:07)
[2019-11-13] MEDS: SEVELAMER CARBONATE 800 MG TABLET PO SCH ×3 (08:25→17:06)
[2019-11-13] MEDS: LEVETIRACETAM 500 MG TABLET GT SCH ×2 (08:25→20:47)
[2019-11-13] MEDS: CULTURELLE CAPSULE GT SCH ×2 (08:25→20:47)
[2019-11-13] MEDS: FOLIC ACID/VITAMIN B COMP W-C TABLET GT SCH (08:25)
[2019-11-13] MEDS: ASCORBIC ACID 500 MG TABLET GT SCH ×2 (08:26→20:47)
[2019-11-13] MEDS: NUTRISOURCE FIBER 4 GM PACKET GT SCH ×2 (08:26→20:48)
[2019-11-13] MEDS: CEFEPIME HCL 1 G in IV DEXTROSE 5% 50 ML IV SCH (08:27)
[2019-11-13] MEDS: SODIUM HYPOCHLORITE 0.125% 473 ML BOTTLE TP SCH (08:28)
[2019-11-13 11:29] VITALS: BP 141/91
[2019-11-13 15:20] VITALS: BP 139/86
--- NOTE | 2019-11-13 18:10 | NUR ---
PATIENT IN BED WITH HOB ELEVATED. ON CONTACT ISOLATION FOR C-DIFF. PATIENT ON VENTILATOR , GTUBE AND DOUGLAS. NO SOB AND NO ACUTE DISTRESS NOTED AND NO C/O PAIN. PICCLINE INTACT PATENT. ALL DUE MEDS GIVEN VIA GTUBE ORDERED AND TOLERATED WELL. KEPT CLEAN AND DRY AT ALL TIMES. ALL NEEDS ATTENDED. CALL LIGHT WITHIN REACH. WILL CONTINUE TO MONITOR.
--- NOTE | 2019-11-13 19:20 | NUR ---
Received patient lying in bed. Obtunded, non-verbal, flat affect. NSR on tele at 84/min. Tracheostomy intact with vent. PICC line with triple lumen on right upper arm intact and patent. Right femoral Ja cath intact. GT feeding ongoing. Neri catheter intact and draining via gravity. Seizure precaution observed. Safety measure initiated. Continue to monitor.
--- NOTE | 2019-11-13 19:25 | NUR ---
Pt received on continuous mechanical ventilation via [facility] 8DCT trach. Trach is patent and secured. Pt received on Leroy vent with ordered settings of AC-12, VT-450, PEEP+5, FIO2-30% Pt tolerating vent settings well. Sxn'd small amounts of thick white/yellowish secretions. Tolerating vent settings well. Bag/valve/mask and back up trach at bedside. HME changed. Trach care done. PPE used. Will continue to monitor.
[2019-11-13] MEDS: ZINC SULFATE 220 MG CAPSULE GT SCH (20:47)
[2019-11-13 21:18] VITALS: BP 147/91
[2019-11-14 00:54] VITALS: BP 142/89
[2019-11-14] MEDS: GLUCERNA 1.2 1000ML LIQUID GT SCH (01:50)
[2019-11-14] MEDS: FAMOTIDINE 20 MG TABLET GT SCH (05:03)
[2019-11-14] MEDS: MULTIVITAMINS,THERAPEUTIC TABLET GT SCH ×2 (05:03→17:34)
[2019-11-14] MEDS: PROTEIN SUPPLEMENT (PROSTAT) 30 ML LIQUID GT SCH ×3 (05:03→21:02)
[2019-11-14 05:40] VITALS: BP 139/85
--- NOTE | 2019-11-14 06:16 | NUR ---
Slept well last night. NSR on tele at 87/min. Tracheostomy intact with vent. PICC line with triple lumen on right upper arm intact and patent. Right femoral Ja cath intact. GT feeding and flushing well tolerated. Neri catheter intact and draining via gravity. Seizure precaution maintained. Safety measure maintained.
--- NOTE | 2019-11-14 07:15 | NUR ---
RECEIVED PATIENT IN BED EYES OPEN BUT NON VERBAL ALL NEEDS ANTICIPATED AND SATISFIED MAX ASSIST FOR ALL ADL TURNED AND REPOSITIONED Q2H PATIENT HAS A TRACH JUJU NUMBER 8 WITH ADEQUATE SATS AT THIS TIME GT PATIENT ON HOLD UNTIL 1000 ORDERED DOUGLAS CATH TO GRAVITY DRAINAGE GENERALISED EDEMA EXT ELEVATED TO DECREASE EDEMA.DOUGLAS CATH TO GRAVITY DRAINAGE SACRAL DECB PATIENT REPOSITIONED TO THE SIDES MADE COMFORTABLE WILL CONTINUE TO OBSERVE.
[2019-11-14 07:22] LABS: BASOPHILS % (AUTO) 0.2 % (0.0-2.0); EOSINOPHILS # (AUTO) 0.2 K/uL (0.0-0.7); EOSINOPHILS % (AUTO) 1.3 % (0.0-7.0); HEMATOCRIT 24.2 % (31.2-41.9); HEMOGLOBIN 7.7 g/dL (10.9-14.3); LYMPHOCYTES # (AUTO) 0.6 K/uL (20.0-40.0); LYMPHOCYTES % (AUTO) 4.7 % (20.5-51.5); MEAN CORPUSCULAR HEMOGLOBIN 31.7 uug (24.7-32.8); MEAN CORPUSCULAR HGB CONC 32 g/dL (32.3-35.6); MONOCYTES # (AUTO) 0.4 K/uL (2.0-10.0); MONOCYTES % (AUTO) 3.2 % (0.0-11.0); NEUTROPHILS # (AUTO) 11.3 K/uL (1.8-8.9); NEUTROPHILS % (AUTO) 90.6 % (38.5-71.5); PLATELET COUNT (AUTO) 193 K/uL (179-408); WHITE BLOOD COUNT (AUTO) 12.4 K/uL (3.8-11.8)
[2019-11-14 07:29] LABS: RED BLOOD CELL COUNT(AUTO) 2.44 MIL/uL (3.63-4.92)
--- NOTE | 2019-11-14 07:45 | NUR ---
PT RECEIVED TRACH TO VENT ON CMV, SHILEY #8 TRACH IS PATENT AND SECURE. VENT PARAMETERS AND ALARMS CHECKED, ALARMS ARE AUDIBLE. PT IS TOLERATING VENT WELL, NO RESP. DISTRESS NOTED. BVM AND BACK-UP TRACH AT BEDSIDE. CONT. P.OX AT BEDSIDE. VENT PLUGGED INTO RED OUTLET. SUCTION PRN. WILL CONTINUE TO MONITOR.
[2019-11-14 08:01] LABS: CARBON DIOXIDE 27 mmol/L (21-32); CHLORIDE 103 mmol/L (98-107); CREATININE 2.2 mg/dL (0.6-1.3); GLUCOSE 139 mg/dL (74-106); MAGNESIUM 2.3 mg/dL (1.8-2.4); PHOSPHOROUS 7.1 mg/dL (2.5-4.9); POTASSIUM 4.8 mmol/L (3.5-5.1)
[2019-11-14 08:13] LABS: UREA NITROGEN, BLOOD 119 mg/dL (7-18)
[2019-11-14 09:24] LABS: LYMPHOCYTES % (MANUAL) 4 % (20-40); MONOCYTES % (MANUAL) 3 % (2-10); NEUTROPHILS % (MANUAL) 93 % (42-75)
[2019-11-14] MEDS: CEFEPIME HCL 1 G in IV DEXTROSE 5% 50 ML IV SCH (09:28)
[2019-11-14] MEDS: SEVELAMER CARBONATE 800 MG POWD.PACK GT SCH ×3 (09:28→17:34)
--- NOTE | 2019-11-14 09:30 | NUR ---
DIALYSIS STARTED ORDERED TOLERATING SO FAR
[2019-11-14] MEDS: SODIUM HYPOCHLORITE 0.125% 473 ML BOTTLE TP SCH (09:32)
[2019-11-14] MEDS: FOLIC ACID/VITAMIN B COMP W-C TABLET GT SCH (09:37)
[2019-11-14] MEDS: CULTURELLE CAPSULE GT SCH ×2 (09:37→20:28)
[2019-11-14] MEDS: LEVETIRACETAM 500 MG TABLET GT SCH ×2 (09:38→20:28)
[2019-11-14] MEDS: ASCORBIC ACID 500 MG TABLET GT SCH ×2 (09:38→20:27)
[2019-11-14] MEDS: CARVEDILOL 6.25 MG TABLET PO SCH ×2 (09:39→17:35)
[2019-11-14] MEDS ORDERED: NUTRISOURCE FIBER 4 GM PACKET GT SCH (09:56)
[2019-11-14] MEDS: NUTRISOURCE FIBER 4 GM PACKET GT SCH ×2 (09:59→20:28)
[2019-11-14] MEDS: VANCOMYCIN FOR PO/GT/NG USE GT SCH (10:11)
--- NOTE | 2019-11-14 10:12 | NUR ---
PATIENT SEEN AND EXAMINED BY JUDEEN HARDSCAPE FOREMAN WITH NEW ORDERS AND NOTED
[2019-11-14 12:11] VITALS: BP 127/74
[2019-11-14 16:19] VITALS: BP 116/68
--- NOTE | 2019-11-14 16:55 | NUR ---
CHITRA HAMILTON AND DR ARCHULETA HERE TO SEE PATIENT WITH NO NEW ORDERS AT THIS TIME PATIENT CONTINUES TO HAVE GENERALISED EDEMA ANASARCA INVOLVING THE ENTIRE BODY UPPER AND LOWER EXT ELEVATED ON THE PILLOWS TO FACILITATED DRAINAGE O2 SATS WNL GT PATENT WITH FEEDINGS IN PROGRESS ORDERED WITH NO VOMITING AT THIS TIME TURNED AND REPOSITIONED Q2H MADE COMFORTABLE AND WILL CONTINUE TO OBSERVE.
--- NOTE | 2019-11-14 19:20 | NUR ---
Received patient lying in bed. Obtunded, non-verbal, flat affect, opens eyes briefly to tactile stimuli. Seizure precaution observed. NSR on tele at 75/min. Tracheostomy intact with vent. PICC line with triple lumen on right upper arm intact and patent. Right femoral Ja cath intact. GT feeding ongoing. Neri catheter intact and draining via gravity. Safety measure initiated. Continue to monitor.
[2019-11-14 19:55] VITALS: BP 127/81
[2019-11-14] MEDS: ZINC SULFATE 220 MG CAPSULE GT SCH (20:27)
[2019-11-15] VITALS: BP 130/80
[2019-11-15 05:05] VITALS: BP 131/84
[2019-11-15] MEDS: FAMOTIDINE 20 MG TABLET GT SCH (05:18)
[2019-11-15] MEDS: PROTEIN SUPPLEMENT (PROSTAT) 30 ML LIQUID GT SCH ×3 (05:18→21:47)
[2019-11-15] MEDS: MULTIVITAMINS,THERAPEUTIC TABLET GT SCH ×2 (05:18→17:25)
[2019-11-15] MEDS: GLUCERNA 1.2 1000ML LIQUID GT SCH (06:05)
--- NOTE | 2019-11-15 06:21 | NUR ---
NSR on tele at 81/min. Tracheostomy intact with vent. Suctions secretions PRN. PICC line with triple lumen on right upper arm intact and patent. Right femoral Ja cath intact. GT feeding and flushing well tolerated. Neri catheter intact and draining via gravity, minimal output. Seizure precaution and safety measure maintained.
[2019-11-15 06:53] LABS: BASOPHILS % (AUTO) 0.1 % (0.0-2.0); EOSINOPHILS # (AUTO) 0.1 K/uL (0.0-0.7); EOSINOPHILS % (AUTO) 0.8 % (0.0-7.0); HEMATOCRIT 25.6 % (31.2-41.9); HEMOGLOBIN 8.2 g/dL (10.9-14.3); LYMPHOCYTES # (AUTO) 0.7 K/uL (20.0-40.0); LYMPHOCYTES % (AUTO) 5.6 % (20.5-51.5); MEAN CORPUSCULAR HEMOGLOBIN 31.8 uug (24.7-32.8); MEAN CORPUSCULAR HGB CONC 32 g/dL (32.3-35.6); MEAN CORPUSCULAR VOLUME 99.6 fL (75.5-95.3); MONOCYTES # (AUTO) 0.4 K/uL (2.0-10.0); MONOCYTES % (AUTO) 3.6 % (0.0-11.0); NEUTROPHILS # (AUTO) 10.7 K/uL (1.8-8.9); NEUTROPHILS % (AUTO) 89.9 % (38.5-71.5); PLATELET COUNT (AUTO) 191 K/uL (179-408); RED BLOOD CELL COUNT(AUTO) 2.57 MIL/uL (3.63-4.92); WHITE BLOOD COUNT (AUTO) 11.9 K/uL (3.8-11.8)
[2019-11-15 07:13] LABS: CARBON DIOXIDE 25 mmol/L (21-32); CHLORIDE 105 mmol/L (98-107); CREATININE 2.2 mg/dL (0.6-1.3); GLUCOSE 152 mg/dL (74-106); POTASSIUM 5.3 mmol/L (3.5-5.1)
--- NOTE | 2019-11-15 07:32 | NUR ---
RECEIVED PATIENT IN BED WITH EYES CLOSED BUT PROMPTLY OPENS WHEN TOUCH TRACKS WITH EYES BUT NON VERBAL WITH TRACH AND VENTED WITH ADEQUATE SATURATION.GT STOPPED FOR THE FOUR HOURS ORDERED.TRIPLE LUMEN IS INTACT DOUGLAS CATH WITH SCANTY YELLOW URINE OUTPUT.SHE HAS RIGHT GROIN DARRYN CATH WITH NO DRAINAGE PATIENT CONTINUES TO HAVE GENERALISED EDEMA ABDOMEN AND BOTH UPPER AND LOWER EXT WITH LEAKAGE OF FLUID FROM HER LEFT ARM KEPT CLEAN AND DRY SEIZURE PRECAUTIONS OBSERVED BUT NO SEIZURE ACTIVITIES AT THIS TIME WILL CONTINUE TO OBSERVE AND PROVIDE SAFE AND THERAPEUTIC ENVIRONMENT AT ALL TIMES
[2019-11-15 07:35] LABS: MAGNESIUM 2.3 mg/dL (1.8-2.4)
[2019-11-15 07:36] LABS: UREA NITROGEN, BLOOD 112 mg/dL (7-18)
[2019-11-15] MEDS: SEVELAMER CARBONATE 800 MG POWD.PACK GT SCH ×3 (08:40→17:25)
[2019-11-15] MEDS: LEVETIRACETAM 500 MG TABLET GT SCH ×2 (08:41→21:42)
[2019-11-15] MEDS: ASCORBIC ACID 500 MG TABLET GT SCH ×2 (08:41→21:41)
[2019-11-15] MEDS: CULTURELLE CAPSULE GT SCH ×2 (08:41→21:42)
[2019-11-15] MEDS: FOLIC ACID/VITAMIN B COMP W-C TABLET GT SCH (08:41)
[2019-11-15] MEDS: CARVEDILOL 6.25 MG TABLET PO SCH ×2 (08:43→17:26)
[2019-11-15] MEDS: NUTRISOURCE FIBER 4 GM PACKET GT SCH ×2 (08:46→21:47)
[2019-11-15] MEDS: VANCOMYCIN FOR PO/GT/NG USE GT SCH (08:47)
[2019-11-15] MEDS: SODIUM HYPOCHLORITE 0.125% 473 ML BOTTLE TP SCH (08:58)
[2019-11-15 12:30] VITALS: BP 121/70
[2019-11-15] MEDS ORDERED: LIDOCAINE 1%-EPI 1:100,000 20 ML VIAL IJ PRN (13:30)
[2019-11-15] MEDS ORDERED: SILVER NITRATE APPLICATOR STICK EACH TP PRN (13:30)
[2019-11-15 16:20] VITALS: BP 129/69
--- NOTE | 2019-11-15 16:47 | NUR ---
Patient is trached and Leroy ventilator with ordered vent settings. She is trached with a Shiley 8 DCT, FIELD SALES MANAGER used for cuff inflation/assessment. Alarms are on/audible. Spare trach and Ambu bag are at bedside. Will continue to monitor throughout shift.
[2019-11-15] MEDS ORDERED: NOVASOURCE RENAL 1000 ML LIQUID GT PRN (18:00)
[2019-11-15] MEDS ORDERED: NOVASOURCE RENAL 1000 ML LIQUID GT SCH (18:00)
[2019-11-15] MEDS ORDERED: NEPRO 1000 ML GT PRN (18:30)
--- NOTE | 2019-11-15 18:32 | NUR ---
PATIENT SEEN AND EXAMINED BY DR ROGERS WITH NEW ORDER TO CHANGE TUBE FEEDING PER SUGGESTION OF THE PONY CYLINDER PRESS OPERATOR AND NOTED.
--- NOTE | 2019-11-15 19:20 | NUR ---
Pt received on continuous vent AC 12 VT 450 PEEP 5 FIO2 @ 30%. trach in placed and secured with trach tie. back up trach and ambu bag at bedside. vent checked, alarms working well and audible. suction prn. No distress noted at this time. Will continue to monitor.
--- NOTE | 2019-11-15 19:30 | NUR ---
PATIENT AWAKE EYES ONLY, HOB ELEVATED, ON GTF TOLERATE WELL NO RESIDUAL NOTED. PATIENT ON CONTACT ISOLATION FOR C DIFF. PATIENT TRACH INTACT, SUCTION EVERY TWO AND PRN, PATIENT HAS NO S/S OF PAIN AT THIS TIME, CONT TO MONITOR.
[2019-11-15 20:35] VITALS: BP 132/74
[2019-11-15] MEDS: ZINC SULFATE 220 MG CAPSULE GT SCH (21:41)
[2019-11-16] VITALS: BP 144/98
[2019-11-16 04:00] VITALS: BP 147/91
[2019-11-16] MEDS: MULTIVITAMINS,THERAPEUTIC TABLET GT SCH (05:33)
[2019-11-16] MEDS: FAMOTIDINE 20 MG TABLET GT SCH (05:33)
[2019-11-16] MEDS: PROTEIN SUPPLEMENT (PROSTAT) 30 ML LIQUID GT SCH ×2 (05:34→14:00)
--- NOTE | 2019-11-16 05:42 | NUR ---
PATIENT AWAKE, HOB ELEVATED, TELE MONITOR SINUS RHYTHM AT THIS TIME. PATIENT GTF TOLERATE WELL, NO RESIDUAL NOTED, PATIENT STILL HAS LOOSE BM BUT NO ODOR, YELLOW COLOR IN SMALL AMOUNT. PATIENT HAS GENERALIZED EDEMA, PICC LINE ON R UPPER ARM INTACT, R FEMORAL DARRYN CATH DRESSING INTACT, PATIENT HAS NO URINE, TRACH INTACT, ON VENTILATOR. CONT TO MONITOR, CONT CONTACT ISOLATION, NO S/S OF PAIN AT THIS TIME.
[2019-11-16 06:43] LABS: BASOPHILS % (AUTO) 0.2 % (0.0-2.0); EOSINOPHILS # (AUTO) 0.2 K/uL (0.0-0.7); EOSINOPHILS % (AUTO) 1.5 % (0.0-7.0); HEMATOCRIT 26.1 % (31.2-41.9); HEMOGLOBIN 8.4 g/dL (10.9-14.3); LYMPHOCYTES # (AUTO) 0.7 K/uL (20.0-40.0); LYMPHOCYTES % (AUTO) 6.3 % (20.5-51.5); MEAN CORPUSCULAR HEMOGLOBIN 32.1 uug (24.7-32.8); MEAN CORPUSCULAR HGB CONC 32 g/dL (32.3-35.6); MEAN CORPUSCULAR VOLUME 100.4 fL (75.5-95.3); MONOCYTES # (AUTO) 0.5 K/uL (2.0-10.0); MONOCYTES % (AUTO) 4.4 % (0.0-11.0); NEUTROPHILS # (AUTO) 10.3 K/uL (1.8-8.9); NEUTROPHILS % (AUTO) 87.6 % (38.5-71.5); PLATELET COUNT (AUTO) 182 K/uL (179-408); WHITE BLOOD COUNT (AUTO) 11.7 K/uL (3.8-11.8)
[2019-11-16 07:01] LABS: ALANINE AMINOTRANSFERASE 20 U/L (14-59); ALKALINE PHOSPHATASE 230 U/L (50-136); ASPARTATE AMINOTRANSFERASE 25 U/L (15-37); BILIRUBIN,TOTAL 0.3 mg/dL (0.2-1.0); CARBON DIOXIDE 28 mmol/L (21-32); CHLORIDE 108 mmol/L (98-107); CREATININE 2.4 mg/dL (0.6-1.3); GLUCOSE 144 mg/dL (74-106); MAGNESIUM 2.8 mg/dL (1.8-2.4); POTASSIUM 5.8 mmol/L (3.5-5.1); TOTAL PROTEIN, SERUM 6.7 g/dL (6.4-8.2)
[2019-11-16 07:10] LABS: UREA NITROGEN, BLOOD 127 mg/dL (7-18)
--- NOTE | 2019-11-16 08:00 | NUR ---
Received patient in bed with eyes closed. AAOx1 to touch. On trach shiley and mechanical ventilator. HOB elevated. In no acute distress. PICC line on JUAN intact and patent. Ja femoral cath noted. Neri in place. Safety measures implemented. Will continue to monitor.
[2019-11-16] MEDS: LEVETIRACETAM 500 MG TABLET GT SCH (08:13)
[2019-11-16] MEDS: CULTURELLE CAPSULE GT SCH (08:13)
[2019-11-16] MEDS: FOLIC ACID/VITAMIN B COMP W-C TABLET GT SCH (08:13)
[2019-11-16] MEDS: ASCORBIC ACID 500 MG TABLET GT SCH (08:15)
[2019-11-16] MEDS: SEVELAMER CARBONATE 800 MG POWD.PACK GT SCH ×2 (08:16→13:45)
[2019-11-16] MEDS: NUTRISOURCE FIBER 4 GM PACKET GT SCH (08:24)
[2019-11-16] MEDS: VANCOMYCIN FOR PO/GT/NG USE GT SCH (08:26)
[2019-11-16] MEDS: CARVEDILOL 6.25 MG TABLET PO SCH (08:42)
[2019-11-16] MEDS: SODIUM HYPOCHLORITE 0.125% 473 ML BOTTLE TP SCH (08:52)
[2019-11-16 12:05] VITALS: BP 129/85
[2019-11-16 16:07] VITALS: BP 133/73
[2019-11-21] MEDS ORDERED: VANCOMYCIN FOR PO/GT/NG USE GT SCH (09:00)
== END 2019-11-16 18:00 | DRG 853 ==
LOC: TELE3 14:42 → TELE-TD3 14:55 → TELE3 11-08 10:08
PROVIDERS: ADMIT Internal Medicine; ATTEND Internal Medicine
PROC: 5A1955Z Respiratory Ventilation, Greater than 96 Consecutive Hours (ICD-10-PCS; principal; 2019-11-05)
PROC: 30243N1 Transfusion of Nonautologous Red Blood Cells into Central Vein, Percutaneous Approach (ICD-10-PCS; 2019-11-06)
PROC: 06HD33Z Insertion of Infusion Device into Left Common Iliac Vein, Percutaneous Approach (ICD-10-PCS; 2019-11-08)
PROC: 0KBP0ZZ Excision of Left Hip Muscle, Open Approach (ICD-10-PCS; 2019-11-10)
PROC: 0KBN0ZZ Excision of Right Hip Muscle, Open Approach (ICD-10-PCS; 2019-11-10)
PROC: 5A1D70Z Performance of Urinary Filtration, Intermittent, Less than 6 Hours Per Day (ICD-10-PCS; 2019-11-10)
DX: A41.9 Sepsis, unspecified organism (principal); L89.154 Pressure ulcer of sacral region, stage 4; E43 Unspecified severe protein-calorie malnutrition; J18.9 Pneumonia, unspecified organism; R65.21 Severe sepsis with septic shock; I21.A1 Myocardial infarction type 2; G92 Toxic encephalopathy; I50.43 Acute on chronic combined systolic (congestive) and diastolic (congestive) heart failure; N17.9 Acute kidney failure, unspecified; I13.2 Hypertensive heart and chronic kidney disease with heart failure and with stage 5 chronic kidney disease, or end stage renal disease; D68.69 Other thrombophilia; N39.0 Urinary tract infection, site not specified; Z99.11 Dependence on respirator [ventilator] status; J90 Pleural effusion, not elsewhere classified; K76.6 Portal hypertension; J96.11 Chronic respiratory failure with hypoxia; N18.5 Chronic kidney disease, stage 5; A04.72 Enterocolitis due to Clostridium difficile, not specified as recurrent; E11.22 Type 2 diabetes mellitus with diabetic chronic kidney disease; E87.5 Hyperkalemia; G40.909 Epilepsy, unspecified, not intractable, without status epilepticus; B96.5 Pseudomonas (aeruginosa) (mallei) (pseudomallei) as the cause of diseases classified elsewhere; E83.39 Other disorders of phosphorus metabolism; F03.90 Unspecified dementia, unspecified severity, without behavioral disturbance, psychotic disturbance, mood disturbance, and anxiety; F32.9 Major depressive disorder, single episode, unspecified; F41.9 Anxiety disorder, unspecified; G62.9 Polyneuropathy, unspecified; I25.5 Ischemic cardiomyopathy; I25.2 Old myocardial infarction; I25.10 Atherosclerotic heart disease of native coronary artery without angina pectoris; M81.0 Age-related osteoporosis without current pathological fracture; R13.10 Dysphagia, unspecified; R62.7 Adult failure to thrive; Z87.891 Personal history of nicotine dependence; Z87.01 Personal history of pneumonia (recurrent); Z93.0 Tracheostomy status; Z93.1 Gastrostomy status; Z86.711 Personal history of pulmonary embolism; Z86.718 Personal history of other venous thrombosis and embolism; D63.1 Anemia in chronic kidney disease; I34.0 Nonrheumatic mitral (valve) insufficiency; E88.09 Other disorders of plasma-protein metabolism, not elsewhere classified; Z68.34 Body mass index [BMI] 34.0-34.9, adult; N81.4 Uterovaginal prolapse, unspecified; N25.0 Renal osteodystrophy; I48.0 Paroxysmal atrial fibrillation; I27.20 Pulmonary hypertension, unspecified; M47.9 Spondylosis, unspecified; M48.02 Spinal stenosis, cervical region; D53.9 Nutritional anemia, unspecified
CPT/HCPCS: 36415; 36600; 70030-TC; 70450; 71045; 71250; 83605; 83735; 84100; 85025; 86706; 86850; 86900; 86901; 86920; 87070; 87077; 87086; 87340; 90937; 93005; 94002; 94003; A4217; A4663; G0378; J0692; J0696; J1450; J1644; J1940; J2060; J2543; J3370; J3490; J7050; J7060; P9016-BL; P9021; P9047

== ENCOUNTER 2019-11-16 18:23 | Inpatient (IN) | payer MEDICAID, MEDICARE ==
[~2019-11-16] VITALS: Ht 165.1 cm; Wt 93.0 kg
[~2019-11-16 18:23] MED LIST changes: +ACET160E61 GT; +ACID1TAB12 GT; +ARGI1POW17 GT; +ASCO-375 GT; +ATOR20TA GT; +DAKIN S 0.125%; +FAMO10TA41 GT; +FERR220S6 GT; +GUAR1PAC4 GT; +HYDR-4384 GT; +LEVE500T9 GT; +LORA2VIA33 IV; -LORAZEPAM 2 MG/1 ML VIAL ONE; +MULT1TAB73 GT; +NEOM1PAC2 TP; +NEOM28.3 TP; +NUT.237L30 GT; +PROSTAT GT; +SALINE FLUSH IV; +SODIUM HYPOCHLORITE 0.125% TP; +VANCO GT; +ZINC1CAP2 GT; +ZINC57OI3 TP
--- NOTE | 2019-11-16 18:45 | NUR ---
Pt admitted from 3rd floor at 1800 ,accompanied By The Rn and 2 RT's ,report received by Irais James,pt is a 84 years old female ,with admitting diagnosis of respiratory failure,hx of CAD,HTN,DM,Seizure disorder,sepsis,acute kidney failure,End stage kidney disease,has trach in place shiley # 8 ,connected to ventilator tv 450,ac 12,f102 30 %,abdomen soft,no distended has a PEG in place,has a picc line on the r upper arm triple lumen,and r femoral 3 lumen bacilio catheter,has f/c in place 16/10 cc for wound management,Pt has a sacral wound ,generalized edema ,specially both upper extremities and lower extremities,both oozing.All orders verified by Dr Pedroza and carried out.
[2019-11-16 20:39] VITALS: BP 101/51
[2019-11-17] MEDS ORDERED: ACETAMINOPHEN 650 MG/20 ML UDC- SA PATIENTS-PAIN ONLY GT PRN ×2 (01:00→08:15)
[2019-11-17] MEDS ORDERED: HYDROCODONE/APAP 5-325MG TABLET GT PRN (01:00)
[2019-11-17] MEDS ORDERED: LORAZEPAM 2 MG/1 ML VIAL IV PRN ×4 (01:00→10:30)
[2019-11-17 02:23] VITALS: BP 110/48
[2019-11-17 04:27] VITALS: BP 102/55
[2019-11-17] MEDS: PROTEIN SUPPLEMENT (PROSTAT) 30 ML LIQUID GT SCH ×3 (05:46→21:49)
--- NOTE | 2019-11-17 05:58 | NUR ---
PT IN BED WITH VENTILATOR NO SOB DISTRESS.BODY ASSESSMENT DONE BY NURSE GENERALIZED EDEMA. PT STILL ON CONTACT ISOLATION FOR C-DIFF KEEP CLEAN AND DRY HARJINDER AREA WITH GOOD HAND WASHING. CONTINUE TX ON SACRAL WOUND ORDERED.TURN POSITION Q 2 HRS.ON F/C FOR WOUND MANAGEMENT
[2019-11-17] MEDS ORDERED: VANCOMYCIN FOR PO/GT/NG USE GT SCH (06:00)
[2019-11-17 07:30] VITALS: BP 136/83
[2019-11-17] MEDS: NEOMY/BACITRA/POLYMYXIN B OINT UD PACKET TP SCH ×5 (08:00→21:48)
[2019-11-17] MEDS ORDERED: SODIUM HYPOCHLORITE 0.125% 473 ML BOTTLE TP PRN ×2 (08:00→17:45)
[2019-11-17] MEDS ORDERED: HYDROGEN PEROXIDE 3% 118 ML BOTTLE TP PRN (08:00)
[2019-11-17] MEDS ORDERED: SEVELAMER CARBONATE 800 MG TABLET PO SCH ×2 (08:00→12:00)
[2019-11-17] MEDS: FOLIC ACID/VITAMIN B COMP W-C TABLET GT SCH (08:01)
[2019-11-17] MEDS ORDERED: ACETAMINOPHEN 650 MG/20 ML UDC- SA PATIENTS-FEVER ONLY GT PRN (08:15)
[2019-11-17] MEDS: ACIDOPHILUS/BULGARICUS CHEW TAB GT SCH ×2 (08:44→21:47)
[2019-11-17] MEDS: MULTIVITAMINS,THERAPEUTIC TABLET GT SCH ×2 (08:44→17:50)
[2019-11-17] MEDS: NORMAL SALINE FLUSH 10 ML DISP.SYRIN IV SCH ×2 (08:45→21:00)
[2019-11-17] MEDS: ASCORBIC ACID 250 MG TABLET GT SCH ×2 (08:45→21:47)
[2019-11-17] MEDS: COD LIVER OIL/ZINC OXIDE OINT 113 GM TUBE TP SCH ×4 (08:45→21:48)
[2019-11-17] MEDS: HYDROGEN PEROXIDE 3% 118 ML BOTTLE TP SCH ×2 (08:46→21:02)
[2019-11-17] MEDS ORDERED: SODIUM HYPOCHLORITE 0.125% 473 ML BOTTLE TP SCH (09:00)
[2019-11-17] MEDS ORDERED: levETIRAcetam 500 MG/5 ML LIQUID UDC GT SCH (09:00)
[2019-11-17] MEDS ORDERED: MULTIVITAMINS,THERAPEUTIC TABLET GT SCH (09:00)
[2019-11-17] MEDS ORDERED: CARVEDILOL 3.125 MG TABLET GT SCH (09:00)
[2019-11-17] MEDS ORDERED: FAMOTIDINE 20 MG TABLET GT SCH (09:00)
[2019-11-17] MEDS: SODIUM HYPOCHLORITE 0.125% 473 ML BOTTLE TP SCH (12:15)
[2019-11-17] MEDS ORDERED: LIDOCAINE 1%-EPI 1:100,000 20 ML VIAL IJ PRN (12:15)
[2019-11-17] MEDS ORDERED: SILVER NITRATE APPLICATOR STICK EACH TP PRN (12:15)
[2019-11-17] MEDS: SEVELAMER CARBONATE 800 MG TABLET PO SCH ×2 (12:31→17:48)
--- NOTE | 2019-11-17 15:09 | NUR ---
Telegraph Service Clerk: Psychosocial assessment completed today. unable to obtain signature on patient's admission paperwork due to patient not being alert, being noncommunicative, and therefore unable to sign. Patient's code status is a Full Code.
--- NOTE | 2019-11-17 16:21 | NUR ---
PAGED DR. RAMOS REGARDING WATER FLUSH OF 200ML/DAY CONSIDER PATIENT EXHIBITS FLUID OVERLOAD. HE WANTS TO KEEP THE 200ML/DAY WATER FLUSH.
[2019-11-17] MEDS: CARVEDILOL 3.125 MG TABLET GT SCH (17:50)
--- NOTE | 2019-11-17 19:45 | NUR ---
PT RECEIVED ON CONTINUOUS VENT. TRACH IN PLACED AND SECURED WITH TRACH TIE. BACK UP TRACH AND AMBU BAG AT BEDSIDE. TRACH CARE DONE. VENT CHECKED, ALARMS WORKING WELL AND AUDIBLE. SUCTION PRN. NO DISTRESS NOTED AT THIS TIME. WILL CONTINUE TO MONITOR.
[2019-11-17 20:13] VITALS: BP 140/86
[2019-11-17] MEDS: NEPRO 1000 ML GT PRN (21:42)
[2019-11-17] MEDS: levETIRAcetam 500 MG/5 ML LIQUID UDC GT SCH (21:47)
[2019-11-17] MEDS: ZINC SULFATE 220 MG CAPSULE GT SCH (21:48)
[2019-11-18] MEDS: HYDROCODONE/APAP 5-325MG TABLET GT PRN ×2 (04:32→22:02)
[2019-11-18] MEDS: CARVEDILOL 3.125 MG TABLET GT SCH ×2 (05:24→17:32)
[2019-11-18] MEDS: FOLIC ACID/VITAMIN B COMP W-C TABLET GT SCH (05:24)
[2019-11-18] MEDS: FAMOTIDINE 20 MG TABLET GT SCH (05:24)
[2019-11-18] MEDS: MULTIVITAMINS,THERAPEUTIC TABLET GT SCH (05:25)
[2019-11-18] MEDS: PROTEIN SUPPLEMENT (PROSTAT) 30 ML LIQUID GT SCH ×3 (05:25→21:46)
[2019-11-18] MEDS: SEVELAMER CARBONATE 800 MG POWD.PACK GT SCH ×3 (08:28→17:26)
[2019-11-18] MEDS: COD LIVER OIL/ZINC OXIDE OINT 113 GM TUBE TP SCH ×4 (08:29→21:45)
[2019-11-18] MEDS: NEOMY/BACITRA/POLYMYXIN B OINT UD PACKET TP SCH ×4 (08:29→21:45)
[2019-11-18] MEDS: ASCORBIC ACID 250 MG TABLET GT SCH ×2 (08:30→21:45)
[2019-11-18] MEDS: SODIUM HYPOCHLORITE 0.125% 473 ML BOTTLE TP SCH (08:30)
[2019-11-18] MEDS: ACIDOPHILUS/BULGARICUS CHEW TAB GT SCH ×2 (08:32→21:45)
[2019-11-18] MEDS: levETIRAcetam 500 MG/5 ML LIQUID UDC GT SCH ×2 (08:32→21:45)
[2019-11-18] MEDS: VANCOMYCIN FOR PO/GT/NG USE GT SCH (08:34)
[2019-11-18 08:40] VITALS: BP 140/88
[2019-11-18] MEDS: NORMAL SALINE FLUSH 10 ML DISP.SYRIN IV SCH ×2 (09:00→21:00)
[2019-11-18] MEDS: HYDROGEN PEROXIDE 3% 118 ML BOTTLE TP SCH ×2 (09:14→21:17)
[2019-11-18] MEDS: ZINC SULFATE 220 MG CAPSULE GT SCH (21:45)
[2019-11-18 22:00] VITALS: BP 124/76
[2019-11-19] MEDS: NEPRO 1000 ML GT PRN (05:26)
[2019-11-19] MEDS: PROTEIN SUPPLEMENT (PROSTAT) 30 ML LIQUID GT SCH ×3 (05:26→22:35)
[2019-11-19] MEDS: FOLIC ACID/VITAMIN B COMP W-C TABLET GT SCH (05:26)
[2019-11-19] MEDS: FAMOTIDINE 20 MG TABLET GT SCH (05:26)
[2019-11-19] MEDS: CARVEDILOL 3.125 MG TABLET GT SCH ×2 (05:52→17:29)
[2019-11-19 06:53] LABS: ALANINE AMINOTRANSFERASE 28 U/L (14-59); ALKALINE PHOSPHATASE 211 U/L (50-136); ASPARTATE AMINOTRANSFERASE 26 U/L (15-37); BILIRUBIN,TOTAL 0.3 mg/dL (0.2-1.0); CARBON DIOXIDE 27 mmol/L (21-32); CHLORIDE 102 mmol/L (98-107); CREATININE 2.5 mg/dL (0.6-1.3); GLUCOSE 108 mg/dL (74-106); MAGNESIUM 2.7 mg/dL (1.8-2.4); PHOSPHOROUS 6.9 mg/dL (2.5-4.9); POTASSIUM 4.7 mmol/L (3.5-5.1); TOTAL PROTEIN, SERUM 6.3 g/dL (6.4-8.2)
[2019-11-19 06:56] LABS: UREA NITROGEN, BLOOD 133 mg/dL (7-18)
[2019-11-19 07:06] LABS: BASOPHILS % (AUTO) 0.1 % (0.0-2.0); EOSINOPHILS # (AUTO) 0.1 K/uL (0.0-0.7); EOSINOPHILS % (AUTO) 0.8 % (0.0-7.0); HEMOGLOBIN 7.8 g/dL (10.9-14.3); LYMPHOCYTES # (AUTO) 0.6 K/uL (20.0-40.0); LYMPHOCYTES % (AUTO) 4.6 % (20.5-51.5); MEAN CORPUSCULAR HEMOGLOBIN 31.3 uug (24.7-32.8); MEAN CORPUSCULAR HGB CONC 31 g/dL (32.3-35.6); MEAN CORPUSCULAR VOLUME 100.8 fL (75.5-95.3); MONOCYTES # (AUTO) 0.5 K/uL (2.0-10.0); MONOCYTES % (AUTO) 3.3 % (0.0-11.0); NEUTROPHILS # (AUTO) 12.7 K/uL (1.8-8.9); NEUTROPHILS % (AUTO) 91.2 % (38.5-71.5); PLATELET COUNT (AUTO) 191 K/uL (179-408); WHITE BLOOD COUNT (AUTO) 13.9 K/uL (3.8-11.8)
[2019-11-19 07:07] LABS: RED BLOOD CELL COUNT(AUTO) 2.48 MIL/uL (3.63-4.92)
[2019-11-19] MEDS: HYDROGEN PEROXIDE 3% 118 ML BOTTLE TP SCH ×2 (08:00→21:23)
[2019-11-19] MEDS: ACIDOPHILUS/BULGARICUS CHEW TAB GT SCH ×2 (08:10→21:00)
[2019-11-19] MEDS: levETIRAcetam 500 MG/5 ML LIQUID UDC GT SCH ×2 (08:10→21:00)
[2019-11-19] MEDS: SODIUM HYPOCHLORITE 0.125% 473 ML BOTTLE TP SCH (08:10)
[2019-11-19] MEDS: VANCOMYCIN FOR PO/GT/NG USE GT SCH (08:10)
[2019-11-19] MEDS: ASCORBIC ACID 250 MG TABLET GT SCH ×2 (08:10→21:00)
[2019-11-19] MEDS: SEVELAMER CARBONATE 800 MG POWD.PACK GT SCH ×3 (08:10→16:29)
[2019-11-19] MEDS: COD LIVER OIL/ZINC OXIDE OINT 113 GM TUBE TP SCH ×4 (08:10→21:00)
[2019-11-19] MEDS: NEOMY/BACITRA/POLYMYXIN B OINT UD PACKET TP SCH ×4 (08:11→21:00)
[2019-11-19 08:21] VITALS: BP 126/71
[2019-11-19] MEDS: NORMAL SALINE FLUSH 10 ML DISP.SYRIN IV SCH (09:00)
[2019-11-19 17:29] VITALS: BP 146/86
[2019-11-19] MEDS: ZINC SULFATE 220 MG CAPSULE GT SCH (21:00)
--- NOTE | 2019-11-19 22:15 | NUR ---
found pt blue and no pulse, suctioned pt with small amount of secretion, start bagging pt, called ira reynaga dr, butter production supervisor, respiratory therapist and icu nurse came. pt looks less blue and felt pulse.
--- NOTE | 2019-11-19 22:25 | NUR ---
dr govea's exchange called.
--- NOTE | 2019-11-19 22:27 | NUR ---
ira oshea ordered transfer to e.. for evaluation, pt transferred to e.. with ira rollins, floor nurse,nsg supervisor powder and primer canning and respiratory therapist.
--- NOTE | 2019-11-19 23:10 | NUR ---
dr govea called back and notified transfer to e..
[2019-11-20] MEDS ORDERED: SEVE800T8 GT (00:02)
[2019-11-20] MEDS ORDERED: CARV3.122 PO (00:02)
[2019-11-20] MEDS ORDERED: SILV100S2 TP (00:02)
[2019-11-20] MEDS ORDERED: LIDO20VI IJ (00:02)
[2019-11-20] MEDS ORDERED: LORA2VIA33 IV (00:02)
[2019-11-20] MEDS ORDERED: FOLI5TAB GT (00:02)
[2019-11-20] MEDS ORDERED: COD56OIN TP (00:02)
[2019-11-20] MEDS ORDERED: ACET-2154 GT (00:02)
[2019-11-20] MEDS ORDERED: VANC125C5 GT ×2 (00:02)
[2019-11-20] MEDS ORDERED: NUT.237L67 GT (00:02)
[2019-11-20] MEDS ORDERED: HYDR237S13 TP (00:02)
[2019-11-20] MEDS ORDERED: FOLI0.8T2 GT (07:23)
[2019-11-20] MEDS ORDERED: AMIN30LI2 GT (07:28)
[2019-11-20] MEDS ORDERED: VANC1VIA GT (07:31)
[2019-11-20] MEDS ORDERED: VANCOMYCIN FOR PO/GT/NG USE GT SCH (12:00)
[2019-11-25] MEDS ORDERED: VANCOMYCIN FOR PO/GT/NG USE GT SCH (09:00)
[2019-12-02] MEDS ORDERED: VANCOMYCIN FOR PO/GT/NG USE GT SCH (09:00)
[2019-12-10] MEDS ORDERED: VANCOMYCIN FOR PO/GT/NG USE GT SCH (09:00)
== END 2019-11-20 | disposition short-term general hospital (02) | DRG 133 ==
LOC: SA 18:23 → UNDOLOA 11-22 16:20 → UNDODISIN 11-22 16:25
PROVIDERS: ADMIT Internal Medicine; ATTEND Internal Medicine
PROC: 5A1945Z Respiratory Ventilation, 24-96 Consecutive Hours (ICD-10-PCS; principal; 2019-11-16)
DX: J96.11 Chronic respiratory failure with hypoxia (principal); E43 Unspecified severe protein-calorie malnutrition; G92 Toxic encephalopathy; Z99.11 Dependence on respirator [ventilator] status; L89.154 Pressure ulcer of sacral region, stage 4; A04.72 Enterocolitis due to Clostridium difficile, not specified as recurrent; N17.9 Acute kidney failure, unspecified; D68.69 Other thrombophilia; Z93.0 Tracheostomy status; N18.5 Chronic kidney disease, stage 5; G62.9 Polyneuropathy, unspecified; I13.0 Hypertensive heart and chronic kidney disease with heart failure and stage 1 through stage 4 chronic kidney disease, or unspecified chronic kidney disease; I50.42 Chronic combined systolic (congestive) and diastolic (congestive) heart failure; I27.20 Pulmonary hypertension, unspecified; D53.9 Nutritional anemia, unspecified; N18.9 Chronic kidney disease, unspecified; F32.9 Major depressive disorder, single episode, unspecified; I25.2 Old myocardial infarction; I25.5 Ischemic cardiomyopathy; I48.0 Paroxysmal atrial fibrillation; M48.02 Spinal stenosis, cervical region; Z86.718 Personal history of other venous thrombosis and embolism; Z93.1 Gastrostomy status; Z87.01 Personal history of pneumonia (recurrent); Z86.711 Personal history of pulmonary embolism; R62.7 Adult failure to thrive; Z90.710 Acquired absence of both cervix and uterus; G40.909 Epilepsy, unspecified, not intractable, without status epilepticus; I25.10 Atherosclerotic heart disease of native coronary artery without angina pectoris; I34.0 Nonrheumatic mitral (valve) insufficiency; M81.0 Age-related osteoporosis without current pathological fracture; M19.90 Unspecified osteoarthritis, unspecified site; N25.0 Renal osteodystrophy; I07.1 Rheumatic tricuspid insufficiency; F41.9 Anxiety disorder, unspecified; R13.10 Dysphagia, unspecified
CPT/HCPCS: 36415; 83735; 84100; 85025; 94003; J3370; J3490

== ENCOUNTER 2019-11-19 22:30 | Inpatient (IN) | payer MEDICARE, OTHER ==
[~2019-11-19] VITALS: Ht 157.5 cm; Wt 45.8 kg
--- NOTE | 2019-11-19 22:41 | NUR ---
PT IS IN ROOM #3. DR CISNEROS EVALUATED THE PT.
[2019-11-19 23:07] LABS: ABG BASE EXCESS -3.7 mmol/L; ABG HCO3 22.1 mmol/L; ABG PCO2 42.8 mmHg (35.0-45.0); ABG PO2 77.6 mmHg (75.0-100.0); ABG SITE LEFT RADIAL; ABG TOTAL HEMOGLOBIN 9.1 G/dL (12.0-16.0); COHb 0.9 % (0.5-1.5); MetHb 0.3 % (0.0-1.5); O2Hb 92.8 % (94.0-97.0); VENT MODE VENT - A/C; VT, ABG 450 mL
--- NOTE | 2019-11-19 23:14 | NUR ---
REPORT GIVEN TO CORRECTIONAL THERAPY TEACHER RN.
[2019-11-19] MEDS ORDERED: CEFEPIME HCL 1 G in IV DEXTROSE 5% 50 ML IV ONE (23:15)
[2019-11-19] MEDS ORDERED: AZITHROMYCIN IV 500 MG in IV DEXTROSE 5% 250 ML IV ONE (23:15)
--- NOTE | 2019-11-19 23:15 | NUR ---
RESUMED CARE FOR PT. PATIENT IN STABLE CONDITION, V/S STABLE, NO ACUTE DISTRESS NOTED.
[2019-11-19 23:19] LABS: BASOPHILS % (AUTO) 0.2 % (0.0-2.0); EOSINOPHILS # (AUTO) 0.2 K/uL (0.0-0.7); EOSINOPHILS % (AUTO) 1.2 % (0.0-7.0); HEMATOCRIT 26.2 % (31.2-41.9); HEMOGLOBIN 8.3 g/dL (10.9-14.3); LYMPHOCYTES # (AUTO) 0.6 K/uL (20.0-40.0); LYMPHOCYTES % (AUTO) 4.1 % (20.5-51.5); MEAN CORPUSCULAR HGB CONC 32 g/dL (32.3-35.6); MONOCYTES # (AUTO) 0.4 K/uL (2.0-10.0); MONOCYTES % (AUTO) 3.1 % (0.0-11.0); NEUTROPHILS % (AUTO) 91.4 % (38.5-71.5); PLATELET COUNT (AUTO) 214 K/uL (179-408); RED BLOOD CELL COUNT(AUTO) 2.59 MIL/uL (3.63-4.92); WHITE BLOOD COUNT (AUTO) 14.2 K/uL (3.8-11.8)
--- NOTE | 2019-11-19 23:20 | NUR ---
Janes olivia in [facility] - 11/20/19 at [address] CISNEROS ON JOHN CALL WITH DR ROGERS.
--- NOTE | 2019-11-19 23:22 | NUR ---
EPIC call placed. Waiting for mary THOMAS to call back.
--- NOTE | 2019-11-19 23:25 | NUR ---
DR CISNEROS ON PANNEL CALL WITH DR ROGERS
[2019-11-19] MEDS ORDERED: AZITHROMYCIN 500MG/ D5W 250ML IVPB **ER PYXIS ONLY IV ONE (23:29)
[2019-11-19] MEDS ORDERED: CEFEPIME HCL 1 G VIAL ONE (23:29)
--- NOTE | 2019-11-19 23:30 | NUR ---
Janes olivia in [facility] - 11/20/19 at 0126 by LIONEL RESUMED CARE FOR PT. PATIENT IN STABLE CONDITION, V/S STABLE, NO ACUTE DISTRESS NOTED.
[2019-11-19 23:32] LABS: ALANINE AMINOTRANSFERASE 25 U/L (14-59); ALKALINE PHOSPHATASE 225 U/L (50-136); ASPARTATE AMINOTRANSFERASE 29 U/L (15-37); BILIRUBIN,DIRECT 0.1 mg/dL (0.0-0.2); BILIRUBIN,TOTAL 0.3 mg/dL (0.2-1.0); CARBON DIOXIDE 24 mmol/L (21-32); CHLORIDE 101 mmol/L (98-107); CREATININE 2.6 mg/dL (0.6-1.3); GLUCOSE 120 mg/dL (74-106); POTASSIUM 4.8 mmol/L (3.5-5.1); TOTAL PROTEIN, SERUM 6.6 g/dL (6.4-8.2)
[2019-11-19 23:40] LABS: UREA NITROGEN, BLOOD 142 mg/dL (7-18)
[2019-11-19 23:41] LABS: THYROID STIMULATING HORMONE 11.486 mIU/mL (0.358-3.740)
[2019-11-20] VITALS (23 sets, daily range): BP systolic 111–144; BP diastolic 59–93
[2019-11-20] MEDS ORDERED: SILV100S2 TP (00:02)
[2019-11-20] MEDS ORDERED: CARV3.122 PO (00:02)
[2019-11-20] MEDS ORDERED: HYDR237S13 TP (00:02)
[2019-11-20] MEDS ORDERED: COD56OIN TP (00:02)
[2019-11-20] MEDS ORDERED: ACET-2154 GT (00:02)
[2019-11-20] MEDS ORDERED: NUT.237L67 GT (00:02)
[2019-11-20] MEDS ORDERED: FOLI5TAB GT (00:02)
[2019-11-20] MEDS ORDERED: LIDO20VI IJ (00:02)
[2019-11-20] MEDS ORDERED: LORA2VIA33 IV (00:02)
[2019-11-20] MEDS ORDERED: SEVE800T8 GT (00:02)
[2019-11-20] MEDS ORDERED: VANC125C5 GT ×2 (00:02)
--- NOTE | 2019-11-20 00:10 | NUR ---
CALLED CCU FOR BED ASSIGNMENT.
--- NOTE | 2019-11-20 00:50 | NUR ---
GAVE REPORT TO JANNETH ALMEIDA IN CCU.
[2019-11-20] MEDS ORDERED: MORPHINE SULFATE 2 MG/1 ML DISP.SYRIN IV PRN (01:00)
[2019-11-20] MEDS ORDERED: LORAZEPAM 2 MG/1 ML VIAL IV PRN (01:00)
[2019-11-20] MEDS ORDERED: ACETAMINOPHEN 650 MG/20.3 ML LIQUID UDC GT PRN (01:00)
--- NOTE | 2019-11-20 01:34 | NUR ---
Pt. admitted to CCU4 , under care of [place]ongs List completed.PT TRANSFERRED W/RAILROAD CONDUCTOR. V/S STABLE. PT IN STABLE CONDITION, NO DISTRESS DURING DRANSFER.
[2019-11-20 06:27] LABS: BASOPHILS % (AUTO) 0.2 % (0.0-2.0); EOSINOPHILS % (AUTO) 0.3 % (0.0-7.0); HEMATOCRIT 25.7 % (31.2-41.9); HEMOGLOBIN 8.2 g/dL (10.9-14.3); LYMPHOCYTES # (AUTO) 0.6 K/uL (20.0-40.0); LYMPHOCYTES % (AUTO) 3.8 % (20.5-51.5); MEAN CORPUSCULAR HEMOGLOBIN 31.9 uug (24.7-32.8); MEAN CORPUSCULAR HGB CONC 32 g/dL (32.3-35.6); MEAN CORPUSCULAR VOLUME 99.6 fL (75.5-95.3); MONOCYTES # (AUTO) 0.4 K/uL (2.0-10.0); NEUTROPHILS # (AUTO) 13.8 K/uL (1.8-8.9); NEUTROPHILS % (AUTO) 92.7 % (38.5-71.5); PLATELET COUNT (AUTO) 203 K/uL (179-408); RED BLOOD CELL COUNT(AUTO) 2.58 MIL/uL (3.63-4.92); WHITE BLOOD COUNT (AUTO) 14.9 K/uL (3.8-11.8)
[2019-11-20 06:55] LABS: CARBON DIOXIDE 21 mmol/L (21-32); CHLORIDE 104 mmol/L (98-107); CREATININE 2.7 mg/dL (0.6-1.3); GLUCOSE 118 mg/dL (74-106); MAGNESIUM 2.7 mg/dL (1.8-2.4); PHOSPHOROUS 7.6 mg/dL (2.5-4.9); POTASSIUM 5.1 mmol/L (3.5-5.1)
[2019-11-20 06:58] LABS: UREA NITROGEN, BLOOD 136 mg/dL (7-18)
[2019-11-20] MEDS ORDERED: FOLI0.8T2 GT (07:23)
[2019-11-20] MEDS ORDERED: AMIN30LI2 GT (07:28)
[2019-11-20] MEDS ORDERED: VANC1VIA GT (07:31)
[2019-11-20 07:55] LABS: ABG BASE EXCESS -0.5 mmol/L; ABG HCO3 24.3 mmol/L; ABG PCO2 40.6 mmHg (35.0-45.0); ABG PH 7.395 (7.350-7.450); ABG PO2 57.4 mmHg (75.0-100.0); ABG SITE RIGHT RADIAL; ABG TOTAL HEMOGLOBIN 6.2 G/dL (12.0-16.0); COHb 1.3 % (0.5-1.5); MetHb 0.5 % (0.0-1.5); O2Hb 87.7 % (94.0-97.0); VENT MODE VENT - A/C; VT, ABG 450 mL
--- NOTE | 2019-11-20 08:45 | NUR ---
Pulmonary services, Dr. Yin in the unit to see and examine patient, full report given see orders.
[2019-11-20] MEDS ORDERED: levETIRAcetam 500 MG TABLET GT SCH (11:30)
[2019-11-20] MEDS ORDERED: SILVER NITRATE APPLICATOR STICK EACH TP PRN (11:30)
[2019-11-20] MEDS ORDERED: HYDROCODONE/APAP 5-325MG TABLET GT PRN (11:30)
[2019-11-20] MEDS ORDERED: VANCOMYCIN FOR PO/GT/NG USE GT SCH (11:30)
[2019-11-20] MEDS ORDERED: NEPRO (VANILLA) 237 ML CAN GT SCH (11:30)
[2019-11-20] MEDS ORDERED: NEPRO 1000 ML GT PRN (11:45)
[2019-11-20] MEDS ORDERED: NEOMY/BACITRAC/POLYMI OINT 28.35 GM TUBE ONE (11:46)
[2019-11-20] MEDS: SEVELAMER CARBONATE 800 MG POWD.PACK GT SCH ×2 (13:02→17:31)
[2019-11-20] MEDS: levETIRAcetam 500 MG/5 ML LIQUID UDC GT SCH ×2 (13:02→20:26)
[2019-11-20] MEDS: VANCOMYCIN FOR PO/GT/NG USE GT SCH (13:03)
[2019-11-20] MEDS ORDERED: Medication Not On Formulary EA (Argin/Glut/Cahmb/Collag/Mv-Min (Juven Packet) 1 EACH) GT SCH (18:00)
[2019-11-20] MEDS ORDERED: IV NORMAL SALINE 250 ML IV PRN (19:00)
--- NOTE | 2019-11-20 19:25 | NUR ---
Pt received on continuous mechanical ventilation via Shiley 8 DCT trach. PT is on HT-50 vent with ordered settings of A/C-12, VT-450, PEEP+8, FIO2-36% (4LPM Bleed-in). Trach is patent and secured. Pt tolerating vent settings well, except for continuos [place] Peak Pressures. Sxn'd small amount of white secretions. Vent plugged into red emergency outlet. Vent alarm parameters checked, on and audible. HME changed. PPE used.
[2019-11-20] MEDS: NEOMY/BACITRA/POLYMYXIN B OINT UD PACKET TP SCH ×2 (20:21→20:22)
[2019-11-20] MEDS: ASCORBIC ACID 250 MG TABLET GT SCH (20:26)
[2019-11-20] MEDS ORDERED: ZINC SULFATE 220 MG CAPSULE GT SCH (21:00)
[2019-11-20] MEDS ORDERED: ASCORBIC ACID 500 MG TABLET GT SCH (21:00)
[2019-11-20] MEDS ORDERED: NEOMY/BACITRAC/POLYMI OINT 28.35 GM TUBE TP SCH (21:00)
[2019-11-21] VITALS (16 sets, daily range): BP systolic 128–153; BP diastolic 57–101
[2019-11-21] MEDS ORDERED: Z GUARD REMEDY PASTE 57 GM TUBE TOP PRN (02:00)
[2019-11-21 05:11] LABS: BASOPHILS # (AUTO) 0.1 K/uL (0.0-8.0); BASOPHILS % (AUTO) 0.4 % (0.0-2.0); EOSINOPHILS # (AUTO) 0.1 K/uL (0.0-0.7); EOSINOPHILS % (AUTO) 0.5 % (0.0-7.0); HEMATOCRIT 25.9 % (31.2-41.9); HEMOGLOBIN 8.3 g/dL (10.9-14.3); LYMPHOCYTES # (AUTO) 0.6 K/uL (20.0-40.0); LYMPHOCYTES % (AUTO) 4.4 % (20.5-51.5); MEAN CORPUSCULAR HEMOGLOBIN 31.8 uug (24.7-32.8); MEAN CORPUSCULAR HGB CONC 32 g/dL (32.3-35.6); MONOCYTES # (AUTO) 0.5 K/uL (2.0-10.0); MONOCYTES % (AUTO) 3.4 % (0.0-11.0); NEUTROPHILS # (AUTO) 13.2 K/uL (1.8-8.9); NEUTROPHILS % (AUTO) 91.3 % (38.5-71.5); PLATELET COUNT (AUTO) 207 K/uL (179-408); RED BLOOD CELL COUNT(AUTO) 2.62 MIL/uL (3.63-4.92); WHITE BLOOD COUNT (AUTO) 14.4 K/uL (3.8-11.8)
[2019-11-21 05:35] LABS: CARBON DIOXIDE 25 mmol/L (21-32); CHLORIDE 100 mmol/L (98-107); CREATININE 2.8 mg/dL (0.6-1.3); GLUCOSE 127 mg/dL (74-106); MAGNESIUM 2.9 mg/dL (1.8-2.4); PHOSPHOROUS 7.6 mg/dL (2.5-4.9); POTASSIUM 5.2 mmol/L (3.5-5.1)
[2019-11-21 05:43] LABS: UREA NITROGEN, BLOOD 149 mg/dL (7-18)
[2019-11-21] MEDS ORDERED: Medication Not On Formulary EA (Famotidine (Pepcid Ac) 10 MG) GT SCH (06:00)
[2019-11-21] MEDS ORDERED: FAMOTIDINE 20 MG TABLET GT SCH (06:00)
[2019-11-21] MEDS: SEVELAMER CARBONATE 800 MG POWD.PACK GT SCH ×2 (08:11→12:32)
[2019-11-21] MEDS: ASCORBIC ACID 250 MG TABLET GT SCH (08:11)
[2019-11-21] MEDS: NEOMY/BACITRA/POLYMYXIN B OINT UD PACKET TP SCH ×2 (08:12)
[2019-11-21] MEDS: levETIRAcetam 500 MG/5 ML LIQUID UDC GT SCH ×2 (08:12→21:16)
[2019-11-21 09:15] LABS: ABG BASE EXCESS -2.5 mmol/L; ABG PCO2 42.7 mmHg (35.0-45.0); ABG PH 7.349 (7.350-7.450); ABG PO2 106.8 mmHg (75.0-100.0); ABG SITE LEFT RADIAL; ABG TOTAL HEMOGLOBIN 8.7 G/dL (12.0-16.0); MetHb 0.3 % (0.0-1.5); O2Hb 96.5 % (94.0-97.0); VENT MODE VENT - A/C; VT, ABG 450 mL
[2019-11-21] MEDS: VANCOMYCIN FOR PO/GT/NG USE GT SCH (09:22)
--- NOTE | 2019-11-21 09:40 | NUR ---
Dr. Yin here to see pt. Full report given. New orders received.
[2019-11-21] MEDS ORDERED: SODIUM HYPOCHLORITE 0.125% 473 ML BOTTLE TP SCH (11:00)
--- NOTE | 2019-11-21 11:01 | NUR ---
WOUND CARE CONSULT: PT FOLLOWED BY SURGICAL TEAM FOR WOUND CARE. DEFER TO SURGICAL TEAM FOR WOUND TREATMENT PLAN. DISCUSSED SKIN PROTECTION WITH NURSING STAFF. PT ON FIRST STEP SUSANS LOW AIRLOSS MATTRESS.WILL SEE PRNAnn THOMAS IN AGREEMENT WITH PLAN OF CARE. CURRENT ZOILA SCORE IS 12.
--- NOTE | 2019-11-21 12:20 | NUR ---
bridge operator slip here to see pt for dialysis treatment.
--- NOTE | 2019-11-21 13:55 | NUR ---
Hepatitis B antigen/core ordered per architecture intern/protocol.
--- NOTE | 2019-11-21 14:45 | NUR ---
Bioethics Meeting Summary Meeting was held in [facility] at 1430. Present were Adolfo GOMEZO, Delores Aldana, Director ICU and Sarai, Dr Pedroza attending physician, Nicanor Chandler, Director Infection Control and Dr Laine Ramos, Director of Clinical Social Work. Dr Carroll, distillery miller helper advised that patient has multiple organ failure, cardiac arrest, encephalopathy, renal failure and electrolyte imbalance. Patient has no next-of-kin or responsible republican. Dr Carroll advised that patient has no quality of life and that care is futile now. He suggested comfort care with morphine drip and no dialysis. Patient will be downgraded to medsurg. floor. Dr Pedroza will implement aforementioned.
--- NOTE | 2019-11-21 15:09 | NUR ---
Dialysis completed 2L of hemodialysis fluid removed. VSS wnl. Pt stable and nad noted upon completion of dialysis treatment.
--- NOTE | 2019-11-21 17:09 | NUR ---
Full telephone SBAR report given to JUAN PABLO [facility] 3rd floor.
--- NOTE | 2019-11-21 17:25 | NUR ---
Pt brought up to room 311 med/surg with RN/RT. VSS wnl. Pt stable and nad upon transfer.
--- NOTE | 2019-11-21 17:30 | NUR ---
patient transferred from CCU at this time, corbett catheter noted, trache and ventilator noted, PICC noted on right upper arm, peg tube noted in place, sacral ulcer noted, MD Pedroza made aware of transfer
--- NOTE | 2019-11-21 18:16 | NUR ---
morphine drip initiated at 1813 running at 2 mg/Hour, will continue to monitor
[2019-11-21] MEDS: MORPHINE SULFATE PF IV DRIP 100 MG in IV DEXTROSE 5% 96 ML IV PRN (18:39)
--- NOTE | 2019-11-21 19:15 | NUR ---
morphine 2mg/hr increased to 4 mg/hr per MD Pedroza orders
--- NOTE | 2019-11-21 20:05 | NUR ---
Dr Garcia called to increase morphine to 6 mg- done. also ordered to dc ventilator and put on trache mask - informed TYSON RT/
--- NOTE | 2019-11-21 21:10 | NUR ---
Per MD orders placed removed from ventilator and subsequently placed on cool aerosol FIO2-30%. No resp. distress noted. JUAN PABLO CP aware and notified. Addendum: 11/22/19 at 0209 by CLEVE LUNDBERG RT Correction; 4th word pt, not placed
--- NOTE | 2019-11-22 00:05 | NUR ---
Gunjan appears uncomfortable and breathing deeply; morphine increased to 8 mg per hour; will monitor.
--- NOTE | 2019-11-22 03:05 | NUR ---
Pt more tachypneic and not comfortable; morphine increased to 10 mg/hr
[2019-11-22 05:07] LABS: HEPATITIS B SURFACE AB Reactive (.); HEPATITIS B SURFACE AG Negative (Negative)
[2019-11-22] MEDS: MORPHINE SULFATE PF IV DRIP 100 MG in IV DEXTROSE 5% 96 ML IV PRN (05:49)
--- NOTE | 2019-11-22 07:00 | NUR ---
End of shift report Patient slept well; managed morphine drip for comfort, endorsed at 10 mg/hour; pt bathed and cleaned; dressing changed to sacral wound; needs attended; remains on 30% aerosol oxygen via trache; report given to Nurse Ramos
--- NOTE | 2019-11-22 08:00 | NUR ---
RECEIVED PATIENT IN BED WITH EYES CLOSED DID NOT REACT TO VERBAL OR TACTILE STIMULATION SHE IS ON 30 PERCENT O2 BY TRACH MASK WITH NO SHORTNESS OF BREATH AT THIS TIME.REMAIN ON MORPHINE DRIP ORDERED CURRENTLY AT 10MG PER HOUR VIA PICC LINE ON RIGHT UPPER ARM WITH NO S/S OF INFILTERATION ON SITE NO MOANING OR FACIAL GRIMACING SEEMS COMFORTABLE DOUGLAS CATH WITH NO URINE OUTPUT AT THIS TIME CONTINUES TO HAVE GENERALISED EDEMA BOTH UPPER AND LOWER EXT ELEVATED RIGHT GROIN DARRYN CATH REMAINS INTACT MADE COMFORTABLE WILL CONTINUE TO OBSERVE.
[2019-11-22] MEDS: levETIRAcetam 500 MG/5 ML LIQUID UDC GT SCH (08:27)
--- NOTE | 2019-11-22 08:43 | NUR ---
REMAINS UNCHANGED DUE MEDS GIVEN MORPHINE DRIP REMAINS IN PROGRESS ORDERED AND PATIENT IS COMFORTABLE AT THIS TIME WILL CONTINUE TO OBSERVE AND PROVIDE COMFORT
[2019-11-22 11:47] VITALS: BP 97/51
--- NOTE | 2019-11-22 13:45 | NUR ---
DR FARIA HERE TO SEE PATIENT PULSE IS VERY WEAK AND THREADY REMAIN ON MORPHINE DRIP ORDERED WITH NO FACIAL GRIMACING NO RESTLESSNESS SEEMS AND LOOKS COMFORTABLE AT THIS TIME WILL CONTINUE TO OBSERVE.
--- NOTE | 2019-11-22 14:15 | NUR ---
NOTED THAT PATIENT HAS STOPPED BREATHING APNIEC AT THIS TIME UNABLE TO GET ANY BLOOD PRESSURE NO REACTION TO PAINFUL OR TACTILE STIMULATION PRONOUNCED BY THE LIQUID WASTE TREATMENT PLANT OPERATOR [place] SALGADO NOTIFIED PATIENT HAS NO FAMILY TO NOTIFY CALLED [employer] SPOKE WITH THEM RICH SPAULDING [employer]GAN DONATION
--- NOTE | 2019-11-22 15:30 | NUR ---
CALL RECEIVED FROM [employer] STATED THAT PATIENT IS NOT A CANDIDATE FOR ORGAN DONATION STATED CASE IS CLOSED AND BODY CAN NOW BE RELEASE TO THE MORTUARY.MEDICAL RECEPTIONIST A3WARE.
--- NOTE | 2019-11-22 15:53 | NUR ---
Revenue Cycle Administrator note: 2:12pm: Patient is a LTC subacute patient with no family, no responsible constitution party, no legal personal service representative. DANGELO called the [facility] to consult [phone], voicemail message left for the [facility] to call this SW back. 3:43pm: DANGELO received a voicemail message from Sidra Aguero at the [facility]'s office [phone]. DANGELO called Sidra back, but was unable to connect with her. DANGELO left another voicemail message, asking for a call back.
--- NOTE | 2019-11-22 17:10 | NUR ---
PATIENTS REMAINS TAKEN TO THE [facility] BY THE REFRIGERATOR TESTER AND CHART SENT TO THE NURSING OFFICE
--- NOTE | 2019-11-23 12:10 | NUR ---
10:17am: DANGELO attempted to contact the [facility] again this morning [phone], after receiving a voicemail message from Sidra Aguero from the [facility]'s office, which was left around 4:30pm on 11/21 (after DANGELO's shift was over). DANGELO was unable to connect with Sidra Aguero, and therefore DANGELO left another voicemail message, asking for a call back.
--- NOTE | 2019-11-24 11:13 | NUR ---
Votator Machine Operator Adolfo Aquino asked this SW this morning if SW knew whether [facility] had been contacted for patient's remains. SW stated she would follow-up with [facility]. This SW and nursing supervisor title Damir Trujillo contacted [facility] Professional Chip, who stated that he was not informed of anything from the other house supervisors. DANGELO called the [facility] office [phone] and spoke with Sylvester, explaining that patient had and does not have any family or responsible alliance party. Sylvester stated that as long as there is a PCP who is willing to sign off on the body, the hospital can call the [facility] morgue at [phone] and they would guide the hospital through the required paperwork and the process to turn the patient's remains [facility] to the [facility]. DANGELO thanked Sylvester for the information. DANGELO then informed Votator Machine Operator Adolfo Aquino and nursing supervisor title Damir Trujillo of above information. Damir stated he would relay this information to washhouse hand Chip in order for washhouse hand to contact the [facility] to follow-up on this process.
[2019-11-25] MEDS ORDERED: VANCOMYCIN FOR PO/GT/NG USE GT SCH (09:00)
[2019-12-02] MEDS ORDERED: VANCOMYCIN FOR PO/GT/NG USE GT SCH (09:00)
[2019-12-10] MEDS ORDERED: VANCOMYCIN FOR PO/GT/NG USE GT SCH (09:00)
== END 2019-11-22 17:05 | disposition expired | DRG 871 ==
LOC: ER 22:32 → CCU 11-20 00:44 → MEDSURG3 11-21 17:30
PROVIDERS: ADMIT Internal Medicine; ATTEND Hospitalist
PROC: 5A1945Z Respiratory Ventilation, 24-96 Consecutive Hours (ICD-10-PCS; principal; 2019-11-20)
PROC: 5A12012 Performance of Cardiac Output, Single, Manual (ICD-10-PCS; 2019-11-20)
PROC: 5A1D70Z Performance of Urinary Filtration, Intermittent, Less than 6 Hours Per Day (ICD-10-PCS; 2019-11-21)
DX: A41.9 Sepsis, unspecified organism (principal); L89.154 Pressure ulcer of sacral region, stage 4; I21.A1 Myocardial infarction type 2; J69.0 Pneumonitis due to inhalation of food and vomit; E43 Unspecified severe protein-calorie malnutrition; G92 Toxic encephalopathy; I50.23 Acute on chronic systolic (congestive) heart failure; N18.6 End stage renal disease; A04.72 Enterocolitis due to Clostridium difficile, not specified as recurrent; D68.59 Other primary thrombophilia; Z99.11 Dependence on respirator [ventilator] status; J96.11 Chronic respiratory failure with hypoxia; I13.2 Hypertensive heart and chronic kidney disease with heart failure and with stage 5 chronic kidney disease, or end stage renal disease; E78.5 Hyperlipidemia, unspecified; E87.5 Hyperkalemia; I27.20 Pulmonary hypertension, unspecified; I25.5 Ischemic cardiomyopathy; Z51.5 Encounter for palliative care; I25.2 Old myocardial infarction; G40.909 Epilepsy, unspecified, not intractable, without status epilepticus; F41.9 Anxiety disorder, unspecified; F32.9 Major depressive disorder, single episode, unspecified; G62.9 Polyneuropathy, unspecified; I25.10 Atherosclerotic heart disease of native coronary artery without angina pectoris; Z87.01 Personal history of pneumonia (recurrent); Z86.718 Personal history of other venous thrombosis and embolism; Z86.711 Personal history of pulmonary embolism; Z93.1 Gastrostomy status; Z87.440 Personal history of urinary (tract) infections; M81.0 Age-related osteoporosis without current pathological fracture; M19.90 Unspecified osteoarthritis, unspecified site; R62.7 Adult failure to thrive; M48.02 Spinal stenosis, cervical region; Z79.01 Long term (current) use of anticoagulants; N81.4 Uterovaginal prolapse, unspecified; D53.9 Nutritional anemia, unspecified; I48.0 Paroxysmal atrial fibrillation; D63.1 Anemia in chronic kidney disease; I34.0 Nonrheumatic mitral (valve) insufficiency; R13.10 Dysphagia, unspecified; Z74.01 Bed confinement status; Z99.2 Dependence on renal dialysis; Z66 Do not resuscitate; I46.9 Cardiac arrest, cause unspecified
CPT/HCPCS: 36415; 36600; 70030-TC; 71045; 83605; 83615; 83735; 84100; 84443; 85025; 85730; 86706; 87040; 87340; 87400; 90937; 93005; 94002; 94003; A4217; G0378; J0456; J0692; J2274; J3370; J7060